=== PATIENT | male | born 1945 | race Caucasian/White ===

== ENCOUNTER → 2017-05-10 | Outpatient (CLI) | payer MEDICARE ==
[2017-05-10 11:04] LABS: ISTAT CREATININE 1.2 mg/dL (0.7-1.3)
[2017-05-10] MEDS: GADOBUTROL 10 MMOL/10 ML VIAL IV (11:04)
== END | disposition home or self-care (01) ==
LOC: KCIC MRI 09:45
DX: G35 Multiple sclerosis (principal)
CPT/HCPCS: 70553; 82565; A9585

== ENCOUNTER 2017-10-27 15:38 | Inpatient (IN) | payer MEDICARE ==
[~2017-10-27] VITALS: Ht 175.3 cm; Wt 113.0 kg
[~2017-10-27 15:38] MED LIST: BENA20TA4 PO; BIMA2.5D OP; BUPR300T4 PO; CITA40TA12 PO; FENO134C PO; FLUT9.9S NS; FURO20TA3 PO; GABA600T2 PO; HYDR-963 PO; INSU100C SQ; INSU100I13 SQ; LORA0.5T PO; MELA3TAB2 PO; METO-239 PO; NYST15PO9 TP; TAMS0.4C2 PO; UBID1CAP PO
[2017-10-27] MEDS ORDERED: IV NORMAL SALINE 1000ML BAG 1,000 ML IV ONE (16:00)
[2017-10-27 16:25] LABS: BASO # 0.1 x10^3/uL (0.0-0.2); BASO % 1 % (0-3); EOS % 0 % (0-3); HEMATOCRIT 39.4 % (39.0-53.0); LYMPH # 1.2 x10^3/uL (1.0-4.8); LYMPH % 5 % (24-48); MEAN CORPUSCULAR HEMOGLOBIN 30 pg (25-35); MEAN CORPUSCULAR HGB CONC 33 g/dL (31-37); MEAN CORPUSCULAR VOLUME 90 fL (79-100); MONO # 1.5 x10^3/uL (0.0-1.1); MONO % 6 % (0-9); NEUT # 19.9 x10^3uL (1.8-7.7); NEUT % 88 % (31-73); PLATELET COUNT 282 x10^3/uL (140-400); RED BLOOD COUNT 4.38 x10^6/uL (4.30-5.70); RED CELL DISTRIBUTION WIDTH 12.6 % (11.5-14.5); WHITE BLOOD COUNT 22.7 x10^3/uL (4.0-11.0)
--- NOTE | 2017-10-27 16:25 | EKG ---
[facility] [address] [place] [address] Test Date: 2017-10-27 Test Time: 15:45:38 Pat Name: HERMINIA LOWE Department: Room: Gender: Anodic Treater: : 1945 Requested By: LALITHA COLLIER Order Number: [id number] Reading MD: Steffen Vincent Measurements Intervals [place] Rate: 85 P: -90 [place]: 180 QRS: 21 QRSD: 94 T: 66 QT: 402 QTc: 484 Interpretive Statements SINUS RHYTHM LEFT ATRIAL ABNORMALITY PROLONGED QT ABNORMAL ECG RI6.01 No previous ECG available for comparison Electronically Signed On 11-01-2017 10:25:20 CDT by Steffen Vincent
[2017-10-27 16:31] LABS: PROTHROMBIN TIME PATIENT 17.2 SEC (11.7-14.0)
--- NOTE | 2017-10-27 16:33 | RAD ---
Portable chest, 10/27/2017: HISTORY: Altered mental status There has been a previous median sternotomy. The heart size and pulmonary vascularity are normal. Vague densities at the cardiophrenic angle levels bilaterally are probably predominantly due to epicardial fat pads. A component of atelectasis may be present. The upper lung adair are clear. No definite pleural fluid is seen. IMPRESSION: Probable mild bibasilar atelectasis. Follow-up PA and lateral chest radiographs may be useful for further evaluation, if clinically indicated. Electronically signed by: Diomedes Hsieh MD (10/27/2017 4:30 PM) [facility]
[2017-10-27 16:45] LABS: CALCIUM 8.4 mg/dL (8.5-10.1); CREATININE 5.1 mg/dL (0.7-1.3); GFR 11.2; POTASSIUM 4.8 mmol/L (3.5-5.1)
--- NOTE | 2017-10-27 16:49 | PHYS DOC ---
Past Medical History Past Medical History: A-Fib, CVA, Dementia, Depression, Diabetes-Type II, Heart Disease, Other Additional Past Medical Histor: MS Past Surgical History: Coronary Bypass Surgery, Other Additional Past Surgical Histo: G-TUBE Alcohol Use: None Drug Use: None Adult General Chief Complaint Chief Complaint: ALTERED MENTAL STATUS HPI HPI Patient is a 71 year old male with hx of Afib, diabetes type 2, depression, CVA with a right sided weakness, who presents from the sn[facility]. Patient is nonverbal, was brought to the ED to be evaluated for altered mental status change .Per report from the snf this is his baseline Review of Systems Review of Systems Constitutional: NIHARIKA Eyes: NIHARIKA HENT: NIHARIKA Respiratory: NIHARIKA Cardiovascular: NIHARIKA GI: NIHARIKA : NIHARIKA Musculoskeletal: NIHARIKA Integument:NIHARIKA Neurologic: altered mental status change. All other systems were reviewed and found to be within normal limits, except as documented in this note. Current Medications Current Medications Current Medications Medications (Trade) Dose Ordered Sig/Alissa Start Time Stop Time Status Last Admin Dose Admin Sodium Chloride 1,000 ml @ 1,000 mls/hr 1X ONCE 10/27/17 16:00 10/27/17 16:59 DC 10/27/17 17:19 1,000 MLS/HR Allergies Allergies Allergies Coded Allergies Type Severity Reaction Last Updated Verified Byjzbpl-Kbh-Ndm Reductase Inhibitor Allergy Intermediate 05/10/17 Yes amoxicillin Allergy Intermediate 05/10/17 Yes zolpidem Allergy Intermediate 05/10/17 Yes Physical Exam Physical Exam Constitutional: Well developed, well nourished, no acute distress, non-toxic appearance. [] HENT: Normocephalic, atraumatic, bilateral external ears normal, oropharynx moist, no oral exudates, nose normal. [] Eyes: PERRLA, EOMI, conjunctiva normal, no discharge. [] Neck: no tenderness, supple, no stridor. [] Cardiovascular:Heart rate regular rhythm, no murmur [] Lungs & Thorax: diminished breath sounds Abdomen: Bowel sounds normal, soft, no tenderness, no masses, no pulsatile masses. Feeding tube to the abdomen :fajardo in place Skin: Warm, dry, no erythema, no rash. [] Back: No tenderness, no CVA tenderness. [] Extremities: right sided paralysis Neurologic: Lethargic response to pain stimulus Psychologic: flat Current Patient Data Vital Signs Vital Signs Date Time Temp Pulse Resp B/P (MAP) Pulse Ox O2 Delivery O2 Flow Rate FiO2 10/27/17 18:03 84 14 92 10/27/17 16:05 98.6 136/58 (84) Room Air 98.6 Lab Values Laboratory Tests Test 10/27/17 16:00 10/27/17 16:34 White Blood Count 22.7 x10^3/uL (4.0-11.0) H Red Blood Count 4.38 x10^6/uL (4.30-5.70) Hemoglobin 13.0 g/dL (13.0-17.5) Hematocrit 39.4 % (39.0-53.0) Mean Corpuscular Volume 90 fL (79-100) Mean Corpuscular Hemoglobin 30 pg (25-35) Mean Corpuscular Hemoglobin Concent 33 g/dL (31-37) Red Cell Distribution Width 12.6 % (11.5-14.5) Platelet Count 282 x10^3/uL (140-400) Neutrophils (%) (Auto) 88 % (31-73) H Lymphocytes (%) (Auto) 5 % (24-48) L Monocytes (%) (Auto) 6 % (0-9) Eosinophils (%) (Auto) 0 % (0-3) Basophils (%) (Auto) 1 % (0-3) Neutrophils # (Auto) 19.9 x10^3uL (1.8-7.7) H Lymphocytes # (Auto) 1.2 x10^3/uL (1.0-4.8) Monocytes # (Auto) 1.5 x10^3/uL (0.0-1.1) H Eosinophils # (Auto) 0.0 x10^3/uL (0.0-0.7) Basophils # (Auto) 0.1 x10^3/uL (0.0-0.2) Segmented Neutrophils % 87 % (35-66) H Band Neutrophils % 1 % (0-9) Lymphocytes % 6 % (24-48) L Monocytes % 6 % (0-10) Platelet Estimate Adequate (ADEQUATE) Large Platelets Present Prothrombin Time 17.2 SEC (11.7-14.0) H Prothrombin Time INR 1.5 (0.8-1.1) H Sodium Level 136 mmol/L (136-145) Potassium Level 4.8 mmol/L (3.5-5.1) Chloride Level 97 mmol/L (98-107) L Carbon Dioxide Level 28 mmol/L (21-32) Anion Gap 11 (6-14) Blood Urea Nitrogen 117 mg/dL (8-26) H Creatinine 5.1 mg/dL (0.7-1.3) H Estimated GFR (Cockcroft-Gault) 11.2 BUN/Creatinine Ratio 23 (6-20) H Glucose Level 273 mg/dL (70-99) H Lactic Acid Level 2.9 mmol/L (0.4-2.0) H Calcium Level 8.4 mg/dL (8.5-10.1) L Magnesium Level 2.9 mg/dL (1.8-2.4) H Total Bilirubin 0.8 mg/dL (0.2-1.0) Aspartate Amino Transferase (AST) 160 U/L (15-37) H Alanine Aminotransferase (ALT) 81 U/L (16-63) H Alkaline Phosphatase 130 U/L (46-116) H Ammonia 18 mcmol/L (11-34) Troponin I Quantitative < 0.017 ng/mL (0.000-0.055) WF-Olh-K-Type Natriuretic Peptide 116 pg/mL (0-124) Total Protein 6.7 g/dL (6.4-8.2) Albumin 2.8 g/dL (3.4-5.0) L Albumin/Globulin Ratio 0.7 (1.0-1.7) L Lipase 543 U/L (73-393) H Thyroid Stimulating Hormone (TSH) 5.139 uIU/mL (0.358-3.74) H Urine Collection Type Unknown Urine Color Brown Urine Clarity Turbid Urine pH 5.0 Urine Specific [place] 1.020 Urine Protein 100 mg/dL (NEG-TRACE) Urine Glucose (UA) Negative mg/dL (NEG) Urine Ketones (Stick) Trace mg/dL (NEG) Urine Blood Large (NEG) Urine Nitrite Positive (NEG) Urine Bilirubin Large (NEG) Urine Urobilinogen Dipstick 1.0 mg/dL (0.2 mg/dL) Urine Leukocyte Esterase Large (NEG) Urine RBC >40 /HPF (0-2) Urine WBC >40 /HPF (0-4) Urine Bacteria Many /HPF (0-FEW) Urine Opiates Screen Neg (NEG) Urine Methadone Screen Neg (NEG) Urine Barbiturates Neg (NEG) Urine Phencyclidine Screen Neg (NEG) Urine Amphetamine/Methamphetamine Neg (NEG) Urine Benzodiazepines Screen Neg (NEG) Urine Cocaine Screen Neg (NEG) Urine Cannabinoids Screen Neg (NEG) Urine Ethyl Alcohol Neg (NEG) Laboratory Tests 10/27/17 16:00 Laboratory Tests 10/27/17 16:00 EKG EKG 15:[address] Vasquez sinus rhythm heart rate 85 no STEMI Radiology/Procedures Radiology/Procedures []PROCEDURE: PORTABLE CHEST 1V Portable chest, 10/27/2017: HISTORY: Altered mental status There has been a previous median sternotomy. The heart size and pulmonary vascularity are normal. Vague densities at the cardiophrenic angle levels bilaterally are probably predominantly due to epicardial fat pads. A component of atelectasis may be present. The upper lung adair are clear. No definite pleural fluid is seen. IMPRESSION: Probable mild bibasilar atelectasis. Follow-up PA and lateral chest radiographs may be useful for further evaluation, if clinically indicated. Electronically signed by: Diomedes Hsieh MD (10/27/2017 4:30 PM) [facility] DICTATED and SIGNED BY: DIOMEDES HSIEH MD DATE: 10/27/17 162 PROCEDURE: CT HEAD WO CONTRAST CT of the head without contrast, 10/27/2017: HISTORY: Altered mental status There are moderate patchy deep white matter lucencies bilaterally compatible with chronic ischemic change. These were also evident on the MR study from 05/10/2017. There is moderate cerebral atrophy. The ventricles are within normal limits in size. There is no shift of the midline structures. There are now serpiginous, gyriform appearing foci of slightly increased density in the right parietal lobe. The appearance suggests cortical hemorrhage and/or subarachnoid hemorrhage within sulci. There is no other evidence of extra-axial hemorrhage. IMPRESSION: Probable cortical and/or adjacent subarachnoid hemorrhage in the right parietal region. A traumatic etiology (contusion) is suspected. Hemorrhage related to a venous cortical infarct is less likely. MR scanning may be useful for further evaluation, if clinically indicated. Electronically signed by: Diomedes Hsieh MD (10/27/2017 4:44 PM) [facility] DICTATED and SIGNED BY: DIOMEDES HSIEH MD DATE: 10/27/17 3663 Course & Med Decision Making Course & Med Decision Making Pertinent Labs and Imaging studies reviewed. (See chart for details) This is a 71-year-old male patient presenting to the ED today to be evaluated for altered mental status change. Patient resides at the local snf has hx of CVA, with a right-sided paralysis. Patient is currently lethargic and responding to pain stimulus only. Per report from the snf this is his baseline CBC with a WBC of 22.7 and a left shift, lactic 2.9, CMP with creatinine of 5.1 BUN 117. Urine analysis is noted for UTI. CT of the head was noted for subarachnoid hemorrhage of the right parietal region. A traumatic etiology/ contusion is suspected. Patient himself is nonverbal. Family came to the ED and they state this patient was at [facility] 3 weeks ago for a stroke. They do not know which type of stroke. They do not know if patient had renal failure on not. Requested records from [facility]. Patient was started on Zosyn and vancomycin. We were very conservative on the IV fluids because of creatinine of 15.1, with possibility of this being chronic renal failure. We gave him 1 L of IV fluids. Spoke with Dr. Son will follow-up with patient. Spoke with Dr. Willard who will also follow-up with patient Routine consult placed for nephrology, infectious disease. Family was present prior to admission. Patient appeared more awake and made sounds in response to conversation with family. Renal Doppler ordered. Dragon Disclaimer Dragon Disclaimer This electronic medical record was generated, in whole or in part, using a voice recognition dictation system. Departure Departure Impression: Primary Impression: Altered mental status Additional Impressions: Sepsis Subarachnoid hemorrhage Acute on chronic renal failure Disposition: ADMITTED INPATIENT Condition: STABLE Referrals: CORY BIRD MD (PCP) Problem Qualifiers Primary Impression: Altered mental status Altered mental status type: unspecified Qualified Codes: R41.82 - Altered mental status, unspecified Additional Impressions: Sepsis Sepsis type: sepsis due to unspecified organism Qualified Codes: A41.9 - Sepsis, unspecified organism Acute on chronic renal failure Acute renal failure type: unspecified Chronic kidney disease stage: unspecified stage Qualified Codes: N17.9 - Acute kidney failure, unspecified; N18.9 - Chronic kidney disease, unspecified LALITHA COLLIER APRN Oct 27, 2017 16:49
[2017-10-27 16:53] LABS: % BANDS 1 % (0-9); % LYMPHS 6 % (24-48); % MONOS 6 % (0-10); % SEGS 87 % (35-66); PLT ESTIMATE ADEQUATE (ADEQUATE)
[2017-10-27 16:58] LABS: ALBUMIN 2.8 g/dL (3.4-5.0); ALBUMIN/GLOBULIN RATIO 0.7 (1.0-1.7); MAGNESIUM 2.9 mg/dL (1.8-2.4); TOTAL BILIRUBIN 0.8 mg/dL (0.2-1.0); TOTAL PROTEIN 6.7 g/dL (6.4-8.2)
[2017-10-27 17:11] LABS: BILIRUBIN,URINE LARGE (NEG); CLARITY,URINE TURBID; NITRITE,URINE POSITIVE (NEG); PROTEIN,URINE 100 mg/dL (NEG-TRACE)
[2017-10-27 17:22] LABS: COLOR,URINE BROWN
[2017-10-27 17:23] LABS: BACTERIA,URINE MANY /HPF (0-FEW); RBC,URINE >40 /HPF (0-2); WBC,URINE >40 /HPF (0-4)
[2017-10-27 17:30] LABS: BARBITURATES NEG (NEG); BENZODIAZEPINES NEG (NEG); CANNABINOIDS NEG (NEG); COCAINE NEG (NEG); METHADONE NEG (NEG); OPIATES NEG (NEG); PHENCYCLIDINE NEG (NEG)
[2017-10-27 17:38] LABS: AMPHETAMINE/METHAMPHETAMINE NEG (NEG)
[2017-10-27] MEDS ORDERED: ONDANSETRON PF 4 MG/2 ML VIAL. IV PRN (18:00)
[2017-10-27] MEDS ORDERED: VANCOMYCIN IV ONE (18:15)
[2017-10-27] MEDS ORDERED: NORMAL SALINE IV ONE (18:15)
[2017-10-27] MEDS ORDERED: PIPERACILLIN/TAZOBACTAM 2.25 GM in IV NORMAL SALINE 50ML 50 ML IV ONE (18:30)
[2017-10-27] MEDS ORDERED: VANCOMYCIN 2 GM in IV NORMAL SALINE 500ML BAG 500 ML IV ONE (19:00)
--- NOTE | 2017-10-27 19:08 | RAD ---
Renal ultrasound 10/27/2017 CLINICAL HISTORY: Renal failure. TECHNIQUE: A real-time ultrasound examination of both kidneys and the urinary bladder was performed. Multiple images were obtained. FINDINGS: The study is limited to some degree due to the patient's large body habitus. Both kidneys are within normal limits in size. The right kidney measures 10.9 cm in length. The left kidney measures 11.8 cm in length. lobulation of the left kidney is seen. There is no evidence of hydronephrosis. The urinary bladder is decompressed by a Weeks catheter. IMPRESSION: There is no sonographic evidence of hydronephrosis. Electronically signed by: Fabio Kidd MD (10/27/2017 7:04 PM) [facility]
--- NOTE | 2017-10-27 19:33 | PDOC1 ---
History and Physical Date of Admission Date of Admission DATE: 10/27/17 TIME: 19:33 Identification/Chief Complaint Chief Complaint PresentED TO ER from the alf. Patient is nonverbal, was brought to the ED to be evaluated for altered mental status change report from the alf this is his baseline, HOWEVER CT SHOWS SAH Past Medical History Past Medical History Past Medical History Past Medical History: A-Fib, CVA, Dementia, Depression, Diabetes-Type II, Heart Disease, Other Additional Past Medical Histor: MS Past Surgical History: Coronary Bypass Surgery, Other Additional Past Surgical Histo: G-TUBE Alcohol Use: None Drug Use: None FAMILY HX OBESITY Cardiovascular: HTN Musculoskeletal: Osteoarthritis Dermatology: No pertinent hx Family History Family History: Hypertension Family History: Parent Social History Smoke: No ALCOHOL: none Drugs: None Current Problem List Problem List Problems Medical Problems: (1) Acute on chronic renal failure Status: Acute (2) Altered mental status Status: Acute (3) Sepsis Status: Acute Current Medications Current Medications Current Medications Sodium Chloride 1,000 ml @ 1,000 mls/hr 1X ONCE IV Last administered on at 17:19; Start 10/27/17 at 16:00; Stop 10/27/17 at 16:59; Status DC Ondansetron HCl (Zofran) 4 mg PRN Q8HRS PRN IV NAUSEA/VOMITING; Start 10/27/17 at 18:00; Stop 10/28/17 at 17:59 Piperacillin Sod/ Tazobactam Sod 4.5 gm/Sodium Chloride 100 ml @ 200 mls/hr DAILY IV ; Start 10/28/17 at 09:00; Status UNV Vancomycin HCl (Vanco Per Pharmacy) 1 each PRN DAILY PRN MC SEE COMMENTS; Start 10/27/17 at 18:00; Status UNV Vancomycin HCl 2 gm/Sodium Chloride 500 ml @ 250 mls/hr 1X ONCE IV ; Start at 19:00; Stop 10/27/17 at 20:59 Vancomycin HCl 0.5 gm/Sodium Chloride 250 ml @ 166.667 mls/hr 1X ONCE IV ; Start 10/27/17 at 18:15; Stop 10/27/17 at 19:44; Status UNV Levofloxacin/ Dextrose 100 ml @ 100 mls/hr 1X ONCE IV ; Start 10/27/17 at 18: 30; Stop 10/27/17 at 19:29; Status DC Piperacillin Sod/ Tazobactam Sod 2.25 gm/Sodium Chloride 50 ml @ 100 mls/hr 1X ONCE IV Last administered on 10/27/17at 19:00; Start 10/27/17 at 18:30; Stop 10/27/17 at 18:59; Status DC Piperacillin Sod/ Tazobactam Sod 2.25 gm/Sodium Chloride 50 ml @ 100 mls/hr Q6HRS IV ; Start 10/28/17 at 00:00 Active Scripts Active Reported Tamsulosin Hcl 0.4 Mg Cap.er.24h 0.4 Mg PO DAILY Nystatin 15 Gm Powder 15 Gm TP [place]unning 10-325 Tablet (Acetaminophen/Hydrocodone Bitart) 1 Each Tablet Unknown Dose PO PRN Q6HRS PRN Metoprolol Succinate ( Xl ) (Metoprolol Succinate) 25 Mg Tab.er.24h 25 Mg PO DAILY Melatonin 3 Mg Tablet 3 Mg PO Lumigan (Bimatoprost) 2.5 Ml Drops 2.5 Ml OP Lorazepam 0.5 Mg Tablet 0.5 Mg PO TID Lantus Solostar (Insulin Glargine,Hum.rec.anlog) 100 Unit/1 Ml Insuln.pen 1 Unit SQ Humalog (Insulin Lispro) 100 Unit/1 Ml Cartridge 100 Unit SQ Gabapentin 600 Mg Tablet Unknown Dose PO TID Furosemide 20 Mg Tablet 20 Mg PO DAILY Flonase Allergy Relief (Fluticasone Propionate) 9.9 Ml [place].susp Unknown Dose NS DAILY Fenofibrate (Fenofibrate,Micronized) 134 Mg Capsule 134 Mg PO DAILY Wyb65-Tfn E 200 mg-20 Unit Sfg (Ubidecarenone/Vitamin E Mixed) 1 Each Capsule Unknown Dose PO Celexa (Citalopram Hydrobromide) 40 Mg Tablet 40 Mg PO DAILY Bupropion Xl (Bupropion Hcl) 300 Mg Tab.er.24h 300 Mg PO Benazepril Hcl 20 Mg Tablet 20 Mg PO DAILY Allergies Allergies: Coded Allergies: Duvtrbt-Zls-Nev Reductase Inhibitor (Verified Allergy, Intermediate, ) amoxicillin (Verified Allergy, Intermediate, 05/10/17) zolpidem (Verified Allergy, Intermediate, 05/10/17) Physical Exam General: mild distress, Other (OBTUNDED) HEENT: PERRLA, EOMI Lungs: Clear to auscultation, Normal air movement Heart: RRR Breasts: Not examined Abdomen: Normal bowel sounds, Soft Rectal Exam: not examined Extremities: No clubbing, No cyanosis Skin: No breakdown Vitals Vitals Vital Signs Date Time Temp Pulse Resp B/P (MAP) Pulse Ox O2 Delivery O2 Flow Rate FiO2 10/27/17 19:01 82 20 93 10/27/17 16:05 98.6 136/58 (84) Room Air 98.6 Labs Labs Laboratory Tests Test 10/27/17 16:00 10/27/17 16:34 White Blood Count 22.7 x10^3/uL (4.0-11.0) Red Blood Count 4.38 x10^6/uL (4.30-5.70) Hemoglobin 13.0 g/dL (13.0-17.5) Hematocrit 39.4 % (39.0-53.0) Mean Corpuscular Volume 90 fL (79-100) Mean Corpuscular Hemoglobin 30 pg (25-35) Mean Corpuscular Hemoglobin Concent 33 g/dL (31-37) Red Cell Distribution Width 12.6 % (11.5-14.5) Platelet Count 282 x10^3/uL (140-400) Neutrophils (%) (Auto) 88 % (31-73) Lymphocytes (%) (Auto) 5 % (24-48) Monocytes (%) (Auto) 6 % (0-9) Eosinophils (%) (Auto) 0 % (0-3) Basophils (%) (Auto) 1 % (0-3) Neutrophils # (Auto) 19.9 x10^3uL (1.8-7.7) Lymphocytes # (Auto) 1.2 x10^3/uL (1.0-4.8) Monocytes # (Auto) 1.5 x10^3/uL (0.0-1.1) Eosinophils # (Auto) 0.0 x10^3/uL (0.0-0.7) Basophils # (Auto) 0.1 x10^3/uL (0.0-0.2) Segmented Neutrophils % 87 % (35-66) Band Neutrophils % 1 % (0-9) Lymphocytes % 6 % (24-48) Monocytes % 6 % (0-10) Platelet Estimate Adequate (ADEQUATE) Large Platelets Present Prothrombin Time 17.2 SEC (11.7-14.0) Prothromb Time International Ratio 1.5 (0.8-1.1) Sodium Level 136 mmol/L (136-145) Potassium Level 4.8 mmol/L (3.5-5.1) Chloride Level 97 mmol/L (98-107) Carbon Dioxide Level 28 mmol/L (21-32) Anion Gap 11 (6-14) Blood Urea Nitrogen 117 mg/dL (8-26) Creatinine 5.1 mg/dL (0.7-1.3) Estimated GFR (Cockcroft-Gault) 11.2 BUN/Creatinine Ratio 23 (6-20) Glucose Level 273 mg/dL (70-99) Lactic Acid Level 2.9 mmol/L (0.4-2.0) Calcium Level 8.4 mg/dL (8.5-10.1) Magnesium Level 2.9 mg/dL (1.8-2.4) Total Bilirubin 0.8 mg/dL (0.2-1.0) Aspartate Amino Transf (AST/SGOT) 160 U/L (15-37) Alanine Aminotransferase (ALT/SGPT) 81 U/L (16-63) Alkaline Phosphatase 130 U/L (46-116) Ammonia 18 mcmol/L (11-34) Troponin I Quantitative < 0.017 ng/mL (0.000-0.055) FJ-Cbs-J-Type Natriuretic Peptide 116 pg/mL (0-124) Total Protein 6.7 g/dL (6.4-8.2) Albumin 2.8 g/dL (3.4-5.0) Albumin/Globulin Ratio 0.7 (1.0-1.7) Lipase 543 U/L (73-393) Thyroid Stimulating Hormone (TSH) 5.139 uIU/mL (0.358-3.74) Urine Collection Type Unknown Urine Color Brown Urine Clarity Turbid Urine pH 5.0 Urine Specific [place] 1.020 Urine Protein 100 mg/dL (NEG-TRACE) Urine Glucose (UA) Negative mg/dL (NEG) Urine Ketones (Stick) Trace mg/dL (NEG) Urine Blood Large (NEG) Urine Nitrite Positive (NEG) Urine Bilirubin Large (NEG) Urine Urobilinogen Dipstick 1.0 mg/dL (0.2 mg/dL) Urine Leukocyte Esterase Large (NEG) Urine RBC >40 /HPF (0-2) Urine WBC >40 /HPF (0-4) Urine Bacteria Many /HPF (0-FEW) Urine Opiates Screen Neg (NEG) Urine Methadone Screen Neg (NEG) Urine Barbiturates Neg (NEG) Urine Phencyclidine Screen Neg (NEG) Urine Amphetamine/Methamphetamine Neg (NEG) Urine Benzodiazepines Screen Neg (NEG) Urine Cocaine Screen Neg (NEG) Urine Cannabinoids Screen Neg (NEG) Urine Ethyl Alcohol Neg (NEG) Laboratory Tests Test 10/27/17 16:00 10/27/17 16:34 White Blood Count 22.7 x10^3/uL (4.0-11.0) Red Blood Count 4.38 x10^6/uL (4.30-5.70) Hemoglobin 13.0 g/dL (13.0-17.5) Hematocrit 39.4 % (39.0-53.0) Mean Corpuscular Volume 90 fL (79-100) Mean Corpuscular Hemoglobin 30 pg (25-35) Mean Corpuscular Hemoglobin Concent 33 g/dL (31-37) Red Cell Distribution Width 12.6 % (11.5-14.5) Platelet Count 282 x10^3/uL (140-400) Neutrophils (%) (Auto) 88 % (31-73) Lymphocytes (%) (Auto) 5 % (24-48) Monocytes (%) (Auto) 6 % (0-9) Eosinophils (%) (Auto) 0 % (0-3) Basophils (%) (Auto) 1 % (0-3) Neutrophils # (Auto) 19.9 x10^3uL (1.8-7.7) Lymphocytes # (Auto) 1.2 x10^3/uL (1.0-4.8) Monocytes # (Auto) 1.5 x10^3/uL (0.0-1.1) Eosinophils # (Auto) 0.0 x10^3/uL (0.0-0.7) Basophils # (Auto) 0.1 x10^3/uL (0.0-0.2) Segmented Neutrophils % 87 % (35-66) Band Neutrophils % 1 % (0-9) Lymphocytes % 6 % (24-48) Monocytes % 6 % (0-10) Platelet Estimate Adequate (ADEQUATE) Large Platelets Present Prothrombin Time 17.2 SEC (11.7-14.0) Prothromb Time International Ratio 1.5 (0.8-1.1) Sodium Level 136 mmol/L (136-145) Potassium Level 4.8 mmol/L (3.5-5.1) Chloride Level 97 mmol/L (98-107) Carbon Dioxide Level 28 mmol/L (21-32) Anion Gap 11 (6-14) Blood Urea Nitrogen 117 mg/dL (8-26) Creatinine 5.1 mg/dL (0.7-1.3) Estimated GFR (Cockcroft-Gault) 11.2 BUN/Creatinine Ratio 23 (6-20) Glucose Level 273 mg/dL (70-99) Lactic Acid Level 2.9 mmol/L (0.4-2.0) Calcium Level 8.4 mg/dL (8.5-10.1) Magnesium Level 2.9 mg/dL (1.8-2.4) Total Bilirubin 0.8 mg/dL (0.2-1.0) Aspartate Amino Transf (AST/SGOT) 160 U/L (15-37) Alanine Aminotransferase (ALT/SGPT) 81 U/L (16-63) Alkaline Phosphatase 130 U/L (46-116) Ammonia 18 mcmol/L (11-34) Troponin I Quantitative < 0.017 ng/mL (0.000-0.055) GH-Qqb-Z-Type Natriuretic Peptide 116 pg/mL (0-124) Total Protein 6.7 g/dL (6.4-8.2) Albumin 2.8 g/dL (3.4-5.0) Albumin/Globulin Ratio 0.7 (1.0-1.7) Lipase 543 U/L (73-393) Thyroid Stimulating Hormone (TSH) 5.139 uIU/mL (0.358-3.74) Urine Collection Type Unknown Urine Color Brown Urine Clarity Turbid Urine pH 5.0 Urine Specific [place] 1.020 Urine Protein 100 mg/dL (NEG-TRACE) Urine Glucose (UA) Negative mg/dL (NEG) Urine Ketones (Stick) Trace mg/dL (NEG) Urine Blood Large (NEG) Urine Nitrite Positive (NEG) Urine Bilirubin Large (NEG) Urine Urobilinogen Dipstick 1.0 mg/dL (0.2 mg/dL) Urine Leukocyte Esterase Large (NEG) Urine RBC >40 /HPF (0-2) Urine WBC >40 /HPF (0-4) Urine Bacteria Many /HPF (0-FEW) Urine Opiates Screen Neg (NEG) Urine Methadone Screen Neg (NEG) Urine Barbiturates Neg (NEG) Urine Phencyclidine Screen Neg (NEG) Urine Amphetamine/Methamphetamine Neg (NEG) Urine Benzodiazepines Screen Neg (NEG) Urine Cocaine Screen Neg (NEG) Urine Cannabinoids Screen Neg (NEG) Urine Ethyl Alcohol Neg (NEG) Images Images REASON: AMS PROCEDURE: CT HEAD WO CONTRAST CT of the head without contrast, 10/27/2017: HISTORY: Altered mental status There are moderate patchy deep white matter lucencies bilaterally compatible with chronic ischemic change. These were also evident on the MR study from 05/10/2017. There is moderate cerebral atrophy. The ventricles are within normal limits in size. There is no shift of the midline structures. There are now serpiginous, gyriform appearing foci of slightly increased density in the right parietal lobe. The appearance suggests cortical hemorrhage and/or subarachnoid hemorrhage within sulci. There is no other evidence of extra-axial hemorrhage. IMPRESSION: Probable cortical and/or adjacent subarachnoid hemorrhage in the right parietal region. A traumatic etiology (contusion) is suspected. Hemorrhage related to a venous cortical infarct is less likely. MR scanning may be useful for further evaluation, if clinically indicated. Electronically signed by: Diomedes Hsieh MD (10/27/2017 4:44 PM) [facility] VTE Prophylaxis Ordered VTE Prophylaxis Devices: Yes VTE Pharmacological Prophylaxi: Contraindicated Assessment/Plan Assessment/Plan impression 1. by CT HEAD cortical and/or adjacent subarachnoid hemorrhage in the right parietal region. A traumatic etiology (contusion) is suspected. Hemorrhage related to a venous cortical infarct is less likely. 2, UTI 3. SEPSIS 4. RENAL FAILURE, Acute, according to family no hx CKD when at [facility] Recently 5. morbid obesity 6. possible closed head injury, unwitnessed 7. leukocytosis plan icu bed neurosurgery consult neurology consult ID CONSULT Nephrology consult iv fluid support npo 50 min cc time CHENCHO MARQUEZ MD Oct 27, 2017 19:33
[2017-10-27 20:05] VITALS: BP 114/58
[2017-10-27] MEDS: VANCOMYCIN PER PHARMACY MC PRN (20:10)
[2017-10-27 20:15] VITALS: BP 117/54
[2017-10-27 20:30] VITALS: BP 113/50
[2017-10-27] MEDS: ENALAPRILAT 1.25 MG/ML VIAL. IVP SCH ×2 (20:30→23:51)
[2017-10-27 21:00] VITALS: BP 112/52
[2017-10-27 22:00] VITALS: BP 114/55
[2017-10-27] MEDS: IV NORMAL SALINE 1000ML BAG 1,000 ML IV SCH (22:08)
[2017-10-27 23:00] VITALS: BP 114/55
[2017-10-27 23:21] LABS: FREE T4 1.2 ng/dL (0.76-1.46)
[2017-10-28] VITALS (24 sets, daily range): BP systolic 80–156; BP diastolic 10–80
[2017-10-28] MEDS: PIPERACILLIN/TAZOBACTAM 2.25 GM in IV NORMAL SALINE 50ML 50 ML IV SCH ×4 (00:13→17:30)
[2017-10-28] MEDS ORDERED: fentaNYL PF VIAL 100 MCG/2 ML VIAL IV ONE (00:45)
[2017-10-28 05:31] LABS: BASO % 0 % (0-3); EOS % 0 % (0-3); HEMATOCRIT 34.1 % (39.0-53.0); HEMOGLOBIN 11.5 g/dL (13.0-17.5); LYMPH # 1.2 x10^3/uL (1.0-4.8); LYMPH % 7 % (24-48); MEAN CORPUSCULAR HEMOGLOBIN 30 pg (25-35); MEAN CORPUSCULAR HGB CONC 34 g/dL (31-37); MEAN CORPUSCULAR VOLUME 90 fL (79-100); MONO # 1.5 x10^3/uL (0.0-1.1); MONO % 8 % (0-9); NEUT # 15.4 x10^3uL (1.8-7.7); NEUT % 84 % (31-73); PLATELET COUNT 209 x10^3/uL (140-400); RED BLOOD COUNT 3.79 x10^6/uL (4.30-5.70); RED CELL DISTRIBUTION WIDTH 12.5 % (11.5-14.5); WHITE BLOOD COUNT 18.3 x10^3/uL (4.0-11.0)
[2017-10-28] MEDS: ENALAPRILAT 1.25 MG/ML VIAL. IVP SCH (05:34)
[2017-10-28 05:56] LABS: ALBUMIN 2.4 g/dL (3.4-5.0); ALBUMIN/GLOBULIN RATIO 0.7 (1.0-1.7); CALCIUM 8.4 mg/dL (8.5-10.1); CREATININE 3.9 mg/dL (0.7-1.3); GFR 15.3; POTASSIUM 4.1 mmol/L (3.5-5.1)
[2017-10-28 06:02] LABS: CHOLESTEROL/HDL RATIO 2.4
[2017-10-28] MEDS ORDERED: PIPERACILLIN/TAZOBACTAM 4.5 GM in IV NORMAL SALINE 100ML 100 ML IV SCH (09:00)
--- NOTE | 2017-10-28 09:16 | PDOC ---
Provider Note Provider Note Pt seen ID consult [id number] ADRIANO VILLASENOR MD Oct 28, 2017 09:16
[2017-10-28] MEDS ORDERED: LABETALOL 20 MG/4 ML DISP.SYRIN. IVP PRN (09:30)
[2017-10-28] MEDS ORDERED: ONDANSETRON PF 4 MG/2 ML VIAL. IV PRN (09:30)
[2017-10-28] MEDS ORDERED: traMADol 50 MG TABLET PO PRN (09:30)
[2017-10-28] MEDS ORDERED: ACETAMINOPHEN 325 MG TABLET. PO PRN (09:30)
[2017-10-28] MEDS ORDERED: DEXTROSE 50% 25 GM / 50ML DISP.SYRIN. IV PRN (09:30)
[2017-10-28] MEDS ORDERED: ENALAPRILAT 1.25 MG/ML VIAL. IVP PRN (09:30)
[2017-10-28] MEDS ORDERED: DOCUSATE SODIUM 100 MG CAPSULE. PO PRN (09:30)
--- NOTE | 2017-10-28 10:40 | CONS ---
DATE OF CONSULTATION: 10/28/2017 REFERRING PHYSICIAN: Nato Alford M.D. REASON FOR CONSULTATION: UTI. HISTORY OF PRESENT ILLNESS: A 71-year-old male who was brought to the ER at [facility] after he was found to have altered mental status. The patient is unable to give history and history obtained from medical records and staff. CT of the head showed a subarachnoid hemorrhage. He was found to have RAFITA. Baseline renal function is not available, but BUN was elevated at 117 and creatinine was greater than 5. The patient was admitted to ICU. He was found to have pyuria with working diagnosis of UTI and was started on Zosyn and got a dose of IV vancomycin and Levaquin in ER. Today, the patient does not answer most of the questions, is moaning from pain especially over the right side and it appears that there was a history of fall prior to admission to [facility]. We do not have the details on the same. PAST MEDICAL HISTORY: AFib, CVA, dementia, depression, diabetes type 2, heart disease, MS, coronary artery bypass surgery, G-tube and chronic indwelling Weeks changed in ER. Allergies to statins, amoxicillin, though the patient tolerated Zosyn on 10/27/2017 and zolpidem. FAMILY HISTORY: As per HPI. SOCIAL HISTORY: No smoking, ETOH or illicit drug use. residential transfer. CURRENT MEDICATION: Zosyn. The patient got a dose of vancomycin and Levaquin. ALLERGIES: STATINS, AMOXICILLIN and ZOLPIDEM, though the patient is tolerating Zosyn well. PHYSICAL EXAMINATION: VITAL SIGNS: Temperature 98.6, T-max 99.9, pulse 87, respiratory rate 18, blood pressure 92/52 and oxygen saturation 97% on 2 liters. GENERAL: The patient is confused, answers few questions, able to tell his name and states that he is in pain with movement of right side of the body. HEENT: Anicteric. Normocephalic and atraumatic. No oral lesions. No thrush. Oral mucosa moist. LUNGS: Clear bilaterally. HEART: S1 and S2. ABDOMEN: Soft, nontender and nondistended. G-tube in place, appears okay. GENITOURINARY: Chronic indwelling Weeks in place, changed 10/27/2017 in ER. EXTREMITIES: No edema and no cyanosis. A few scattered dry skin lesions present. CENTRAL NERVOUS SYSTEM: Left-sided weakness. DERMATOLOGICAL: No generalized rash. MUSCULOSKELETAL: Not able to assess fully. The patient winces in pain with movement of right lower extremity. LABORATORY DATA: WBC 22.7 and today 18.3, hemoglobin 11.5 and was 13.0, platelets 209 and neutrophil 84%. Sodium 137, potassium 4.1, chloride 99, bicarbonate 27, BUN 119 and creatinine 3.9. BUN is down from 150 to 119 and creatinine is down from 5.1 to 3.9. Lactate at 2.9 and repeat lactate is 1.5. Calcium 8.4, total bilirubin 1.0, AST 195 and ALT 83. Pro-BNP 116. Troponin less than 0.1017. Lipase 543. UDS negative. UA shows large leukocyte esterase, wbc's greater than 40, positive nitrite and large blood. IMAGING DATA: Head CT shows probable cortical and adjacent subarachnoid hemorrhage in the right parietal area or traumatic etiology suspected hemorrhage related to venous cortical infarct is less likely. MR scanning may be useful. Chest x-ray shows probable mild bibasilar atelectasis. Ultrasound of the kidney shows no sonographic evidence of hydronephrosis. IMPRESSION: 1. Altered mental status. CT with SAH 2. Pyuria with leukocytosis. ON zosyn, dosed with IV vancomycin and Levaquin x 1 in ED. 3. Lactic acidosis with working diagnosis of urinary tract infection. 4. Acute kidney injury with ultrasound showing no hydronephrosis. 5. Diabetes mellitus. 6. High lipase. 7. Increased liver function tests. 8. History of questionable fall. 9. H/O CVA, Subarachnoid hemorrhage on CT head. 10. History of atrial fibrillation. 11. Diabetes mellitus 2. 12. Depression. 13. History of allergies to amoxicillin and the patient is tolerating Zosyn well until now. RECOMMENDATIONS: 1. Continue empiric Zosyn. 2. Discontinue vancomycin due to rafita. 3. Follow up blood culture and urine culture results. 4. Follow up labs in a.m. 5 Awaiting x-ray of the right hip per primary team. 6. Continue supportive care. Thank you, Dr. Alford for consulting Infectious Disease to participate in this patient's care. If you have any questions, do not hesitate to contact me. ADRIANO VILLASENOR MD DR: RICK/isaura JOB#: [id number] / [id number] DINORA
[2017-10-28] MEDS ORDERED: CRESTOR5 MG PO (10:52)
[2017-10-28] MEDS ORDERED: ONDA4TAB10 PO (10:52)
[2017-10-28] MEDS ORDERED: DONE10TA61 PO (10:52)
[2017-10-28] MEDS ORDERED: CYAN100072 PO (10:52)
[2017-10-28] MEDS ORDERED: BENA40TA3 PO (10:52)
[2017-10-28] MEDS ORDERED: INSU100C SQ (10:52)
[2017-10-28] MEDS ORDERED: AMIO200T4 PO (10:52)
[2017-10-28] MEDS ORDERED: APIX5TAB PO (10:52)
[2017-10-28] MEDS ORDERED: ACET325T9 PO (10:52)
[2017-10-28] MEDS ORDERED: CITA40TA12 PO (10:52)
[2017-10-28] MEDS ORDERED: CETI10TA16 PO (10:52)
[2017-10-28] MEDS ORDERED: INSU100I13 SQ ×2 (10:52)
[2017-10-28] MEDS ORDERED: MELA3TAB2 PO (10:52)
[2017-10-28] MEDS ORDERED: FURO80TA3 PO (10:52)
[2017-10-28] MEDS ORDERED: CHOL100013 PO (10:52)
[2017-10-28] MEDS ORDERED: GABA600T2 PO (10:52)
[2017-10-28] MEDS ORDERED: METO50TA29 PO (10:52)
[2017-10-28] MEDS ORDERED: MEMA10TA PO (10:52)
[2017-10-28] MEDS ORDERED: CLON0.1T PO (10:52)
[2017-10-28] MEDS ORDERED: POTA20TA82 PO (10:52)
[2017-10-28] MEDS ORDERED: ASPI-630 PO (10:52)
[2017-10-28] MEDS: IV NORMAL SALINE 1000ML BAG 1,000 ML IV SCH ×2 (11:23→22:40)
[2017-10-28] MEDS: VANCOMYCIN PER PHARMACY MC PRN ×2 (13:09→13:25)
--- NOTE | 2017-10-28 13:11 | PDOC ---
PROGRESS NOTES Chief Complaint Chief Complaint AMS, rt mild subrachnoid hemorrhage recent stroke with PEG, left side paralysis UTI, sepsi RAFITA, vasomotor morbid obesity PAFIB on eliquis possible closed head injury, unwitnessed leukocytosis dm2 from rehab dysphagia with PEG aphagia with stroke plan: fu with renal, neuro, neurosx , id cont PEG feeding MRI pending cont some home meds, hold asa, eliquis change lantus to 20u qhs, ssi for now on zosyn, vanco as per ID, fu bcx, ucx PTOT Renal US neg labs daily IVF ok transfer out of ICU History of Present Illness History of Present Illness ROS: no fever, chills, sob or chest pain pt is very drowsy, not answer any questions or follow comands appeared tender when palpate his abd and lift up his rt legs left side paralized ,has PEG as per nurse, pt can talk a little bit in rehab Vitals Vitals Vital Signs Date Time Temp Pulse Resp B/P (MAP) Pulse Ox O2 Delivery O2 Flow Rate FiO2 10/28/17 08:00 Nasal Cannula 2.0 10/28/17 06:04 87 18 92/52 (65) 97 10/28/17 04:00 98.6 98.6 Physical Exam Physical Exam pt is very drowsy, not answer any questions or follow comands appeared tender when palpate his abd and lift up his rt legs left side paralized ,has PEG General: mild distress, Other (OBTUNDED) Heart: Regular rate, Normal S1, Normal S2 Lungs: Clear Abdomen: Normal bowel sounds, Soft, Other (tender diffusely) Extremities: No clubbing, No cyanosis Skin: No breakdown Labs LABS Laboratory Tests Test 10/27/17 16:00 10/27/17 16:34 10/27/17 21:40 10/28/17 04:15 White Blood Count 22.7 x10^3/uL (4.0-11.0) 18.3 x10^3/uL (4.0-11.0) Red Blood Count 4.38 x10^6/uL (4.30-5.70) 3.79 x10^6/uL (4.30-5.70) Hemoglobin 13.0 g/dL (13.0-17.5) 11.5 g/dL (13.0-17.5) Hematocrit 39.4 % (39.0-53.0) 34.1 % (39.0-53.0) Mean Corpuscular Volume 90 fL (79-100) 90 fL (79-100) Mean Corpuscular Hemoglobin 30 pg (25-35) 30 pg (25-35) Mean Corpuscular Hemoglobin Concent 33 g/dL (31-37) 34 g/dL (31-37) Red Cell Distribution Width 12.6 % (11.5-14.5) 12.5 % (11.5-14.5) Platelet Count 282 x10^3/uL (140-400) 209 x10^3/uL (140-400) Neutrophils (%) (Auto) 88 % (31-73) 84 % (31-73) Lymphocytes (%) (Auto) 5 % (24-48) 7 % (24-48) Monocytes (%) (Auto) 6 % (0-9) 8 % (0-9) Eosinophils (%) (Auto) 0 % (0-3) 0 % (0-3) Basophils (%) (Auto) 1 % (0-3) 0 % (0-3) Neutrophils # (Auto) 19.9 x10^3uL (1.8-7.7) 15.4 x10^3uL (1.8-7.7) Lymphocytes # (Auto) 1.2 x10^3/uL (1.0-4.8) 1.2 x10^3/uL (1.0-4.8) Monocytes # (Auto) 1.5 x10^3/uL (0.0-1.1) 1.5 x10^3/uL (0.0-1.1) Eosinophils # (Auto) 0.0 x10^3/uL (0.0-0.7) 0.0 x10^3/uL (0.0-0.7) Basophils # (Auto) 0.1 x10^3/uL (0.0-0.2) 0.0 x10^3/uL (0.0-0.2) Segmented Neutrophils % 87 % (35-66) Band Neutrophils % 1 % (0-9) Lymphocytes % 6 % (24-48) Monocytes % 6 % (0-10) Platelet Estimate Adequate (ADEQUATE) Large Platelets Present Prothrombin Time 17.2 SEC (11.7-14.0) Prothromb Time International Ratio 1.5 (0.8-1.1) Sodium Level 136 mmol/L (136-145) 137 mmol/L (136-145) Potassium Level 4.8 mmol/L (3.5-5.1) 4.1 mmol/L (3.5-5.1) Chloride Level 97 mmol/L (98-107) 99 mmol/L (98-107) Carbon Dioxide Level 28 mmol/L (21-32) 27 mmol/L (21-32) Anion Gap 11 (6-14) 11 (6-14) Blood Urea Nitrogen 117 mg/dL (8-26) 119 mg/dL (8-26) Creatinine 5.1 mg/dL (0.7-1.3) 3.9 mg/dL (0.7-1.3) Estimated GFR (Cockcroft-Gault) 11.2 15.3 BUN/Creatinine Ratio 23 (6-20) 31 (6-20) Glucose Level 273 mg/dL (70-99) 233 mg/dL (70-99) Lactic Acid Level 2.9 mmol/L (0.4-2.0) 1.5 mmol/L (0.4-2.0) Calcium Level 8.4 mg/dL (8.5-10.1) 8.4 mg/dL (8.5-10.1) Magnesium Level 2.9 mg/dL (1.8-2.4) Total Bilirubin 0.8 mg/dL (0.2-1.0) 1.0 mg/dL (0.2-1.0) Aspartate Amino Transf (AST/SGOT) 160 U/L (15-37) 195 U/L (15-37) Alanine Aminotransferase (ALT/SGPT) 81 U/L (16-63) 83 U/L (16-63) Alkaline Phosphatase 130 U/L (46-116) 92 U/L (46-116) Ammonia 18 mcmol/L (11-34) Troponin I Quantitative < 0.017 ng/mL (0.000-0.055) SE-Ohb-Q-Type Natriuretic Peptide 116 pg/mL (0-124) Total Protein 6.7 g/dL (6.4-8.2) 6.0 g/dL (6.4-8.2) Albumin 2.8 g/dL (3.4-5.0) 2.4 g/dL (3.4-5.0) Albumin/Globulin Ratio 0.7 (1.0-1.7) 0.7 (1.0-1.7) Lipase 543 U/L (73-393) Thyroid Stimulating Hormone (TSH) 5.139 uIU/mL (0.358-3.74) Free Thyroxine 1.20 ng/dL (0.76-1.46) Free Triiodothyronine (T3) pg/mL 1.10 pg/mL (2.18-3.98) Urine Collection Type Unknown Urine Color Brown Urine Clarity Turbid Urine pH 5.0 Urine Specific [place] 1.020 Urine Protein 100 mg/dL (NEG-TRACE) Urine Glucose (UA) Negative mg/dL (NEG) Urine Ketones (Stick) Trace mg/dL (NEG) Urine Blood Large (NEG) Urine Nitrite Positive (NEG) Urine Bilirubin Large (NEG) Urine Urobilinogen Dipstick 1.0 mg/dL (0.2 mg/dL) Urine Leukocyte Esterase Large (NEG) Urine RBC >40 /HPF (0-2) Urine WBC >40 /HPF (0-4) Urine Bacteria Many /HPF (0-FEW) Urine Opiates Screen Neg (NEG) Urine Methadone Screen Neg (NEG) Urine Barbiturates Neg (NEG) Urine Phencyclidine Screen Neg (NEG) Urine Amphetamine/Methamphetamine Neg (NEG) Urine Benzodiazepines Screen Neg (NEG) Urine Cocaine Screen Neg (NEG) Urine Cannabinoids Screen Neg (NEG) Urine Ethyl Alcohol Neg (NEG) Triglycerides Level 97 mg/dL (0-150) Cholesterol Level 90 mg/dL (0-200) LDL Cholesterol, Calculated 34 mg/dL (0-100) VLDL Cholesterol, Calculated 19 mg/dL (0-40) Non-HDL Cholesterol Calculated 53 mg/dL (0-129) HDL Cholesterol 37 mg/dL (40-60) Cholesterol/HDL Ratio 2.4 Assessment and Plan Assessmemt and Plan Problems Medical Problems: (1) Acute on chronic renal failure Status: Acute (2) Altered mental status Status: Acute (3) Sepsis Status: Acute Comment Review of Relevant I have reviewed the following items turner (where applicable) has been applied. Labs Laboratory Tests Test 10/27/17 16:00 10/27/17 16:34 10/27/17 21:40 10/28/17 04:15 White Blood Count 22.7 x10^3/uL (4.0-11.0) 18.3 x10^3/uL (4.0-11.0) Red Blood Count 4.38 x10^6/uL (4.30-5.70) 3.79 x10^6/uL (4.30-5.70) Hemoglobin 13.0 g/dL (13.0-17.5) 11.5 g/dL (13.0-17.5) Hematocrit 39.4 % (39.0-53.0) 34.1 % (39.0-53.0) Mean Corpuscular Volume 90 fL (79-100) 90 fL (79-100) Mean Corpuscular Hemoglobin 30 pg (25-35) 30 pg (25-35) Mean Corpuscular Hemoglobin Concent 33 g/dL (31-37) 34 g/dL (31-37) Red Cell Distribution Width 12.6 % (11.5-14.5) 12.5 % (11.5-14.5) Platelet Count 282 x10^3/uL (140-400) 209 x10^3/uL (140-400) Neutrophils (%) (Auto) 88 % (31-73) 84 % (31-73) Lymphocytes (%) (Auto) 5 % (24-48) 7 % (24-48) Monocytes (%) (Auto) 6 % (0-9) 8 % (0-9) Eosinophils (%) (Auto) 0 % (0-3) 0 % (0-3) Basophils (%) (Auto) 1 % (0-3) 0 % (0-3) Neutrophils # (Auto) 19.9 x10^3uL (1.8-7.7) 15.4 x10^3uL (1.8-7.7) Lymphocytes # (Auto) 1.2 x10^3/uL (1.0-4.8) 1.2 x10^3/uL (1.0-4.8) Monocytes # (Auto) 1.5 x10^3/uL (0.0-1.1) 1.5 x10^3/uL (0.0-1.1) Eosinophils # (Auto) 0.0 x10^3/uL (0.0-0.7) 0.0 x10^3/uL (0.0-0.7) Basophils # (Auto) 0.1 x10^3/uL (0.0-0.2) 0.0 x10^3/uL (0.0-0.2) Segmented Neutrophils % 87 % (35-66) Band Neutrophils % 1 % (0-9) Lymphocytes % 6 % (24-48) Monocytes % 6 % (0-10) Platelet Estimate Adequate (ADEQUATE) Large Platelets Present Prothrombin Time 17.2 SEC (11.7-14.0) Prothromb Time International Ratio 1.5 (0.8-1.1) Sodium Level 136 mmol/L (136-145) 137 mmol/L (136-145) Potassium Level 4.8 mmol/L (3.5-5.1) 4.1 mmol/L (3.5-5.1) Chloride Level 97 mmol/L (98-107) 99 mmol/L (98-107) Carbon Dioxide Level 28 mmol/L (21-32) 27 mmol/L (21-32) Anion Gap 11 (6-14) 11 (6-14) Blood Urea Nitrogen 117 mg/dL (8-26) 119 mg/dL (8-26) Creatinine 5.1 mg/dL (0.7-1.3) 3.9 mg/dL (0.7-1.3) Estimated GFR (Cockcroft-Gault) 11.2 15.3 BUN/Creatinine Ratio 23 (6-20) 31 (6-20) Glucose Level 273 mg/dL (70-99) 233 mg/dL (70-99) Lactic Acid Level 2.9 mmol/L (0.4-2.0) 1.5 mmol/L (0.4-2.0) Calcium Level 8.4 mg/dL (8.5-10.1) 8.4 mg/dL (8.5-10.1) Magnesium Level 2.9 mg/dL (1.8-2.4) Total Bilirubin 0.8 mg/dL (0.2-1.0) 1.0 mg/dL (0.2-1.0) Aspartate Amino Transf (AST/SGOT) 160 U/L (15-37) 195 U/L (15-37) Alanine Aminotransferase (ALT/SGPT) 81 U/L (16-63) 83 U/L (16-63) Alkaline Phosphatase 130 U/L (46-116) 92 U/L (46-116) Ammonia 18 mcmol/L (11-34) Troponin I Quantitative < 0.017 ng/mL (0.000-0.055) OI-Sgu-Y-Type Natriuretic Peptide 116 pg/mL (0-124) Total Protein 6.7 g/dL (6.4-8.2) 6.0 g/dL (6.4-8.2) Albumin 2.8 g/dL (3.4-5.0) 2.4 g/dL (3.4-5.0) Albumin/Globulin Ratio 0.7 (1.0-1.7) 0.7 (1.0-1.7) Lipase 543 U/L (73-393) Thyroid Stimulating Hormone (TSH) 5.139 uIU/mL (0.358-3.74) Free Thyroxine 1.20 ng/dL (0.76-1.46) Free Triiodothyronine (T3) pg/mL 1.10 pg/mL (2.18-3.98) Urine Collection Type Unknown Urine Color Brown Urine Clarity Turbid Urine pH 5.0 Urine Specific [place] 1.020 Urine Protein 100 mg/dL (NEG-TRACE) Urine Glucose (UA) Negative mg/dL (NEG) Urine Ketones (Stick) Trace mg/dL (NEG) Urine Blood Large (NEG) Urine Nitrite Positive (NEG) Urine Bilirubin Large (NEG) Urine Urobilinogen Dipstick 1.0 mg/dL (0.2 mg/dL) Urine Leukocyte Esterase Large (NEG) Urine RBC >40 /HPF (0-2) Urine WBC >40 /HPF (0-4) Urine Bacteria Many /HPF (0-FEW) Urine Opiates Screen Neg (NEG) Urine Methadone Screen Neg (NEG) Urine Barbiturates Neg (NEG) Urine Phencyclidine Screen Neg (NEG) Urine Amphetamine/Methamphetamine Neg (NEG) Urine Benzodiazepines Screen Neg (NEG) Urine Cocaine Screen Neg (NEG) Urine Cannabinoids Screen Neg (NEG) Urine Ethyl Alcohol Neg (NEG) Triglycerides Level 97 mg/dL (0-150) Cholesterol Level 90 mg/dL (0-200) LDL Cholesterol, Calculated 34 mg/dL (0-100) VLDL Cholesterol, Calculated 19 mg/dL (0-40) Non-HDL Cholesterol Calculated 53 mg/dL (0-129) HDL Cholesterol 37 mg/dL (40-60) Cholesterol/HDL Ratio 2.4 Laboratory Tests Test 10/27/17 16:00 10/27/17 16:34 10/27/17 21:40 10/28/17 04:15 White Blood Count 22.7 x10^3/uL (4.0-11.0) 18.3 x10^3/uL (4.0-11.0) Red Blood Count 4.38 x10^6/uL (4.30-5.70) 3.79 x10^6/uL (4.30-5.70) Hemoglobin 13.0 g/dL (13.0-17.5) 11.5 g/dL (13.0-17.5) Hematocrit 39.4 % (39.0-53.0) 34.1 % (39.0-53.0) Mean Corpuscular Volume 90 fL (79-100) 90 fL (79-100) Mean Corpuscular Hemoglobin 30 pg (25-35) 30 pg (25-35) Mean Corpuscular Hemoglobin Concent 33 g/dL (31-37) 34 g/dL (31-37) Red Cell Distribution Width 12.6 % (11.5-14.5) 12.5 % (11.5-14.5) Platelet Count 282 x10^3/uL (140-400) 209 x10^3/uL (140-400) Neutrophils (%) (Auto) 88 % (31-73) 84 % (31-73) Lymphocytes (%) (Auto) 5 % (24-48) 7 % (24-48) Monocytes (%) (Auto) 6 % (0-9) 8 % (0-9) Eosinophils (%) (Auto) 0 % (0-3) 0 % (0-3) Basophils (%) (Auto) 1 % (0-3) 0 % (0-3) Neutrophils # (Auto) 19.9 x10^3uL (1.8-7.7) 15.4 x10^3uL (1.8-7.7) Lymphocytes # (Auto) 1.2 x10^3/uL (1.0-4.8) 1.2 x10^3/uL (1.0-4.8) Monocytes # (Auto) 1.5 x10^3/uL (0.0-1.1) 1.5 x10^3/uL (0.0-1.1) Eosinophils # (Auto) 0.0 x10^3/uL (0.0-0.7) 0.0 x10^3/uL (0.0-0.7) Basophils # (Auto) 0.1 x10^3/uL (0.0-0.2) 0.0 x10^3/uL (0.0-0.2) Segmented Neutrophils % 87 % (35-66) Band Neutrophils % 1 % (0-9) Lymphocytes % 6 % (24-48) Monocytes % 6 % (0-10) Platelet Estimate Adequate (ADEQUATE) Large Platelets Present Prothrombin Time 17.2 SEC (11.7-14.0) Prothromb Time International Ratio 1.5 (0.8-1.1) Sodium Level 136 mmol/L (136-145) 137 mmol/L (136-145) Potassium Level 4.8 mmol/L (3.5-5.1) 4.1 mmol/L (3.5-5.1) Chloride Level 97 mmol/L (98-107) 99 mmol/L (98-107) Carbon Dioxide Level 28 mmol/L (21-32) 27 mmol/L (21-32) Anion Gap 11 (6-14) 11 (6-14) Blood Urea Nitrogen 117 mg/dL (8-26) 119 mg/dL (8-26) Creatinine 5.1 mg/dL (0.7-1.3) 3.9 mg/dL (0.7-1.3) Estimated GFR (Cockcroft-Gault) 11.2 15.3 BUN/Creatinine Ratio 23 (6-20) 31 (6-20) Glucose Level 273 mg/dL (70-99) 233 mg/dL (70-99) Lactic Acid Level 2.9 mmol/L (0.4-2.0) 1.5 mmol/L (0.4-2.0) Calcium Level 8.4 mg/dL (8.5-10.1) 8.4 mg/dL (8.5-10.1) Magnesium Level 2.9 mg/dL (1.8-2.4) Total Bilirubin 0.8 mg/dL (0.2-1.0) 1.0 mg/dL (0.2-1.0) Aspartate Amino Transf (AST/SGOT) 160 U/L (15-37) 195 U/L (15-37) Alanine Aminotransferase (ALT/SGPT) 81 U/L (16-63) 83 U/L (16-63) Alkaline Phosphatase 130 U/L (46-116) 92 U/L (46-116) Ammonia 18 mcmol/L (11-34) Troponin I Quantitative < 0.017 ng/mL (0.000-0.055) RQ-Liy-X-Type Natriuretic Peptide 116 pg/mL (0-124) Total Protein 6.7 g/dL (6.4-8.2) 6.0 g/dL (6.4-8.2) Albumin 2.8 g/dL (3.4-5.0) 2.4 g/dL (3.4-5.0) Albumin/Globulin Ratio 0.7 (1.0-1.7) 0.7 (1.0-1.7) Lipase 543 U/L (73-393) Thyroid Stimulating Hormone (TSH) 5.139 uIU/mL (0.358-3.74) Free Thyroxine 1.20 ng/dL (0.76-1.46) Free Triiodothyronine (T3) pg/mL 1.10 pg/mL (2.18-3.98) Urine Collection Type Unknown Urine Color Brown Urine Clarity Turbid Urine pH 5.0 Urine Specific [place] 1.020 Urine Protein 100 mg/dL (NEG-TRACE) Urine Glucose (UA) Negative mg/dL (NEG) Urine Ketones (Stick) Trace mg/dL (NEG) Urine Blood Large (NEG) Urine Nitrite Positive (NEG) Urine Bilirubin Large (NEG) Urine Urobilinogen Dipstick 1.0 mg/dL (0.2 mg/dL) Urine Leukocyte Esterase Large (NEG) Urine RBC >40 /HPF (0-2) Urine WBC >40 /HPF (0-4) Urine Bacteria Many /HPF (0-FEW) Urine Opiates Screen Neg (NEG) Urine Methadone Screen Neg (NEG) Urine Barbiturates Neg (NEG) Urine Phencyclidine Screen Neg (NEG) Urine Amphetamine/Methamphetamine Neg (NEG) Urine Benzodiazepines Screen Neg (NEG) Urine Cocaine Screen Neg (NEG) Urine Cannabinoids Screen Neg (NEG) Urine Ethyl Alcohol Neg (NEG) Triglycerides Level 97 mg/dL (0-150) Cholesterol Level 90 mg/dL (0-200) LDL Cholesterol, Calculated 34 mg/dL (0-100) VLDL Cholesterol, Calculated 19 mg/dL (0-40) Non-HDL Cholesterol Calculated 53 mg/dL (0-129) HDL Cholesterol 37 mg/dL (40-60) Cholesterol/HDL Ratio 2.4 Medications Current Medications Sodium Chloride 1,000 ml @ 1,000 mls/hr 1X ONCE IV Last administered on at 17:19; Start 10/27/17 at 16:00; Stop 10/27/17 at 16:59; Status DC Ondansetron HCl (Zofran) 4 mg PRN Q8HRS PRN IV NAUSEA/VOMITING; Start 10/27/17 at 18:00; Stop 10/28/17 at 17:59 Piperacillin Sod/ Tazobactam Sod 4.5 gm/Sodium Chloride 100 ml @ 200 mls/hr DAILY IV ; Start 10/28/17 at 09:00; Status UNV Vancomycin HCl (Vanco Per Pharmacy) 1 each PRN DAILY PRN MC SEE COMMENTS Last administered on 10/27/17at 20:10; Start 10/27/17 at 18:00 Vancomycin HCl 2 gm/Sodium Chloride 500 ml @ 250 mls/hr 1X ONCE IV Last administered on 10/27/17at 19:00; Start 10/27/17 at 19:00; Stop 10/27/17 at 20:59 ; Status DC Vancomycin HCl 0.5 gm/Sodium Chloride 250 ml @ 166.667 mls/hr 1X ONCE IV ; Start 10/27/17 at 18:15; Stop 10/27/17 at 19:44; Status UNV Levofloxacin/ Dextrose 100 ml @ 100 mls/hr 1X ONCE IV Last administered on at 22:07; Start 10/27/17 at 18:30; Stop 10/27/17 at 19:29; Status DC Piperacillin Sod/ Tazobactam Sod 2.25 gm/Sodium Chloride 50 ml @ 100 mls/hr 1X ONCE IV Last administered on 10/27/17at 19:00; Start 10/27/17 at 18:30; Stop 10/27/17 at 18:59; Status DC Piperacillin Sod/ Tazobactam Sod 2.25 gm/Sodium Chloride 50 ml @ 100 mls/hr Q6HRS IV Last administered on 10/28/17at 11:24; Start 10/28/17 at 00:00 Sodium Chloride 1,000 ml @ 75 mls/hr [id number] IV Last administered on at 11:23; Start 10/27/17 at 20:00 Enalaprilat (Vasotec Inj) 1.25 mg Q6HRS IVP ; Start 10/27/17 at 20:30; Stop at 09:24; Status DC Vancomycin HCl (Vancomycin Random Level) 1 each 1X ONCE MC ; Start 10/29/17 at 05:00; Stop 10/29/17 at 05:01 Fentanyl Citrate (Fentanyl 2ml Vial) 25 mcg 1X ONCE IV Last administered on at 00:44; Start 10/28/17 at 00:45; Stop 10/28/17 at 00:46; Status DC Enalaprilat (Vasotec Inj) 1.25 mg PRN Q4HRS PRN IVP ELEVATED BP, SEE COMMENTS; Start 10/28/17 at 09:30 Acetaminophen (Tylenol) 650 mg PRN Q6HRS PRN PO FEVER; Start 10/28/17 at 09:30 Ondansetron HCl (Zofran) 4 mg PRN Q6HRS PRN IV NAUSEA/VOMITING; Start 10/28/17 at 09:30 Morphine Sulfate (Morphine Sulfate) 2 mg PRN Q2HR PRN IV MODERATE TO SEVERE PAIN; Start 10/28/17 at 09:30 Tramadol HCl (Ultram) 50 mg PRN Q6HRS PRN PO MILD TO MODERATE PAIN; Start 10/28 at 09:30 Docusate Sodium (Colace) 100 mg PRN DAILY PRN PO CONSTIPATION; Start 10/28/17 at 09:30 Labetalol HCl (Normodyne Iv Push) 10 mg PRN Q2HR PRN IVP HYPERTENSION, SEE COMMENTS; Start 10/28/17 at 09:30 Insulin Human Lispro (HumaLOG) 0-9 UNITS TIDWMEALS SQ ; Start 10/28/17 at 12:00 Dextrose (Dextrose 50%-Water Syringe) 12.5 gm PRN Q15MIN PRN IV SEE COMMENTS; Start 10/28/17 at 09:30 Lorazepam (Ativan) 0.5 mg 1X ONCE IV Last administered on 10/28/17at 11:51; Start 10/28/17 at 09:45; Stop 10/28/17 at 09:46; Status DC Lactobacillus Rhamnosus (Culturelle) 1 cap BID PO ; Start 10/28/17 at 21:00; Status Cancel Active Scripts Active Reported B-12 (Cyanocobalamin (Vitamin B-12)) 1,000 Mcg Tablet 1,000 Mcg PO DAILY Aspirin 81 Mg Tab.chew 1 Tab PO DAILY Aricept (Donepezil Hcl) 10 Mg Tablet 1 Tab PO DAILY Eliquis (Apixaban) 5 Mg Tablet 5 Mg PO BID Amiodarone Hcl 200 Mg Tablet 200 Mg PO BID Tylenol (Acetaminophen) 325 Mg Tablet 2 Tab PO PRN Q4HRS Benazepril Hcl 40 Mg Tablet 1 Tab PO DAILY Gabapentin 600 Mg Tablet 1,800 Mg PO QHS Furosemide 80 Mg Tablet 1 Tab PO DAILY Clonidine Hcl 0.1 Mg Tablet 0.1 Mg PO PRN Q8HRS Celexa (Citalopram Hydrobromide) 40 Mg Tablet 40 Mg PO DAILY Vitamin D (Cholecalciferol (Vitamin D3)) 1,000 Unit Capsule 1 Cap PO DAILY Cetirizine Hcl 10 Mg Tablet 1 Tab PO DAILY Crestor (Rosuvastatin Calcium) 5 Mg Tablet 5 Mg PO HS Potassium Chloride 20 Meq Tablet.er 20 Meq PO DAILY Zofran Odt (Ondansetron) 4 Mg Tab.rapdis 4 Mg PO BID PRN Metoprolol Succinate 50 Mg Tab.er.24h 100 Mg PO DAILY Namenda (Memantine Hcl) 10 Mg Tablet 10 Mg PO BID Melatonin 3 Mg Tablet 5 Mg PO QHS Humalog (Insulin Lispro) 100 Unit/1 Ml Cartridge 100 Unit SQ Lantus Solostar (Insulin Glargine,Hum.rec.anlog) 100 Unit/1 Ml Insuln.pen 25 Unit SQ QHS Lantus Solostar (Insulin Glargine,Hum.rec.anlog) 100 Unit/1 Ml Insuln.pen 50 Unit SQ DAILY08 Tamsulosin Hcl 0.4 Mg Cap.er.24h 0.4 Mg PO DAILY Nystatin 15 Gm Powder 15 Gm TP Lumigan (Bimatoprost) 2.5 Ml Drops 2.5 Ml OP Lorazepam 0.5 Mg Tablet 0.5 Mg PO TID Flonase Allergy Relief (Fluticasone Propionate) 9.9 Ml [place].susp Unknown Dose NS DAILY Fenofibrate (Fenofibrate,Micronized) 134 Mg Capsule 134 Mg PO DAILY Bupropion Xl (Bupropion Hcl) 300 Mg Tab.er.24h 300 Mg PO Vitals/I & O Vital Sign - Last 24 Hours 10/27/17 10/27/17 10/27/17 10/27/17 16:05 17:23 18:03 19:01 Temp 98.6 98.6 Pulse 56 88 84 82 Resp 16 20 14 20 B/P (MAP) 136/58 (84) Pulse Ox 94 95 92 93 O2 Delivery Room Air 10/27/17 10/27/17 10/27/17 10/27/17 19:30 20:05 20:05 20:15 Temp 98.5 98.5 Pulse 84 86 86 Resp 18 18 18 B/P (MAP) 114/58 (76) 117/54 (75) Pulse Ox 92 93 93 O2 Delivery Room Air Room Air Room Air 10/27/17 10/27/17 10/27/17 10/27/17 20:30 21:00 22:00 23:00 Pulse 88 88 90 90 Resp 18 18 18 18 B/P (MAP) 113/50 (71) 112/52 (72) 114/55 (74) 114/55 (74) Pulse Ox 92 92 92 92 O2 Delivery Room Air Room Air Room Air Room Air 10/28/17 10/28/17 10/28/17 10/28/17 00:00 00:00 01:00 02:00 Temp 99.9 99.9 Pulse 88 88 90 Resp 18 18 18 B/P (MAP) 135/69 (91) 119/58 (78) 102/80 (87) Pulse Ox 92 95 95 O2 Delivery Room Air Room Air Nasal Cannula Nasal Cannula O2 Flow Rate 2.0 2.0 10/28/17 10/28/17 10/28/17 10/28/17 03:03 04:00 04:00 05:00 Temp 98.6 98.6 Pulse 86 86 87 Resp 18 18 18 B/P (MAP) 140/43 (75) 150/58 (88) 156/73 (100) Pulse Ox 95 95 95 O2 Delivery Nasal Cannula Nasal Cannula Room Air Nasal Cannula O2 Flow Rate 2.0 2.0 2.0 10/28/17 10/28/17 06:04 08:00 Pulse 87 Resp 18 B/P (MAP) 92/52 (65) Pulse Ox 97 O2 Delivery Nasal Cannula Nasal Cannula O2 Flow Rate 2.0 2.0 Intake and Output 10/27/17 10/27/17 10/28/17 15:00 23:00 07:00 Intake Total 1650 ml 737 ml Output Total 300 ml 555 ml Balance 1350 ml 182 ml DARRELL MAY MD Oct 28, 2017 13:11
--- NOTE | 2017-10-28 13:17 | RAD ---
MRI Brain without contrast History: Altered mental status, left arm weakness, history of multiple sclerosis Technique: Multiplanar, multisequential noncontrast MR imaging was performed of the brain. Contrast: None Comparison: May 10, 2017 MRI brain exam and also October 27, [address] exam Findings: There is motion degradation variably for all image sequences. Corresponding with the CT findings, there is T1 shortening with associated decreased signal on gradient echo sequence along the right parietal cortical surface and subarachnoid space, area of T1 shortening about 3.5 cm transverse by 2.5 cm AP. This is associated with mild diffusion signal abnormality. There is also some new mild T1 shortening with associated decreased signal on the gradient echo sequence of the right frontal parietal lobes. There is a larger area of restricted diffusion extending more anteriorly of the right parietal lobe about 6 cm AP by 3.7 cm transverse, mild decreased signal on ADC map. There are also some more subtle foci of diffusion signal abnormality of the left centrum semiovale, more posterior focus more hypointense on the ADC map measured about 1.2 cm in size, more anterior focus iso to slightly hyperintense on the ADC map. There is a separate punctate focus of restricted diffusion of the left diaz radiata. There is also some subtle restricted diffusion extending to the right occipital lobe. As seen on previous MR brain exam, there is multifocal moderate to severe T2 and FLAIR hyperintense abnormality of the supratentorial white matter bilaterally although increased such as of the bilateral periatrial white matter and on the right corresponding with area of restricted diffusion. Septum pellucidum remains near the midline. There is slightly disconjugate gaze. There is stable mild third and lateral ventriculomegaly also mild generalized supratentorial involutional change. There is mild thickening of the mastoid air cells greater on the right. Paranasal sinuses are overall aerated. Impression: 1. Overall findings are compatible with large recent likely subacute infarct centered in the right parietal lobe although also involvement right frontal parietal lobes more anteriorly, associated hemorrhagic transformation along the cortical surfaces and subarachnoid space. There is also some extent of the recent infarct to the right occipital lobe, also some small foci of more recent likely subacute infarcts of the left diaz radiata and centrum semiovale bilaterally. 2. There is again other multifocal T2 and FLAIR hyperintense abnormality of the supratentorial parenchyma, component of which may be due to sequela of demyelination given history. Increased T2 and FLAIR signal associated with the area of recent infarct is probably due to component of edema. FOR INTERNAL CODING PURPOSES Critical result: Findings discussed with patient's nurse Fernando at 10/28/2017 1:14 PM. RESULT CODE: (C) Electronically signed by: Dennis Ruiz MD (10/28/2017 1:14 PM) [id number]
[2017-10-28] MEDS: INSULIN LISPRO 300 UNITS/3 ML INSULN.PEN. SQ SCH ×2 (13:49→17:35)
--- NOTE | 2017-10-28 13:54 | RAD ---
Single AP view of the pelvis and 2 views of both hips without comparison for bilateral hip pain, no history of injury. FINDINGS: There has been prior multilevel laminectomy with bilateral pedicle screw and bridgette fixation of the lower lumbar spine. There is no fracture, dislocation, or acute osseous abnormality identified. Moderate osteoarthritic changes are seen involving both hips. Atherosclerotic calcifications are present in the bilateral femoral arteries. IMPRESSION: 1. No fracture or acute osseous abnormalities of either hip. 2. Moderate osteoarthritis of both hips. 3. Atherosclerosis. Electronically signed by: Thomas Bergeron MD (10/28/2017 1:50 PM) [id number]
[2017-10-28] MEDS: LISINOPRIL 20 MG TABLET PO SCH (14:00)
--- NOTE | 2017-10-28 14:09 | RAD ---
CT of the abdomen and pelvis without contrast, 10/29/2015: HISTORY: Abdominal pain, recent stroke Noncontrast scans were obtained as requested. There has been a previous median sternotomy. Extensive coronary artery calcifications are present. The unopacified liver is unremarkable. The gallbladder is surgically absent. No pancreatic abnormality is seen. The spleen is of normal size. Calcifications in the hilar regions of both kidneys are probably vascular. The kidneys show no evidence of obstruction. Moderate aortoiliac calcific plaquing is present without evidence of aneurysm. No abdominal or pelvic adenopathy is seen. A Weeks catheter is present within the collapsed urinary bladder. The bowel loops are not dilated. A couple of small sigmoid diverticula are noted. No paracolonic inflammatory process is seen. The appendix is not visualized. A gastrostomy tube extends into the body of the stomach. No free air or free fluid is evident in the abdomen or pelvis. Fixation rods and screws are present in the lumbar spine from L2 through L5. There are moderate underlying degenerative changes. There has been a laminectomy through this region. IMPRESSION: 1. Chronic findings as described above. 2. No acute abdominal or pelvic abnormality is detected. PQRS Compliance Statement: One or more of the following individualized dose reduction techniques were utilized for this examination: 1. Automated exposure control 2. Adjustment of the mA and/or kV according to patient size 3. Use of iterative reconstruction technique Electronically signed by: Diomedes Hsieh MD (10/28/2017 2:06 PM) [facility]
[2017-10-28] MEDS: FENOFIBRATE,MICRONIZED 134 MG CAPSULE PO SCH (14:51)
[2017-10-28] MEDS: CHOLECALCIFEROL (VITAMIN D3) 1,000 UNIT TABLET PO SCH (14:51)
[2017-10-28] MEDS: MEMANTINE 10 MG TABLET. PO SCH ×2 (14:51→20:56)
[2017-10-28] MEDS: CYANOCOBALAMIN (VITAMIN B-12) 1,000 MCG TABLET. PO SCH (14:51)
[2017-10-28] MEDS: TAMSULOSIN 0.4 MG CAP.ER.24H. PO SCH (14:52)
[2017-10-28] MEDS: AMIODARONE HCL 200 MG TABLET. PO SCH ×2 (14:52→20:55)
[2017-10-28] MEDS: CITALOPRAM 20 MG TABLET. PO SCH (14:52)
[2017-10-28] MEDS: DONEPEZIL HCL 10 MG TABLET. PO SCH (14:53)
[2017-10-28] MEDS: METOPROLOL SUCC 24HR ER 50 MG TAB.ER.24H. PO SCH (14:53)
[2017-10-28] MEDS: CETIRIZINE HCL 10 MG TABLET. PO SCH (14:53)
--- NOTE | 2017-10-28 17:23 | PDOC2 ---
NEUROLOGY CONSULT Date of Admission Date of Admission DATE: 10/28/17 TIME: 17:02 Reason for Consult Reason for Consult: NEUROLOGY CONSULTATION 10-27-17 IMPRESSION: Subacute right parietal, posterior frontal and occipital infarct about 3 weeks ago with recent hemorrhagic transformation of IPH and SAH. Metabolic encephalopathy. Respiratory failure. Renal failure. UTI. Leukocytosis. CAD s/p CABG. AFib. DM. HTN. Ventriculomegaly. Obesity. RECOMMENDATIONS/PLAN: Life support in ICU. Hold antiplatelet agents at the present time. Brain MRI performed on 10/28/17. BP control. Treat medical and cardiac diseases. Discussed with his sisters and brought in all detail at bedside and also showed them MRI findings in ICU. HISTORY OF THE PRESENT ILLNESS: 71-y-old male patient with multiple medical and cardiac diseases had a stroke and was treated with Plavix and ASA in [facility]. He then was discharged to Rehab, but his brother and sisters stated that his condition became worse on the day of discharge. His condition has not improved, so he was brought to the ER of [facility]. His initially HCT showed ICH and SAH. Past Medical History A-Fib, CVA, HTN, Dementia, Depression, Diabetes-Type II, Heart Disease, MS ? PAST SURGERY HISTORY: Coronary Bypass Surgery, G-TUBE placement , OBESITY Family History Hypertension. ALLERGY: Review. MEDICATIONS: Refer to [facility] SOCIAL HISTORY: Denies current smoking, drinking, and illicit drug use. REVIEW OF SYSTEMS: Constitutional: Obesity. Head: No traumatic brain or head injury. Skin: No edema, or rash. Ear: No infection, tinnitus. Eyes: No vision loss or color blindness. Nose: No bleeding or purulent discharges. Hearing: Hearing decrease. Neck: No injury. Cardiac: CAD, s/p CABG, AFib, HTN, HLD. Pulmonary: No COPD. GI: No GI ulcer, GI bleeding. Urinary/genital: UTI. Endocrinologic: Diabetes Mellitus, obesity. Skeletomuscular: Left side weakness. Neurological: see HP. Psychiatric: Denies drug use/abuse. Otherwise, not [id number] review of systems. PHYSICAL EXAMINATION: General appearance is in subacute distress. HEENT: Normocephalic and nontraumatic. Eyes, nose, ears, and throat are unremarkable. Neck is supple. No lymphadenopathy. No bruits are heard over the carotid artery. No crepitus. Cardiovascular: S1, S2, seemed irregular rate and rhythm. Pulmonary: On vent. Abdomen: Bowel sounds are positive. Extremities: No rash, lesions, or edema. No restriction of range of motion NEUROLOGICAL EXAMINATION: Lethargic. Not oriented to time, place and person. PERRL. EOMI, slow. CN: no acute focal findings. Muscle tone: Decreased. Muscle strength: 3-4 DTR: 0-1 Plantar reflex: Neutral response bilaterally Gait: Unable to walk. Sensory exam: no acute abnormal findings. Not able to access cerebellar signs. F-T-N test not performed. Current Medications Current Medications Current Medications Sodium Chloride 1,000 ml @ 1,000 mls/hr 1X ONCE IV Last administered on at 17:19; Start 10/27/17 at 16:00; Stop 10/27/17 at 16:59; Status DC Ondansetron HCl (Zofran) 4 mg PRN Q8HRS PRN IV NAUSEA/VOMITING; Start 10/27/17 at 18:00; Stop 10/28/17 at 17:59 Piperacillin Sod/ Tazobactam Sod 4.5 gm/Sodium Chloride 100 ml @ 200 mls/hr DAILY IV ; Start 10/28/17 at 09:00; Status UNV Vancomycin HCl (Vanco Per Pharmacy) 1 each PRN DAILY PRN MC SEE COMMENTS Last administered on 10/28/17at 13:25; Start 10/27/17 at 18:00 Vancomycin HCl 2 gm/Sodium Chloride 500 ml @ 250 mls/hr 1X ONCE IV Last administered on 10/27/17at 19:00; Start 10/27/17 at 19:00; Stop 10/27/17 at 20:59 ; Status DC Vancomycin HCl 0.5 gm/Sodium Chloride 250 ml @ 166.667 mls/hr 1X ONCE IV ; Start 10/27/17 at 18:15; Stop 10/27/17 at 19:44; Status UNV Levofloxacin/ Dextrose 100 ml @ 100 mls/hr 1X ONCE IV Last administered on at 22:07; Start 10/27/17 at 18:30; Stop 10/27/17 at 19:29; Status DC Piperacillin Sod/ Tazobactam Sod 2.25 gm/Sodium Chloride 50 ml @ 100 mls/hr 1X ONCE IV Last administered on 10/27/17at 19:00; Start 10/27/17 at 18:30; Stop 10/27/17 at 18:59; Status DC Piperacillin Sod/ Tazobactam Sod 2.25 gm/Sodium Chloride 50 ml @ 100 mls/hr Q6HRS IV Last administered on 10/28/17at 11:24; Start 10/28/17 at 00:00 Sodium Chloride 1,000 ml @ 75 mls/hr [id number] IV Last administered on at 11:23; Start 10/27/17 at 20:00 Enalaprilat (Vasotec Inj) 1.25 mg Q6HRS IVP ; Start 10/27/17 at 20:30; Stop at 09:24; Status DC Vancomycin HCl (Vancomycin Random Level) 1 each 1X ONCE MC ; Start 10/29/17 at 05:00; Stop 10/29/17 at 05:01 Fentanyl Citrate (Fentanyl 2ml Vial) 25 mcg 1X ONCE IV Last administered on at 00:44; Start 10/28/17 at 00:45; Stop 10/28/17 at 00:46; Status DC Enalaprilat (Vasotec Inj) 1.25 mg PRN Q4HRS PRN IVP ELEVATED BP, SEE COMMENTS; Start 10/28/17 at 09:30 Acetaminophen (Tylenol) 650 mg PRN Q6HRS PRN PO FEVER; Start 10/28/17 at 09:30 Ondansetron HCl (Zofran) 4 mg PRN Q6HRS PRN IV NAUSEA/VOMITING; Start 10/28/17 at 09:30 Morphine Sulfate (Morphine Sulfate) 2 mg PRN Q2HR PRN IV MODERATE TO SEVERE PAIN; Start 10/28/17 at 09:30 Tramadol HCl (Ultram) 50 mg PRN Q6HRS PRN PO MILD TO MODERATE PAIN; Start 10/28 at 09:30 Docusate Sodium (Colace) 100 mg PRN DAILY PRN PO CONSTIPATION; Start 10/28/17 at 09:30 Labetalol HCl (Normodyne Iv Push) 10 mg PRN Q2HR PRN IVP HYPERTENSION, SEE COMMENTS; Start 10/28/17 at 09:30 Insulin Human Lispro (HumaLOG) 0-9 UNITS TIDWMEALS SQ Last administered on 10/28at 13:49; Start 10/28/17 at 12:00 Dextrose (Dextrose 50%-Water Syringe) 12.5 gm PRN Q15MIN PRN IV SEE COMMENTS; Start 10/28/17 at 09:30 Lorazepam (Ativan) 0.5 mg 1X ONCE IV Last administered on 10/28/17at 11:51; Start 10/28/17 at 09:45; Stop 10/28/17 at 09:46; Status DC Lactobacillus Rhamnosus (Culturelle) 1 cap BID PO ; Start 10/28/17 at 21:00; Status Cancel Amiodarone HCl (Cordarone) 200 mg BID PO Last administered on 10/28/17at 14:52; Start 10/28/17 at 14:00 Cetirizine HCl (ZyrTEC) 10 mg DAILY PO Last administered on 10/28/17at 14:53; Start 10/28/17 at 14:00 Cyanocobalamin (Vitamin B-12) 1,000 mcg DAILY PO Last administered on at 14:51; Start 10/28/17 at 14:00 Metoprolol Succinate (Toprol Xl) 100 mg DAILY PO Last administered on 14:53; Start 10/28/17 at 14:00 Tamsulosin HCl (Flomax) 0.4 mg DAILY PO Last administered on 10/28/17at 14:52; Start 10/28/17 at 14:00 Lisinopril (Prinivil) 40 mg DAILY PO ; Start 10/28/17 at 14:00 Vitamin D (Vitamin D3) 1,000 unit DAILY PO Last administered on 10/28/17at 14:51 ; Start 10/28/17 at 14:00 Citalopram Hydrobromide (CeleXA) 40 mg DAILY PO Last administered on 10/28/17 14:52; Start 10/28/17 at 14:00 Donepezil HCl (Aricept) 10 mg DAILY PO Last administered on 10/28/17at 14:53; Start 10/28/17 at 14:00 Fenofibrate (Lofibra) 134 mg DAILY PO Last administered on 10/28/17at 14:51; Start 10/28/17 at 14:00 Gabapentin (Neurontin) 1,800 mg QHS PO ; Start 10/28/17 at 21:00 Non-Formulary Medication (Melatonin ) 5 mg QHS PO ; Start 10/28/17 at 21:00; Status UNV Memantine (Namenda) 10 mg BID PO Last administered on 10/28/17at 14:51; Start at 14:00 Atorvastatin Calcium (Lipitor) 20 mg QHS PO ; Start 10/28/17 at 21:00 Insulin Glargine (Lantus) 20 units QHS SQ ; Start 10/28/17 at 21:00 Active Scripts Active Reported B-12 (Cyanocobalamin (Vitamin B-12)) 1,000 Mcg Tablet 1,000 Mcg PO DAILY Aspirin 81 Mg Tab.chew 1 Tab PO DAILY Aricept (Donepezil Hcl) 10 Mg Tablet 1 Tab PO DAILY Eliquis (Apixaban) 5 Mg Tablet 5 Mg PO BID Amiodarone Hcl 200 Mg Tablet 200 Mg PO BID Tylenol (Acetaminophen) 325 Mg Tablet 2 Tab PO PRN Q4HRS Benazepril Hcl 40 Mg Tablet 1 Tab PO DAILY Gabapentin 600 Mg Tablet 1,800 Mg PO QHS Furosemide 80 Mg Tablet 1 Tab PO DAILY Clonidine Hcl 0.1 Mg Tablet 0.1 Mg PO PRN Q8HRS Celexa (Citalopram Hydrobromide) 40 Mg Tablet 40 Mg PO DAILY Vitamin D (Cholecalciferol (Vitamin D3)) 1,000 Unit Capsule 1 Cap PO DAILY Cetirizine Hcl 10 Mg Tablet 1 Tab PO DAILY Crestor (Rosuvastatin Calcium) 5 Mg Tablet 5 Mg PO HS Potassium Chloride 20 Meq Tablet.er 20 Meq PO DAILY Zofran Odt (Ondansetron) 4 Mg Tab.rapdis 4 Mg PO BID PRN Metoprolol Succinate 50 Mg Tab.er.24h 100 Mg PO DAILY Namenda (Memantine Hcl) 10 Mg Tablet 10 Mg PO BID Melatonin 3 Mg Tablet 5 Mg PO QHS Humalog (Insulin Lispro) 100 Unit/1 Ml Cartridge 100 Unit SQ Lantus Solostar (Insulin Glargine,Hum.rec.anlog) 100 Unit/1 Ml Insuln.pen 25 Unit SQ QHS Lantus Solostar (Insulin Glargine,Hum.rec.anlog) 100 Unit/1 Ml Insuln.pen 50 Unit SQ DAILY08 Tamsulosin Hcl 0.4 Mg Cap.er.24h 0.4 Mg PO DAILY Nystatin 15 Gm Powder 15 Gm TP Lumigan (Bimatoprost) 2.5 Ml Drops 2.5 Ml OP Lorazepam 0.5 Mg Tablet 0.5 Mg PO TID Flonase Allergy Relief (Fluticasone Propionate) 9.9 Ml [place].susp Unknown Dose NS DAILY Fenofibrate (Fenofibrate,Micronized) 134 Mg Capsule 134 Mg PO DAILY Bupropion Xl (Bupropion Hcl) 300 Mg Tab.er.24h 300 Mg PO Allergies Allergies: Allergies Coded Allergies Type Severity Reaction Last Updated Verified [id number] Reductase Inhibitor Allergy Intermediate 05/10/17 Yes amoxicillin Allergy Intermediate 10/28/17 Yes zolpidem Allergy Intermediate 05/10/17 Yes ROS Review of System The patient denies any associated fevers, chills, headache, ear pain, rhinorrhea , sore throat, stiff neck, productive cough, chest pain, shortness of breath, back or flank pain, abdominal pain, nausea, vomiting, diarrhea, constipation, dysuria, rash, numbness, weakness, tingling, incontinence, difficulty ambulating, or diaphoresis. Physical Exam Physical Exam General: Well developed, well nourished, no acute distress, well appearing HEENT: Pupils equally round and reactive to light, EOMI, no discharge, normal conjunctiva Neck: Supple, no nuchal rigidity, no JVD, trachea midline, no tenderness Cardiac: RRR, no murmurs, no gallops, no rubs Chest/Lungs: CTAB, no wheeze, no rhonchi, no crackles Abdomen: soft, non-distended, no guarding, no peritoneal signs, non-tender Back: No tenderness Extremities: no edema, pulses intact, non-tender,capillary refill <3 sec bilateral upper and lower extremities, Neuro: Alert and oriented x 4, no focal deficits, normal speech Vitals Vitals: Vital Signs Date Time Temp Pulse Resp B/P (MAP) Pulse Ox O2 Delivery O2 Flow Rate FiO2 10/28/17 16:00 99.2 82 16 113/58 (76) 99 Nasal Cannula 2.0 99.2 Labs Labs Laboratory Tests Test 10/27/17 16:00 10/27/17 16:34 10/27/17 21:40 9/21/18 04:15 White Blood Count 22.7 x10^3/uL (4.0-11.0) 18.3 x10^3/uL (4.0-11.0) Red Blood Count 4.38 x10^6/uL (4.30-5.70) 3.79 x10^6/uL (4.30-5.70) Hemoglobin 13.0 g/dL (13.0-17.5) 11.5 g/dL (13.0-17.5) Hematocrit 39.4 % (39.0-53.0) 34.1 % (39.0-53.0) Mean Corpuscular Volume 90 fL (79-100) 90 fL (79-100) Mean Corpuscular Hemoglobin 30 pg (25-35) 30 pg (25-35) Mean Corpuscular Hemoglobin Concent 33 g/dL (31-37) 34 g/dL (31-37) Red Cell Distribution Width 12.6 % (11.5-14.5) 12.5 % (11.5-14.5) Platelet Count 282 x10^3/uL (140-400) 209 x10^3/uL (140-400) Neutrophils (%) (Auto) 88 % (31-73) 84 % (31-73) Lymphocytes (%) (Auto) 5 % (24-48) 7 % (24-48) Monocytes (%) (Auto) 6 % (0-9) 8 % (0-9) Eosinophils (%) (Auto) 0 % (0-3) 0 % (0-3) Basophils (%) (Auto) 1 % (0-3) 0 % (0-3) Neutrophils # (Auto) 19.9 x10^3uL (1.8-7.7) 15.4 x10^3uL (1.8-7.7) Lymphocytes # (Auto) 1.2 x10^3/uL (1.0-4.8) 1.2 x10^3/uL (1.0-4.8) Monocytes # (Auto) 1.5 x10^3/uL (0.0-1.1) 1.5 x10^3/uL (0.0-1.1) Eosinophils # (Auto) 0.0 x10^3/uL (0.0-0.7) 0.0 x10^3/uL (0.0-0.7) Basophils # (Auto) 0.1 x10^3/uL (0.0-0.2) 0.0 x10^3/uL (0.0-0.2) Segmented Neutrophils % 87 % (35-66) Band Neutrophils % 1 % (0-9) Lymphocytes % 6 % (24-48) Monocytes % 6 % (0-10) Platelet Estimate Adequate (ADEQUATE) Large Platelets Present Prothrombin Time 17.2 SEC (11.7-14.0) Prothromb Time International Ratio 1.5 (0.8-1.1) Sodium Level 136 mmol/L (136-145) 137 mmol/L (136-145) Potassium Level 4.8 mmol/L (3.5-5.1) 4.1 mmol/L (3.5-5.1) Chloride Level 97 mmol/L (98-107) 99 mmol/L (98-107) Carbon Dioxide Level 28 mmol/L (21-32) 27 mmol/L (21-32) Anion Gap 11 (6-14) 11 (6-14) Blood Urea Nitrogen 117 mg/dL (8-26) 119 mg/dL (8-26) Creatinine 5.1 mg/dL (0.7-1.3) 3.9 mg/dL (0.7-1.3) Estimated GFR (Cockcroft-Gault) 11.2 15.3 BUN/Creatinine Ratio 23 (6-20) 31 (6-20) Glucose Level 273 mg/dL (70-99) 233 mg/dL (70-99) Lactic Acid Level 2.9 mmol/L (0.4-2.0) 1.5 mmol/L (0.4-2.0) Calcium Level 8.4 mg/dL (8.5-10.1) 8.4 mg/dL (8.5-10.1) Magnesium Level 2.9 mg/dL (1.8-2.4) Total Bilirubin 0.8 mg/dL (0.2-1.0) 1.0 mg/dL (0.2-1.0) Aspartate Amino Transf (AST/SGOT) 160 U/L (15-37) 195 U/L (15-37) Alanine Aminotransferase (ALT/SGPT) 81 U/L (16-63) 83 U/L (16-63) Alkaline Phosphatase 130 U/L (46-116) 92 U/L (46-116) Ammonia 18 mcmol/L (11-34) Troponin I Quantitative < 0.017 ng/mL (0.000-0.055) XC-Qwa-H-Type Natriuretic Peptide 116 pg/mL (0-124) Total Protein 6.7 g/dL (6.4-8.2) 6.0 g/dL (6.4-8.2) Albumin 2.8 g/dL (3.4-5.0) 2.4 g/dL (3.4-5.0) Albumin/Globulin Ratio 0.7 (1.0-1.7) 0.7 (1.0-1.7) Lipase 543 U/L (73-393) Thyroid Stimulating Hormone (TSH) 5.139 uIU/mL (0.358-3.74) Free Thyroxine 1.20 ng/dL (0.76-1.46) Free Triiodothyronine (T3) pg/mL 1.10 pg/mL (2.18-3.98) Urine Collection Type Unknown Urine Color Brown Urine Clarity Turbid Urine pH 5.0 Urine Specific [place] 1.020 Urine Protein 100 mg/dL (NEG-TRACE) Urine Glucose (UA) Negative mg/dL (NEG) Urine Ketones (Stick) Trace mg/dL (NEG) Urine Blood Large (NEG) Urine Nitrite Positive (NEG) Urine Bilirubin Large (NEG) Urine Urobilinogen Dipstick 1.0 mg/dL (0.2 mg/dL) Urine Leukocyte Esterase Large (NEG) Urine RBC >40 /HPF (0-2) Urine WBC >40 /HPF (0-4) Urine Bacteria Many /HPF (0-FEW) Urine Opiates Screen Neg (NEG) Urine Methadone Screen Neg (NEG) Urine Barbiturates Neg (NEG) Urine Phencyclidine Screen Neg (NEG) Urine Amphetamine/Methamphetamine Neg (NEG) Urine Benzodiazepines Screen Neg (NEG) Urine Cocaine Screen Neg (NEG) Urine Cannabinoids Screen Neg (NEG) Urine Ethyl Alcohol Neg (NEG) Triglycerides Level 97 mg/dL (0-150) Cholesterol Level 90 mg/dL (0-200) LDL Cholesterol, Calculated 34 mg/dL (0-100) VLDL Cholesterol, Calculated 19 mg/dL (0-40) Non-HDL Cholesterol Calculated 53 mg/dL (0-129) HDL Cholesterol 37 mg/dL (40-60) Cholesterol/HDL Ratio 2.4 Test 10/28/17 13:35 Glucose (Fingerstick) 253 mg/dL (70-99) Laboratory Tests Test 10/27/17 21:40 10/28/17 04:15 10/28/17 13:35 Lactic Acid Level 1.5 mmol/L (0.4-2.0) White Blood Count 18.3 x10^3/uL (4.0-11.0) Red Blood Count 3.79 x10^6/uL (4.30-5.70) Hemoglobin 11.5 g/dL (13.0-17.5) Hematocrit 34.1 % (39.0-53.0) Mean Corpuscular Volume 90 fL (79-100) Mean Corpuscular Hemoglobin 30 pg (25-35) Mean Corpuscular Hemoglobin Concent 34 g/dL (31-37) Red Cell Distribution Width 12.5 % (11.5-14.5) Platelet Count 209 x10^3/uL (140-400) Neutrophils (%) (Auto) 84 % (31-73) Lymphocytes (%) (Auto) 7 % (24-48) Monocytes (%) (Auto) 8 % (0-9) Eosinophils (%) (Auto) 0 % (0-3) Basophils (%) (Auto) 0 % (0-3) Neutrophils # (Auto) 15.4 x10^3uL (1.8-7.7) Lymphocytes # (Auto) 1.2 x10^3/uL (1.0-4.8) Monocytes # (Auto) 1.5 x10^3/uL (0.0-1.1) Eosinophils # (Auto) 0.0 x10^3/uL (0.0-0.7) Basophils # (Auto) 0.0 x10^3/uL (0.0-0.2) Sodium Level 137 mmol/L (136-145) Potassium Level 4.1 mmol/L (3.5-5.1) Chloride Level 99 mmol/L (98-107) Carbon Dioxide Level 27 mmol/L (21-32) Anion Gap 11 (6-14) Blood Urea Nitrogen 119 mg/dL (8-26) Creatinine 3.9 mg/dL (0.7-1.3) Estimated GFR (Cockcroft-Gault) 15.3 BUN/Creatinine Ratio 31 (6-20) Glucose Level 233 mg/dL (70-99) Calcium Level 8.4 mg/dL (8.5-10.1) Total Bilirubin 1.0 mg/dL (0.2-1.0) Aspartate Amino Transf (AST/SGOT) 195 U/L (15-37) Alanine Aminotransferase (ALT/SGPT) 83 U/L (16-63) Alkaline Phosphatase 92 U/L (46-116) Total Protein 6.0 g/dL (6.4-8.2) Albumin 2.4 g/dL (3.4-5.0) Albumin/Globulin Ratio 0.7 (1.0-1.7) Triglycerides Level 97 mg/dL (0-150) Cholesterol Level 90 mg/dL (0-200) LDL Cholesterol, Calculated 34 mg/dL (0-100) VLDL Cholesterol, Calculated 19 mg/dL (0-40) Non-HDL Cholesterol Calculated 53 mg/dL (0-129) HDL Cholesterol 37 mg/dL (40-60) Cholesterol/HDL Ratio 2.4 Glucose (Fingerstick) 253 mg/dL (70-99) RODO SYKES MD Oct 28, 2017 17:23
--- NOTE | 2017-10-28 17:27 | PDOC ---
PROGRESS NOTES Assessment Assessment Subacute right parietal, posterior frontal and occipital infarct about 3 weeks ago with recent hemorrhagic transformation of IPH and SAH. Metabolic encephalopathy. Respiratory failure. Renal failure. UTI. Leukocytosis. CAD s/p CABG. AFib. DM. HTN. Ventriculomegaly. Obesity. RECOMMENDATIONS/PLAN: Life support in ICU. Hold antiplatelet agents at the present time. Brain MRI performed on 10/28/17. BP control. Treat medical and cardiac diseases. Discussed with his sisters and brought in all detail at bedside and also showed them MRI findings in ICU on 10/28/17. HISTORY OF THE PRESENT ILLNESS: 71-y-old male patient with multiple medical and cardiac diseases had a stroke and was treated with Plavix and ASA in [facility]. He then was discharged to Rehab, but his brother and sisters stated that his condition became worse on the day of discharge. His condition has not improved, so he was brought to the ER of [facility]. His initially HCT showed ICH and SAH, but MRI on 10/28 provided better explanation of hemorrhagic transformation from his recent ischemic infarct. Past Medical History A-Fib, CVA, HTN, Dementia, Depression, Diabetes-Type II, Heart Disease, MS ? PAST SURGERY HISTORY: Coronary Bypass Surgery, G-TUBE placement , OBESITY Family History Hypertension. ALLERGY: Review. MEDICATIONS: Refer to MAR SOCIAL HISTORY: Denies current smoking, drinking, and illicit drug use. REVIEW OF SYSTEMS: Constitutional: Obesity. Head: No traumatic brain or head injury. Skin: No edema, or rash. Ear: No infection, tinnitus. Eyes: No vision loss or color blindness. Nose: No bleeding or purulent discharges. Hearing: Hearing decrease. Neck: No injury. Cardiac: CAD, s/p CABG, AFib, HTN, HLD. Pulmonary: No COPD. GI: No GI ulcer, GI bleeding. Urinary/genital: UTI. Endocrinologic: Diabetes Mellitus, obesity. Skeletomuscular: Left side weakness. Neurological: see HP. Psychiatric: Denies drug use/abuse. Otherwise, not [id number] review of systems. PHYSICAL EXAMINATION: General appearance is in subacute distress. HEENT: Normocephalic and nontraumatic. Eyes, nose, ears, and throat are unremarkable. Neck is supple. No lymphadenopathy. No bruits are heard over the carotid artery. No crepitus. Cardiovascular: S1, S2, seemed irregular rate and rhythm. Pulmonary: On vent. Abdomen: Bowel sounds are positive. Extremities: No rash, lesions, or edema. No restriction of range of motion NEUROLOGICAL EXAMINATION: Lethargic. Not oriented to time, place and person. PERRL. EOMI, slow. CN: no acute focal findings. Muscle tone: Decreased. Muscle strength: 3-4 DTR: 0-1 Plantar reflex: Neutral response bilaterally Gait: Unable to walk. Sensory exam: no acute abnormal findings. Not able to access cerebellar signs. F-T-N test not performed. Objective Objective Vital Signs Date Time Temp Pulse Resp B/P (MAP) Pulse Ox O2 Delivery O2 Flow Rate FiO2 10/28/17 17:00 79 20 115/62 (79) 95 Room Air 10/28/17 16:00 99.2 2.0 99.2 Intake and Output 10/28/17 07:00 Intake Total 2387 ml Output Total 855 ml Balance 1532 ml Intake Oral 0 ml IV Total 2387 ml Output Urine Total 855 ml Vitals Signs Vitals VS - Last 72 Hours, by Label Date Time Temp Pulse Resp B/P (MAP) Pulse Ox O2 Delivery O2 Flow Rate FiO2 10/28/17 17:00 79 20 115/62 (79) 95 Room Air 10/28/17 16:00 99.2 82 16 113/58 (76) 99 Nasal Cannula 2.0 99.2 10/28/17 16:00 Nasal Cannula 2.0 10/28/17 15:00 90 16 147/57 (87) 98 Nasal Cannula 2.0 10/28/17 14:53 89 137/66 10/28/17 14:52 89 137/66 10/28/17 14:00 92 16 137/66 (89) 92 Nasal Cannula 2.0 10/28/17 13:00 92 19 124/60 (81) 95 Nasal Cannula 2.0 10/28/17 12:00 98.6 92 19 123/54 (77) 95 Nasal Cannula 2.0 98.6 10/28/17 12:00 Nasal Cannula 2.0 10/28/17 11:00 92 18 118/56 (76) 96 Nasal Cannula 2.0 10/28/17 10:00 86 18 80/46 (57) 96 Nasal Cannula 2.0 10/28/17 09:00 86 18 112/73 (86) 94 Nasal Cannula 2.0 10/28/17 08:00 Nasal Cannula 2.0 10/28/17 08:00 98.3 90 18 104/70 (81) 96 Nasal Cannula 2.0 98.3 10/28/17 07:00 86 18 116/54 (74) 96 Nasal Cannula 2.0 10/28/17 06:04 87 18 92/52 (65) 97 Nasal Cannula 2.0 10/28/17 05:00 87 18 156/73 (100) 95 Nasal Cannula 2.0 10/28/17 04:00 Room Air 10/28/17 04:00 98.6 86 18 150/58 (88) 95 Nasal Cannula 2.0 98.6 10/28/17 03:03 86 18 140/43 (75) 95 Nasal Cannula 2.0 10/28/17 02:00 90 18 102/80 (87) 95 Nasal Cannula 2.0 10/28/17 01:00 88 18 119/58 (78) 95 Nasal Cannula 2.0 10/28/17 00:00 99.9 88 18 135/69 (91) 92 Room Air 99.9 10/28/17 00:00 Room Air 10/27/17 23:00 90 18 114/55 (74) 92 Room Air 10/27/17 22:00 90 18 114/55 (74) 92 Room Air 10/27/17 21:00 88 18 112/52 (72) 92 Room Air 10/27/17 20:30 88 18 113/50 (71) 92 Room Air 10/27/17 20:15 86 18 117/54 (75) 93 Room Air 10/27/17 20:05 Room Air 10/27/17 20:05 98.5 86 18 114/58 (76) 93 Room Air 98.5 10/27/17 19:30 84 18 92 10/27/17 19:01 82 20 93 10/27/17 18:03 84 14 92 10/27/17 17:23 88 20 95 10/27/17 16:05 98.6 56 16 136/58 (84) 94 Room Air 98.6 Laboratory Laboratory Laboratory Tests Test 10/27/17 21:40 10/28/17 04:15 10/28/17 13:35 Lactic Acid Level 1.5 mmol/L (0.4-2.0) White Blood Count 18.3 x10^3/uL (4.0-11.0) Red Blood Count 3.79 x10^6/uL (4.30-5.70) Hemoglobin 11.5 g/dL (13.0-17.5) Hematocrit 34.1 % (39.0-53.0) Mean Corpuscular Volume 90 fL (79-100) Mean Corpuscular Hemoglobin 30 pg (25-35) Mean Corpuscular Hemoglobin Concent 34 g/dL (31-37) Red Cell Distribution Width 12.5 % (11.5-14.5) Platelet Count 209 x10^3/uL (140-400) Neutrophils (%) (Auto) 84 % (31-73) Lymphocytes (%) (Auto) 7 % (24-48) Monocytes (%) (Auto) 8 % (0-9) Eosinophils (%) (Auto) 0 % (0-3) Basophils (%) (Auto) 0 % (0-3) Neutrophils # (Auto) 15.4 x10^3uL (1.8-7.7) Lymphocytes # (Auto) 1.2 x10^3/uL (1.0-4.8) Monocytes # (Auto) 1.5 x10^3/uL (0.0-1.1) Eosinophils # (Auto) 0.0 x10^3/uL (0.0-0.7) Basophils # (Auto) 0.0 x10^3/uL (0.0-0.2) Sodium Level 137 mmol/L (136-145) Potassium Level 4.1 mmol/L (3.5-5.1) Chloride Level 99 mmol/L (98-107) Carbon Dioxide Level 27 mmol/L (21-32) Anion Gap 11 (6-14) Blood Urea Nitrogen 119 mg/dL (8-26) Creatinine 3.9 mg/dL (0.7-1.3) Estimated GFR (Cockcroft-Gault) 15.3 BUN/Creatinine Ratio 31 (6-20) Glucose Level 233 mg/dL (70-99) Calcium Level 8.4 mg/dL (8.5-10.1) Total Bilirubin 1.0 mg/dL (0.2-1.0) Aspartate Amino Transf (AST/SGOT) 195 U/L (15-37) Alanine Aminotransferase (ALT/SGPT) 83 U/L (16-63) Alkaline Phosphatase 92 U/L (46-116) Total Protein 6.0 g/dL (6.4-8.2) Albumin 2.4 g/dL (3.4-5.0) Albumin/Globulin Ratio 0.7 (1.0-1.7) Triglycerides Level 97 mg/dL (0-150) Cholesterol Level 90 mg/dL (0-200) LDL Cholesterol, Calculated 34 mg/dL (0-100) VLDL Cholesterol, Calculated 19 mg/dL (0-40) Non-HDL Cholesterol Calculated 53 mg/dL (0-129) HDL Cholesterol 37 mg/dL (40-60) Cholesterol/HDL Ratio 2.4 Glucose (Fingerstick) 253 mg/dL (70-99) Microbiology 10/27/17 Blood Culture - Final, Complete Medication Medications Current Medications Acetaminophen (Tylenol) 650 mg PRN Q6HRS PRN PO FEVER; Start 10/28/17 at 09:30 Amiodarone HCl (Cordarone) 200 mg BID PO Last administered on 10/28/17at 14:52; Start 10/28/17 at 14:00 Atorvastatin Calcium (Lipitor) 20 mg QHS PO ; Start 10/28/17 at 21:00 Cetirizine HCl (ZyrTEC) 10 mg DAILY PO Last administered on 10/28/17at 14:53; Start 10/28/17 at 14:00 Citalopram Hydrobromide (CeleXA) 40 mg DAILY PO Last administered on 10/28/17at 14:52; Start 10/28/17 at 14:00 Cyanocobalamin (Vitamin B-12) 1,000 mcg DAILY PO Last administered on at 14:51; Start 10/28/17 at 14:00 Dextrose (Dextrose 50%-Water Syringe) 12.5 gm PRN Q15MIN PRN IV SEE COMMENTS; Start 10/28/17 at 09:30 Docusate Sodium (Colace) 100 mg PRN DAILY PRN PO CONSTIPATION; Start 10/28/17 at 09:30 Donepezil HCl (Aricept) 10 mg DAILY PO Last administered on 10/28/17at 14:53; Start 10/28/17 at 14:00 Enalaprilat (Vasotec Inj) 1.25 mg PRN Q4HRS PRN IVP ELEVATED BP, SEE COMMENTS; Start 10/28/17 at 09:30 Enalaprilat (Vasotec Inj) 1.25 mg Q6HRS IVP ; Start 10/27/17 at 20:30; Stop at 09:24; Status DC Fenofibrate (Lofibra) 134 mg DAILY PO Last administered on 10/28/17at 14:51; Start 10/28/17 at 14:00 Fentanyl Citrate (Fentanyl 2ml Vial) 25 mcg 1X ONCE IV Last administered on at 00:44; Start 10/28/17 at 00:45; Stop 10/28/17 at 00:46; Status DC Gabapentin (Neurontin) 1,800 mg QHS PO ; Start 10/28/17 at 21:00 Insulin Glargine (Lantus) 20 units QHS SQ ; Start 10/28/17 at 21:00 Insulin Human Lispro (HumaLOG) 0-9 UNITS TIDWMEALS SQ Last administered on 10/28at 13:49; Start 10/28/17 at 12:00 Labetalol HCl (Normodyne Iv Push) 10 mg PRN Q2HR PRN IVP HYPERTENSION, SEE COMMENTS; Start 10/28/17 at 09:30 Lactobacillus Rhamnosus (Culturelle) 1 cap BID PO ; Start 10/28/17 at 21:00; Status Cancel Levofloxacin/ Dextrose 100 ml @ 100 mls/hr 1X ONCE IV Last administered on at 22:07; Start 10/27/17 at 18:30; Stop 10/27/17 at 19:29; Status DC Lisinopril (Prinivil) 40 mg DAILY PO ; Start 10/28/17 at 14:00 Lorazepam (Ativan) 0.5 mg 1X ONCE IV Last administered on 10/28/17at 11:51; Start 10/28/17 at 09:45; Stop 10/28/17 at 09:46; Status DC Memantine (Namenda) 10 mg BID PO Last administered on 10/28/17at 14:51; Start at 14:00 Metoprolol Succinate (Toprol Xl) 100 mg DAILY PO Last administered on at 14:53; Start 10/28/17 at 14:00 Morphine Sulfate (Morphine Sulfate) 2 mg PRN Q2HR PRN IV MODERATE TO SEVERE PAIN; Start 10/28/17 at 09:30 Non-Formulary Medication (Melatonin ) 5 mg QHS PO ; Start 10/28/17 at 21:00; Status UNV Ondansetron HCl (Zofran) 4 mg PRN Q6HRS PRN IV NAUSEA/VOMITING; Start 10/28/17 at 09:30 Ondansetron HCl (Zofran) 4 mg PRN Q8HRS PRN IV NAUSEA/VOMITING; Start 10/27/17 at 18:00; Stop 10/28/17 at 17:59 Piperacillin Sod/ Tazobactam Sod 2.25 gm/Sodium Chloride 50 ml @ 100 mls/hr 1X ONCE IV Last administered on 10/27/17at 19:00; Start 10/27/17 at 18:30; Stop 10/27/17 at 18:59; Status DC Piperacillin Sod/ Tazobactam Sod 2.25 gm/Sodium Chloride 50 ml @ 100 mls/hr Q6HRS IV Last administered on 10/28/17at 11:24; Start 10/28/17 at 00:00 Piperacillin Sod/ Tazobactam Sod 4.5 gm/Sodium Chloride 100 ml @ 200 mls/hr DAILY IV ; Start 10/28/17 at 09:00; Status UNV Sodium Chloride 1,000 ml @ 75 mls/hr [id number] IV Last administered on at 11:23; Start 10/27/17 at 20:00 Tamsulosin HCl (Flomax) 0.4 mg DAILY PO Last administered on 10/28/17at 14:52; Start 10/28/17 at 14:00 Tramadol HCl (Ultram) 50 mg PRN Q6HRS PRN PO MILD TO MODERATE PAIN; Start 10/28 at 09:30 Vancomycin HCl (Vanco Per Pharmacy) 1 each PRN DAILY PRN MC SEE COMMENTS Last administered on 10/28/17at 13:25; Start 10/27/17 at 18:00 Vancomycin HCl (Vancomycin Random Level) 1 each 1X ONCE MC ; Start 10/29/17 at 05:00; Stop 10/29/17 at 05:01 Vancomycin HCl 0.5 gm/Sodium Chloride 250 ml @ 166.667 mls/hr 1X ONCE IV ; Start 10/27/17 at 18:15; Stop 10/27/17 at 19:44; Status UNV Vancomycin HCl 2 gm/Sodium Chloride 500 ml @ 250 mls/hr 1X ONCE IV Last administered on 10/27/17at 19:00; Start 10/27/17 at 19:00; Stop 10/27/17 at 20:59 ; Status DC Vitamin D (Vitamin D3) 1,000 unit DAILY PO Last administered on 10/28/17at 14:51 ; Start 10/28/17 at 14:00 Comment Review of Relevant I have reviewed the following items turner (where applicable) has been applied. RODO SYKES MD Oct 28, 2017 17:27
--- NOTE | 2017-10-28 17:34 | PDOC ---
Provider Note Provider Note patient seen and examined at 0920 recently discharged from [facility] to resort following a stroke reportedly fell CT head with stroke with hemorrhagic evolution in right parietal region vs traumatic hemorrhage MRI brain pending neurology following d/w RN full consult to follow JANIE NEWMAN MD Oct 28, 2017 17:34
[2017-10-28] MEDS: GABAPENTIN 300 MG CAPSULE. PO SCH (20:55)
[2017-10-28] MEDS: ATORVASTATIN CALCIUM 20 MG TABLET PO SCH (20:55)
[2017-10-28] MEDS ORDERED: LACTOBACILLUS RHAMNOSUS GG 1 CAPSULE. PO SCH (21:00)
[2017-10-28] MEDS ORDERED: INSULIN GLARGINE 300 UNITS/3 ML INSULN.PEN. SQ SCH (21:00)
[2017-10-28] MEDS ORDERED: NON FORMULARY ITEM (Melatonin 5 MG) PO SCH (21:00)
[2017-10-29] VITALS (24 sets, daily range): BP systolic 81–148; BP diastolic 41–99
[2017-10-29] MEDS: PIPERACILLIN/TAZOBACTAM 2.25 GM in IV NORMAL SALINE 50ML 50 ML IV SCH ×4 (02:18→16:25)
[2017-10-29] MEDS: MORPHINE SULFATE 2 MG/ML VIAL. IV PRN ×2 (02:18→09:28)
[2017-10-29 04:58] LABS: BASO # 0.1 x10^3/uL (0.0-0.2); BASO % 1 % (0-3); EOS # 0.1 x10^3/uL (0.0-0.7); EOS % 1 % (0-3); HEMATOCRIT 31.9 % (39.0-53.0); HEMOGLOBIN 10.7 g/dL (13.0-17.5); LYMPH # 1.3 x10^3/uL (1.0-4.8); LYMPH % 10 % (24-48); MEAN CORPUSCULAR HEMOGLOBIN 30 pg (25-35); MEAN CORPUSCULAR HGB CONC 34 g/dL (31-37); MEAN CORPUSCULAR VOLUME 90 fL (79-100); MONO # 1.3 x10^3/uL (0.0-1.1); MONO % 10 % (0-9); NEUT # 10.7 x10^3uL (1.8-7.7); NEUT % 79 % (31-73); PLATELET COUNT 196 x10^3/uL (140-400); RED BLOOD COUNT 3.53 x10^6/uL (4.30-5.70); RED CELL DISTRIBUTION WIDTH 12.4 % (11.5-14.5); WHITE BLOOD COUNT 13.5 x10^3/uL (4.0-11.0)
[2017-10-29] MEDS ORDERED: VANCOMYCIN RANDOM LEVEL. MC ONE (05:00)
[2017-10-29 05:29] LABS: GFR 33.1; POTASSIUM 4.3 mmol/L (3.5-5.1)
--- NOTE | 2017-10-29 07:04 | PDOC ---
Infectious Disease Note Subjective: Subjective Pt alert awake does not answer all questions appears comfortable ROS: ROS Negative except for above. Vital Signs: Vital Signs Vital Signs Date Time Temp Pulse Resp B/P (MAP) Pulse Ox O2 Delivery O2 Flow Rate FiO2 10/29/17 06:00 71 12 115/49 (71) 96 Room Air 10/29/17 04:00 99.1 99.1 10/28/17 16:00 2.0 Physical Exam: PHYSICAL EXAM GENERAL: answers few questions, HEENT: Anicteric. Normocephalic and atraumatic. No oral lesions. No thrush. Oral mucosa moist. LUNGS: Clear bilaterally. HEART: S1 and S2. ABDOMEN: Soft, nontender and nondistended. G-tube in place, appears okay. GENITOURINARY: Chronic indwelling Weeks in place, changed 10/27/2017 in ER. EXTREMITIES: No edema and no cyanosis. A few scattered dry skin lesions present. CENTRAL NERVOUS SYSTEM: Left-sided weakness. DERMATOLOGICAL: No generalized rash. MUSCULOSKELETAL: Not able to assess fully. The patient winces in pain with movement of right lower extremity. Medications: Inpatient Meds: Current Medications Medications (Trade) Dose Ordered Sig/Alissa Start Time Stop Time Status Last Admin Dose Admin Acetaminophen (Tylenol) 650 mg PRN Q6HRS PRN 10/28/17 09:30 Amiodarone HCl (Cordarone) 200 mg BID 10/28/17 14:00 10/28/17 20:55 200 MG Atorvastatin Calcium (Lipitor) 20 mg QHS 10/28/17 21:00 10/28/17 20:55 20 MG Cetirizine HCl (ZyrTEC) 10 mg DAILY 10/28/17 14:00 10/28/17 14:53 10 MG Citalopram Hydrobromide (CeleXA) 40 mg DAILY 10/28/17 14:00 10/28/17 14:52 40 MG Cyanocobalamin (Vitamin B-12) 1,000 mcg DAILY 10/28/17 14:00 10/28/17 14:51 1,000 MCG Dextrose (Dextrose 50%-Water Syringe) 12.5 gm PRN Q15MIN PRN 10/28/17 09:30 Docusate Sodium (Colace) 100 mg PRN DAILY PRN 10/28/17 09:30 Donepezil HCl (Aricept) 10 mg DAILY 10/28/17 14:00 10/28/17 14:53 10 MG Enalaprilat (Vasotec Inj) 1.25 mg PRN Q4HRS PRN 10/28/17 09:30 10/28/17 18:32 DC Fenofibrate (Lofibra) 134 mg DAILY 10/28/17 14:00 10/28/17 14:51 134 MG Fentanyl Citrate (Fentanyl 2ml Vial) 25 mcg 1X ONCE 10/28/17 00:45 10/28/17 00:46 DC 10/28/17 00:44 25 MCG Gabapentin (Neurontin) 1,800 mg QHS 10/28/17 21:00 10/28/17 20:55 1,800 MG Insulin Glargine (Lantus) 20 units QHS 10/28/17 21:00 10/28/17 21:00 20 UNITS Insulin Human Lispro (HumaLOG) 0-9 UNITS TIDWMEALS 10/28/17 12:00 10/28/17 17:35 7 UNITS Labetalol HCl (Normodyne Iv Push) 10 mg PRN Q2HR PRN 10/28/17 09:30 Lactobacillus Rhamnosus (Culturelle) 1 cap BID 10/28/17 21:00 Cancel Levofloxacin/ Dextrose 100 ml @ 100 mls/hr 1X ONCE 10/27/17 18:30 10/27/17 19:29 DC 10/27/17 22:07 100 MLS/HR Lisinopril (Prinivil) 40 mg DAILY 10/28/17 14:00 Lorazepam (Ativan) 0.5 mg 1X ONCE 10/28/17 09:45 10/28/17 09:46 DC 10/28/17 11:51 0.5 MG Memantine (Namenda) 10 mg BID 10/28/17 14:00 10/28/17 20:56 10 MG Metoprolol Succinate (Toprol Xl) 100 mg DAILY 10/28/17 14:00 10/28/17 14:53 100 MG Morphine Sulfate (Morphine Sulfate) 2 mg PRN Q2HR PRN 10/28/17 09:30 10/29/17 02:18 2 MG Non-Formulary Medication (Melatonin ) 5 mg QHS 10/28/17 21:00 UNV Ondansetron HCl (Zofran) 4 mg PRN Q6HRS PRN 10/28/17 09:30 Piperacillin Sod/ Tazobactam Sod 2.25 gm/Sodium Chloride 50 ml @ 100 mls/hr Q6HRS 10/28/17 00:00 10/29/17 05:25 100 MLS/HR Piperacillin Sod/ Tazobactam Sod 4.5 gm/Sodium Chloride 100 ml @ 200 mls/hr DAILY 10/28/17 09:00 UNV Sodium Chloride 1,000 ml @ 75 mls/hr [id number] 10/27/17 20:00 10/28/17 11:23 75 MLS/HR Tamsulosin HCl (Flomax) 0.4 mg DAILY 10/28/17 14:00 10/28/17 14:52 0.4 MG Tramadol HCl (Ultram) 50 mg PRN Q6HRS PRN 10/28/17 09:30 Vancomycin HCl (Vanco Per Pharmacy) 1 each PRN DAILY PRN 10/27/17 18:00 10/28/17 13:25 1 EACH Vancomycin HCl (Vancomycin Random Level) 1 each 1X ONCE 10/29/17 05:00 10/29/17 05:01 DC Vancomycin HCl 0.5 gm/Sodium Chloride 250 ml @ 166.667 mls/hr 1X ONCE 10/27/17 18:15 10/27/17 19:44 UNV Vancomycin HCl 2 gm/Sodium Chloride 500 ml @ 250 mls/hr 1X ONCE 10/27/17 19:00 10/27/17 20:59 DC 10/27/17 19:00 250 MLS/HR Vitamin D (Vitamin D3) 1,000 unit DAILY 10/28/17 14:00 10/28/17 14:51 1,000 UNIT Labs: Lab Laboratory Tests Test 10/28/17 13:35 10/28/17 17:27 10/28/17 20:58 10/29/17 04:00 Glucose (Fingerstick) 253 mg/dL (70-99) 264 mg/dL (70-99) 212 mg/dL (70-99) White Blood Count 13.5 x10^3/uL (4.0-11.0) Red Blood Count 3.53 x10^6/uL (4.30-5.70) Hemoglobin 10.7 g/dL (13.0-17.5) Hematocrit 31.9 % (39.0-53.0) Mean Corpuscular Volume 90 fL (79-100) Mean Corpuscular Hemoglobin 30 pg (25-35) Mean Corpuscular Hemoglobin Concent 34 g/dL (31-37) Red Cell Distribution Width 12.4 % (11.5-14.5) Platelet Count 196 x10^3/uL (140-400) Neutrophils (%) (Auto) 79 % (31-73) Lymphocytes (%) (Auto) 10 % (24-48) Monocytes (%) (Auto) 10 % (0-9) Eosinophils (%) (Auto) 1 % (0-3) Basophils (%) (Auto) 1 % (0-3) Neutrophils # (Auto) 10.7 x10^3uL (1.8-7.7) Lymphocytes # (Auto) 1.3 x10^3/uL (1.0-4.8) Monocytes # (Auto) 1.3 x10^3/uL (0.0-1.1) Eosinophils # (Auto) 0.1 x10^3/uL (0.0-0.7) Basophils # (Auto) 0.1 x10^3/uL (0.0-0.2) Sodium Level 143 mmol/L (136-145) Potassium Level 4.3 mmol/L (3.5-5.1) Chloride Level 108 mmol/L (98-107) Carbon Dioxide Level 24 mmol/L (21-32) Anion Gap 11 (6-14) Blood Urea Nitrogen 93 mg/dL (8-26) Creatinine 2.0 mg/dL (0.7-1.3) Estimated GFR (Cockcroft-Gault) 33.1 Glucose Level 249 mg/dL (70-99) Calcium Level 8.0 mg/dL (8.5-10.1) Random Vancomycin Level 8.8 mcg/mL Micro RUN DATE: 10/28/17 PAGE 1 RUN TIME: 1631 [facility] [address] [place] [address] Chadwick Krishnan M.D., Canary Raiser PATIENT: HERMINIA LOWE ACCT: [id number] LOC: 1 [facility] U : [id number] AGE/SX: 71/M ROOM: 107 REG : 10/27/[address]: CHENCHO MARQUEZ MD : 1945 BED: 1 DIS : STATUS: ADM IN TLOC: SPEC #: [id number] QUINN: 10/27/17 STATUS: COMP REQ #: [id number] RECD: 10/27/17-[address]: LALITHA COLLIER APRN SOURCE: BLOOD ENTR: 10/27/17-[address]: CORY BIRD MD SPDESC: NON,STAFF ORDERED: BCULT Procedure Result BLOOD CULTURE Final GRAM POSITIVE COCCI IN CLUSTERS IN 1 OF 2 BOTTLES(AEROBIC);REPRESENTING 1 SET DRAWN. THE RESULT WAS CALLED TO MATTHIEU CHENG(ICU)ON 10/28/17 AT 1354 BY Abundio MATAMOROS. THE BLOOD CULTURE HAS BEEN SENT TO [facility] FOR FURTHER WORKUP. Objective: Assessment: 1. Altered mental status. CT and MRI brain SAH changes, neurosurgery and neurology following 2. GPC bacteremia ID pending, could be a contaminant Pyuria with leukocytosis. s/p Levaquin x 1 in ED. 3. Lactic acidosis 4. Acute kidney injury with ultrasound showing no hydronephrosis. 5. Diabetes mellitus. 6. High lipase. 7. Increased liver function tests. 8. History of questionable fall. 9. H/O CVA, Subarachnoid hemorrhage on CT and MRI brain 10. History of atrial fibrillation. 11. Diabetes mellitus 2. 12. Depression. 13. History of allergies to amoxicillin and the patient is tolerating Zosyn well until now. Plan: Plan of Care Continue empiric Zosyn and IV Vanc,renal dosing FU GPC on BC and UC Follow up labs in a.m and cults. Continue supportive care. ADRIANO VILLASENOR MD Oct 29, 2017 07:04
[2017-10-29] MEDS: VANCOMYCIN PER PHARMACY MC PRN (07:29)
[2017-10-29] MEDS: VANCOMYCIN 1.75 GM in IV NORMAL SALINE 500ML BAG 500 ML IV SCH (08:11)
[2017-10-29] MEDS: FENOFIBRATE,MICRONIZED 134 MG CAPSULE PO SCH (08:12)
[2017-10-29] MEDS: CYANOCOBALAMIN (VITAMIN B-12) 1,000 MCG TABLET. PO SCH (08:12)
[2017-10-29] MEDS: LISINOPRIL 20 MG TABLET PO SCH (08:12)
[2017-10-29] MEDS: CETIRIZINE HCL 10 MG TABLET. PO SCH (08:13)
[2017-10-29] MEDS: DONEPEZIL HCL 10 MG TABLET. PO SCH (08:13)
[2017-10-29] MEDS: CITALOPRAM 20 MG TABLET. PO SCH (08:13)
[2017-10-29] MEDS: CHOLECALCIFEROL (VITAMIN D3) 1,000 UNIT TABLET PO SCH (08:13)
[2017-10-29] MEDS: MEMANTINE 10 MG TABLET. PO SCH ×2 (08:13→21:31)
[2017-10-29] MEDS: TAMSULOSIN 0.4 MG CAP.ER.24H. PO SCH (08:14)
[2017-10-29] MEDS: METOPROLOL SUCC 24HR ER 50 MG TAB.ER.24H. PO SCH (08:14)
[2017-10-29] MEDS: AMIODARONE HCL 200 MG TABLET. PO SCH ×2 (08:16→21:32)
[2017-10-29] MEDS: INSULIN LISPRO 300 UNITS/3 ML INSULN.PEN. SQ SCH ×3 (09:29→16:23)
[2017-10-29] MEDS: IV NORMAL SALINE 1000ML BAG 1,000 ML IV SCH (11:33)
--- NOTE | 2017-10-29 11:55 | PDOC ---
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 dysphagia with PEG aphagia with stroke plan: fu with renal, neuro, neurosx , id cont PEG feeding MRI done cont some home meds, hold asa, eliquis increase lantus to 30u qhs, ssi for now on zosyn, vanco as per ID, fu bcx, ucx PTOT Renal US neg labs daily IVF ok transfer out of ICU History of Present Illness History of Present Illness ROS: no fever, chills, sob or chest pain pt is very drowsy, not answer any questions or follow comands appeared tender when palpate his abd and lift up his rt legs left side paralized ,has PEG as per nurse, pt can talk a little bit in rehab 10/29: nurse said pt was better yesterday pm, but today still not really answer my questions or follow commands. cr down to 2, wbc better, 1/2 + bcx indwelling fajardo Vitals Vitals Vital Signs Date Time Temp Pulse Resp B/P (MAP) Pulse Ox O2 Delivery O2 Flow Rate FiO2 10/29/17 11:00 67 13 81/56 (64) 98 Nasal Cannula 2.0 10/29/17 08:00 98.9 98.9 Physical Exam Physical Exam GENERAL: answers few questions, HEENT: Anicteric. Normocephalic and atraumatic. No oral lesions. No thrush. Oral mucosa moist. LUNGS: Clear bilaterally. HEART: S1 and S2. ABDOMEN: Soft, nontender and nondistended. G-tube in place, appears okay. GENITOURINARY: Chronic indwelling Fajardo in place, changed 10/27/2017 in ER. EXTREMITIES: No edema and no cyanosis. A few scattered dry skin lesions present. CENTRAL NERVOUS SYSTEM: Left-sided weakness. DERMATOLOGICAL: No generalized rash. MUSCULOSKELETAL: Not able to assess fully. The patient winces in pain with movement of right lower extremity. General: Alert, Cooperative Heart: Regular rate, Normal S1, Normal S2 Lungs: Clear Abdomen: Normal bowel sounds, Soft, Other (tender diffusely) Extremities: No cyanosis Skin: No breakdown Labs LABS Laboratory Tests Test 10/28/17 13:35 10/28/17 17:27 10/28/17 20:58 10/29/17 04:00 Glucose (Fingerstick) 253 mg/dL (70-99) 264 mg/dL (70-99) 212 mg/dL (70-99) White Blood Count 13.5 x10^3/uL (4.0-11.0) Red Blood Count 3.53 x10^6/uL (4.30-5.70) Hemoglobin 10.7 g/dL (13.0-17.5) Hematocrit 31.9 % (39.0-53.0) Mean Corpuscular Volume 90 fL (79-100) Mean Corpuscular Hemoglobin 30 pg (25-35) Mean Corpuscular Hemoglobin Concent 34 g/dL (31-37) Red Cell Distribution Width 12.4 % (11.5-14.5) Platelet Count 196 x10^3/uL (140-400) Neutrophils (%) (Auto) 79 % (31-73) Lymphocytes (%) (Auto) 10 % (24-48) Monocytes (%) (Auto) 10 % (0-9) Eosinophils (%) (Auto) 1 % (0-3) Basophils (%) (Auto) 1 % (0-3) Neutrophils # (Auto) 10.7 x10^3uL (1.8-7.7) Lymphocytes # (Auto) 1.3 x10^3/uL (1.0-4.8) Monocytes # (Auto) 1.3 x10^3/uL (0.0-1.1) Eosinophils # (Auto) 0.1 x10^3/uL (0.0-0.7) Basophils # (Auto) 0.1 x10^3/uL (0.0-0.2) Sodium Level 143 mmol/L (136-145) Potassium Level 4.3 mmol/L (3.5-5.1) Chloride Level 108 mmol/L (98-107) Carbon Dioxide Level 24 mmol/L (21-32) Anion Gap 11 (6-14) Blood Urea Nitrogen 93 mg/dL (8-26) Creatinine 2.0 mg/dL (0.7-1.3) Estimated GFR (Cockcroft-Gault) 33.1 Glucose Level 249 mg/dL (70-99) Calcium Level 8.0 mg/dL (8.5-10.1) Random Vancomycin Level 8.8 mcg/mL Test 10/29/17 11:29 Glucose (Fingerstick) 233 mg/dL (70-99) Assessment and Plan Assessmemt and Plan Problems Medical Problems: (1) Acute on chronic renal failure Status: Acute (2) Altered mental status Status: Acute (3) Sepsis Status: Acute Comment Review of Relevant I have reviewed the following items turner (where applicable) has been applied. Labs Laboratory Tests Test 10/27/17 16:00 10/27/17 16:34 10/27/17 21:40 10/28/17 04:15 White Blood Count 22.7 x10^3/uL (4.0-11.0) 18.3 x10^3/uL (4.0-11.0) Red Blood Count 4.38 x10^6/uL (4.30-5.70) 3.79 x10^6/uL (4.30-5.70) Hemoglobin 13.0 g/dL (13.0-17.5) 11.5 g/dL (13.0-17.5) Hematocrit 39.4 % (39.0-53.0) 34.1 % (39.0-53.0) Mean Corpuscular Volume 90 fL (79-100) 90 fL (79-100) Mean Corpuscular Hemoglobin 30 pg (25-35) 30 pg (25-35) Mean Corpuscular Hemoglobin Concent 33 g/dL (31-37) 34 g/dL (31-37) Red Cell Distribution Width 12.6 % (11.5-14.5) 12.5 % (11.5-14.5) Platelet Count 282 x10^3/uL (140-400) 209 x10^3/uL (140-400) Neutrophils (%) (Auto) 88 % (31-73) 84 % (31-73) Lymphocytes (%) (Auto) 5 % (24-48) 7 % (24-48) Monocytes (%) (Auto) 6 % (0-9) 8 % (0-9) Eosinophils (%) (Auto) 0 % (0-3) 0 % (0-3) Basophils (%) (Auto) 1 % (0-3) 0 % (0-3) Neutrophils # (Auto) 19.9 x10^3uL (1.8-7.7) 15.4 x10^3uL (1.8-7.7) Lymphocytes # (Auto) 1.2 x10^3/uL (1.0-4.8) 1.2 x10^3/uL (1.0-4.8) Monocytes # (Auto) 1.5 x10^3/uL (0.0-1.1) 1.5 x10^3/uL (0.0-1.1) Eosinophils # (Auto) 0.0 x10^3/uL (0.0-0.7) 0.0 x10^3/uL (0.0-0.7) Basophils # (Auto) 0.1 x10^3/uL (0.0-0.2) 0.0 x10^3/uL (0.0-0.2) Segmented Neutrophils % 87 % (35-66) Band Neutrophils % 1 % (0-9) Lymphocytes % 6 % (24-48) Monocytes % 6 % (0-10) Platelet Estimate Adequate (ADEQUATE) Large Platelets Present Prothrombin Time 17.2 SEC (11.7-14.0) Prothromb Time International Ratio 1.5 (0.8-1.1) Sodium Level 136 mmol/L (136-145) 137 mmol/L (136-145) Potassium Level 4.8 mmol/L (3.5-5.1) 4.1 mmol/L (3.5-5.1) Chloride Level 97 mmol/L (98-107) 99 mmol/L (98-107) Carbon Dioxide Level 28 mmol/L (21-32) 27 mmol/L (21-32) Anion Gap 11 (6-14) 11 (6-14) Blood Urea Nitrogen 117 mg/dL (8-26) 119 mg/dL (8-26) Creatinine 5.1 mg/dL (0.7-1.3) 3.9 mg/dL (0.7-1.3) Estimated GFR (Cockcroft-Gault) 11.2 15.3 BUN/Creatinine Ratio 23 (6-20) 31 (6-20) Glucose Level 273 mg/dL (70-99) 233 mg/dL (70-99) Lactic Acid Level 2.9 mmol/L (0.4-2.0) 1.5 mmol/L (0.4-2.0) Calcium Level 8.4 mg/dL (8.5-10.1) 8.4 mg/dL (8.5-10.1) Magnesium Level 2.9 mg/dL (1.8-2.4) Total Bilirubin 0.8 mg/dL (0.2-1.0) 1.0 mg/dL (0.2-1.0) Aspartate Amino Transf (AST/SGOT) 160 U/L (15-37) 195 U/L (15-37) Alanine Aminotransferase (ALT/SGPT) 81 U/L (16-63) 83 U/L (16-63) Alkaline Phosphatase 130 U/L (46-116) 92 U/L (46-116) Ammonia 18 mcmol/L (11-34) Troponin I Quantitative < 0.017 ng/mL (0.000-0.055) US-Dck-G-Type Natriuretic Peptide 116 pg/mL (0-124) Total Protein 6.7 g/dL (6.4-8.2) 6.0 g/dL (6.4-8.2) Albumin 2.8 g/dL (3.4-5.0) 2.4 g/dL (3.4-5.0) Albumin/Globulin Ratio 0.7 (1.0-1.7) 0.7 (1.0-1.7) Lipase 543 U/L (73-393) Thyroid Stimulating Hormone (TSH) 5.139 uIU/mL (0.358-3.74) Free Thyroxine 1.20 ng/dL (0.76-1.46) Free Triiodothyronine (T3) pg/mL 1.10 pg/mL (2.18-3.98) Urine Collection Type Unknown Urine Color Brown Urine Clarity Turbid Urine pH 5.0 Urine Specific [place] 1.020 Urine Protein 100 mg/dL (NEG-TRACE) Urine Glucose (UA) Negative mg/dL (NEG) Urine Ketones (Stick) Trace mg/dL (NEG) Urine Blood Large (NEG) Urine Nitrite Positive (NEG) Urine Bilirubin Large (NEG) Urine Urobilinogen Dipstick 1.0 mg/dL (0.2 mg/dL) Urine Leukocyte Esterase Large (NEG) Urine RBC >40 /HPF (0-2) Urine WBC >40 /HPF (0-4) Urine Bacteria Many /HPF (0-FEW) Urine Opiates Screen Neg (NEG) Urine Methadone Screen Neg (NEG) Urine Barbiturates Neg (NEG) Urine Phencyclidine Screen Neg (NEG) Urine Amphetamine/Methamphetamine Neg (NEG) Urine Benzodiazepines Screen Neg (NEG) Urine Cocaine Screen Neg (NEG) Urine Cannabinoids Screen Neg (NEG) Urine Ethyl Alcohol Neg (NEG) Triglycerides Level 97 mg/dL (0-150) Cholesterol Level 90 mg/dL (0-200) LDL Cholesterol, Calculated 34 mg/dL (0-100) VLDL Cholesterol, Calculated 19 mg/dL (0-40) Non-HDL Cholesterol Calculated 53 mg/dL (0-129) HDL Cholesterol 37 mg/dL (40-60) Cholesterol/HDL Ratio 2.4 Test 10/28/17 13:35 10/28/17 17:27 10/28/17 20:58 10/29/17 04:00 Glucose (Fingerstick) 253 mg/dL (70-99) 264 mg/dL (70-99) 212 mg/dL (70-99) White Blood Count 13.5 x10^3/uL (4.0-11.0) Red Blood Count 3.53 x10^6/uL (4.30-5.70) Hemoglobin 10.7 g/dL (13.0-17.5) Hematocrit 31.9 % (39.0-53.0) Mean Corpuscular Volume 90 fL (79-100) Mean Corpuscular Hemoglobin 30 pg (25-35) Mean Corpuscular Hemoglobin Concent 34 g/dL (31-37) Red Cell Distribution Width 12.4 % (11.5-14.5) Platelet Count 196 x10^3/uL (140-400) Neutrophils (%) (Auto) 79 % (31-73) Lymphocytes (%) (Auto) 10 % (24-48) Monocytes (%) (Auto) 10 % (0-9) Eosinophils (%) (Auto) 1 % (0-3) Basophils (%) (Auto) 1 % (0-3) Neutrophils # (Auto) 10.7 x10^3uL (1.8-7.7) Lymphocytes # (Auto) 1.3 x10^3/uL (1.0-4.8) Monocytes # (Auto) 1.3 x10^3/uL (0.0-1.1) Eosinophils # (Auto) 0.1 x10^3/uL (0.0-0.7) Basophils # (Auto) 0.1 x10^3/uL (0.0-0.2) Sodium Level 143 mmol/L (136-145) Potassium Level 4.3 mmol/L (3.5-5.1) Chloride Level 108 mmol/L (98-107) Carbon Dioxide Level 24 mmol/L (21-32) Anion Gap 11 (6-14) Blood Urea Nitrogen 93 mg/dL (8-26) Creatinine 2.0 mg/dL (0.7-1.3) Estimated GFR (Cockcroft-Gault) 33.1 Glucose Level 249 mg/dL (70-99) Calcium Level 8.0 mg/dL (8.5-10.1) Random Vancomycin Level 8.8 mcg/mL Test 10/29/17 11:29 Glucose (Fingerstick) 233 mg/dL (70-99) Laboratory Tests Test 10/28/17 13:35 10/28/17 17:27 10/28/17 20:58 10/29/17 04:00 Glucose (Fingerstick) 253 mg/dL (70-99) 264 mg/dL (70-99) 212 mg/dL (70-99) White Blood Count 13.5 x10^3/uL (4.0-11.0) Red Blood Count 3.53 x10^6/uL (4.30-5.70) Hemoglobin 10.7 g/dL (13.0-17.5) Hematocrit 31.9 % (39.0-53.0) Mean Corpuscular Volume 90 fL (79-100) Mean Corpuscular Hemoglobin 30 pg (25-35) Mean Corpuscular Hemoglobin Concent 34 g/dL (31-37) Red Cell Distribution Width 12.4 % (11.5-14.5) Platelet Count 196 x10^3/uL (140-400) Neutrophils (%) (Auto) 79 % (31-73) Lymphocytes (%) (Auto) 10 % (24-48) Monocytes (%) (Auto) 10 % (0-9) Eosinophils (%) (Auto) 1 % (0-3) Basophils (%) (Auto) 1 % (0-3) Neutrophils # (Auto) 10.7 x10^3uL (1.8-7.7) Lymphocytes # (Auto) 1.3 x10^3/uL (1.0-4.8) Monocytes # (Auto) 1.3 x10^3/uL (0.0-1.1) Eosinophils # (Auto) 0.1 x10^3/uL (0.0-0.7) Basophils # (Auto) 0.1 x10^3/uL (0.0-0.2) Sodium Level 143 mmol/L (136-145) Potassium Level 4.3 mmol/L (3.5-5.1) Chloride Level 108 mmol/L (98-107) Carbon Dioxide Level 24 mmol/L (21-32) Anion Gap 11 (6-14) Blood Urea Nitrogen 93 mg/dL (8-26) Creatinine 2.0 mg/dL (0.7-1.3) Estimated GFR (Cockcroft-Gault) 33.1 Glucose Level 249 mg/dL (70-99) Calcium Level 8.0 mg/dL (8.5-10.1) Random Vancomycin Level 8.8 mcg/mL Test 10/29/17 11:29 Glucose (Fingerstick) 233 mg/dL (70-99) Microbiology 10/27/17 Blood Culture - Final, Complete Medications Current Medications Sodium Chloride 1,000 ml @ 1,000 mls/hr 1X ONCE IV Last administered on at 17:19; Start 10/27/17 at 16:00; Stop 10/27/17 at 16:59; Status DC Ondansetron HCl (Zofran) 4 mg PRN Q8HRS PRN IV NAUSEA/VOMITING; Start 10/27/17 at 18:00; Stop 10/28/17 at 17:59; Status DC Piperacillin Sod/ Tazobactam Sod 4.5 gm/Sodium Chloride 100 ml @ 200 mls/hr DAILY IV ; Start 10/28/17 at 09:00; Status UNV Vancomycin HCl (Vanco Per Pharmacy) 1 each PRN DAILY PRN MC SEE COMMENTS Last administered on 10/29/17at 07:29; Start 10/27/17 at 18:00 Vancomycin HCl 2 gm/Sodium Chloride 500 ml @ 250 mls/hr 1X ONCE IV Last administered on 10/27/17at 19:00; Start 10/27/17 at 19:00; Stop 10/27/17 at 20:59 ; Status DC Vancomycin HCl 0.5 gm/Sodium Chloride 250 ml @ 166.667 mls/hr 1X ONCE IV ; Start 10/27/17 at 18:15; Stop 10/27/17 at 19:44; Status UNV Levofloxacin/ Dextrose 100 ml @ 100 mls/hr 1X ONCE IV Last administered on at 22:07; Start 10/27/17 at 18:30; Stop 10/27/17 at 19:29; Status DC Piperacillin Sod/ Tazobactam Sod 2.25 gm/Sodium Chloride 50 ml @ 100 mls/hr 1X ONCE IV Last administered on 10/27/17at 19:00; Start 10/27/17 at 18:30; Stop 10/27/17 at 18:59; Status DC Piperacillin Sod/ Tazobactam Sod 2.25 gm/Sodium Chloride 50 ml @ 100 mls/hr Q6HRS IV Last administered on 10/29/17at 11:33; Start 10/28/17 at 00:00 Sodium Chloride 1,000 ml @ 75 mls/hr [id number] IV Last administered on at 11:33; Start 10/27/17 at 20:00 Enalaprilat (Vasotec Inj) 1.25 mg Q6HRS IVP ; Start 10/27/17 at 20:30; Stop at 09:24; Status DC Vancomycin HCl (Vancomycin Random Level) 1 each 1X ONCE MC Last administered on 10/29/17at 05:00; Start 10/29/17 at 05:00; Stop 10/29/17 at 05:01; Status DC Fentanyl Citrate (Fentanyl 2ml Vial) 25 mcg 1X ONCE IV Last administered on at 00:44; Start 10/28/17 at 00:45; Stop 10/28/17 at 00:46; Status DC Enalaprilat (Vasotec Inj) 1.25 mg PRN Q4HRS PRN IVP ELEVATED BP, SEE COMMENTS; Start 10/28/17 at 09:30; Stop 10/28/17 at 18:32; Status DC Acetaminophen (Tylenol) 650 mg PRN Q6HRS PRN PO FEVER; Start 10/28/17 at 09:30 Ondansetron HCl (Zofran) 4 mg PRN Q6HRS PRN IV NAUSEA/VOMITING; Start 10/28/17 at 09:30 Morphine Sulfate (Morphine Sulfate) 2 mg PRN Q2HR PRN IV MODERATE TO SEVERE PAIN Last administered on 10/29/17at 09:28; Start 10/28/17 at 09:30 Tramadol HCl (Ultram) 50 mg PRN Q6HRS PRN PO MILD TO MODERATE PAIN; Start 10/28 at 09:30 Docusate Sodium (Colace) 100 mg PRN DAILY PRN PO CONSTIPATION; Start 10/28/17 at 09:30 Labetalol HCl (Normodyne Iv Push) 10 mg PRN Q2HR PRN IVP HYPERTENSION, SEE COMMENTS; Start 10/28/17 at 09:30 Insulin Human Lispro (HumaLOG) 0-9 UNITS TIDWMEALS SQ Last administered on 10/29at 11:32; Start 10/28/17 at 12:00 Dextrose (Dextrose 50%-Water Syringe) 12.5 gm PRN Q15MIN PRN IV SEE COMMENTS; Start 10/28/17 at 09:30 Lorazepam (Ativan) 0.5 mg 1X ONCE IV Last administered on 10/28/17at 11:51; Start 10/28/17 at 09:45; Stop 10/28/17 at 09:46; Status DC Lactobacillus Rhamnosus (Culturelle) 1 cap BID PO ; Start 10/28/17 at 21:00; Status Cancel Amiodarone HCl (Cordarone) 200 mg BID PO Last administered on 10/29/17at 08:16; Start 10/28/17 at 14:00 Cetirizine HCl (ZyrTEC) 10 mg DAILY PO Last administered on 10/29/17at 08:13; Start 10/28/17 at 14:00 Cyanocobalamin (Vitamin B-12) 1,000 mcg DAILY PO Last administered on at 08:12; Start 10/28/17 at 14:00 Metoprolol Succinate (Toprol Xl) 100 mg DAILY PO Last administered on at 14:53; Start 10/28/17 at 14:00 Tamsulosin HCl (Flomax) 0.4 mg DAILY PO Last administered on 10/28/17at 14:52; Start 10/28/17 at 14:00 Lisinopril (Prinivil) 40 mg DAILY PO Last administered on 10/29/17at 08:12; Start 10/28/17 at 14:00 Vitamin D (Vitamin D3) 1,000 unit DAILY PO Last administered on 10/29/17at 08:13 ; Start 10/28/17 at 14:00 Citalopram Hydrobromide (CeleXA) 40 mg DAILY PO Last administered on 10/29/17at 08:13; Start 10/28/17 at 14:00 Donepezil HCl (Aricept) 10 mg DAILY PO Last administered on 10/29/17at 08:13; Start 10/28/17 at 14:00 Fenofibrate (Lofibra) 134 mg DAILY PO Last administered on 10/29/17at 08:12; Start 10/28/17 at 14:00 Gabapentin (Neurontin) 1,800 mg QHS PO Last administered on 10/28/17at 20:55; Start 10/28/17 at 21:00 Non-Formulary Medication (Melatonin ) 5 mg QHS PO ; Start 10/28/17 at 21:00; Status UNV Memantine (Namenda) 10 mg BID PO Last administered on 10/29/17at 08:13; Start at 14:00 Atorvastatin Calcium (Lipitor) 20 mg QHS PO Last administered on 10/28/17at 20: 55; Start 10/28/17 at 21:00 Insulin Glargine (Lantus) 20 units QHS SQ Last administered on 10/28/17at 21:00 ; Start 10/28/17 at 21:00 Vancomycin HCl 1.75 gm/Sodium Chloride 500 ml @ 250 mls/hr Q24H IV Last administered on 10/29/17at 08:11; Start 10/29/17 at 08:00 Vancomycin HCl (Vancomycin Trough Level) 1 each 1X ONCE MC ; Start 10/31/17 at 07:30; Stop 10/31/17 at 07:31 Info (Do NOT chart on this placeholder) 1 each 1X ONCE MC ; Start 10/29/17 at 12:00; Stop 10/29/17 at 12:01; Status UNV Active Scripts Active Reported B-12 (Cyanocobalamin (Vitamin B-12)) 1,000 Mcg Tablet 1,000 Mcg PO DAILY Aspirin 81 Mg Tab.chew 1 Tab PO DAILY Aricept (Donepezil Hcl) 10 Mg Tablet 1 Tab PO DAILY Eliquis (Apixaban) 5 Mg Tablet 5 Mg PO BID Amiodarone Hcl 200 Mg Tablet 200 Mg PO BID Tylenol (Acetaminophen) 325 Mg Tablet 2 Tab PO PRN Q4HRS Benazepril Hcl 40 Mg Tablet 1 Tab PO DAILY Gabapentin 600 Mg Tablet 1,800 Mg PO QHS Furosemide 80 Mg Tablet 1 Tab PO DAILY Clonidine Hcl 0.1 Mg Tablet 0.1 Mg PO PRN Q8HRS Celexa (Citalopram Hydrobromide) 40 Mg Tablet 40 Mg PO DAILY Vitamin D (Cholecalciferol (Vitamin D3)) 1,000 Unit Capsule 1 Cap PO DAILY Cetirizine Hcl 10 Mg Tablet 1 Tab PO DAILY Crestor (Rosuvastatin Calcium) 5 Mg Tablet 5 Mg PO HS Potassium Chloride 20 Meq Tablet.er 20 Meq PO DAILY Zofran Odt (Ondansetron) 4 Mg Tab.rapdis 4 Mg PO BID PRN Metoprolol Succinate 50 Mg Tab.er.24h 100 Mg PO DAILY Namenda (Memantine Hcl) 10 Mg Tablet 10 Mg PO BID Melatonin 3 Mg Tablet 5 Mg PO QHS Humalog (Insulin Lispro) 100 Unit/1 Ml Cartridge 100 Unit SQ Lantus Solostar (Insulin Glargine,Hum.rec.anlog) 100 Unit/1 Ml Insuln.pen 25 Unit SQ QHS Lantus Solostar (Insulin Glargine,Hum.rec.anlog) 100 Unit/1 Ml Insuln.pen 50 Unit SQ DAILY08 Tamsulosin Hcl 0.4 Mg Cap.er.24h 0.4 Mg PO DAILY Nystatin 15 Gm Powder 15 Gm TP Lum[place] (Bimatoprost) 2.5 Ml Drops 2.5 Ml OP Lorazepam 0.5 Mg Tablet 0.5 Mg PO TID Flonase Allergy Relief (Fluticasone Propionate) 9.9 Ml [place].susp Unknown Dose NS DAILY Fenofibrate (Fenofibrate,Micronized) 134 Mg Capsule 134 Mg PO DAILY Bupropion Xl (Bupropion Hcl) 300 Mg Tab.er.24h 300 Mg PO Vitals/I & O Vital Sign - Last 24 Hours 10/28/17 10/28/17 10/28/17 10/28/17 12:00 12:00 13:00 14:00 Temp 98.6 98.6 Pulse 92 92 92 Resp 19 19 16 B/P (MAP) 123/54 (77) 124/60 (81) 137/66 (89) Pulse Ox 95 95 92 O2 Delivery Nasal Cannula Nasal Cannula Nasal Cannula Nasal Cannula O2 Flow Rate 2.0 2.0 2.0 2.0 10/28/17 10/28/17 10/28/17 10/28/17 14:52 14:53 15:00 16:00 Pulse 89 89 90 Resp 16 B/P (MAP) 137/66 137/66 147/57 (87) Pulse Ox 98 O2 Delivery Nasal Cannula Nasal Cannula O2 Flow Rate 2.0 2.0 10/28/17 10/28/17 10/28/17 10/28/17 16:00 17:00 18:00 19:00 Temp 99.2 99.2 Pulse 82 79 83 80 Resp 16 20 18 18 B/P (MAP) 113/58 (76) 115/62 (79) 124/10 (48) 107/54 (71) Pulse Ox 99 95 96 96 O2 Delivery Nasal Cannula Room Air Room Air Room Air O2 Flow Rate 2.0 10/28/17 10/28/17 10/28/17 10/28/17 20:00 20:00 20:55 21:00 Temp 99.3 99.3 Pulse 76 83 80 Resp 20 14 B/P (MAP) 114/58 (76) 114/58 140/55 (83) Pulse Ox 99 96 O2 Delivery Room Air Room Air Room Air 10/28/17 10/28/17 10/29/17 10/29/17 22:00 23:00 00:00 00:00 Temp 99.0 99.0 Pulse 74 74 76 Resp 14 14 21 B/P (MAP) 118/51 (73) 120/52 (74) 118/51 (73) Pulse Ox 96 96 95 O2 Delivery Room Air Room Air Room Air Room Air 10/29/17 10/29/17 10/29/17 10/29/17 01:00 02:00 02:18 03:00 Pulse 74 77 73 Resp 15 22 14 B/P (MAP) 123/60 (81) 129/99 (109) 91/50 (64) Pulse Ox 96 94 94 93 O2 Delivery Room Air Room Air Room Air Room Air 10/29/17 10/29/17 10/29/17 10/29/17 04:00 04:00 05:00 06:00 Temp 99.1 99.1 Pulse 77 70 71 Resp 20 13 12 B/P (MAP) 129/57 (81) 114/50 (71) 115/49 (71) Pulse Ox 95 93 96 O2 Delivery Room Air Room Air Room Air Room Air 10/29/17 10/29/17 10/29/17 10/29/17 07:00 08:00 08:00 08:12 Temp 98.9 98.9 Pulse 71 73 72 Resp 14 17 B/P (MAP) 122/49 (73) 126/47 (73) 114/57 Pulse Ox 92 93 O2 Delivery Room Air Room Air Room Air 10/29/17 10/29/17 10/29/17 10/29/17 08:16 09:00 09:28 09:55 Pulse 71 71 Resp 22 21 B/P (MAP) 114/57 110/47 (68) Pulse Ox 96 92 98 O2 Delivery Room Air Room Air Nasal Cannula O2 Flow Rate 2.0 10/29/17 10/29/17 10:00 11:00 Pulse 78 67 Resp 18 13 B/P (MAP) 100/60 (73) 81/56 (64) Pulse Ox 98 98 O2 Delivery Nasal Cannula Nasal Cannula O2 Flow Rate 2.0 2.0 Intake and Output 10/28/17 10/28/17 10/29/17 15:00 23:00 07:00 Intake Total 50 ml 597 ml 1544 ml Output Total 670 ml 775 ml 850 ml Balance -620 ml -178 ml 694 ml DARRELL MAY MD Oct 29, 2017 11:54
[2017-10-29] MEDS ORDERED: INFLUENZA VAX SCREEN BY RX. MC ONE (12:00)
--- NOTE | 2017-10-29 13:32 | PDOC ---
SUBJECTIVE ROS We were asked to see this gentleman for acute renal failure. He appears to be doing a little better overall. He has responded to IV fluids. He remains unresponsive and unable to provide review of systems. OBJECTIVE Vital Signs Vital Signs Date Time Temp Pulse Resp B/P (MAP) Pulse Ox O2 Delivery O2 Flow Rate FiO2 10/29/17 13:00 64 12 100/41 (60) 96 Nasal Cannula 2.0 10/29/17 12:00 99.1 99.1 I & 0 Intake and Output 10/29/17 07:00 Intake Total 2191 ml Output Total 2295 ml Balance -104 ml IV Total 1460 ml Tube Feeding 281 ml Other 450 ml Output Urine Total 2295 ml PHYSICAL EXAM Physical Exam GEN: obtunded Oriented x 0, In no distress EYES: Vision Unchanged, Conjunctiva Normal EN: No EN Drainage, Mucous Membranes dry NECK: no JVD, no JVP, Supple, no Thyromegaly CVS: S1S2, ? soft Murmur, No Gallop, No Rub,no Edema RESP: no Rales, no Rhonchi,no Acc. Muscle Use GI: BS + ve, NO Bruit, Non Tender, Non Distended : no CVA tenderness, no Suprapubic Tenderness DIAGNOSIS/ASSESSMENT Assessment & Plan Acute renal failure: Vasomotor nephropathy. This appears to be improving with IV fluids Current fluid and E-lyte status does not necessitate emergent need for dialysis. Will re-evaluate for dialysis in the am. Continue IV fluids as ordered. Interstitial nephritis due to UTI/pyelonephritis cannot be ruled out Intravascular volume depletion appears to be improving currently with fluids as ordered Subarachnoid hemorrhage/right parietal infarct. I suspect this is more likely to be contributing to his altered mental status. Possible UTI: Positive for cultures with gram-positive cocci: Unclear to me if this is related. This may be contributing to some amount of sepsis Encephalopathy: Due to the above-mentioned reasons. COMMENT/RELEVANT DATA Meds Current Medications Medications (Trade) Dose Ordered Sig/Alissa Start Time Stop Time Status Last Admin Dose Admin Acetaminophen (Tylenol) 650 mg PRN Q6HRS PRN 10/28/17 09:30 Amiodarone HCl (Cordarone) 200 mg BID 10/28/17 14:00 10/29/17 08:16 200 MG Atorvastatin Calcium (Lipitor) 20 mg QHS 10/28/17 21:00 10/28/17 20:55 20 MG Cetirizine HCl (ZyrTEC) 10 mg DAILY 10/28/17 14:00 10/29/17 08:13 10 MG Citalopram Hydrobromide (CeleXA) 40 mg DAILY 10/28/17 14:00 10/29/17 08:13 40 MG Cyanocobalamin (Vitamin B-12) 1,000 mcg DAILY 10/28/17 14:00 10/29/17 08:12 1,000 MCG Dextrose (Dextrose 50%-Water Syringe) 12.5 gm PRN Q15MIN PRN 10/28/17 09:30 Docusate Sodium (Colace) 100 mg PRN DAILY PRN 10/28/17 09:30 Donepezil HCl (Aricept) 10 mg DAILY 10/28/17 14:00 10/29/17 08:13 10 MG Enalaprilat (Vasotec Inj) 1.25 mg PRN Q4HRS PRN 10/28/17 09:30 10/28/17 18:32 DC Fenofibrate (Lofibra) 134 mg DAILY 10/28/17 14:00 10/29/17 08:12 134 MG Fentanyl Citrate (Fentanyl 2ml Vial) 25 mcg 1X ONCE 10/28/17 00:45 10/28/17 00:46 DC 10/28/17 00:44 25 MCG Gabapentin (Neurontin) 1,800 mg QHS 10/28/17 21:00 10/28/17 20:55 1,800 MG Influenza Virus Vaccine (Afluria Trivalent [id number] Syringe) 0.5 ml ONCE ONCE 10/29/17 13:00 10/29/17 13:01 DC Info (Do NOT chart on this placeholder) 1 each 1X ONCE 10/29/17 12:00 10/29/17 12:01 UNV Insulin Glargine (Lantus) 30 units QHS 10/29/17 21:00 Insulin Human Lispro (HumaLOG) 0-9 UNITS TIDWMEALS 10/28/17 12:00 10/29/17 11:32 5 UNITS Labetalol HCl (Normodyne Iv Push) 10 mg PRN Q2HR PRN 10/28/17 09:30 Lactobacillus Rhamnosus (Culturelle) 1 cap BID 10/28/17 21:00 Cancel Levofloxacin/ Dextrose 100 ml @ 100 mls/hr 1X ONCE 10/27/17 18:30 10/27/17 19:29 DC 10/27/17 22:07 100 MLS/HR Lisinopril (Prinivil) 40 mg DAILY 10/28/17 14:00 10/29/17 08:12 40 MG Lorazepam (Ativan) 0.5 mg 1X ONCE 10/28/17 09:45 10/28/17 09:46 DC 10/28/17 11:51 0.5 MG Memantine (Namenda) 10 mg BID 10/28/17 14:00 10/29/17 08:13 10 MG Metoprolol Succinate (Toprol Xl) 100 mg DAILY 10/28/17 14:00 10/28/17 14:53 100 MG Morphine Sulfate (Morphine Sulfate) 2 mg PRN Q2HR PRN 10/28/17 09:30 10/29/17 09:28 2 MG Non-Formulary Medication (Melatonin ) 5 mg QHS 10/28/17 21:00 UNV Ondansetron HCl (Zofran) 4 mg PRN Q6HRS PRN 10/28/17 09:30 Piperacillin Sod/ Tazobactam Sod 2.25 gm/Sodium Chloride 50 ml @ 100 mls/hr Q6HRS 10/28/17 00:00 10/29/17 11:33 100 MLS/HR Piperacillin Sod/ Tazobactam Sod 4.5 gm/Sodium Chloride 100 ml @ 200 mls/hr DAILY 10/28/17 09:00 UNV Sodium Chloride 1,000 ml @ 75 mls/hr [id number] 10/27/17 20:00 10/29/17 11:33 75 MLS/HR Tamsulosin HCl (Flomax) 0.4 mg DAILY 10/28/17 14:00 10/28/17 14:52 0.4 MG Tramadol HCl (Ultram) 50 mg PRN Q6HRS PRN 10/28/17 09:30 Vancomycin HCl (Vanco Per Pharmacy) 1 each PRN DAILY PRN 10/27/17 18:00 10/29/17 07:29 1 EACH Vancomycin HCl (Vancomycin Random Level) 1 each 1X ONCE 10/29/17 05:00 10/29/17 05:01 DC 10/29/17 05:00 1 EACH Vancomycin HCl (Vancomycin Trough Level) 1 each 1X ONCE 10/31/17 07:30 10/31/17 07:31 Vancomycin HCl 0.5 gm/Sodium Chloride 250 ml @ 166.667 mls/hr 1X ONCE 10/27/17 18:15 10/27/17 19:44 UNV Vancomycin HCl 1.75 gm/Sodium Chloride 500 ml @ 250 mls/hr Q24H 10/29/17 08:00 10/29/17 08:11 250 MLS/HR Vancomycin HCl 2 gm/Sodium Chloride 500 ml @ 250 mls/hr 1X ONCE 10/27/17 19:00 10/27/17 20:59 DC 10/27/17 19:00 250 MLS/HR Vitamin D (Vitamin D3) 1,000 unit DAILY 10/28/17 14:00 10/29/17 08:13 1,000 UNIT Lab Laboratory Tests Test 10/28/17 13:35 10/28/17 17:27 10/28/17 20:58 10/29/17 04:00 Glucose (Fingerstick) 253 mg/dL (70-99) 264 mg/dL (70-99) 212 mg/dL (70-99) White Blood Count 13.5 x10^3/uL (4.0-11.0) Red Blood Count 3.53 x10^6/uL (4.30-5.70) Hemoglobin 10.7 g/dL (13.0-17.5) Hematocrit 31.9 % (39.0-53.0) Mean Corpuscular Volume 90 fL (79-100) Mean Corpuscular Hemoglobin 30 pg (25-35) Mean Corpuscular Hemoglobin Concent 34 g/dL (31-37) Red Cell Distribution Width 12.4 % (11.5-14.5) Platelet Count 196 x10^3/uL (140-400) Neutrophils (%) (Auto) 79 % (31-73) Lymphocytes (%) (Auto) 10 % (24-48) Monocytes (%) (Auto) 10 % (0-9) Eosinophils (%) (Auto) 1 % (0-3) Basophils (%) (Auto) 1 % (0-3) Neutrophils # (Auto) 10.7 x10^3uL (1.8-7.7) Lymphocytes # (Auto) 1.3 x10^3/uL (1.0-4.8) Monocytes # (Auto) 1.3 x10^3/uL (0.0-1.1) Eosinophils # (Auto) 0.1 x10^3/uL (0.0-0.7) Basophils # (Auto) 0.1 x10^3/uL (0.0-0.2) Sodium Level 143 mmol/L (136-145) Potassium Level 4.3 mmol/L (3.5-5.1) Chloride Level 108 mmol/L (98-107) Carbon Dioxide Level 24 mmol/L (21-32) Anion Gap 11 (6-14) Blood Urea Nitrogen 93 mg/dL (8-26) Creatinine 2.0 mg/dL (0.7-1.3) Estimated GFR (Cockcroft-Gault) 33.1 Glucose Level 249 mg/dL (70-99) Calcium Level 8.0 mg/dL (8.5-10.1) Random Vancomycin Level 8.8 mcg/mL Test 10/29/17 11:29 Glucose (Fingerstick) 233 mg/dL (70-99) Results All relevant outside records, renal labs, imaging studies, telemetry/EKG's were reviewed. Other CT scan of the abdomen and pelvis as reviewed for renal findings as below Calcifications in the hilar regions of both kidneys are probably vascular. The kidneys show no evidence of obstruction. Moderate aortoiliac calcific plaquing is present without evidence of aneurysm. No abdominal or pelvic adenopathy is seen. A Weeks catheter is present within the collapsed urinary bladder. LESLY VILLASENOR MD Oct 29, 2017 13:32
--- NOTE | 2017-10-29 13:47 | PDOC ---
PROGRESS NOTES Assessment Assessment Subacute right parietal, posterior frontal and occipital infarct about 3 weeks ago with recent hemorrhagic transformation of IPH and SAH. Metabolic encephalopathy. Respiratory failure. Renal failure. UTI. Leukocytosis. CAD s/p CABG. AFib. DM. HTN. Ventriculomegaly. Obesity. RECOMMENDATIONS/PLAN: Life support in ICU. Hold antiplatelet agents at the present time. Brain MRI performed on 10/28/17. HCT w/o contrast if condition worse. BP control. Treat medical and cardiac diseases. Discussed with his sister and brought in detail again at bedside on 10/29/17. HISTORY OF THE PRESENT ILLNESS: 71-y-old male patient with multiple medical and cardiac diseases had a stroke and was treated with Plavix and ASA in [facility]. He then was discharged to Rehab, but his brother and sisters stated that his condition became worse on the day of discharge. His condition has not improved, so he was brought to the ER of [facility]. His initially HCT showed ICH and SAH, but MRI on 10/28 provided better explanation of hemorrhagic transformation from his recent ischemic infarct. Past Medical History A-Fib, CVA, HTN, Dementia, Depression, Diabetes-Type II, Heart Disease, MS ? PAST SURGERY HISTORY: Coronary Bypass Surgery, G-TUBE placement , OBESITY Family History Hypertension. ALLERGY: Review. MEDICATIONS: Refer to MAR SOCIAL HISTORY: Denies current smoking, drinking, and illicit drug use. REVIEW OF SYSTEMS: Constitutional: Obesity. Head: No traumatic brain or head injury. Skin: No edema, or rash. Ear: No infection, tinnitus. Eyes: No vision loss or color blindness. Nose: No bleeding or purulent discharges. Hearing: Hearing decrease. Neck: No injury. Cardiac: CAD, s/p CABG, AFib, HTN, HLD. Pulmonary: No COPD. GI: No GI ulcer, GI bleeding. Urinary/genital: UTI. Endocrinologic: Diabetes Mellitus, obesity. Skeletomuscular: Left side weakness. Neurological: see HP. Psychiatric: Denies drug use/abuse. Otherwise, not [id number] review of systems. PHYSICAL EXAMINATION: General appearance is in subacute distress. HEENT: Normocephalic and nontraumatic. Eyes, nose, ears, and throat are unremarkable. Neck is supple. No lymphadenopathy. No bruits are heard over the carotid artery. No crepitus. Cardiovascular: S1, S2, seemed irregular rate and rhythm. Pulmonary: On vent. Abdomen: Bowel sounds are positive. Extremities: No rash, lesions, or edema. No restriction of range of motion NEUROLOGICAL EXAMINATION: Lethargic. Not oriented to time, place but knew his brother and sisters. PERRL. EOMI, slow. CN: no acute focal findings. Muscle tone: Decreased. Muscle strength: 3-4 DTR: 0-1 Plantar reflex: Neutral response bilaterally Gait: Unable to walk. Sensory exam: no acute abnormal findings. Not able to access cerebellar signs. F-T-N test not performed. Objective Objective Vital Signs Date Time Temp Pulse Resp B/P (MAP) Pulse Ox O2 Delivery O2 Flow Rate FiO2 10/29/17 13:00 64 12 100/41 (60) 96 Nasal Cannula 2.0 10/29/17 12:00 99.1 99.1 Intake and Output 10/29/17 07:00 Intake Total 2191 ml Output Total 2295 ml Balance -104 ml IV Total 1460 ml Tube Feeding 281 ml Other 450 ml Output Urine Total 2295 ml Vitals Signs Vitals VS - Last 72 Hours, by Label Date Time Temp Pulse Resp B/P (MAP) Pulse Ox O2 Delivery O2 Flow Rate FiO2 10/29/17 13:00 64 12 100/41 (60) 96 Nasal Cannula 2.0 10/29/17 12:00 Nasal Cannula 2.0 10/29/17 12:00 99.1 62 15 114/53 (73) 96 Nasal Cannula 2.0 99.1 10/29/17 11:00 67 13 81/56 (64) 98 Nasal Cannula 2.0 10/29/17 10:00 78 18 100/60 (73) 98 Nasal Cannula 2.0 10/29/17 09:55 21 98 Nasal Cannula 2.0 10/29/17 09:28 22 92 Room Air 10/29/17 09:00 71 22 110/47 (68) 96 Room Air 10/29/17 08:16 71 114/57 10/29/17 08:12 72 114/57 10/29/17 08:00 98.9 73 17 126/47 (73) 93 Room Air 98.9 10/29/17 08:00 Room Air 10/29/17 07:00 71 14 122/49 (73) 92 Room Air 10/29/17 06:00 71 12 115/49 (71) 96 Room Air 10/29/17 05:00 70 13 114/50 (71) 93 Room Air 10/29/17 04:00 99.1 77 20 129/57 (81) 95 Room Air 99.1 10/29/17 04:00 Room Air 10/29/17 03:00 73 14 91/50 (64) 93 Room Air 10/29/17 02:18 94 Room Air 10/29/17 02:00 77 22 129/99 (109) 94 Room Air 10/29/17 01:00 74 15 123/60 (81) 96 Room Air 10/29/17 00:00 Room Air 10/29/17 00:00 99.0 76 21 118/51 (73) 95 Room Air 99.0 10/28/17 23:00 74 14 120/52 (74) 96 Room Air 10/28/17 22:00 74 14 118/51 (73) 96 Room Air 10/28/17 21:00 80 14 140/55 (83) 96 Room Air 10/28/17 20:55 83 114/58 10/28/17 20:00 99.3 76 20 114/58 (76) 99 Room Air 99.3 10/28/17 20:00 Room Air 10/28/17 19:00 80 18 107/54 (71) 96 Room Air 10/28/17 18:00 83 18 124/10 (48) 96 Room Air 10/28/17 17:00 79 20 115/62 (79) 95 Room Air 10/28/17 16:00 99.2 82 16 113/58 (76) 99 Nasal Cannula 2.0 99.2 10/28/17 16:00 Nasal Cannula 2.0 10/28/17 15:00 90 16 147/57 (87) 98 Nasal Cannula 2.0 10/28/17 14:53 89 137/66 10/28/17 14:52 89 137/66 10/28/17 14:00 92 16 137/66 (89) 92 Nasal Cannula 2.0 10/28/17 13:00 92 19 124/60 (81) 95 Nasal Cannula 2.0 10/28/17 12:00 98.6 92 19 123/54 (77) 95 Nasal Cannula 2.0 98.6 10/28/17 12:00 Nasal Cannula 2.0 10/28/17 11:00 92 18 118/56 (76) 96 Nasal Cannula 2.0 10/28/17 10:00 86 18 80/46 (57) 96 Nasal Cannula 2.0 10/28/17 09:00 86 18 112/73 (86) 94 Nasal Cannula 2.0 10/28/17 08:00 Nasal Cannula 2.0 10/28/17 08:00 98.3 90 18 104/70 (81) 96 Nasal Cannula 2.0 98.3 10/28/17 07:00 86 18 116/54 (74) 96 Nasal Cannula 2.0 Laboratory Laboratory Laboratory Tests Test 10/28/17 17:27 10/28/17 20:58 10/29/17 04:00 10/29/17 11:29 Glucose (Fingerstick) 264 mg/dL (70-99) 212 mg/dL (70-99) 233 mg/dL (70-99) White Blood Count 13.5 x10^3/uL (4.0-11.0) Red Blood Count 3.53 x10^6/uL (4.30-5.70) Hemoglobin 10.7 g/dL (13.0-17.5) Hematocrit 31.9 % (39.0-53.0) Mean Corpuscular Volume 90 fL (79-100) Mean Corpuscular Hemoglobin 30 pg (25-35) Mean Corpuscular Hemoglobin Concent 34 g/dL (31-37) Red Cell Distribution Width 12.4 % (11.5-14.5) Platelet Count 196 x10^3/uL (140-400) Neutrophils (%) (Auto) 79 % (31-73) Lymphocytes (%) (Auto) 10 % (24-48) Monocytes (%) (Auto) 10 % (0-9) Eosinophils (%) (Auto) 1 % (0-3) Basophils (%) (Auto) 1 % (0-3) Neutrophils # (Auto) 10.7 x10^3uL (1.8-7.7) Lymphocytes # (Auto) 1.3 x10^3/uL (1.0-4.8) Monocytes # (Auto) 1.3 x10^3/uL (0.0-1.1) Eosinophils # (Auto) 0.1 x10^3/uL (0.0-0.7) Basophils # (Auto) 0.1 x10^3/uL (0.0-0.2) Sodium Level 143 mmol/L (136-145) Potassium Level 4.3 mmol/L (3.5-5.1) Chloride Level 108 mmol/L (98-107) Carbon Dioxide Level 24 mmol/L (21-32) Anion Gap 11 (6-14) Blood Urea Nitrogen 93 mg/dL (8-26) Creatinine 2.0 mg/dL (0.7-1.3) Estimated GFR (Cockcroft-Gault) 33.1 Glucose Level 249 mg/dL (70-99) Calcium Level 8.0 mg/dL (8.5-10.1) Random Vancomycin Level 8.8 mcg/mL Microbiology 10/27/17 Blood Culture - Final, Complete Medication Medications Current Medications Amiodarone HCl (Cordarone) 200 mg BID PO Last administered on 10/29/17at 08:16; Start 10/28/17 at 14:00 Atorvastatin Calcium (Lipitor) 20 mg QHS PO Last administered on 10/28/17at 20: 55; Start 10/28/17 at 21:00 Cetirizine HCl (ZyrTEC) 10 mg DAILY PO Last administered on 10/29/17at 08:13; Start 10/28/17 at 14:00 Citalopram Hydrobromide (CeleXA) 40 mg DAILY PO Last administered on 10/29/17at 08:13; Start 10/28/17 at 14:00 Cyanocobalamin (Vitamin B-12) 1,000 mcg DAILY PO Last administered on at 08:12; Start 10/28/17 at 14:00 Donepezil HCl (Aricept) 10 mg DAILY PO Last administered on 10/29/17at 08:13; Start 10/28/17 at 14:00 Fenofibrate (Lofibra) 134 mg DAILY PO Last administered on 10/29/17at 08:12; Start 10/28/17 at 14:00 Gabapentin (Neurontin) 1,800 mg QHS PO Last administered on 10/28/17at 20:55; Start 10/28/17 at 21:00 Influenza Virus Vaccine (Afluria Trivalent [id number] Syringe) 0.5 ml ONCE ONCE VAX IM ; Start 10/29/17 at 13:00; Stop 10/29/17 at 13:01; Status DC Info (Do NOT chart on this placeholder) 1 each 1X ONCE MC ; Start 10/29/17 at 12:00; Stop 10/29/17 at 12:01; Status UNV Insulin Glargine (Lantus) 20 units QHS SQ Last administered on 10/28/17at 21:00 ; Start 10/28/17 at 21:00; Stop 10/29/17 at 11:54; Status DC Insulin Glargine (Lantus) 30 units QHS SQ ; Start 10/29/17 at 21:00 Lactobacillus Rhamnosus (Culturelle) 1 cap BID PO ; Start 10/28/17 at 21:00; Status Cancel Lisinopril (Prinivil) 40 mg DAILY PO Last administered on 10/29/17at 08:12; Start 10/28/17 at 14:00 Memantine (Namenda) 10 mg BID PO Last administered on 10/29/17at 08:13; Start at 14:00 Metoprolol Succinate (Toprol Xl) 100 mg DAILY PO Last administered on at 14:53; Start 10/28/17 at 14:00 Non-Formulary Medication (Melatonin ) 5 mg QHS PO ; Start 10/28/17 at 21:00; Status UNV Tamsulosin HCl (Flomax) 0.4 mg DAILY PO Last administered on 10/28/17at 14:52; Start 10/28/17 at 14:00 Vancomycin HCl (Vancomycin Random Level) 1 each 1X ONCE MC Last administered on 10/29/17at 05:00; Start 10/29/17 at 05:00; Stop 10/29/17 at 05:01; Status DC Vancomycin HCl (Vancomycin Trough Level) 1 each 1X ONCE MC ; Start 10/31/17 at 07:30; Stop 10/31/17 at 07:31 Vancomycin HCl 1.75 gm/Sodium Chloride 500 ml @ 250 mls/hr Q24H IV Last administered on 10/29/17at 08:11; Start 10/29/17 at 08:00 Vitamin D (Vitamin D3) 1,000 unit DAILY PO Last administered on 10/29/17at 08:13 ; Start 10/28/17 at 14:00 Comment Review of Relevant I have reviewed the following items turner (where applicable) has been applied. RODO SYKES MD Oct 29, 2017 13:47
[2017-10-29] MEDS ORDERED: INSULIN GLARGINE 300 UNITS/3 ML INSULN.PEN. SQ SCH (21:00)
[2017-10-29] MEDS: GABAPENTIN 300 MG CAPSULE. PO SCH (21:31)
[2017-10-29] MEDS: ATORVASTATIN CALCIUM 20 MG TABLET PO SCH (21:31)
[2017-10-30] VITALS (18 sets, daily range): BP systolic 101–174; BP diastolic 44–79
[2017-10-30] MEDS: PIPERACILLIN/TAZOBACTAM 2.25 GM in IV NORMAL SALINE 50ML 50 ML IV SCH ×2 (00:56→06:07)
[2017-10-30] MEDS: IV NORMAL SALINE 1000ML BAG 1,000 ML IV SCH (02:47)
[2017-10-30 03:41] LABS: BASO # 0.1 x10^3/uL (0.0-0.2); BASO % 1 % (0-3); EOS # 0.3 x10^3/uL (0.0-0.7); EOS % 3 % (0-3); HEMATOCRIT 33.6 % (39.0-53.0); HEMOGLOBIN 11.4 g/dL (13.0-17.5); LYMPH # 1.3 x10^3/uL (1.0-4.8); LYMPH % 13 % (24-48); MEAN CORPUSCULAR HEMOGLOBIN 31 pg (25-35); MEAN CORPUSCULAR HGB CONC 34 g/dL (31-37); MEAN CORPUSCULAR VOLUME 92 fL (79-100); MONO % 10 % (0-9); NEUT # 7.5 x10^3uL (1.8-7.7); NEUT % 73 % (31-73); PLATELET COUNT 189 x10^3/uL (140-400); RED BLOOD COUNT 3.67 x10^6/uL (4.30-5.70); RED CELL DISTRIBUTION WIDTH 12.9 % (11.5-14.5); WHITE BLOOD COUNT 10.2 x10^3/uL (4.0-11.0)
[2017-10-30 03:51] LABS: CALCIUM 8.6 mg/dL (8.5-10.1); CREATININE 1.5 mg/dL (0.7-1.3); GFR 46.1; POTASSIUM 4.4 mmol/L (3.5-5.1)
--- NOTE | 2017-10-30 06:03 | PDOC ---
SUBJECTIVE ROS asked to see for RAFITA Pt remains encephalopathic and unable to be awakened OBJECTIVE Vital Signs Vital Signs Date Time Temp Pulse Resp B/P (MAP) Pulse Ox O2 Delivery O2 Flow Rate FiO2 10/30/17 01:00 66 10 152/62 (92) Nasal Cannula 3.0 10/30/17 00:00 99.1 99.1 10/29/17 18:00 99 I & 0 Intake and Output 10/30/17 07:00 Intake Total 2329 ml Output Total 1800 ml Balance 529 ml IV Total 1275 ml Tube Feeding 754 ml Other 300 ml Output Urine Total 1800 ml PHYSICAL EXAM Physical Exam GEN: more alert today, Oriented x 0, In no distress EYES: Vision Unchanged, Conjunctiva Normal EN: No EN Drainage, Mucous Membranes dry NECK: no JVD, no JVP, Supple, no Thyromegaly CVS: S1S2, ? soft Murmur, No Gallop, No Rub,no Edema RESP: no Rales, no Rhonchi,no Acc. Muscle Use GI: BS + ve, NO Bruit, Non Tender, Non Distended; PEG in place : no CVA tenderness, no Suprapubic Tenderness DIAGNOSIS/ASSESSMENT Assessment & Plan Acute renal failure: Vasomotor nephropathy. This appears to be improving with IV fluids. Interstitial nephritis due to UTI/pyelonephritis cannot be ruled out ^Na - ^ Free water with TF Subarachnoid hemorrhage/right parietal infarct. I suspect this is more likely to be the cause of his current altered mental status. Possible UTI: Positive Urine cultures with gram-positive cocci noted: Unclear to me if this is related. Encephalopathy: Due to the above-mentioned reasons. COMMENT/RELEVANT DATA Meds Current Medications Medications (Trade) Dose Ordered Sig/Alissa Start Time Stop Time Status Last Admin Dose Admin Acetaminophen (Tylenol) 650 mg PRN Q6HRS PRN 10/28/17 09:30 Amiodarone HCl (Cordarone) 200 mg BID 10/28/17 14:00 10/29/17 21:32 200 MG Atorvastatin Calcium (Lipitor) 20 mg QHS 10/28/17 21:00 10/29/17 21:31 20 MG Cetirizine HCl (ZyrTEC) 10 mg DAILY 10/28/17 14:00 10/29/17 08:13 10 MG Citalopram Hydrobromide (CeleXA) 40 mg DAILY 10/28/17 14:00 10/29/17 08:13 40 MG Cyanocobalamin (Vitamin B-12) 1,000 mcg DAILY 10/28/17 14:00 10/29/17 08:12 1,000 MCG Dextrose (Dextrose 50%-Water Syringe) 12.5 gm PRN Q15MIN PRN 10/28/17 09:30 Docusate Sodium (Colace) 100 mg PRN DAILY PRN 10/28/17 09:30 Donepezil HCl (Aricept) 10 mg DAILY 10/28/17 14:00 10/29/17 08:13 10 MG Enalaprilat (Vasotec Inj) 1.25 mg PRN Q4HRS PRN 10/28/17 09:30 10/28/17 18:32 DC Fenofibrate (Lofibra) 134 mg DAILY 10/28/17 14:00 10/29/17 08:12 134 MG Fentanyl Citrate (Fentanyl 2ml Vial) 25 mcg 1X ONCE 10/28/17 00:45 10/28/17 00:46 DC 10/28/17 00:44 25 MCG Gabapentin (Neurontin) 1,800 mg QHS 10/28/17 21:00 10/29/17 21:31 1,800 MG Influenza Virus Vaccine (Afluria Trivalent [id number] Syringe) 0.5 ml ONCE ONCE 10/29/17 13:00 10/29/17 13:01 DC 10/29/17 14:17 0.5 ML Info (Do NOT chart on this placeholder) 1 each 1X ONCE 10/29/17 12:00 10/29/17 12:01 UNV Insulin Glargine (Lantus) 30 units QHS 10/29/17 21:00 10/29/17 21:35 30 UNITS Insulin Human Lispro (HumaLOG) 0-9 UNITS TIDWMEALS 10/28/17 12:00 10/29/17 16:23 5 UNITS Labetalol HCl (Normodyne Iv Push) 10 mg PRN Q2HR PRN 10/28/17 09:30 Lactobacillus Rhamnosus (Culturelle) 1 cap BID 10/28/17 21:00 Cancel Levofloxacin/ Dextrose 100 ml @ 100 mls/hr 1X ONCE 10/27/17 18:30 10/27/17 19:29 DC 10/27/17 22:07 100 MLS/HR Lisinopril (Prinivil) 40 mg DAILY 10/28/17 14:00 10/29/17 08:12 40 MG Lorazepam (Ativan) 0.5 mg 1X ONCE 10/28/17 09:45 10/28/17 09:46 DC 10/28/17 11:51 0.5 MG Memantine (Namenda) 10 mg BID 10/28/17 14:00 10/29/17 21:31 10 MG Metoprolol Succinate (Toprol Xl) 100 mg DAILY 10/28/17 14:00 10/28/17 14:53 100 MG Morphine Sulfate (Morphine Sulfate) 2 mg PRN Q2HR PRN 10/28/17 09:30 10/29/17 09:28 2 MG Non-Formulary Medication (Melatonin ) 5 mg QHS 10/28/17 21:00 UNV Ondansetron HCl (Zofran) 4 mg PRN Q6HRS PRN 10/28/17 09:30 Piperacillin Sod/ Tazobactam Sod 2.25 gm/Sodium Chloride 50 ml @ 100 mls/hr Q6HRS 10/28/17 00:00 10/30/17 00:56 100 MLS/HR Piperacillin Sod/ Tazobactam Sod 4.5 gm/Sodium Chloride 100 ml @ 200 mls/hr DAILY 10/28/17 09:00 UNV Sodium Chloride 1,000 ml @ 75 mls/hr [id number] 10/27/17 20:00 10/30/17 02:47 75 MLS/HR Tamsulosin HCl (Flomax) 0.4 mg DAILY 10/28/17 14:00 10/28/17 14:52 0.4 MG Tramadol HCl (Ultram) 50 mg PRN Q6HRS PRN 10/28/17 09:30 Vancomycin HCl (Vanco Per Pharmacy) 1 each PRN DAILY PRN 10/27/17 18:00 10/29/17 07:29 1 EACH Vancomycin HCl (Vancomycin Random Level) 1 each 1X ONCE 10/29/17 05:00 10/29/17 05:01 DC 10/29/17 05:00 1 EACH Vancomycin HCl (Vancomycin Trough Level) 1 each 1X ONCE 10/31/17 07:30 10/31/17 07:31 Vancomycin HCl 0.5 gm/Sodium Chloride 250 ml @ 166.667 mls/hr 1X ONCE 10/27/17 18:15 10/27/17 19:44 UNV Vancomycin HCl 1.75 gm/Sodium Chloride 500 ml @ 250 mls/hr Q24H 10/29/17 08:00 10/29/17 08:11 250 MLS/HR Vancomycin HCl 2 gm/Sodium Chloride 500 ml @ 250 mls/hr 1X ONCE 10/27/17 19:00 10/27/17 20:59 DC 10/27/17 19:00 250 MLS/HR Vitamin D (Vitamin D3) 1,000 unit DAILY 10/28/17 14:00 10/29/17 08:13 1,000 UNIT Lab Laboratory Tests Test 10/29/17 11:29 10/29/17 16:20 10/29/17 21:33 10/30/17 03:00 Glucose (Fingerstick) 233 mg/dL (70-99) 200 mg/dL (70-99) 181 mg/dL (70-99) White Blood Count 10.2 x10^3/uL (4.0-11.0) Red Blood Count 3.67 x10^6/uL (4.30-5.70) Hemoglobin 11.4 g/dL (13.0-17.5) Hematocrit 33.6 % (39.0-53.0) Mean Corpuscular Volume 92 fL (79-100) Mean Corpuscular Hemoglobin 31 pg (25-35) Mean Corpuscular Hemoglobin Concent 34 g/dL (31-37) Red Cell Distribution Width 12.9 % (11.5-14.5) Platelet Count 189 x10^3/uL (140-400) Neutrophils (%) (Auto) 73 % (31-73) Lymphocytes (%) (Auto) 13 % (24-48) Monocytes (%) (Auto) 10 % (0-9) Eosinophils (%) (Auto) 3 % (0-3) Basophils (%) (Auto) 1 % (0-3) Neutrophils # (Auto) 7.5 x10^3uL (1.8-7.7) Lymphocytes # (Auto) 1.3 x10^3/uL (1.0-4.8) Monocytes # (Auto) 1.0 x10^3/uL (0.0-1.1) Eosinophils # (Auto) 0.3 x10^3/uL (0.0-0.7) Basophils # (Auto) 0.1 x10^3/uL (0.0-0.2) Sodium Level 149 mmol/L (136-145) Potassium Level 4.4 mmol/L (3.5-5.1) Chloride Level 112 mmol/L (98-107) Carbon Dioxide Level 35 mmol/L (21-32) Anion Gap 2 (6-14) Blood Urea Nitrogen 74 mg/dL (8-26) Creatinine 1.5 mg/dL (0.7-1.3) Estimated GFR (Cockcroft-Gault) 46.1 Glucose Level 252 mg/dL (70-99) Calcium Level 8.6 mg/dL (8.5-10.1) Results All relevant outside records, renal labs, imaging studies, telemetry/EKG's were reviewed. LESLY VILLASENOR MD Oct 30, 2017 06:03
[2017-10-30] MEDS ORDERED: AMINO AC 3%/ELECTROLYTE/GLYCER 1,000 ML IV SCH (06:15)
--- NOTE | 2017-10-30 07:17 | PDOC ---
Infectious Disease Note Subjective: Subjective Pt is sleepy arousable does not answer any questions appears comfortable ROS: ROS Negative except for above. Vital Signs: Vital Signs Vital Signs Date Time Temp Pulse Resp B/P (MAP) Pulse Ox O2 Delivery O2 Flow Rate FiO2 10/30/17 06:00 65 13 132/52 (78) Nasal Cannula 3.0 10/30/17 04:00 99.1 99.1 10/29/17 18:00 99 Physical Exam: PHYSICAL EXAM GENERAL: answers few questions, HEENT: Anicteric. Normocephalic and atraumatic. No oral lesions. No thrush. Oral mucosa moist. LUNGS: Clear bilaterally. HEART: S1 and S2. ABDOMEN: Soft, nontender and nondistended. G-tube in place, appears okay. GENITOURINARY: Chronic indwelling Weeks in place, changed 10/27/2017 in ER. EXTREMITIES: No edema and no cyanosis. A few scattered dry skin lesions present. CENTRAL NERVOUS SYSTEM: Left-sided weakness. DERMATOLOGICAL: No generalized rash. MUSCULOSKELETAL: Not able to assess fully. The patient winces in pain with movement of right lower extremity. Medications: Inpatient Meds: Current Medications Medications (Trade) Dose Ordered Sig/Alissa Start Time Stop Time Status Last Admin Dose Admin Acetaminophen (Tylenol) 650 mg PRN Q6HRS PRN 10/28/17 09:30 Amino Acids/ Glycerin/ Electrolytes 1,000 ml @ 80 mls/hr [id number] 10/30/17 06:15 10/30/17 06:15 DC Amiodarone HCl (Cordarone) 200 mg BID 10/28/17 14:00 10/29/17 21:32 200 MG Atorvastatin Calcium (Lipitor) 20 mg QHS 10/28/17 21:00 10/29/17 21:31 20 MG Cetirizine HCl (ZyrTEC) 10 mg DAILY 10/28/17 14:00 10/29/17 08:13 10 MG Citalopram Hydrobromide (CeleXA) 40 mg DAILY 10/28/17 14:00 10/29/17 08:13 40 MG Cyanocobalamin (Vitamin B-12) 1,000 mcg DAILY 10/28/17 14:00 10/29/17 08:12 1,000 MCG Dextrose (Dextrose 50%-Water Syringe) 12.5 gm PRN Q15MIN PRN 10/28/17 09:30 Docusate Sodium (Colace) 100 mg PRN DAILY PRN 10/28/17 09:30 Donepezil HCl (Aricept) 10 mg DAILY 10/28/17 14:00 10/29/17 08:13 10 MG Enalaprilat (Vasotec Inj) 1.25 mg PRN Q4HRS PRN 10/28/17 09:30 10/28/17 18:32 DC Fenofibrate (Lofibra) 134 mg DAILY 10/28/17 14:00 10/29/17 08:12 134 MG Fentanyl Citrate (Fentanyl 2ml Vial) 25 mcg 1X ONCE 10/28/17 00:45 10/28/17 00:46 DC 10/28/17 00:44 25 MCG Gabapentin (Neurontin) 1,800 mg QHS 10/28/17 21:00 10/29/17 21:31 1,800 MG Influenza Virus Vaccine (Afluria Trivalent 9700-8935 Syringe) 0.5 ml ONCE ONCE 10/29/17 13:00 10/29/17 13:01 DC 10/29/17 14:17 0.5 ML Info (Do NOT chart on this placeholder) 1 each 1X ONCE 10/29/17 12:00 10/29/17 12:01 UNV Insulin Glargine (Lantus) 30 units QHS 10/29/17 21:00 10/29/17 21:35 30 UNITS Insulin Human Lispro (HumaLOG) 0-9 UNITS TIDWMEALS 10/28/17 12:00 10/29/17 16:23 5 UNITS Labetalol HCl (Normodyne Iv Push) 10 mg PRN Q2HR PRN 10/28/17 09:30 Lactobacillus Rhamnosus (Culturelle) 1 cap BID 10/28/17 21:00 Cancel Levofloxacin/ Dextrose 100 ml @ 100 mls/hr 1X ONCE 10/27/17 18:30 10/27/17 19:29 DC 10/27/17 22:07 100 MLS/HR Lisinopril (Prinivil) 40 mg DAILY 10/28/17 14:00 10/29/17 08:12 40 MG Lorazepam (Ativan) 0.5 mg 1X ONCE 9/21/18 09:45 10/28/17 09:46 DC 10/28/17 11:51 0.5 MG Memantine (Namenda) 10 mg BID 10/28/17 14:00 10/29/17 21:31 10 MG Metoprolol Succinate (Toprol Xl) 100 mg DAILY 10/28/17 14:00 10/28/17 14:53 100 MG Morphine Sulfate (Morphine Sulfate) 2 mg PRN Q2HR PRN 10/28/17 09:30 10/29/17 09:28 2 MG Non-Formulary Medication (Melatonin ) 5 mg QHS 10/28/17 21:00 UNV Ondansetron HCl (Zofran) 4 mg PRN Q6HRS PRN 10/28/17 09:30 Piperacillin Sod/ Tazobactam Sod 2.25 gm/Sodium Chloride 50 ml @ 100 mls/hr Q6HRS 10/28/17 00:00 10/30/17 06:07 100 MLS/HR Piperacillin Sod/ Tazobactam Sod 4.5 gm/Sodium Chloride 100 ml @ 200 mls/hr DAILY 10/28/17 09:00 UNV Sodium Chloride 1,000 ml @ 75 mls/hr [id number] 10/27/17 20:00 10/30/17 06:04 DC 10/30/17 02:47 75 MLS/HR Tamsulosin HCl (Flomax) 0.4 mg DAILY 10/28/17 14:00 10/28/17 14:52 0.4 MG Tramadol HCl (Ultram) 50 mg PRN Q6HRS PRN 10/28/17 09:30 Vancomycin HCl (Vanco Per Pharmacy) 1 each PRN DAILY PRN 10/27/17 18:00 10/29/17 07:29 1 EACH Vancomycin HCl (Vancomycin Random Level) 1 each 1X ONCE 10/29/17 05:00 10/29/17 05:01 DC 10/29/17 05:00 1 EACH Vancomycin HCl (Vancomycin Trough Level) 1 each 1X ONCE 10/31/17 07:30 10/31/17 07:31 Vancomycin HCl 0.5 gm/Sodium Chloride 250 ml @ 166.667 mls/hr 1X ONCE 10/27/17 18:15 10/27/17 19:44 UNV Vancomycin HCl 1.75 gm/Sodium Chloride 500 ml @ 250 mls/hr Q24H 10/29/17 08:00 10/29/17 08:11 250 MLS/HR Vancomycin HCl 2 gm/Sodium Chloride 500 ml @ 250 mls/hr 1X ONCE 10/27/17 19:00 10/27/17 20:59 DC 10/27/17 19:00 250 MLS/HR Vitamin D (Vitamin D3) 1,000 unit DAILY 10/28/17 14:00 10/29/17 08:13 1,000 UNIT Labs: Lab Laboratory Tests Test 10/29/17 11:29 10/29/17 16:20 10/29/17 21:33 10/30/17 03:00 Glucose (Fingerstick) 233 mg/dL (70-99) 200 mg/dL (70-99) 181 mg/dL (70-99) White Blood Count 10.2 x10^3/uL (4.0-11.0) Red Blood Count 3.67 x10^6/uL (4.30-5.70) Hemoglobin 11.4 g/dL (13.0-17.5) Hematocrit 33.6 % (39.0-53.0) Mean Corpuscular Volume 92 fL (79-100) Mean Corpuscular Hemoglobin 31 pg (25-35) Mean Corpuscular Hemoglobin Concent 34 g/dL (31-37) Red Cell Distribution Width 12.9 % (11.5-14.5) Platelet Count 189 x10^3/uL (140-400) Neutrophils (%) (Auto) 73 % (31-73) Lymphocytes (%) (Auto) 13 % (24-48) Monocytes (%) (Auto) 10 % (0-9) Eosinophils (%) (Auto) 3 % (0-3) Basophils (%) (Auto) 1 % (0-3) Neutrophils # (Auto) 7.5 x10^3uL (1.8-7.7) Lymphocytes # (Auto) 1.3 x10^3/uL (1.0-4.8) Monocytes # (Auto) 1.0 x10^3/uL (0.0-1.1) Eosinophils # (Auto) 0.3 x10^3/uL (0.0-0.7) Basophils # (Auto) 0.1 x10^3/uL (0.0-0.2) Sodium Level 149 mmol/L (136-145) Potassium Level 4.4 mmol/L (3.5-5.1) Chloride Level 112 mmol/L (98-107) Carbon Dioxide Level 35 mmol/L (21-32) Anion Gap 2 (6-14) Blood Urea Nitrogen 74 mg/dL (8-26) Creatinine 1.5 mg/dL (0.7-1.3) Estimated GFR (Cockcroft-Gault) 46.1 Glucose Level 252 mg/dL (70-99) Calcium Level 8.6 mg/dL (8.5-10.1) Micro RUN DATE: 10/30/17 PAGE 1 RUN TIME: 311 [facility] [address] [place] [address] Chadwick Krishnan M.D., Manufacturing Technologist PATIENT: HERMINIA LOWE ACCT: [id number] LOC: [address] [place] [address] U : [id number] AGE/SX: 71/M ROOM: 107 REG : 10/27/[address]: CHENCHO MARQUEZ MD : 1945 BED: 1 DIS : STATUS: ADM IN TLOC: SPEC #: [id number] QUINN: 10/27/17 STATUS: RES REQ #: [id number] RECD: 10/27/[address]: LALITHA COLLIER APRN SOURCE: VOID ENTR: 10/27/17-[address]: CORY BIRD MD [facility]: NON,STAFF ORDERED: URINE CULTURE Procedure Result URINE CULTURE Preliminary Preliminary report URINE CULTURE RES 1 Preliminary Streptococcus species Greater than 100,000 colony forming units per mL Performed at: DA - [facility] [address] [place] [address] [address], [place], [place] [id number] Brim Greaser Operator: FRANKIE Arevalo MD, Phone: [phone] RUN DATE: 10/29/17 PAGE 1 RUN TIME: 9320 [facility] [address] [place] [address] Chadwick Krishnan M.D., Manufacturing Technologist PATIENT: HERMINIA LOWE ACCT: [id number] LOC: 1 [facility] ICU U : [id number] AGE/SX: 71/M ROOM: 107 REG : 10/27/[address]: CHENCHO MARQUEZ MD : 1945 BED: 1 DIS : STATUS: ADM IN TLOC: SPEC #: [id number] QUINN: 10/27/17 STATUS: COMP REQ #: [id number] RECD: 10/27/[address] [facility] [address]: LALITHA COLLIER APRN SOURCE: BLOOD ENTR: 10/27/[address] [facility] [address]: CORY BIRD MD [facility]: NON,STAFF ORDERED: BCULT Procedure Result BLOOD CULTURE Final GRAM POSITIVE COCCI IN CLUSTERS IN 1 OF 2 BOTTLES(AEROBIC);REPRESENTING 1 SET DRAWN. THE RESULT WAS CALLED TO MATTHIEU CHENG(ICU)ON 10/28/17 AT 1354 BY P MATAMOROS. THE BLOOD CULTURE HAS BEEN SENT TO [facility] FOR FURTHER WORKUP. AMMENDED REPORT: THE SECOND BOTTLE(ANAEROBIC) OF THIS SET IS NOW POSITIVE ALSO GRAM POSITIVE COCCI IN CLUSTERS. CALLED TO BRAXTON FONSECA RN IN ICU AT 7:50 ON 10/29/17 DW MT SENT TO [facility] FOR FURTHER WORKUP. * This is a corrected result. * A prior result that was reported as final has been changed. Objective: Assessment: 1. Altered mental status. CT and MRI brain SAH changes, neurosurgery and neurology following 2. GPC 2/2 bacteremia ID pending, source could be 3. UTI c/s + streptococcus 4. Lactic acidosis 4. Acute kidney injury with ultrasound showing no hydronephrosis. 5. Diabetes mellitus. 6. High lipase. 7. Increased liver function tests. 8. History of fall. 9. H/O CVA 10. History of atrial fibrillation. 11. Diabetes mellitus 2. 12. Depression. 13. History of allergies to amoxicillin and the patient is tolerating Zosyn well until now. Plan: Plan of Care Continue empiric Zosyn and IV Vanc,renal dosing f/u ID on BC repeat bc 10/30 f/u strep in urine c/s ,could be enterococcus FU GPC on BC and UC Follow up labs in a.m and cults. Continue supportive care. ADRIANO VILLASENOR MD Oct 30, 2017 07:17
[2017-10-30] MEDS: FENOFIBRATE,MICRONIZED 134 MG CAPSULE PO SCH (08:06)
[2017-10-30] MEDS: MEMANTINE 10 MG TABLET. PO SCH ×2 (08:07→22:45)
[2017-10-30] MEDS: CITALOPRAM 20 MG TABLET. PO SCH (08:07)
[2017-10-30] MEDS: CETIRIZINE HCL 10 MG TABLET. PO SCH (08:07)
[2017-10-30] MEDS: CYANOCOBALAMIN (VITAMIN B-12) 1,000 MCG TABLET. PO SCH (08:07)
[2017-10-30] MEDS: TAMSULOSIN 0.4 MG CAP.ER.24H. PO SCH (08:07)
[2017-10-30] MEDS: DONEPEZIL HCL 10 MG TABLET. PO SCH (08:07)
[2017-10-30] MEDS: CHOLECALCIFEROL (VITAMIN D3) 1,000 UNIT TABLET PO SCH (08:07)
[2017-10-30] MEDS: VANCOMYCIN 1.75 GM in IV NORMAL SALINE 500ML BAG 500 ML IV SCH (08:08)
[2017-10-30] MEDS: LISINOPRIL 20 MG TABLET PO SCH (08:09)
[2017-10-30] MEDS: AMIODARONE HCL 200 MG TABLET. PO SCH ×2 (08:09→22:45)
[2017-10-30] MEDS: METOPROLOL SUCC 24HR ER 50 MG TAB.ER.24H. PO SCH (08:09)
[2017-10-30] MEDS: INSULIN LISPRO 300 UNITS/3 ML INSULN.PEN. SQ SCH ×3 (08:13→17:32)
[2017-10-30] MEDS: VANCOMYCIN PER PHARMACY MC PRN (09:06)
[2017-10-30] MEDS: PIPERACILLIN/TAZOBACTAM 3.375 GM in IV NORMAL SALINE 50ML 50 ML IV SCH ×2 (12:13→17:30)
--- NOTE | 2017-10-30 12:56 | PDOC ---
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 dysphagia with PEG DNR aphagia with stroke plan: fu with renal, neuro, neurosx , id cont PEG feeding MRI done cont some home meds, hold asa, eliquis increase lantus to 40u qhs, add lantus 20u daily, ssi for now on zosyn, vanco as per ID, fu bcx, ucx PTOT Renal US neg labs daily IVF ok transfer out of ICU PAT consult if need hospice if not improving History of Present Illness History of Present Illness ROS: no fever, chills, sob or chest pain pt is very drowsy, not answer any questions or follow comands appeared tender when palpate his abd and lift up his rt legs left side paralized ,has PEG as per nurse, pt can talk a little bit in rehab 10/29: nurse said pt was better yesterday pm, but today still not really answer my questions or follow commands. cr down to 2, wbc better, 1/2 + bcx indwelling fajardo 10/30: Cr down to 1.5, mental worse, not arousable this am, hyperglycemia Vitals Vitals Vital Signs Date Time Temp Pulse Resp B/P (MAP) Pulse Ox O2 Delivery O2 Flow Rate FiO2 10/30/17 12:00 97.5 68 14 118/58 (78) Nasal Cannula 3.0 97.5 10/29/17 18:00 99 Physical Exam Physical Exam GENERAL: not arousable HEENT: Anicteric. Normocephalic and atraumatic. No oral lesions. No thrush. Oral mucosa moist. LUNGS: Clear bilaterally. HEART: S1 and S2. ABDOMEN: Soft, nontender and nondistended. G-tube in place, appears okay. GENITOURINARY: Chronic indwelling Fajardo in place, changed 10/27/2017 in ER. EXTREMITIES: No edema and no cyanosis. A few scattered dry skin lesions present. CENTRAL NERVOUS SYSTEM: Left-sided weakness. DERMATOLOGICAL: No generalized rash. MUSCULOSKELETAL: Not able to assess fully. The patient winces in pain with movement of right lower extremity. General: Alert, Cooperative Heart: Regular rate, Normal S1, Normal S2 Lungs: Clear Abdomen: Normal bowel sounds, Soft, Other (tender diffusely) Extremities: No cyanosis Skin: No breakdown Labs LABS Laboratory Tests Test 10/29/17 16:20 10/29/17 21:33 10/30/17 03:00 10/30/17 08:11 Glucose (Fingerstick) 200 mg/dL (70-99) 181 mg/dL (70-99) 237 mg/dL (70-99) White Blood Count 10.2 x10^3/uL (4.0-11.0) Red Blood Count 3.67 x10^6/uL (4.30-5.70) Hemoglobin 11.4 g/dL (13.0-17.5) Hematocrit 33.6 % (39.0-53.0) Mean Corpuscular Volume 92 fL (79-100) Mean Corpuscular Hemoglobin 31 pg (25-35) Mean Corpuscular Hemoglobin Concent 34 g/dL (31-37) Red Cell Distribution Width 12.9 % (11.5-14.5) Platelet Count 189 x10^3/uL (140-400) Neutrophils (%) (Auto) 73 % (31-73) Lymphocytes (%) (Auto) 13 % (24-48) Monocytes (%) (Auto) 10 % (0-9) Eosinophils (%) (Auto) 3 % (0-3) Basophils (%) (Auto) 1 % (0-3) Neutrophils # (Auto) 7.5 x10^3uL (1.8-7.7) Lymphocytes # (Auto) 1.3 x10^3/uL (1.0-4.8) Monocytes # (Auto) 1.0 x10^3/uL (0.0-1.1) Eosinophils # (Auto) 0.3 x10^3/uL (0.0-0.7) Basophils # (Auto) 0.1 x10^3/uL (0.0-0.2) Sodium Level 149 mmol/L (136-145) Potassium Level 4.4 mmol/L (3.5-5.1) Chloride Level 112 mmol/L (98-107) Carbon Dioxide Level 35 mmol/L (21-32) Anion Gap 2 (6-14) Blood Urea Nitrogen 74 mg/dL (8-26) Creatinine 1.5 mg/dL (0.7-1.3) Estimated GFR (Cockcroft-Gault) 46.1 Glucose Level 252 mg/dL (70-99) Calcium Level 8.6 mg/dL (8.5-10.1) Assessment and Plan Assessmemt and Plan Problems Medical Problems: (1) Acute on chronic renal failure Status: Acute (2) Altered mental status Status: Acute (3) Sepsis Status: Acute Comment Review of Relevant I have reviewed the following items turner (where applicable) has been applied. Labs Laboratory Tests Test 10/28/17 13:35 10/28/17 17:27 10/28/17 20:58 10/29/17 04:00 Glucose (Fingerstick) 253 mg/dL (70-99) 264 mg/dL (70-99) 212 mg/dL (70-99) White Blood Count 13.5 x10^3/uL (4.0-11.0) Red Blood Count 3.53 x10^6/uL (4.30-5.70) Hemoglobin 10.7 g/dL (13.0-17.5) Hematocrit 31.9 % (39.0-53.0) Mean Corpuscular Volume 90 fL (79-100) Mean Corpuscular Hemoglobin 30 pg (25-35) Mean Corpuscular Hemoglobin Concent 34 g/dL (31-37) Red Cell Distribution Width 12.4 % (11.5-14.5) Platelet Count 196 x10^3/uL (140-400) Neutrophils (%) (Auto) 79 % (31-73) Lymphocytes (%) (Auto) 10 % (24-48) Monocytes (%) (Auto) 10 % (0-9) Eosinophils (%) (Auto) 1 % (0-3) Basophils (%) (Auto) 1 % (0-3) Neutrophils # (Auto) 10.7 x10^3uL (1.8-7.7) Lymphocytes # (Auto) 1.3 x10^3/uL (1.0-4.8) Monocytes # (Auto) 1.3 x10^3/uL (0.0-1.1) Eosinophils # (Auto) 0.1 x10^3/uL (0.0-0.7) Basophils # (Auto) 0.1 x10^3/uL (0.0-0.2) Sodium Level 143 mmol/L (136-145) Potassium Level 4.3 mmol/L (3.5-5.1) Chloride Level 108 mmol/L (98-107) Carbon Dioxide Level 24 mmol/L (21-32) Anion Gap 11 (6-14) Blood Urea Nitrogen 93 mg/dL (8-26) Creatinine 2.0 mg/dL (0.7-1.3) Estimated GFR (Cockcroft-Gault) 33.1 Glucose Level 249 mg/dL (70-99) Calcium Level 8.0 mg/dL (8.5-10.1) Random Vancomycin Level 8.8 mcg/mL Test 10/29/17 11:29 10/29/17 16:20 10/29/17 21:33 10/30/17 03:00 Glucose (Fingerstick) 233 mg/dL (70-99) 200 mg/dL (70-99) 181 mg/dL (70-99) White Blood Count 10.2 x10^3/uL (4.0-11.0) Red Blood Count 3.67 x10^6/uL (4.30-5.70) Hemoglobin 11.4 g/dL (13.0-17.5) Hematocrit 33.6 % (39.0-53.0) Mean Corpuscular Volume 92 fL (79-100) Mean Corpuscular Hemoglobin 31 pg (25-35) Mean Corpuscular Hemoglobin Concent 34 g/dL (31-37) Red Cell Distribution Width 12.9 % (11.5-14.5) Platelet Count 189 x10^3/uL (140-400) Neutrophils (%) (Auto) 73 % (31-73) Lymphocytes (%) (Auto) 13 % (24-48) Monocytes (%) (Auto) 10 % (0-9) Eosinophils (%) (Auto) 3 % (0-3) Basophils (%) (Auto) 1 % (0-3) Neutrophils # (Auto) 7.5 x10^3uL (1.8-7.7) Lymphocytes # (Auto) 1.3 x10^3/uL (1.0-4.8) Monocytes # (Auto) 1.0 x10^3/uL (0.0-1.1) Eosinophils # (Auto) 0.3 x10^3/uL (0.0-0.7) Basophils # (Auto) 0.1 x10^3/uL (0.0-0.2) Sodium Level 149 mmol/L (136-145) Potassium Level 4.4 mmol/L (3.5-5.1) Chloride Level 112 mmol/L (98-107) Carbon Dioxide Level 35 mmol/L (21-32) Anion Gap 2 (6-14) Blood Urea Nitrogen 74 mg/dL (8-26) Creatinine 1.5 mg/dL (0.7-1.3) Estimated GFR (Cockcroft-Gault) 46.1 Glucose Level 252 mg/dL (70-99) Calcium Level 8.6 mg/dL (8.5-10.1) Test 10/30/17 08:11 Glucose (Fingerstick) 237 mg/dL (70-99) Laboratory Tests Test 10/29/17 16:20 10/29/17 21:33 10/30/17 03:00 10/30/17 08:11 Glucose (Fingerstick) 200 mg/dL (70-99) 181 mg/dL (70-99) 237 mg/dL (70-99) White Blood Count 10.2 x10^3/uL (4.0-11.0) Red Blood Count 3.67 x10^6/uL (4.30-5.70) Hemoglobin 11.4 g/dL (13.0-17.5) Hematocrit 33.6 % (39.0-53.0) Mean Corpuscular Volume 92 fL (79-100) Mean Corpuscular Hemoglobin 31 pg (25-35) Mean Corpuscular Hemoglobin Concent 34 g/dL (31-37) Red Cell Distribution Width 12.9 % (11.5-14.5) Platelet Count 189 x10^3/uL (140-400) Neutrophils (%) (Auto) 73 % (31-73) Lymphocytes (%) (Auto) 13 % (24-48) Monocytes (%) (Auto) 10 % (0-9) Eosinophils (%) (Auto) 3 % (0-3) Basophils (%) (Auto) 1 % (0-3) Neutrophils # (Auto) 7.5 x10^3uL (1.8-7.7) Lymphocytes # (Auto) 1.3 x10^3/uL (1.0-4.8) Monocytes # (Auto) 1.0 x10^3/uL (0.0-1.1) Eosinophils # (Auto) 0.3 x10^3/uL (0.0-0.7) Basophils # (Auto) 0.1 x10^3/uL (0.0-0.2) Sodium Level 149 mmol/L (136-145) Potassium Level 4.4 mmol/L (3.5-5.1) Chloride Level 112 mmol/L (98-107) Carbon Dioxide Level 35 mmol/L (21-32) Anion Gap 2 (6-14) Blood Urea Nitrogen 74 mg/dL (8-26) Creatinine 1.5 mg/dL (0.7-1.3) Estimated GFR (Cockcroft-Gault) 46.1 Glucose Level 252 mg/dL (70-99) Calcium Level 8.6 mg/dL (8.5-10.1) Microbiology 10/27/17 Blood Culture - Final, Complete 10/27/17 Urine Culture - Preliminary, Resulted 10/27/17 Urine Culture Result 1 (YOEL) - Preliminary, Resulted Medications Current Medications Sodium Chloride 1,000 ml @ 1,000 mls/hr 1X ONCE IV Last administered on at 17:19; Start 10/27/17 at 16:00; Stop 10/27/17 at 16:59; Status DC Ondansetron HCl (Zofran) 4 mg PRN Q8HRS PRN IV NAUSEA/VOMITING; Start 10/27/17 at 18:00; Stop 10/28/17 at 17:59; Status DC Piperacillin Sod/ Tazobactam Sod 4.5 gm/Sodium Chloride 100 ml @ 200 mls/hr DAILY IV ; Start 10/28/17 at 09:00; Status UNV Vancomycin HCl (Vanco Per Pharmacy) 1 each PRN DAILY PRN MC SEE COMMENTS Last administered on 10/30/17at 09:06; Start 10/27/17 at 18:00 Vancomycin HCl 2 gm/Sodium Chloride 500 ml @ 250 mls/hr 1X ONCE IV Last administered on 10/27/17at 19:00; Start 10/27/17 at 19:00; Stop 10/27/17 at 20:59 ; Status DC Vancomycin HCl 0.5 gm/Sodium Chloride 250 ml @ 166.667 mls/hr 1X ONCE IV ; Start 10/27/17 at 18:15; Stop 10/27/17 at 19:44; Status UNV Levofloxacin/ Dextrose 100 ml @ 100 mls/hr 1X ONCE IV Last administered on at 22:07; Start 10/27/17 at 18:30; Stop 10/27/17 at 19:29; Status DC Piperacillin Sod/ Tazobactam Sod 2.25 gm/Sodium Chloride 50 ml @ 100 mls/hr 1X ONCE IV Last administered on 10/27/17at 19:00; Start 10/27/17 at 18:30; Stop 10/27/17 at 18:59; Status DC Piperacillin Sod/ Tazobactam Sod 2.25 gm/Sodium Chloride 50 ml @ 100 mls/hr Q6HRS IV Last administered on 10/30/17at 06:07; Start 10/28/17 at 00:00; Stop at 09:10; Status DC Sodium Chloride 1,000 ml @ 75 mls/hr [id number] IV Last administered on at 02:47; Start 10/27/17 at 20:00; Stop 10/30/17 at 06:04; Status DC Enalaprilat (Vasotec Inj) 1.25 mg Q6HRS IVP ; Start 10/27/17 at 20:30; Stop at 09:24; Status DC Vancomycin HCl (Vancomycin Random Level) 1 each 1X ONCE MC Last administered on 10/29/17at 05:00; Start 10/29/17 at 05:00; Stop 10/29/17 at 05:01; Status DC Fentanyl Citrate (Fentanyl 2ml Vial) 25 mcg 1X ONCE IV Last administered on at 00:44; Start 10/28/17 at 00:45; Stop 10/28/17 at 00:46; Status DC Enalaprilat (Vasotec Inj) 1.25 mg PRN Q4HRS PRN IVP ELEVATED BP, SEE COMMENTS; Start 10/28/17 at 09:30; Stop 10/28/17 at 18:32; Status DC Acetaminophen (Tylenol) 650 mg PRN Q6HRS PRN PO FEVER; Start 10/28/17 at 09:30 Ondansetron HCl (Zofran) 4 mg PRN Q6HRS PRN IV NAUSEA/VOMITING; Start 10/28/17 at 09:30 Morphine Sulfate (Morphine Sulfate) 2 mg PRN Q2HR PRN IV MODERATE TO SEVERE PAIN Last administered on 10/29/17at 09:28; Start 10/28/17 at 09:30 Tramadol HCl (Ultram) 50 mg PRN Q6HRS PRN PO MILD TO MODERATE PAIN; Start 10/28 at 09:30 Docusate Sodium (Colace) 100 mg PRN DAILY PRN PO CONSTIPATION; Start 10/28/17 at 09:30 Labetalol HCl (Normodyne Iv Push) 10 mg PRN Q2HR PRN IVP HYPERTENSION, SEE COMMENTS; Start 10/28/17 at 09:30 Insulin Human Lispro (HumaLOG) 0-9 UNITS TIDWMEALS SQ Last administered on 10/30at 12:13; Start 10/28/17 at 12:00 Dextrose (Dextrose 50%-Water Syringe) 12.5 gm PRN Q15MIN PRN IV SEE COMMENTS; Start 10/28/17 at 09:30 Lorazepam (Ativan) 0.5 mg 1X ONCE IV Last administered on 10/28/17at 11:51; Start 10/28/17 at 09:45; Stop 10/28/17 at 09:46; Status DC Lactobacillus Rhamnosus (Culturelle) 1 cap BID PO ; Start 10/28/17 at 21:00; Status Cancel Amiodarone HCl (Cordarone) 200 mg BID PO Last administered on 10/30/17at 08:09; Start 10/28/17 at 14:00 Cetirizine HCl (ZyrTEC) 10 mg DAILY PO Last administered on 10/30/17at 08:07; Start 10/28/17 at 14:00 Cyanocobalamin (Vitamin B-12) 1,000 mcg DAILY PO Last administered on at 08:07; Start 10/28/17 at 14:00 Metoprolol Succinate (Toprol Xl) 100 mg DAILY PO Last administered on at 14:53; Start 10/28/17 at 14:00 Tamsulosin HCl (Flomax) 0.4 mg DAILY PO Last administered on 10/30/17at 08:07; Start 10/28/17 at 14:00 Lisinopril (Prinivil) 40 mg DAILY PO Last administered on 10/29/17at 08:12; Start 10/28/17 at 14:00 Vitamin D (Vitamin D3) 1,000 unit DAILY PO Last administered on 10/30/17at 08:07 ; Start 10/28/17 at 14:00 Citalopram Hydrobromide (CeleXA) 40 mg DAILY PO Last administered on 10/30/17 08:07; Start 10/28/17 at 14:00 Donepezil HCl (Aricept) 10 mg DAILY PO Last administered on 10/30/17 08:07; Start 10/28/17 at 14:00 Fenofibrate (Lofibra) 134 mg DAILY PO Last administered on 10/30/17at 08:06; Start 10/28/17 at 14:00 Gabapentin (Neurontin) 1,800 mg QHS PO Last administered on 10/29/17at 21:31; Start 10/28/17 at 21:00 Non-Formulary Medication (Melatonin ) 5 mg QHS PO ; Start 10/28/17 at 21:00; Status UNV Memantine (Namenda) 10 mg BID PO Last administered on 10/30/17at 08:07; Start at 14:00 Atorvastatin Calcium (Lipitor) 20 mg QHS PO Last administered on 10/29/17at 21: 31; Start 10/28/17 at 21:00 Insulin Glargine (Lantus) 20 units QHS SQ Last administered on 10/28/17at 21:00 ; Start 10/28/17 at 21:00; Stop 10/29/17 at 11:54; Status DC Vancomycin HCl 1.75 gm/Sodium Chloride 500 ml @ 250 mls/hr Q24H IV Last administered on 10/30/17at 08:08; Start 10/29/17 at 08:00 Vancomycin HCl (Vancomycin Trough Level) 1 each 1X ONCE MC ; Start 10/31/17 at 07:30; Stop 10/31/17 at 07:31 Info (Do NOT chart on this placeholder) 1 each 1X ONCE MC ; Start 10/29/17 at 12:00; Stop 10/29/17 at 12:01; Status UNV Insulin Glargine (Lantus) 30 units QHS SQ Last administered on 10/29/17at 21:35 ; Start 10/29/17 at 21:00 Influenza Virus Vaccine (Afluria Trivalent 1205-9016 Syringe) 0.5 ml ONCE ONCE VAX IM Last administered on 10/29/17at 14:17; Start 10/29/17 at 13:00; Stop at 13:01; Status DC Amino Acids/ Glycerin/ Electrolytes 1,000 ml @ 80 mls/hr [id number] IV ; Start at 06:15; Stop 10/30/17 at 06:15; Status DC Piperacillin Sod/ Tazobactam Sod 3.375 gm/Sodium Chloride 50 ml @ 100 mls/hr Q6HRS IV Last administered on 10/30/17at 12:13; Start 10/30/17 at 12:00 Active Scripts Active Reported B-12 (Cyanocobalamin (Vitamin B-12)) 1,000 Mcg Tablet 1,000 Mcg PO DAILY Aspirin 81 Mg Tab.chew 1 Tab PO DAILY Aricept (Donepezil Hcl) 10 Mg Tablet 1 Tab PO DAILY Eliquis (Apixaban) 5 Mg Tablet 5 Mg PO BID Amiodarone Hcl 200 Mg Tablet 200 Mg PO BID Tylenol (Acetaminophen) 325 Mg Tablet 2 Tab PO PRN Q4HRS Benazepril Hcl 40 Mg Tablet 1 Tab PO DAILY Gabapentin 600 Mg Tablet 1,800 Mg PO QHS Furosemide 80 Mg Tablet 1 Tab PO DAILY Clonidine Hcl 0.1 Mg Tablet 0.1 Mg PO PRN Q8HRS Celexa (Citalopram Hydrobromide) 40 Mg Tablet 40 Mg PO DAILY Vitamin D (Cholecalciferol (Vitamin D3)) 1,000 Unit Capsule 1 Cap PO DAILY Cetirizine Hcl 10 Mg Tablet 1 Tab PO DAILY Crestor (Rosuvastatin Calcium) 5 Mg Tablet 5 Mg PO HS Potassium Chloride 20 Meq Tablet.er 20 Meq PO DAILY Zofran Odt (Ondansetron) 4 Mg Tab.rapdis 4 Mg PO BID PRN Metoprolol Succinate 50 Mg Tab.er.24h 100 Mg PO DAILY Namenda (Memantine Hcl) 10 Mg Tablet 10 Mg PO BID Melatonin 3 Mg Tablet 5 Mg PO QHS Humalog (Insulin Lispro) 100 Unit/1 Ml Cartridge 100 Unit SQ Lantus Solostar (Insulin Glargine,Hum.rec.anlog) 100 Unit/1 Ml Insuln.pen 25 Unit SQ QHS Lantus Solostar (Insulin Glargine,Hum.rec.anlog) 100 Unit/1 Ml Insuln.pen 50 Unit SQ DAILY08 Tamsulosin Hcl 0.4 Mg Cap.er.24h 0.4 Mg PO DAILY Nystatin 15 Gm Powder 15 Gm TP Lumigan (Bimatoprost) 2.5 Ml Drops 2.5 Ml OP Lorazepam 0.5 Mg Tablet 0.5 Mg PO TID Flonase Allergy Relief (Fluticasone Propionate) 9.9 Ml [place].susp Unknown Dose NS DAILY Fenofibrate (Fenofibrate,Micronized) 134 Mg Capsule 134 Mg PO DAILY Bupropion Xl (Bupropion Hcl) 300 Mg Tab.er.24h 300 Mg PO Vitals/I & O Vital Sign - Last 24 Hours 10/29/17 10/29/17 10/29/17 10/29/17 13:00 14:00 15:00 16:00 Temp 98.8 98.8 Pulse 64 59 63 72 Resp 12 15 11 13 B/P (MAP) 100/41 (60) 85/58 (67) 114/53 (73) 130/52 (78) Pulse Ox 96 96 98 97 O2 Delivery Nasal Cannula Nasal Cannula Nasal Cannula Nasal Cannula O2 Flow Rate 2.0 2.0 2.0 2.0 10/29/17 10/29/17 10/29/17 10/29/17 16:00 17:00 18:00 19:00 Temp 97.9 97.9 Pulse 75 72 66 Resp 11 11 10 B/P (MAP) 93/50 (64) 97/52 (67) 114/60 (78) Pulse Ox 95 99 O2 Delivery Nasal Cannula Nasal Cannula Nasal Cannula Nasal Cannula O2 Flow Rate 2.0 2.0 2.0 2.0 10/29/17 10/29/17 10/29/17 10/29/17 20:00 21:00 21:32 22:00 Pulse 68 66 66 68 Resp 9 9 10 B/P (MAP) 106/44 (64) 115/48 (70) 114/60 124/50 (74) O2 Delivery Nasal Cannula Nasal Cannula Nasal Cannula O2 Flow Rate 2.0 2.0 2.0 10/29/17 10/30/17 10/30/17 10/30/17 23:05 00:00 01:00 02:00 Temp 99.1 99.1 Pulse 62 75 66 63 Resp 9 34 10 9 B/P (MAP) 148/58 (88) 146/69 (94) 152/62 (92) 102/52 (69) O2 Delivery Nasal Cannula Nasal Cannula Nasal Cannula Nasal Cannula O2 Flow Rate 2.0 3.0 3.0 3.0 10/30/17 10/30/17 10/30/17 10/30/17 03:00 04:00 05:00 06:00 Temp 99.1 99.1 Pulse 75 62 62 65 Resp 13 13 13 13 B/P (MAP) 140/60 (86) 111/44 (66) 139/49 (79) 132/52 (78) O2 Delivery Nasal Cannula Nasal Cannula Nasal Cannula Nasal Cannula O2 Flow Rate 3.0 3.0 3.0 3.0 10/30/17 10/30/17 10/30/17 10/30/17 07:00 08:00 08:00 08:09 Temp 99.3 99.3 Pulse 63 58 63 Resp 15 16 B/P (MAP) 115/50 (71) 101/52 (68) 101/53 O2 Delivery Nasal Cannula Nasal Cannula Nasal Cannula O2 Flow Rate 3.0 3.0 3.0 10/30/17 10/30/17 10/30/17 10/30/17 09:00 10:00 11:00 12:00 Pulse 69 69 62 Resp 16 16 12 B/P (MAP) 108/53 (71) 143/68 (93) 125/62 (83) O2 Delivery Nasal Cannula Nasal Cannula Nasal Cannula Nasal Cannula O2 Flow Rate 3.0 3.0 3.0 3.0 10/30/17 12:00 Temp 97.5 97.5 Pulse 68 Resp 14 B/P (MAP) 118/58 (78) O2 Delivery Nasal Cannula O2 Flow Rate 3.0 Intake and Output 10/29/17 10/29/17 10/30/17 15:00 23:00 07:00 Intake Total 550 ml 1629 ml 1746 ml Output Total 815 ml 505 ml 1095 ml Balance -265 ml 1124 ml 651 ml DARRELL MAY MD Oct 30, 2017 12:56
[2017-10-30] MEDS: INSULIN GLARGINE 300 UNITS/3 ML INSULN.PEN. SQ SCH (13:08)
--- NOTE | 2017-10-30 14:17 | PDOC ---
PROGRESS NOTES Assessment Assessment Subacute right parietal, posterior frontal and occipital infarct about 3 weeks ago with recent hemorrhagic transformation of IPH and SAH. Metabolic encephalopathy. Respiratory failure. Renal failure. UTI. Leukocytosis. CAD s/p CABG. AFib. DM. HTN. Ventriculomegaly. Obesity. RECOMMENDATIONS/PLAN: Life support in ICU. Hold antiplatelet agents at the present time. HCT w/o contrast if condition worse. BP control. Treat medical and cardiac diseases. Discussed with his sister and brought in detail at bedside on 10/29/17. Brain MRI performed on 10/28/17: results as above. HISTORY OF THE PRESENT ILLNESS: 71-y-old male patient with multiple medical and cardiac diseases had a stroke and was treated with Plavix and ASA in [facility]. He then was discharged to Rehab, but his brother and sisters stated that his condition became worse on the day of discharge. His condition has not improved, so he was brought to the ER of [facility]. His initially HCT showed ICH and SAH, but MRI on 10/28 provided better explanation of hemorrhagic transformation from his recent ischemic infarct. Past Medical History A-Fib, CVA, HTN, Dementia, Depression, Diabetes-Type II, Heart Disease, MS ? PAST SURGERY HISTORY: Coronary Bypass Surgery, G-TUBE placement , OBESITY Family History Hypertension. ALLERGY: Review. MEDICATIONS: Refer to MAR SOCIAL HISTORY: Denies current smoking, drinking, and illicit drug use. REVIEW OF SYSTEMS: Constitutional: Obesity. Head: No traumatic brain or head injury. Skin: No edema, or rash. Ear: No infection, tinnitus. Eyes: No vision loss or color blindness. Nose: No bleeding or purulent discharges. Hearing: Hearing decrease. Neck: No injury. Cardiac: CAD, s/p CABG, AFib, HTN, HLD. Pulmonary: No COPD. GI: No GI ulcer, GI bleeding. Urinary/genital: UTI. Endocrinologic: Diabetes Mellitus, obesity. Skeletomuscular: Left side weakness. Neurological: see HP. Psychiatric: Denies drug use/abuse. Otherwise, not [id number] review of systems. PHYSICAL EXAMINATION: General appearance is in subacute distress. HEENT: Normocephalic and nontraumatic. Eyes, nose, ears, and throat are unremarkable. Neck is supple. No lymphadenopathy. No bruits are heard over the carotid artery. No crepitus. Cardiovascular: S1, S2, seemed irregular rate and rhythm. Pulmonary: On vent. Abdomen: Bowel sounds are positive. Extremities: No rash, lesions, or edema. No restriction of range of motion NEUROLOGICAL EXAMINATION: Awake from time to time. Not oriented to time, place but knew his family members. PERRL. EOMI, slow. CN: no acute focal findings. Muscle tone: Decreased. Muscle strength: Left side hemiplegia. DTR: 0-1 Plantar reflex: Neutral response bilaterally Gait: Unable to walk. Sensory exam: no acute abnormal findings. Not able to access cerebellar signs. F-T-N test not performed. Objective Objective Vital Signs Date Time Temp Pulse Resp B/P (MAP) Pulse Ox O2 Delivery O2 Flow Rate FiO2 10/30/17 14:00 61 15 159/63 (95) Nasal Cannula 3.0 10/30/17 12:00 97.5 97.5 10/29/17 18:00 99 Intake and Output 10/30/17 07:00 Intake Total 3925 ml Output Total 2415 ml Balance 1510 ml IV Total 2246 ml Tube Feeding 1054 ml Other 625 ml Output Urine Total 2415 ml Vitals Signs Vitals VS - Last 72 Hours, by Label Date Time Temp Pulse Resp B/P (MAP) Pulse Ox O2 Delivery O2 Flow Rate FiO2 10/30/17 14:00 61 15 159/63 (95) Nasal Cannula 3.0 10/30/17 13:00 62 13 156/61 (92) Nasal Cannula 3.0 10/30/17 12:00 97.5 68 14 118/58 (78) Nasal Cannula 3.0 97.5 10/30/17 12:00 Nasal Cannula 3.0 10/30/17 11:00 62 12 125/62 (83) Nasal Cannula 3.0 10/30/17 10:00 69 16 143/68 (93) Nasal Cannula 3.0 10/30/17 09:00 69 16 108/53 (71) Nasal Cannula 3.0 10/30/17 08:09 63 101/53 10/30/17 08:00 Nasal Cannula 3.0 10/30/17 08:00 99.3 58 16 101/52 (68) Nasal Cannula 3.0 99.3 10/30/17 07:00 63 15 115/50 (71) Nasal Cannula 3.0 10/30/17 06:00 65 13 132/52 (78) Nasal Cannula 3.0 10/30/17 05:00 62 13 139/49 (79) Nasal Cannula 3.0 10/30/17 04:00 99.1 62 13 111/44 (66) Nasal Cannula 3.0 99.1 10/30/17 03:00 75 13 140/60 (86) Nasal Cannula 3.0 10/30/17 02:00 63 9 102/52 (69) Nasal Cannula 3.0 10/30/17 01:00 66 10 152/62 (92) Nasal Cannula 3.0 10/30/17 00:00 99.1 75 34 146/69 (94) Nasal Cannula 3.0 99.1 10/29/17 23:05 62 9 148/58 (88) Nasal Cannula 2.0 10/29/17 22:00 68 10 124/50 (74) Nasal Cannula 2.0 10/29/17 21:32 66 114/60 10/29/17 21:00 66 9 115/48 (70) Nasal Cannula 2.0 10/29/17 20:00 68 9 106/44 (64) Nasal Cannula 2.0 10/29/17 19:00 97.9 66 10 114/60 (78) Nasal Cannula 2.0 97.9 10/29/17 18:00 72 11 97/52 (67) 99 Nasal Cannula 2.0 10/29/17 17:00 75 11 93/50 (64) 95 Nasal Cannula 2.0 10/29/17 16:00 Nasal Cannula 2.0 10/29/17 16:00 98.8 72 13 130/52 (78) 97 Nasal Cannula 2.0 98.8 10/29/17 15:00 63 11 114/53 (73) 98 Nasal Cannula 2.0 10/29/17 14:00 59 15 85/58 (67) 96 Nasal Cannula 2.0 10/29/17 13:00 64 12 100/41 (60) 96 Nasal Cannula 2.0 10/29/17 12:00 Nasal Cannula 2.0 10/29/17 12:00 99.1 62 15 114/53 (73) 96 Nasal Cannula 2.0 99.1 10/29/17 11:00 67 13 81/56 (64) 98 Nasal Cannula 2.0 10/29/17 10:00 78 18 100/60 (73) 98 Nasal Cannula 2.0 10/29/17 09:55 21 98 Nasal Cannula 2.0 10/29/17 09:28 22 92 Room Air 10/29/17 09:00 71 22 110/47 (68) 96 Room Air 10/29/17 08:16 71 114/57 10/29/17 08:12 72 114/57 10/29/17 08:00 98.9 73 17 126/47 (73) 93 Room Air 98.9 10/29/17 08:00 Room Air 10/29/17 07:00 71 14 122/49 (73) 92 Room Air Laboratory Laboratory Laboratory Tests Test 10/29/17 16:20 10/29/17 21:33 10/30/17 03:00 10/30/17 08:11 Glucose (Fingerstick) 200 mg/dL (70-99) 181 mg/dL (70-99) 237 mg/dL (70-99) White Blood Count 10.2 x10^3/uL (4.0-11.0) Red Blood Count 3.67 x10^6/uL (4.30-5.70) Hemoglobin 11.4 g/dL (13.0-17.5) Hematocrit 33.6 % (39.0-53.0) Mean Corpuscular Volume 92 fL (79-100) Mean Corpuscular Hemoglobin 31 pg (25-35) Mean Corpuscular Hemoglobin Concent 34 g/dL (31-37) Red Cell Distribution Width 12.9 % (11.5-14.5) Platelet Count 189 x10^3/uL (140-400) Neutrophils (%) (Auto) 73 % (31-73) Lymphocytes (%) (Auto) 13 % (24-48) Monocytes (%) (Auto) 10 % (0-9) Eosinophils (%) (Auto) 3 % (0-3) Basophils (%) (Auto) 1 % (0-3) Neutrophils # (Auto) 7.5 x10^3uL (1.8-7.7) Lymphocytes # (Auto) 1.3 x10^3/uL (1.0-4.8) Monocytes # (Auto) 1.0 x10^3/uL (0.0-1.1) Eosinophils # (Auto) 0.3 x10^3/uL (0.0-0.7) Basophils # (Auto) 0.1 x10^3/uL (0.0-0.2) Sodium Level 149 mmol/L (136-145) Potassium Level 4.4 mmol/L (3.5-5.1) Chloride Level 112 mmol/L (98-107) Carbon Dioxide Level 35 mmol/L (21-32) Anion Gap 2 (6-14) Blood Urea Nitrogen 74 mg/dL (8-26) Creatinine 1.5 mg/dL (0.7-1.3) Estimated GFR (Cockcroft-Gault) 46.1 Glucose Level 252 mg/dL (70-99) Calcium Level 8.6 mg/dL (8.5-10.1) Microbiology 10/27/17 Blood Culture - Final, Complete 10/27/17 Urine Culture - Preliminary, Resulted 10/27/17 Urine Culture Result 1 (YOEL) - Preliminary, Resulted Medication Medications Current Medications Amino Acids/ Glycerin/ Electrolytes 1,000 ml @ 80 mls/hr [id number] IV ; Start at 06:15; Stop 10/30/17 at 06:15; Status DC Insulin Glargine (Lantus) 20 units DAILY SQ Last administered on 10/30/17at 13: 08; Start 10/30/17 at 13:00 Insulin Glargine (Lantus) 30 units QHS SQ Last administered on 10/29/17at 21:35 ; Start 10/29/17 at 21:00; Stop 10/30/17 at 12:54; Status DC Insulin Glargine (Lantus) 40 units QHS SQ ; Start 10/30/17 at 21:00 Piperacillin Sod/ Tazobactam Sod 3.375 gm/Sodium Chloride 50 ml @ 100 mls/hr Q6HRS IV Last administered on 10/30/17at 12:13; Start 10/30/17 at 12:00 Vancomycin HCl (Vancomycin Trough Level) 1 each 1X ONCE MC ; Start 10/31/17 at 07:30; Stop 10/31/17 at 07:31 Comment Review of Relevant I have reviewed the following items turner (where applicable) has been applied. RODO SYKES MD Oct 30, 2017 14:17
[2017-10-30] MEDS: ATORVASTATIN CALCIUM 20 MG TABLET PO SCH (22:44)
[2017-10-30] MEDS: GABAPENTIN 300 MG CAPSULE. PO SCH (22:46)
[2017-10-30] MEDS: MORPHINE SULFATE 2 MG/ML VIAL. IV PRN (23:44)
[2017-10-31] MEDS: PIPERACILLIN/TAZOBACTAM 3.375 GM in IV NORMAL SALINE 50ML 50 ML IV SCH ×5 (00:36→23:49)
[2017-10-31] MEDS: INSULIN GLARGINE 300 UNITS/3 ML INSULN.PEN. SQ SCH ×3 (00:55→21:02)
[2017-10-31 03:40] VITALS: BP 139/67
[2017-10-31 07:15] VITALS: BP 135/60
[2017-10-31 07:49] LABS: BASO # 0.1 x10^3/uL (0.0-0.2); BASO % 1 % (0-3); EOS # 0.4 x10^3/uL (0.0-0.7); EOS % 3 % (0-3); HEMATOCRIT 34.3 % (39.0-53.0); HEMOGLOBIN 11.4 g/dL (13.0-17.5); LYMPH # 1.3 x10^3/uL (1.0-4.8); LYMPH % 12 % (24-48); MEAN CORPUSCULAR HEMOGLOBIN 30 pg (25-35); MEAN CORPUSCULAR HGB CONC 33 g/dL (31-37); MEAN CORPUSCULAR VOLUME 91 fL (79-100); MONO # 0.8 x10^3/uL (0.0-1.1); MONO % 8 % (0-9); NEUT % 76 % (31-73); PLATELET COUNT 231 x10^3/uL (140-400); RED BLOOD COUNT 3.76 x10^6/uL (4.30-5.70); RED CELL DISTRIBUTION WIDTH 12.7 % (11.5-14.5); WHITE BLOOD COUNT 10.5 x10^3/uL (4.0-11.0)
[2017-10-31] MEDS: INSULIN LISPRO 300 UNITS/3 ML INSULN.PEN. SQ SCH ×3 (08:00→17:00)
[2017-10-31 08:02] LABS: CALCIUM 9.1 mg/dL (8.5-10.1); CREATININE 1.1 mg/dL (0.7-1.3); POTASSIUM 4.6 mmol/L (3.5-5.1)
[2017-10-31 08:09] LABS: VANC TR 15.8 mcg/mL (10.0-20.0)
[2017-10-31] MEDS: CETIRIZINE HCL 10 MG TABLET. PO SCH (09:14)
[2017-10-31] MEDS: CHOLECALCIFEROL (VITAMIN D3) 1,000 UNIT TABLET PO SCH (09:15)
[2017-10-31] MEDS: TAMSULOSIN 0.4 MG CAP.ER.24H. PO SCH (09:15)
[2017-10-31] MEDS: CYANOCOBALAMIN (VITAMIN B-12) 1,000 MCG TABLET. PO SCH (09:15)
[2017-10-31] MEDS: AMIODARONE HCL 200 MG TABLET. PO SCH ×2 (09:16→20:56)
[2017-10-31] MEDS: FENOFIBRATE,MICRONIZED 134 MG CAPSULE PO SCH (09:16)
--- NOTE | 2017-10-31 09:16 | PDOC ---
Infectious Disease Note Subjective Subjective Alert and states ok to all questions appears comfortable ROS ROS unreliable Vital Sign Vital Signs Vital Signs Date Time Temp Pulse Resp B/P (MAP) Pulse Ox O2 Delivery O2 Flow Rate FiO2 10/31/17 07:15 98.6 68 20 135/60 (85) 99 Nasal Cannula 3.0 98.6 Physical Exam PHYSICAL EXAM GENERAL: Alert and NAD. Answers questions HEENT: Anicteric. Normocephalic and atraumatic. No oral lesions. No thrush. Oral mucosa moist. LUNGS: Clear bilaterally. HEART: S1 and S2. ABDOMEN: Soft, nontender and nondistended. G-tube in place, appears okay. Rectal tube GENITOURINARY: Chronic indwelling Weeks in place, changed 10/27/2017 in ER. EXTREMITIES: No edema and no cyanosis. A few scattered dry skin lesions present. CENTRAL NERVOUS SYSTEM: Left-sided weakness. - very alert DERMATOLOGICAL: No generalized rash. Labs Lab Laboratory Tests Test 10/30/17 12:07 10/30/17 17:31 10/31/17 00:49 10/31/17 07:30 Glucose (Fingerstick) 210 mg/dL (70-99) 194 mg/dL (70-99) 118 mg/dL (70-99) White Blood Count 10.5 x10^3/uL (4.0-11.0) Red Blood Count 3.76 x10^6/uL (4.30-5.70) Hemoglobin 11.4 g/dL (13.0-17.5) Hematocrit 34.3 % (39.0-53.0) Mean Corpuscular Volume 91 fL (79-100) Mean Corpuscular Hemoglobin 30 pg (25-35) Mean Corpuscular Hemoglobin Concent 33 g/dL (31-37) Red Cell Distribution Width 12.7 % (11.5-14.5) Platelet Count 231 x10^3/uL (140-400) Neutrophils (%) (Auto) 76 % (31-73) Lymphocytes (%) (Auto) 12 % (24-48) Monocytes (%) (Auto) 8 % (0-9) Eosinophils (%) (Auto) 3 % (0-3) Basophils (%) (Auto) 1 % (0-3) Neutrophils # (Auto) 8.0 x10^3uL (1.8-7.7) Lymphocytes # (Auto) 1.3 x10^3/uL (1.0-4.8) Monocytes # (Auto) 0.8 x10^3/uL (0.0-1.1) Eosinophils # (Auto) 0.4 x10^3/uL (0.0-0.7) Basophils # (Auto) 0.1 x10^3/uL (0.0-0.2) Sodium Level 154 mmol/L (136-145) Potassium Level 4.6 mmol/L (3.5-5.1) Chloride Level 115 mmol/L (98-107) Carbon Dioxide Level 35 mmol/L (21-32) Anion Gap 4 (6-14) Blood Urea Nitrogen 50 mg/dL (8-26) Creatinine 1.1 mg/dL (0.7-1.3) Estimated GFR (Cockcroft-Gault) 66.0 Glucose Level 166 mg/dL (70-99) Calcium Level 9.1 mg/dL (8.5-10.1) Vancomycin Level Trough 15.8 mcg/mL (10.0-20.0) Vancomycin Last Dose Date 10/30/17 Vancomycin Last Dose Time 0730 Micro Microbiology 10/30/17 Blood Culture - Preliminary, Resulted NO GROWTH AFTER 1 DAY 10/27/17 Urine Culture - Final, Complete 10/27/17 Urine Culture Result 1 (YOEL) - Final, Complete 10/27/17 Antimicrobic Susceptibility - Final, Complete Enterococcus faecalis Greater than 100,000 colony forming units per mL ANTIMICROBIAL SUSCEPTIBILITY Final Comment S = Susceptible; I = Intermediate; R = Resistant P = Positive; N = Negative MICS are expressed in micrograms per mL Antibiotic RSLT#1 RSLT#2 RSLT#3 RSLT#4 Ciprofloxacin S<=0.5 Levofloxacin S =1 Nitrofurantoin S<=16 Penicillin S =4 Tetracycline R>=16 Vancomycin S =1 Objective Assessment 1. Altered mental status. CT and MRI brain SAH changes, neurosurgery and neurology following - improved 2. STCN 2/2 bacteremia 10/27 ? contamination 3. UTI c/s + Enterococcus 10/27 4. Lactic acidosis 4. Acute kidney injury with ultrasound showing no hydronephrosis. 5. Diabetes mellitus. 6. High lipase. 7. Increased liver function tests. 8. History of fall. 9. H/O CVA 10. History of atrial fibrillation. 11. Diabetes mellitus 2. 12. Depression. 13. History of allergies to amoxicillin and the patient is tolerating Zosyn well. Plan Plan of Care Continue empiric for now Zosyn and IV Vanc - hope to change to po 11/01 F/u repeat bc 10/30 Follow up labs in a.m and cults. Continue supportive care. RAFAEL MCNULTY MD Oct 31, 2017 09:16
[2017-10-31] MEDS: LISINOPRIL 20 MG TABLET PO SCH (09:17)
[2017-10-31] MEDS: MEMANTINE 10 MG TABLET. PO SCH ×2 (09:17→20:53)
[2017-10-31] MEDS: CITALOPRAM 20 MG TABLET. PO SCH (09:19)
[2017-10-31] MEDS: METOPROLOL SUCC 24HR ER 50 MG TAB.ER.24H. PO SCH (09:20)
[2017-10-31] MEDS: DONEPEZIL HCL 10 MG TABLET. PO SCH (09:22)
--- NOTE | 2017-10-31 10:13 | PDOC ---
SUBJECTIVE ROS No new concerns as per RN OBJECTIVE Vital Signs Vital Signs Date Time Temp Pulse Resp B/P (MAP) Pulse Ox O2 Delivery O2 Flow Rate FiO2 10/31/17 09:20 68 135/60 10/31/17 07:15 98.6 20 99 Nasal Cannula 3.0 98.6 I & 0 Intake and Output 10/31/17 07:00 Intake Total 450 ml Output Total 2500 ml Balance -2050 ml Intake Oral 0 ml Tube Feeding 450 ml Output Urine Total 2500 ml # Bowel Movements 5 PHYSICAL EXAM Physical Exam GENERAL: Alert and NAD. HEENT: Unremarkable LUNGS: Clear bilaterally. HEART: S1 and S2. ABDOMEN: Soft, nontender and nondistended. G-tube in place, Gu Chronic indwelling Weeks in place, changed 10/27/2017 in ER. EXTREMITIES: No edema and no cyanosis. CENTRAL NERVOUS SYSTEM: Left-sided weakness. DERM No generalized rash Neuro- as per Neuro note DIAGNOSIS/ASSESSMENT Assessment & Plan Acute renal failure: Vasomotor nephropathy. Resolved , back to baseline E-lytes stable Hypernatremia - On TF with Free water flushes Start IV D5W , monitor for Resp status Subarachnoid hemorrhage/right parietal infarct. Neurosurgery and neurology following - improved UTI c/s + Enterococcus 10/27 ID following Encephalopathy: Due to the above-mentioned reasons. FELICIANO RN at bedside COMMENT/RELEVANT DATA Meds Current Medications Medications (Trade) Dose Ordered Sig/Alissa Start Time Stop Time Status Last Admin Dose Admin Acetaminophen (Tylenol) 650 mg PRN Q6HRS PRN 10/28/17 09:30 Amino Acids/ Glycerin/ Electrolytes 1,000 ml @ 80 mls/hr [id number] 10/30/17 06:15 10/30/17 06:15 DC Amiodarone HCl (Cordarone) 200 mg BID 10/28/17 14:00 10/31/17 09:16 200 MG Atorvastatin Calcium (Lipitor) 20 mg QHS 10/28/17 21:00 10/30/17 22:44 20 MG Cetirizine HCl (ZyrTEC) 10 mg DAILY 10/28/17 14:00 10/31/17 09:14 10 MG Citalopram Hydrobromide (CeleXA) 40 mg DAILY 10/28/17 14:00 10/31/17 09:19 40 MG Cyanocobalamin (Vitamin B-12) 1,000 mcg DAILY 10/28/17 14:00 10/31/17 09:15 1,000 MCG Dextrose (Dextrose 50%-Water Syringe) 12.5 gm PRN Q15MIN PRN 10/28/17 09:30 Dextrose/Sodium Chloride 1,000 ml @ 100 mls/hr Q10H 10/31/17 10:00 Docusate Sodium (Colace) 100 mg PRN DAILY PRN 10/28/17 09:30 Donepezil HCl (Aricept) 10 mg DAILY 10/28/17 14:00 10/31/17 09:22 10 MG Enalaprilat (Vasotec Inj) 1.25 mg PRN Q4HRS PRN 10/28/17 09:30 10/28/17 18:32 DC Fenofibrate (Lofibra) 134 mg DAILY 10/28/17 14:00 10/31/17 09:16 134 MG Fentanyl Citrate (Fentanyl 2ml Vial) 25 mcg 1X ONCE 10/28/17 00:45 10/28/17 00:46 DC 10/28/17 00:44 25 MCG Gabapentin (Neurontin) 1,800 mg QHS 10/28/17 21:00 10/30/17 22:46 1,800 MG Influenza Virus Vaccine (Afluria Trivalent [id number] Syringe) 0.5 ml ONCE ONCE 10/29/17 13:00 10/29/17 13:01 DC 10/29/17 14:17 0.5 ML Info (Do NOT chart on this placeholder) 1 each 1X ONCE 10/29/17 12:00 10/29/17 12:01 UNV Insulin Glargine (Lantus) 20 units DAILY 10/30/17 13:00 10/30/17 13:08 20 UNITS Insulin Human Lispro (HumaLOG) 0-9 UNITS TIDWMEALS 10/28/17 12:00 10/30/17 17:32 4 UNITS Labetalol HCl (Normodyne Iv Push) 10 mg PRN Q2HR PRN 10/28/17 09:30 Lactobacillus Rhamnosus (Culturelle) 1 cap BID 10/28/17 21:00 Cancel Levofloxacin/ Dextrose 100 ml @ 100 mls/hr 1X ONCE 10/27/17 18:30 10/27/17 19:29 DC 10/27/17 22:07 100 MLS/HR Lisinopril (Prinivil) 40 mg DAILY 10/28/17 14:00 10/31/17 09:17 40 MG Lorazepam (Ativan) 0.5 mg 1X ONCE 10/28/17 09:45 10/28/17 09:46 DC 10/28/17 11:51 0.5 MG Memantine (Namenda) 10 mg BID 10/28/17 14:00 10/31/17 09:17 10 MG Metoprolol Succinate (Toprol Xl) 100 mg DAILY 10/28/17 14:00 10/31/17 09:20 100 MG Morphine Sulfate (Morphine Sulfate) 2 mg PRN Q2HR PRN 10/28/17 09:30 10/30/17 23:44 2 MG Non-Formulary Medication (Melatonin ) 5 mg QHS 10/28/17 21:00 UNV Ondansetron HCl (Zofran) 4 mg PRN Q6HRS PRN 10/28/17 09:30 Piperacillin Sod/ Tazobactam Sod 2.25 gm/Sodium Chloride 50 ml @ 100 mls/hr Q6HRS 10/28/17 00:00 10/30/17 09:10 DC 10/30/17 06:07 100 MLS/HR Piperacillin Sod/ Tazobactam Sod 3.375 gm/Sodium Chloride 50 ml @ 100 mls/hr Q6HRS 10/30/17 12:00 10/31/17 05:59 100 MLS/HR Piperacillin Sod/ Tazobactam Sod 4.5 gm/Sodium Chloride 100 ml @ 200 mls/hr DAILY 10/28/17 09:00 UNV Sodium Chloride 1,000 ml @ 75 mls/hr [id number] 10/27/17 20:00 10/30/17 06:04 DC 10/30/17 02:47 75 MLS/HR Tamsulosin HCl (Flomax) 0.4 mg DAILY 10/28/17 14:00 10/31/17 09:15 0.4 MG Tramadol HCl (Ultram) 50 mg PRN Q6HRS PRN 10/28/17 09:30 Vancomycin HCl (Vanco Per Pharmacy) 1 each PRN DAILY PRN 10/27/17 18:00 10/30/17 09:06 1 EACH Vancomycin HCl (Vancomycin Random Level) 1 each 1X ONCE 10/29/17 05:00 10/29/17 05:01 DC 10/29/17 05:00 1 EACH Vancomycin HCl (Vancomycin Trough Level) 1 each 1X ONCE 10/31/17 07:30 10/31/17 07:31 DC Vancomycin HCl 0.5 gm/Sodium Chloride 250 ml @ 166.667 mls/hr 1X ONCE 10/27/17 18:15 10/27/17 19:44 UNV Vancomycin HCl 1.75 gm/Sodium Chloride 500 ml @ 250 mls/hr Q24H 10/29/17 08:00 10/30/17 08:08 250 MLS/HR Vancomycin HCl 2 gm/Sodium Chloride 500 ml @ 250 mls/hr 1X ONCE 10/27/17 19:00 10/27/17 20:59 DC 10/27/17 19:00 250 MLS/HR Vitamin D (Vitamin D3) 1,000 unit DAILY 10/28/17 14:00 10/31/17 09:15 1,000 UNIT Lab Laboratory Tests Test 10/30/17 12:07 10/30/17 17:31 10/31/17 00:49 10/31/17 07:30 Glucose (Fingerstick) 210 mg/dL (70-99) 194 mg/dL (70-99) 118 mg/dL (70-99) White Blood Count 10.5 x10^3/uL (4.0-11.0) Red Blood Count 3.76 x10^6/uL (4.30-5.70) Hemoglobin 11.4 g/dL (13.0-17.5) Hematocrit 34.3 % (39.0-53.0) Mean Corpuscular Volume 91 fL (79-100) Mean Corpuscular Hemoglobin 30 pg (25-35) Mean Corpuscular Hemoglobin Concent 33 g/dL (31-37) Red Cell Distribution Width 12.7 % (11.5-14.5) Platelet Count 231 x10^3/uL (140-400) Neutrophils (%) (Auto) 76 % (31-73) Lymphocytes (%) (Auto) 12 % (24-48) Monocytes (%) (Auto) 8 % (0-9) Eosinophils (%) (Auto) 3 % (0-3) Basophils (%) (Auto) 1 % (0-3) Neutrophils # (Auto) 8.0 x10^3uL (1.8-7.7) Lymphocytes # (Auto) 1.3 x10^3/uL (1.0-4.8) Monocytes # (Auto) 0.8 x10^3/uL (0.0-1.1) Eosinophils # (Auto) 0.4 x10^3/uL (0.0-0.7) Basophils # (Auto) 0.1 x10^3/uL (0.0-0.2) Sodium Level 154 mmol/L (136-145) Potassium Level 4.6 mmol/L (3.5-5.1) Chloride Level 115 mmol/L (98-107) Carbon Dioxide Level 35 mmol/L (21-32) Anion Gap 4 (6-14) Blood Urea Nitrogen 50 mg/dL (8-26) Creatinine 1.1 mg/dL (0.7-1.3) Estimated GFR (Cockcroft-Gault) 66.0 Glucose Level 166 mg/dL (70-99) Calcium Level 9.1 mg/dL (8.5-10.1) Vancomycin Level Trough 15.8 mcg/mL (10.0-20.0) Vancomycin Last Dose Date 10/30/17 Vancomycin Last Dose Time 0730 Results All relevant outside records, renal labs, imaging studies, telemetry/EKG's were reviewed. GILBERT SCHILLING MD Oct 31, 2017 10:13
[2017-10-31] MEDS: VANCOMYCIN PER PHARMACY MC PRN (10:23)
[2017-10-31] MEDS: IV DEXTROSE 5 %-0.45 % NACL 1,000 ML IV SCH ×2 (10:56→23:48)
[2017-10-31] MEDS: VANCOMYCIN 1.75 GM in IV NORMAL SALINE 500ML BAG 500 ML IV SCH (10:56)
[2017-10-31] MEDS: MORPHINE SULFATE 2 MG/ML VIAL. IV PRN (10:57)
--- NOTE | 2017-10-31 11:13 | PDOC ---
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 dysphagia with PEG DNR aphagia with stroke plan: fu with renal, neuro, neurosx , id cont PEG feeding MRI done cont some home meds, hold asa, eliquis increase lantus to 40u qhs, add lantus 20u daily, ssi for now on zosyn, vanco as per ID, fu bcx, ucx PTOT Renal US neg labs daily IVF ok transfer out of ICU PAT consult if need hospice if not improving History of Present Illness History of Present Illness ROS: no fever, chills, sob or chest pain pt is very drowsy, not answer any questions or follow comands appeared tender when palpate his abd and lift up his rt legs left side paralized ,has PEG as per nurse, pt can talk a little bit in rehab 10/29: nurse said pt was better yesterday pm, but today still not really answer my questions or follow commands. cr down to 2, wbc better, 1/2 + bcx indwelling fajardo 10/30: Cr down to 1.5, mental worse, not arousable this am, hyperglycemia 10/31: moving but not verbally responsive pt seen and examined family at bedside DW RN Vitals Vitals Vital Signs Date Time Temp Pulse Resp B/P (MAP) Pulse Ox O2 Delivery O2 Flow Rate FiO2 10/31/17 10:57 99 Nasal Cannula 3.0 10/31/17 09:20 68 135/60 10/31/17 07:15 98.6 20 98.6 Physical Exam Physical Exam GENERAL: Alert and NAD. Answers questions HEENT: Anicteric. Normocephalic and atraumatic. No oral lesions. No thrush. Oral mucosa moist. LUNGS: Clear bilaterally. HEART: S1 and S2. ABDOMEN: Soft, nontender and nondistended. G-tube in place, appears okay. Rectal tube GENITOURINARY: Chronic indwelling Fajardo in place, changed 10/27/2017 in ER. EXTREMITIES: No edema and no cyanosis. A few scattered dry skin lesions present. CENTRAL NERVOUS SYSTEM: Left-sided weakness. - very alert DERMATOLOGICAL: No generalized rash. General: Alert, Cooperative Heart: Regular rate, Normal S1, Normal S2 Lungs: Clear Abdomen: Normal bowel sounds, Soft, Other (tender diffusely) Extremities: No clubbing, No cyanosis Skin: No rashes, No breakdown Labs LABS Laboratory Tests Test 10/30/17 12:07 10/30/17 17:31 10/31/17 00:49 10/31/17 07:30 Glucose (Fingerstick) 210 mg/dL (70-99) 194 mg/dL (70-99) 118 mg/dL (70-99) White Blood Count 10.5 x10^3/uL (4.0-11.0) Red Blood Count 3.76 x10^6/uL (4.30-5.70) Hemoglobin 11.4 g/dL (13.0-17.5) Hematocrit 34.3 % (39.0-53.0) Mean Corpuscular Volume 91 fL (79-100) Mean Corpuscular Hemoglobin 30 pg (25-35) Mean Corpuscular Hemoglobin Concent 33 g/dL (31-37) Red Cell Distribution Width 12.7 % (11.5-14.5) Platelet Count 231 x10^3/uL (140-400) Neutrophils (%) (Auto) 76 % (31-73) Lymphocytes (%) (Auto) 12 % (24-48) Monocytes (%) (Auto) 8 % (0-9) Eosinophils (%) (Auto) 3 % (0-3) Basophils (%) (Auto) 1 % (0-3) Neutrophils # (Auto) 8.0 x10^3uL (1.8-7.7) Lymphocytes # (Auto) 1.3 x10^3/uL (1.0-4.8) Monocytes # (Auto) 0.8 x10^3/uL (0.0-1.1) Eosinophils # (Auto) 0.4 x10^3/uL (0.0-0.7) Basophils # (Auto) 0.1 x10^3/uL (0.0-0.2) Sodium Level 154 mmol/L (136-145) Potassium Level 4.6 mmol/L (3.5-5.1) Chloride Level 115 mmol/L (98-107) Carbon Dioxide Level 35 mmol/L (21-32) Anion Gap 4 (6-14) Blood Urea Nitrogen 50 mg/dL (8-26) Creatinine 1.1 mg/dL (0.7-1.3) Estimated GFR (Cockcroft-Gault) 66.0 Glucose Level 166 mg/dL (70-99) Calcium Level 9.1 mg/dL (8.5-10.1) Vancomycin Level Trough 15.8 mcg/mL (10.0-20.0) Vancomycin Last Dose Date 10/30/17 Vancomycin Last Dose Time 07 Review of Systems Review of Systems depressed flat affect denies fever Assessment and Plan Assessmemt and Plan Problems Medical Problems: (1) Acute on chronic renal failure Status: Acute (2) Altered mental status Status: Acute (3) Sepsis Status: Acute AMS, 2/2 rt mild subrachnoid hemorrhage, converted from recent infarct recent stroke with PEG, left side paralysis UTI, sepsis 1/2 + bcx gram + cocci clusters RAFITA, vasomotor morbid obesity PAFIB on eliquis possible closed head injury, unwitnessed leukocytosis 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 Labs Laboratory Tests Test 10/29/17 11:29 10/29/17 16:20 10/29/17 21:33 10/30/17 03:00 Glucose (Fingerstick) 233 mg/dL (70-99) 200 mg/dL (70-99) 181 mg/dL (70-99) White Blood Count 10.2 x10^3/uL (4.0-11.0) Red Blood Count 3.67 x10^6/uL (4.30-5.70) Hemoglobin 11.4 g/dL (13.0-17.5) Hematocrit 33.6 % (39.0-53.0) Mean Corpuscular Volume 92 fL (79-100) Mean Corpuscular Hemoglobin 31 pg (25-35) Mean Corpuscular Hemoglobin Concent 34 g/dL (31-37) Red Cell Distribution Width 12.9 % (11.5-14.5) Platelet Count 189 x10^3/uL (140-400) Neutrophils (%) (Auto) 73 % (31-73) Lymphocytes (%) (Auto) 13 % (24-48) Monocytes (%) (Auto) 10 % (0-9) Eosinophils (%) (Auto) 3 % (0-3) Basophils (%) (Auto) 1 % (0-3) Neutrophils # (Auto) 7.5 x10^3uL (1.8-7.7) Lymphocytes # (Auto) 1.3 x10^3/uL (1.0-4.8) Monocytes # (Auto) 1.0 x10^3/uL (0.0-1.1) Eosinophils # (Auto) 0.3 x10^3/uL (0.0-0.7) Basophils # (Auto) 0.1 x10^3/uL (0.0-0.2) Sodium Level 149 mmol/L (136-145) Potassium Level 4.4 mmol/L (3.5-5.1) Chloride Level 112 mmol/L (98-107) Carbon Dioxide Level 35 mmol/L (21-32) Anion Gap 2 (6-14) Blood Urea Nitrogen 74 mg/dL (8-26) Creatinine 1.5 mg/dL (0.7-1.3) Estimated GFR (Cockcroft-Gault) 46.1 Glucose Level 252 mg/dL (70-99) Calcium Level 8.6 mg/dL (8.5-10.1) Test 10/30/17 08:11 10/30/17 12:07 10/30/17 17:31 10/31/17 00:49 Glucose (Fingerstick) 237 mg/dL (70-99) 210 mg/dL (70-99) 194 mg/dL (70-99) 118 mg/dL (70-99) Test 10/31/17 07:30 White Blood Count 10.5 x10^3/uL (4.0-11.0) Red Blood Count 3.76 x10^6/uL (4.30-5.70) Hemoglobin 11.4 g/dL (13.0-17.5) Hematocrit 34.3 % (39.0-53.0) Mean Corpuscular Volume 91 fL (79-100) Mean Corpuscular Hemoglobin 30 pg (25-35) Mean Corpuscular Hemoglobin Concent 33 g/dL (31-37) Red Cell Distribution Width 12.7 % (11.5-14.5) Platelet Count 231 x10^3/uL (140-400) Neutrophils (%) (Auto) 76 % (31-73) Lymphocytes (%) (Auto) 12 % (24-48) Monocytes (%) (Auto) 8 % (0-9) Eosinophils (%) (Auto) 3 % (0-3) Basophils (%) (Auto) 1 % (0-3) Neutrophils # (Auto) 8.0 x10^3uL (1.8-7.7) Lymphocytes # (Auto) 1.3 x10^3/uL (1.0-4.8) Monocytes # (Auto) 0.8 x10^3/uL (0.0-1.1) Eosinophils # (Auto) 0.4 x10^3/uL (0.0-0.7) Basophils # (Auto) 0.1 x10^3/uL (0.0-0.2) Sodium Level 154 mmol/L (136-145) Potassium Level 4.6 mmol/L (3.5-5.1) Chloride Level 115 mmol/L (98-107) Carbon Dioxide Level 35 mmol/L (21-32) Anion Gap 4 (6-14) Blood Urea Nitrogen 50 mg/dL (8-26) Creatinine 1.1 mg/dL (0.7-1.3) Estimated GFR (Cockcroft-Gault) 66.0 Glucose Level 166 mg/dL (70-99) Calcium Level 9.1 mg/dL (8.5-10.1) Vancomycin Level Trough 15.8 mcg/mL (10.0-20.0) Vancomycin Last Dose Date 10/30/17 Vancomycin Last Dose Time 0730 Laboratory Tests Test 10/30/17 12:07 10/30/17 17:31 10/31/17 00:49 10/31/17 07:30 Glucose (Fingerstick) 210 mg/dL (70-99) 194 mg/dL (70-99) 118 mg/dL (70-99) White Blood Count 10.5 x10^3/uL (4.0-11.0) Red Blood Count 3.76 x10^6/uL (4.30-5.70) Hemoglobin 11.4 g/dL (13.0-17.5) Hematocrit 34.3 % (39.0-53.0) Mean Corpuscular Volume 91 fL (79-100) Mean Corpuscular Hemoglobin 30 pg (25-35) Mean Corpuscular Hemoglobin Concent 33 g/dL (31-37) Red Cell Distribution Width 12.7 % (11.5-14.5) Platelet Count 231 x10^3/uL (140-400) Neutrophils (%) (Auto) 76 % (31-73) Lymphocytes (%) (Auto) 12 % (24-48) Monocytes (%) (Auto) 8 % (0-9) Eosinophils (%) (Auto) 3 % (0-3) Basophils (%) (Auto) 1 % (0-3) Neutrophils # (Auto) 8.0 x10^3uL (1.8-7.7) Lymphocytes # (Auto) 1.3 x10^3/uL (1.0-4.8) Monocytes # (Auto) 0.8 x10^3/uL (0.0-1.1) Eosinophils # (Auto) 0.4 x10^3/uL (0.0-0.7) Basophils # (Auto) 0.1 x10^3/uL (0.0-0.2) Sodium Level 154 mmol/L (136-145) Potassium Level 4.6 mmol/L (3.5-5.1) Chloride Level 115 mmol/L (98-107) Carbon Dioxide Level 35 mmol/L (21-32) Anion Gap 4 (6-14) Blood Urea Nitrogen 50 mg/dL (8-26) Creatinine 1.1 mg/dL (0.7-1.3) Estimated GFR (Cockcroft-Gault) 66.0 Glucose Level 166 mg/dL (70-99) Calcium Level 9.1 mg/dL (8.5-10.1) Vancomycin Level Trough 15.8 mcg/mL (10.0-20.0) Vancomycin Last Dose Date 10/30/17 Vancomycin Last Dose Time 0730 Microbiology 10/30/17 Blood Culture - Preliminary, Resulted NO GROWTH AFTER 1 DAY 10/27/17 Urine Culture - Final, Complete 10/27/17 Urine Culture Result 1 (YOEL) - Final, Complete 10/27/17 Antimicrobic Susceptibility - Final, Complete Medications Current Medications Sodium Chloride 1,000 ml @ 1,000 mls/hr 1X ONCE IV Last administered on at 17:19; Start 10/27/17 at 16:00; Stop 10/27/17 at 16:59; Status DC Ondansetron HCl (Zofran) 4 mg PRN Q8HRS PRN IV NAUSEA/VOMITING; Start 10/27/17 at 18:00; Stop 10/28/17 at 17:59; Status DC Piperacillin Sod/ Tazobactam Sod 4.5 gm/Sodium Chloride 100 ml @ 200 mls/hr DAILY IV ; Start 10/28/17 at 09:00; Status UNV Vancomycin HCl (Vanco Per Pharmacy) 1 each PRN DAILY PRN MC SEE COMMENTS Last administered on 10/31/17at 10:23; Start 10/27/17 at 18:00 Vancomycin HCl 2 gm/Sodium Chloride 500 ml @ 250 mls/hr 1X ONCE IV Last administered on 10/27/17at 19:00; Start 10/27/17 at 19:00; Stop 10/27/17 at 20:59 ; Status DC Vancomycin HCl 0.5 gm/Sodium Chloride 250 ml @ 166.667 mls/hr 1X ONCE IV ; Start 10/27/17 at 18:15; Stop 10/27/17 at 19:44; Status UNV Levofloxacin/ Dextrose 100 ml @ 100 mls/hr 1X ONCE IV Last administered on at 22:07; Start 10/27/17 at 18:30; Stop 10/27/17 at 19:29; Status DC Piperacillin Sod/ Tazobactam Sod 2.25 gm/Sodium Chloride 50 ml @ 100 mls/hr 1X ONCE IV Last administered on 10/27/17at 19:00; Start 10/27/17 at 18:30; Stop 10/27/17 at 18:59; Status DC Piperacillin Sod/ Tazobactam Sod 2.25 gm/Sodium Chloride 50 ml @ 100 mls/hr Q6HRS IV Last administered on 10/30/17at 06:07; Start 10/28/17 at 00:00; Stop at 09:10; Status DC Sodium Chloride 1,000 ml @ 75 mls/hr [id number] IV Last administered on at 02:47; Start 10/27/17 at 20:00; Stop 10/30/17 at 06:04; Status DC Enalaprilat (Vasotec Inj) 1.25 mg Q6HRS IVP ; Start 10/27/17 at 20:30; Stop at 09:24; Status DC Vancomycin HCl (Vancomycin Random Level) 1 each 1X ONCE MC Last administered on 10/29/17at 05:00; Start 10/29/17 at 05:00; Stop 10/29/17 at 05:01; Status DC Fentanyl Citrate (Fentanyl 2ml Vial) 25 mcg 1X ONCE IV Last administered on at 00:44; Start 10/28/17 at 00:45; Stop 10/28/17 at 00:46; Status DC Enalaprilat (Vasotec Inj) 1.25 mg PRN Q4HRS PRN IVP ELEVATED BP, SEE COMMENTS; Start 10/28/17 at 09:30; Stop 10/28/17 at 18:32; Status DC Acetaminophen (Tylenol) 650 mg PRN Q6HRS PRN PO FEVER; Start 10/28/17 at 09:30 Ondansetron HCl (Zofran) 4 mg PRN Q6HRS PRN IV NAUSEA/VOMITING; Start 10/28/17 at 09:30 Morphine Sulfate (Morphine Sulfate) 2 mg PRN Q2HR PRN IV MODERATE TO SEVERE PAIN Last administered on 10/31/17at 10:57; Start 10/28/17 at 09:30 Tramadol HCl (Ultram) 50 mg PRN Q6HRS PRN PO MILD TO MODERATE PAIN; Start 10/28 at 09:30 Docusate Sodium (Colace) 100 mg PRN DAILY PRN PO CONSTIPATION; Start 10/28/17 at 09:30 Labetalol HCl (Normodyne Iv Push) 10 mg PRN Q2HR PRN IVP HYPERTENSION, SEE COMMENTS; Start 10/28/17 at 09:30 Insulin Human Lispro (HumaLOG) 0-9 UNITS TIDWMEALS SQ Last administered on 10/30at 17:32; Start 10/28/17 at 12:00 Dextrose (Dextrose 50%-Water Syringe) 12.5 gm PRN Q15MIN PRN IV SEE COMMENTS; Start 10/28/17 at 09:30 Lorazepam (Ativan) 0.5 mg 1X ONCE IV Last administered on 10/28/17at 11:51; Start 10/28/17 at 09:45; Stop 10/28/17 at 09:46; Status DC Lactobacillus Rhamnosus (Culturelle) 1 cap BID PO ; Start 10/28/17 at 21:00; Status Cancel Amiodarone HCl (Cordarone) 200 mg BID PO Last administered on 10/31/17 09:16; Start 10/28/17 at 14:00 Cetirizine HCl (ZyrTEC) 10 mg DAILY PO Last administered on 10/31/17 09:14; Start 10/28/17 at 14:00 Cyanocobalamin (Vitamin B-12) 1,000 mcg DAILY PO Last administered on 09:15; Start 10/28/17 at 14:00 Metoprolol Succinate (Toprol Xl) 100 mg DAILY PO Last administered on 09:20; Start 10/28/17 at 14:00 Tamsulosin HCl (Flomax) 0.4 mg DAILY PO Last administered on 10/31/17 09:15; Start 10/28/17 at 14:00 Lisinopril (Prinivil) 40 mg DAILY PO Last administered on 10/31/17 09:17; Start 10/28/17 at 14:00 Vitamin D (Vitamin D3) 1,000 unit DAILY PO Last administered on 10/31/17 09:15 ; Start 10/28/17 at 14:00 Citalopram Hydrobromide (CeleXA) 40 mg DAILY PO Last administered on 10/31/17 09:19; Start 10/28/17 at 14:00 Donepezil HCl (Aricept) 10 mg DAILY PO Last administered on 10/31/17 09:22; Start 10/28/17 at 14:00 Fenofibrate (Lofibra) 134 mg DAILY PO Last administered on 10/31/17 09:16; Start 10/28/17 at 14:00 Gabapentin (Neurontin) 1,800 mg QHS PO Last administered on 9/23/18at 22:46; Start 10/28/17 at 21:00 Non-Formulary Medication (Melatonin ) 5 mg QHS PO ; Start 10/28/17 at 21:00; Status UNV Memantine (Namenda) 10 mg BID PO Last administered on 10/31/17at 09:17; Start at 14:00 Atorvastatin Calcium (Lipitor) 20 mg QHS PO Last administered on 10/30/17at 22: 44; Start 10/28/17 at 21:00 Insulin Glargine (Lantus) 20 units QHS SQ Last administered on 10/28/17at 21:00 ; Start 10/28/17 at 21:00; Stop 10/29/17 at 11:54; Status DC Vancomycin HCl 1.75 gm/Sodium Chloride 500 ml @ 250 mls/hr Q24H IV Last administered on 10/31/17at 10:56; Start 10/29/17 at 08:00 Vancomycin HCl (Vancomycin Trough Level) 1 each 1X ONCE MC ; Start 10/31/17 at 07:30; Stop 10/31/17 at 07:31; Status DC Info (Do NOT chart on this placeholder) 1 each 1X ONCE MC ; Start 10/29/17 at 12:00; Stop 10/29/17 at 12:01; Status UNV Insulin Glargine (Lantus) 30 units QHS SQ Last administered on 10/29/17at 21:35 ; Start 10/29/17 at 21:00; Stop 10/30/17 at 12:54; Status DC Influenza Virus Vaccine (Afluria Trivalent [id number] Syringe) 0.5 ml ONCE ONCE VAX IM Last administered on 10/29/17at 14:17; Start 10/29/17 at 13:00; Stop at 13:01; Status DC Amino Acids/ Glycerin/ Electrolytes 1,000 ml @ 80 mls/hr [id number] IV ; Start at 06:15; Stop 10/30/17 at 06:15; Status DC Piperacillin Sod/ Tazobactam Sod 3.375 gm/Sodium Chloride 50 ml @ 100 mls/hr Q6HRS IV Last administered on 10/31/17at 05:59; Start 10/30/17 at 12:00 Insulin Glargine (Lantus) 40 units QHS SQ Last administered on 10/31/17at 00:55 ; Start 10/30/17 at 21:00 Insulin Glargine (Lantus) 20 units DAILY SQ Last administered on 10/30/17at 13: 08; Start 10/30/17 at 13:00 Dextrose/Sodium Chloride 1,000 ml @ 100 mls/hr Q10H IV Last administered on at 10:56; Start 10/31/17 at 10:00 Active Scripts Active Reported B-12 (Cyanocobalamin (Vitamin B-12)) 1,000 Mcg Tablet 1,000 Mcg PO DAILY Aspirin 81 Mg Tab.chew 1 Tab PO DAILY Aricept (Donepezil Hcl) 10 Mg Tablet 1 Tab PO DAILY Eliquis (Apixaban) 5 Mg Tablet 5 Mg PO BID Amiodarone Hcl 200 Mg Tablet 200 Mg PO BID Tylenol (Acetaminophen) 325 Mg Tablet 2 Tab PO PRN Q4HRS Benazepril Hcl 40 Mg Tablet 1 Tab PO DAILY Gabapentin 600 Mg Tablet 1,800 Mg PO QHS Furosemide 80 Mg Tablet 1 Tab PO DAILY Clonidine Hcl 0.1 Mg Tablet 0.1 Mg PO PRN Q8HRS Celexa (Citalopram Hydrobromide) 40 Mg Tablet 40 Mg PO DAILY Vitamin D (Cholecalciferol (Vitamin D3)) 1,000 Unit Capsule 1 Cap PO DAILY Cetirizine Hcl 10 Mg Tablet 1 Tab PO DAILY Crestor (Rosuvastatin Calcium) 5 Mg Tablet 5 Mg PO HS Potassium Chloride 20 Meq Tablet.er 20 Meq PO DAILY Zofran Odt (Ondansetron) 4 Mg Tab.rapdis 4 Mg PO BID PRN Metoprolol Succinate 50 Mg Tab.er.24h 100 Mg PO DAILY Namenda (Memantine Hcl) 10 Mg Tablet 10 Mg PO BID Melatonin 3 Mg Tablet 5 Mg PO QHS Humalog (Insulin Lispro) 100 Unit/1 Ml Cartridge 100 Unit SQ Lantus Solostar (Insulin Glargine,Hum.rec.anlog) 100 Unit/1 Ml Insuln.pen 25 Unit SQ QHS Lantus Solostar (Insulin Glargine,Hum.rec.anlog) 100 Unit/1 Ml Insuln.pen 50 Unit SQ DAILY08 Tamsulosin Hcl 0.4 Mg Cap.er.24h 0.4 Mg PO DAILY Nystatin 15 Gm Powder 15 Gm TP Lumigan (Bimatoprost) 2.5 Ml Drops 2.5 Ml OP Lorazepam 0.5 Mg Tablet 0.5 Mg PO TID Flonase Allergy Relief (Fluticasone Propionate) 9.9 Ml [place].susp Unknown Dose NS DAILY Fenofibrate (Fenofibrate,Micronized) 134 Mg Capsule 134 Mg PO DAILY Bupropion Xl (Bupropion Hcl) 300 Mg Tab.er.24h 300 Mg PO Vitals/I & O Vital Sign - Last 24 Hours 10/30/17 10/30/17 10/30/17 10/30/17 12:00 12:00 13:00 14:00 Temp 97.5 97.5 Pulse 68 62 61 Resp 14 13 15 B/P (MAP) 118/58 (78) 156/61 (92) 159/63 (95) O2 Delivery Nasal Cannula Nasal Cannula Nasal Cannula Nasal Cannula O2 Flow Rate 3.0 3.0 3.0 3.0 10/30/17 10/30/17 10/30/17 10/30/17 15:00 20:10 20:15 22:45 Temp 97.4 97.4 Pulse 62 67 67 Resp 10 20 B/P (MAP) 152/62 (92) 166/75 (105) 166/75 Pulse Ox 100 O2 Delivery Nasal Cannula Nasal Cannula Nasal Cannula O2 Flow Rate 3.0 3.0 3.0 10/30/17 10/30/17 10/31/17 10/31/17 23:44 23:50 03:40 07:15 Temp 97.2 98.0 98.6 97.2 98.0 98.6 Pulse 65 71 68 Resp 22 20 20 20 B/P (MAP) 174/79 (110) 139/67 (91) 135/60 (85) Pulse Ox 97 96 99 O2 Delivery Nasal Cannula Nasal Cannula Nasal Cannula Nasal Cannula O2 Flow Rate 3.0 3.0 3.0 3.0 10/31/17 10/31/17 10/31/17 10/31/17 09:16 09:17 09:20 10:57 Pulse 68 68 68 B/P (MAP) 135/60 135/60 135/60 Pulse Ox 99 O2 Delivery Nasal Cannula O2 Flow Rate 3.0 Intake and Output 10/30/17 10/30/17 10/31/17 15:00 23:00 07:00 Intake Total 400 ml 50 ml 0 ml Output Total 970 ml 280 ml 1250 ml Balance -570 ml -230 ml -1250 ml TOREY CHRIS III DO Oct 31, 2017 11:13
--- NOTE | 2017-10-31 11:43 | PDOC ---
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 Metabolic encephalopathy. Respiratory failure. Renal failure. UTI. Leukocytosis. CAD s/p CABG. AFib. DM. HTN. Ventriculomegaly. Obesity. Plan Continue supportive care Hold antiplatelet agents and anticoagulants SCD's Transfer to rehab any time. He can follow up my office as previously scheduled, 12/16/17 Objective Vital Signs Date Time Temp Pulse Resp B/P (MAP) Pulse Ox O2 Delivery O2 Flow Rate FiO2 10/31/17 10:57 99 Nasal Cannula 3.0 10/31/17 09:20 68 135/60 10/31/17 07:15 98.6 20 98.6 Intake and Output 10/31/17 07:00 Intake Total 450 ml Output Total 2500 ml Balance -2050 ml Intake Oral 0 ml Tube Feeding 450 ml Output Urine Total 2500 ml # Bowel Movements 5 PHYSICAL EXAM Alert. Oriented to place and person, not date. PERRL. EOMI. CN: no focal findings. Muscle tone: increased on left Muscle strength: 2/ 5 left hemiparesis DTR: 1+ Plantar reflex: silent bilaterally Gait: not examined in bed. Sensory exam: no abnormal findings. No cerebellar signs elicited out of proportion to weakness. Review of Relevant I have reviewed the following items turner (where applicable) has been applied. Labs Laboratory Tests Test 10/29/17 16:20 10/29/17 21:33 10/30/17 03:00 10/30/17 08:11 Glucose (Fingerstick) 200 mg/dL (70-99) 181 mg/dL (70-99) 237 mg/dL (70-99) White Blood Count 10.2 x10^3/uL (4.0-11.0) Red Blood Count 3.67 x10^6/uL (4.30-5.70) Hemoglobin 11.4 g/dL (13.0-17.5) Hematocrit 33.6 % (39.0-53.0) Mean Corpuscular Volume 92 fL (79-100) Mean Corpuscular Hemoglobin 31 pg (25-35) Mean Corpuscular Hemoglobin Concent 34 g/dL (31-37) Red Cell Distribution Width 12.9 % (11.5-14.5) Platelet Count 189 x10^3/uL (140-400) Neutrophils (%) (Auto) 73 % (31-73) Lymphocytes (%) (Auto) 13 % (24-48) Monocytes (%) (Auto) 10 % (0-9) Eosinophils (%) (Auto) 3 % (0-3) Basophils (%) (Auto) 1 % (0-3) Neutrophils # (Auto) 7.5 x10^3uL (1.8-7.7) Lymphocytes # (Auto) 1.3 x10^3/uL (1.0-4.8) Monocytes # (Auto) 1.0 x10^3/uL (0.0-1.1) Eosinophils # (Auto) 0.3 x10^3/uL (0.0-0.7) Basophils # (Auto) 0.1 x10^3/uL (0.0-0.2) Sodium Level 149 mmol/L (136-145) Potassium Level 4.4 mmol/L (3.5-5.1) Chloride Level 112 mmol/L (98-107) Carbon Dioxide Level 35 mmol/L (21-32) Anion Gap 2 (6-14) Blood Urea Nitrogen 74 mg/dL (8-26) Creatinine 1.5 mg/dL (0.7-1.3) Estimated GFR (Cockcroft-Gault) 46.1 Glucose Level 252 mg/dL (70-99) Calcium Level 8.6 mg/dL (8.5-10.1) Test 10/30/17 12:07 10/30/17 17:31 10/31/17 00:49 10/31/17 07:30 Glucose (Fingerstick) 210 mg/dL (70-99) 194 mg/dL (70-99) 118 mg/dL (70-99) White Blood Count 10.5 x10^3/uL (4.0-11.0) Red Blood Count 3.76 x10^6/uL (4.30-5.70) Hemoglobin 11.4 g/dL (13.0-17.5) Hematocrit 34.3 % (39.0-53.0) Mean Corpuscular Volume 91 fL (79-100) Mean Corpuscular Hemoglobin 30 pg (25-35) Mean Corpuscular Hemoglobin Concent 33 g/dL (31-37) Red Cell Distribution Width 12.7 % (11.5-14.5) Platelet Count 231 x10^3/uL (140-400) Neutrophils (%) (Auto) 76 % (31-73) Lymphocytes (%) (Auto) 12 % (24-48) Monocytes (%) (Auto) 8 % (0-9) Eosinophils (%) (Auto) 3 % (0-3) Basophils (%) (Auto) 1 % (0-3) Neutrophils # (Auto) 8.0 x10^3uL (1.8-7.7) Lymphocytes # (Auto) 1.3 x10^3/uL (1.0-4.8) Monocytes # (Auto) 0.8 x10^3/uL (0.0-1.1) Eosinophils # (Auto) 0.4 x10^3/uL (0.0-0.7) Basophils # (Auto) 0.1 x10^3/uL (0.0-0.2) Sodium Level 154 mmol/L (136-145) Potassium Level 4.6 mmol/L (3.5-5.1) Chloride Level 115 mmol/L (98-107) Carbon Dioxide Level 35 mmol/L (21-32) Anion Gap 4 (6-14) Blood Urea Nitrogen 50 mg/dL (8-26) Creatinine 1.1 mg/dL (0.7-1.3) Estimated GFR (Cockcroft-Gault) 66.0 Glucose Level 166 mg/dL (70-99) Calcium Level 9.1 mg/dL (8.5-10.1) Vancomycin Level Trough 15.8 mcg/mL (10.0-20.0) Vancomycin Last Dose Date 10/30/17 Vancomycin Last Dose Time 0730 Laboratory Tests Test 10/30/17 12:07 10/30/17 17:31 10/31/17 00:49 10/31/17 07:30 Glucose (Fingerstick) 210 mg/dL (70-99) 194 mg/dL (70-99) 118 mg/dL (70-99) White Blood Count 10.5 x10^3/uL (4.0-11.0) Red Blood Count 3.76 x10^6/uL (4.30-5.70) Hemoglobin 11.4 g/dL (13.0-17.5) Hematocrit 34.3 % (39.0-53.0) Mean Corpuscular Volume 91 fL (79-100) Mean Corpuscular Hemoglobin 30 pg (25-35) Mean Corpuscular Hemoglobin Concent 33 g/dL (31-37) Red Cell Distribution Width 12.7 % (11.5-14.5) Platelet Count 231 x10^3/uL (140-400) Neutrophils (%) (Auto) 76 % (31-73) Lymphocytes (%) (Auto) 12 % (24-48) Monocytes (%) (Auto) 8 % (0-9) Eosinophils (%) (Auto) 3 % (0-3) Basophils (%) (Auto) 1 % (0-3) Neutrophils # (Auto) 8.0 x10^3uL (1.8-7.7) Lymphocytes # (Auto) 1.3 x10^3/uL (1.0-4.8) Monocytes # (Auto) 0.8 x10^3/uL (0.0-1.1) Eosinophils # (Auto) 0.4 x10^3/uL (0.0-0.7) Basophils # (Auto) 0.1 x10^3/uL (0.0-0.2) Sodium Level 154 mmol/L (136-145) Potassium Level 4.6 mmol/L (3.5-5.1) Chloride Level 115 mmol/L (98-107) Carbon Dioxide Level 35 mmol/L (21-32) Anion Gap 4 (6-14) Blood Urea Nitrogen 50 mg/dL (8-26) Creatinine 1.1 mg/dL (0.7-1.3) Estimated GFR (Cockcroft-Gault) 66.0 Glucose Level 166 mg/dL (70-99) Calcium Level 9.1 mg/dL (8.5-10.1) Vancomycin Level Trough 15.8 mcg/mL (10.0-20.0) Vancomycin Last Dose Date 10/30/17 Vancomycin Last Dose Time 07 Microbiology 10/30/17 Blood Culture - Preliminary, Resulted NO GROWTH AFTER 1 DAY 10/27/17 Urine Culture - Final, Complete 10/27/17 Urine Culture Result 1 (YOEL) - Final, Complete 10/27/17 Antimicrobic Susceptibility - Final, Complete Medications Current Medications Sodium Chloride 1,000 ml @ 1,000 mls/hr 1X ONCE IV Last administered on at 17:19; Start 10/27/17 at 16:00; Stop 10/27/17 at 16:59; Status DC Ondansetron HCl (Zofran) 4 mg PRN Q8HRS PRN IV NAUSEA/VOMITING; Start 10/27/17 at 18:00; Stop 10/28/17 at 17:59; Status DC Piperacillin Sod/ Tazobactam Sod 4.5 gm/Sodium Chloride 100 ml @ 200 mls/hr DAILY IV ; Start 10/28/17 at 09:00; Status UNV Vancomycin HCl (Vanco Per Pharmacy) 1 each PRN DAILY PRN MC SEE COMMENTS Last administered on 10/31/17at 10:23; Start 10/27/17 at 18:00 Vancomycin HCl 2 gm/Sodium Chloride 500 ml @ 250 mls/hr 1X ONCE IV Last administered on 10/27/17at 19:00; Start 10/27/17 at 19:00; Stop 10/27/17 at 20:59 ; Status DC Vancomycin HCl 0.5 gm/Sodium Chloride 250 ml @ 166.667 mls/hr 1X ONCE IV ; Start 10/27/17 at 18:15; Stop 10/27/17 at 19:44; Status UNV Levofloxacin/ Dextrose 100 ml @ 100 mls/hr 1X ONCE IV Last administered on at 22:07; Start 10/27/17 at 18:30; Stop 10/27/17 at 19:29; Status DC Piperacillin Sod/ Tazobactam Sod 2.25 gm/Sodium Chloride 50 ml @ 100 mls/hr 1X ONCE IV Last administered on 10/27/17at 19:00; Start 10/27/17 at 18:30; Stop 10/27/17 at 18:59; Status DC Piperacillin Sod/ Tazobactam Sod 2.25 gm/Sodium Chloride 50 ml @ 100 mls/hr Q6HRS IV Last administered on 10/30/17at 06:07; Start 10/28/17 at 00:00; Stop at 09:10; Status DC Sodium Chloride 1,000 ml @ 75 mls/hr [id number] IV Last administered on at 02:47; Start 10/27/17 at 20:00; Stop 10/30/17 at 06:04; Status DC Enalaprilat (Vasotec Inj) 1.25 mg Q6HRS IVP ; Start 10/27/17 at 20:30; Stop at 09:24; Status DC Vancomycin HCl (Vancomycin Random Level) 1 each 1X ONCE MC Last administered on 10/29/17at 05:00; Start 10/29/17 at 05:00; Stop 10/29/17 at 05:01; Status DC Fentanyl Citrate (Fentanyl 2ml Vial) 25 mcg 1X ONCE IV Last administered on at 00:44; Start 10/28/17 at 00:45; Stop 10/28/17 at 00:46; Status DC Enalaprilat (Vasotec Inj) 1.25 mg PRN Q4HRS PRN IVP ELEVATED BP, SEE COMMENTS; Start 10/28/17 at 09:30; Stop 10/28/17 at 18:32; Status DC Acetaminophen (Tylenol) 650 mg PRN Q6HRS PRN PO FEVER; Start 10/28/17 at 09:30 Ondansetron HCl (Zofran) 4 mg PRN Q6HRS PRN IV NAUSEA/VOMITING; Start 10/28/17 at 09:30 Morphine Sulfate (Morphine Sulfate) 2 mg PRN Q2HR PRN IV MODERATE TO SEVERE PAIN Last administered on 10/31/17at 10:57; Start 10/28/17 at 09:30 Tramadol HCl (Ultram) 50 mg PRN Q6HRS PRN PO MILD TO MODERATE PAIN; Start 10/28 at 09:30 Docusate Sodium (Colace) 100 mg PRN DAILY PRN PO CONSTIPATION; Start 10/28/17 at 09:30 Labetalol HCl (Normodyne Iv Push) 10 mg PRN Q2HR PRN IVP HYPERTENSION, SEE COMMENTS; Start 10/28/17 at 09:30 Insulin Human Lispro (HumaLOG) 0-9 UNITS TIDWMEALS SQ Last administered on 10/30at 17:32; Start 10/28/17 at 12:00 Dextrose (Dextrose 50%-Water Syringe) 12.5 gm PRN Q15MIN PRN IV SEE COMMENTS; Start 10/28/17 at 09:30 Lorazepam (Ativan) 0.5 mg 1X ONCE IV Last administered on 10/28/17at 11:51; Start 10/28/17 at 09:45; Stop 10/28/17 at 09:46; Status DC Lactobacillus Rhamnosus (Culturelle) 1 cap BID PO ; Start 10/28/17 at 21:00; Status Cancel Amiodarone HCl (Cordarone) 200 mg BID PO Last administered on 10/31/17 09:16; Start 10/28/17 at 14:00 Cetirizine HCl (ZyrTEC) 10 mg DAILY PO Last administered on 10/31/17 09:14; Start 10/28/17 at 14:00 Cyanocobalamin (Vitamin B-12) 1,000 mcg DAILY PO Last administered on 09:15; Start 10/28/17 at 14:00 Metoprolol Succinate (Toprol Xl) 100 mg DAILY PO Last administered on 09:20; Start 10/28/17 at 14:00 Tamsulosin HCl (Flomax) 0.4 mg DAILY PO Last administered on 10/31/17 09:15; Start 10/28/17 at 14:00 Lisinopril (Prinivil) 40 mg DAILY PO Last administered on 10/31/17 09:17; Start 10/28/17 at 14:00 Vitamin D (Vitamin D3) 1,000 unit DAILY PO Last administered on 10/31/17 09:15 ; Start 10/28/17 at 14:00 Citalopram Hydrobromide (CeleXA) 40 mg DAILY PO Last administered on 10/31/17 09:19; Start 10/28/17 at 14:00 Donepezil HCl (Aricept) 10 mg DAILY PO Last administered on 10/31/17 09:22; Start 10/28/17 at 14:00 Fenofibrate (Lofibra) 134 mg DAILY PO Last administered on 10/31/17 09:16; Start 10/28/17 at 14:00 Gabapentin (Neurontin) 1,800 mg QHS PO Last administered on 10/30/17at 22:46; Start 10/28/17 at 21:00 Non-Formulary Medication (Melatonin ) 5 mg QHS PO ; Start 10/28/17 at 21:00; Status UNV Memantine (Namenda) 10 mg BID PO Last administered on 10/31/17at 09:17; Start at 14:00 Atorvastatin Calcium (Lipitor) 20 mg QHS PO Last administered on 10/30/17at 22: 44; Start 10/28/17 at 21:00 Insulin Glargine (Lantus) 20 units QHS SQ Last administered on 10/28/17at 21:00 ; Start 10/28/17 at 21:00; Stop 10/29/17 at 11:54; Status DC Vancomycin HCl 1.75 gm/Sodium Chloride 500 ml @ 250 mls/hr Q24H IV Last administered on 10/31/17at 10:56; Start 10/29/17 at 08:00 Vancomycin HCl (Vancomycin Trough Level) 1 each 1X ONCE MC ; Start 10/31/17 at 07:30; Stop 10/31/17 at 07:31; Status DC Info (Do NOT chart on this placeholder) 1 each 1X ONCE MC ; Start 10/29/17 at 12:00; Stop 10/29/17 at 12:01; Status UNV Insulin Glargine (Lantus) 30 units QHS SQ Last administered on 10/29/17at 21:35 ; Start 10/29/17 at 21:00; Stop 10/30/17 at 12:54; Status DC Influenza Virus Vaccine (Afluria Trivalent 1799-2225 Syringe) 0.5 ml ONCE ONCE VAX IM Last administered on 10/29/17at 14:17; Start 10/29/17 at 13:00; Stop at 13:01; Status DC Amino Acids/ Glycerin/ Electrolytes 1,000 ml @ 80 mls/hr [id number] IV ; Start at 06:15; Stop 10/30/17 at 06:15; Status DC Piperacillin Sod/ Tazobactam Sod 3.375 gm/Sodium Chloride 50 ml @ 100 mls/hr Q6HRS IV Last administered on 10/31/17at 05:59; Start 10/30/17 at 12:00 Insulin Glargine (Lantus) 40 units QHS SQ Last administered on 10/31/17at 00:55 ; Start 10/30/17 at 21:00 Insulin Glargine (Lantus) 20 units DAILY SQ Last administered on 10/30/17at 13: 08; Start 10/30/17 at 13:00 Dextrose/Sodium Chloride 1,000 ml @ 100 mls/hr Q10H IV Last administered on at 10:56; Start 10/31/17 at 10:00 Active Scripts Active Reported B-12 (Cyanocobalamin (Vitamin B-12)) 1,000 Mcg Tablet 1,000 Mcg PO DAILY Aspirin 81 Mg Tab.chew 1 Tab PO DAILY Aricept (Donepezil Hcl) 10 Mg Tablet 1 Tab PO DAILY Eliquis (Apixaban) 5 Mg Tablet 5 Mg PO BID Amiodarone Hcl 200 Mg Tablet 200 Mg PO BID Tylenol (Acetaminophen) 325 Mg Tablet 2 Tab PO PRN Q4HRS Benazepril Hcl 40 Mg Tablet 1 Tab PO DAILY Gabapentin 600 Mg Tablet 1,800 Mg PO QHS Furosemide 80 Mg Tablet 1 Tab PO DAILY Clonidine Hcl 0.1 Mg Tablet 0.1 Mg PO PRN Q8HRS Celexa (Citalopram Hydrobromide) 40 Mg Tablet 40 Mg PO DAILY Vitamin D (Cholecalciferol (Vitamin D3)) 1,000 Unit Capsule 1 Cap PO DAILY Cetirizine Hcl 10 Mg Tablet 1 Tab PO DAILY Crestor (Rosuvastatin Calcium) 5 Mg Tablet 5 Mg PO HS Potassium Chloride 20 Meq Tablet.er 20 Meq PO DAILY Zofran Odt (Ondansetron) 4 Mg Tab.rapdis 4 Mg PO BID PRN Metoprolol Succinate 50 Mg Tab.er.24h 100 Mg PO DAILY Namenda (Memantine Hcl) 10 Mg Tablet 10 Mg PO BID Melatonin 3 Mg Tablet 5 Mg PO QHS Humalog (Insulin Lispro) 100 Unit/1 Ml Cartridge 100 Unit SQ Lantus Solostar (Insulin Glargine,Hum.rec.anlog) 100 Unit/1 Ml Insuln.pen 25 Unit SQ QHS Lantus Solostar (Insulin Glargine,Hum.rec.anlog) 100 Unit/1 Ml Insuln.pen 50 Unit SQ DAILY08 Tamsulosin Hcl 0.4 Mg Cap.er.24h 0.4 Mg PO DAILY Nystatin 15 Gm Powder 15 Gm TP Lum[place] (Bimatoprost) 2.5 Ml Drops 2.5 Ml OP Lorazepam 0.5 Mg Tablet 0.5 Mg PO TID Flonase Allergy Relief (Fluticasone Propionate) 9.9 Ml [place].susp Unknown Dose NS DAILY Fenofibrate (Fenofibrate,Micronized) 134 Mg Capsule 134 Mg PO DAILY Bupropion Xl (Bupropion Hcl) 300 Mg Tab.er.24h 300 Mg PO Vitals/I & O Vital Sign - Last 24 Hours 10/30/17 10/30/17 10/30/17 10/30/17 12:00 12:00 13:00 14:00 Temp 97.5 97.5 Pulse 68 62 61 Resp 14 13 15 B/P (MAP) 118/58 (78) 156/61 (92) 159/63 (95) O2 Delivery Nasal Cannula Nasal Cannula Nasal Cannula Nasal Cannula O2 Flow Rate 3.0 3.0 3.0 3.0 10/30/17 10/30/17 10/30/17 10/30/17 15:00 20:10 20:15 22:45 Temp 97.4 97.4 Pulse 62 67 67 Resp 10 20 B/P (MAP) 152/62 (92) 166/75 (105) 166/75 Pulse Ox 100 O2 Delivery Nasal Cannula Nasal Cannula Nasal Cannula O2 Flow Rate 3.0 3.0 3.0 10/30/17 10/30/17 10/31/17 10/31/17 23:44 23:50 03:40 07:15 Temp 97.2 98.0 98.6 97.2 98.0 98.6 Pulse 65 71 68 Resp 22 20 20 20 B/P (MAP) 174/79 (110) 139/67 (91) 135/60 (85) Pulse Ox 97 96 99 O2 Delivery Nasal Cannula Nasal Cannula Nasal Cannula Nasal Cannula O2 Flow Rate 3.0 3.0 3.0 3.0 10/31/17 10/31/17 10/31/17 10/31/17 08:00 09:16 09:17 09:20 Pulse 68 68 68 B/P (MAP) 135/60 135/60 135/60 O2 Delivery Nasal Cannula O2 Flow Rate 3.0 10/31/17 10:57 Pulse Ox 99 O2 Delivery Nasal Cannula O2 Flow Rate 3.0 Intake and Output 10/30/17 10/30/17 10/31/17 15:00 23:00 07:00 Intake Total 400 ml 50 ml 0 ml Output Total 970 ml 280 ml 1250 ml Balance -570 ml -230 ml -1250 ml EVIN MARSH MD Oct 31, 2017 11:43
[2017-10-31 11:44] VITALS: BP 161/74
--- NOTE | 2017-10-31 12:53 | PDOC2 ---
PALLIATIVE CARE Palliative Care Note Palliative Care Consult requested by Dr. Cardenas for possible need for hospice. Medical Assessment per record; Subacute right parietal, posterior frontal and occipital infarct about 3 weeks ago with recent hemorrhagic transformation of IPH and SAH. Metabolic encephalopathy. Respiratory failure. Renal failure. UTI. Leukocytosis. CAD s/p CABG. AFib. DM. HTN. Ventriculomegaly. Obesity. Patient alert. Attempted to reach Luz Elena. DPOA. Message to return call. Per notes plan to transfer to [facility] for [facility]. Outside the Hospital DNR/DNI form for family and physician to sign on chart. Will await call from family. CHUCK FELIPE Oct 31, 2017 12:53
[2017-10-31 14:53] VITALS: BP 114/50
[2017-10-31 19:20] VITALS: BP 168/71
[2017-10-31] MEDS: ATORVASTATIN CALCIUM 20 MG TABLET PO SCH (20:53)
[2017-10-31] MEDS: GABAPENTIN 300 MG CAPSULE. PO SCH (20:53)
[2017-10-31 22:45] VITALS: BP 135/66
[2017-11-01] MEDS: MORPHINE SULFATE 2 MG/ML VIAL. IV PRN (02:51)
[2017-11-01 03:45] VITALS: BP 126/61
[2017-11-01] MEDS: IV DEXTROSE 5 %-0.45 % NACL 1,000 ML IV SCH (06:00)
[2017-11-01] MEDS: PIPERACILLIN/TAZOBACTAM 3.375 GM in IV NORMAL SALINE 50ML 50 ML IV SCH (06:32)
[2017-11-01 07:00] VITALS: BP 123/58
[2017-11-01] MEDS: VANCOMYCIN 1.75 GM in IV NORMAL SALINE 500ML BAG 500 ML IV SCH (09:21)
[2017-11-01] MEDS: TAMSULOSIN 0.4 MG CAP.ER.24H. PO SCH (09:22)
[2017-11-01] MEDS: CETIRIZINE HCL 10 MG TABLET. PO SCH (09:22)
[2017-11-01] MEDS: CHOLECALCIFEROL (VITAMIN D3) 1,000 UNIT TABLET PO SCH (09:23)
[2017-11-01] MEDS: FENOFIBRATE,MICRONIZED 134 MG CAPSULE PO SCH (09:23)
[2017-11-01] MEDS: CYANOCOBALAMIN (VITAMIN B-12) 1,000 MCG TABLET. PO SCH (09:23)
[2017-11-01] MEDS: DONEPEZIL HCL 10 MG TABLET. PO SCH (09:23)
[2017-11-01] MEDS: CITALOPRAM 20 MG TABLET. PO SCH (09:23)
[2017-11-01] MEDS: MEMANTINE 10 MG TABLET. PO SCH (09:24)
[2017-11-01] MEDS: LISINOPRIL 20 MG TABLET PO SCH (09:24)
[2017-11-01] MEDS: METOPROLOL SUCC 24HR ER 50 MG TAB.ER.24H. PO SCH (09:25)
[2017-11-01] MEDS: AMIODARONE HCL 200 MG TABLET. PO SCH (09:26)
[2017-11-01] MEDS: INSULIN GLARGINE 300 UNITS/3 ML INSULN.PEN. SQ SCH (09:30)
[2017-11-01] MEDS: INSULIN LISPRO 300 UNITS/3 ML INSULN.PEN. SQ SCH ×2 (09:32→12:00)
--- NOTE | 2017-11-01 09:43 | PDOC ---
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 Metabolic encephalopathy. Plan Continue supportive care Note palliative care efforts, possible transfer to hospice Hold antiplatelet agents and anticoagulants SCD's He can follow up my office as previously scheduled, 12/16/17 Subjective He denies pain Objective Vital Signs Date Time Temp Pulse Resp B/P (MAP) Pulse Ox O2 Delivery O2 Flow Rate FiO2 11/01/17 09:26 61 123/58 11/01/17 07:00 97.6 18 100 Nasal Cannula 3.0 97.6 Intake and Output 11/01/17 07:00 Intake Total 2097 ml Output Total 1850 ml Balance 247 ml Intake Oral 0 ml IV Total 1150 ml Tube Feeding 947 ml Output Urine Total 1850 ml # Voids 1 # Bowel Movements 1 PHYSICAL EXAM Alert. Oriented to place and person, not date. PERRL. EOMI. CN: no focal findings. Muscle tone: increased on left Muscle strength: 2/ 5 left hemiparesis DTR: 1+ Plantar reflex: silent bilaterally Gait: not examined in bed. Sensory exam: no abnormal findings. No cerebellar signs elicited out of proportion to weakness. Review of Relevant I have reviewed the following items turner (where applicable) has been applied. Labs Laboratory Tests Test 10/30/17 12:07 10/30/17 17:31 10/31/17 00:49 10/31/17 07:30 Glucose (Fingerstick) 210 mg/dL (70-99) 194 mg/dL (70-99) 118 mg/dL (70-99) White Blood Count 10.5 x10^3/uL (4.0-11.0) Red Blood Count 3.76 x10^6/uL (4.30-5.70) Hemoglobin 11.4 g/dL (13.0-17.5) Hematocrit 34.3 % (39.0-53.0) Mean Corpuscular Volume 91 fL (79-100) Mean Corpuscular Hemoglobin 30 pg (25-35) Mean Corpuscular Hemoglobin Concent 33 g/dL (31-37) Red Cell Distribution Width 12.7 % (11.5-14.5) Platelet Count 231 x10^3/uL (140-400) Neutrophils (%) (Auto) 76 % (31-73) Lymphocytes (%) (Auto) 12 % (24-48) Monocytes (%) (Auto) 8 % (0-9) Eosinophils (%) (Auto) 3 % (0-3) Basophils (%) (Auto) 1 % (0-3) Neutrophils # (Auto) 8.0 x10^3uL (1.8-7.7) Lymphocytes # (Auto) 1.3 x10^3/uL (1.0-4.8) Monocytes # (Auto) 0.8 x10^3/uL (0.0-1.1) Eosinophils # (Auto) 0.4 x10^3/uL (0.0-0.7) Basophils # (Auto) 0.1 x10^3/uL (0.0-0.2) Sodium Level 154 mmol/L (136-145) Potassium Level 4.6 mmol/L (3.5-5.1) Chloride Level 115 mmol/L (98-107) Carbon Dioxide Level 35 mmol/L (21-32) Anion Gap 4 (6-14) Blood Urea Nitrogen 50 mg/dL (8-26) Creatinine 1.1 mg/dL (0.7-1.3) Estimated GFR (Cockcroft-Gault) 66.0 Glucose Level 166 mg/dL (70-99) Calcium Level 9.1 mg/dL (8.5-10.1) Vancomycin Level Trough 15.8 mcg/mL (10.0-20.0) Vancomycin Last Dose Date 10/30/17 Vancomycin Last Dose Time 729 Test 10/31/17 12:02 10/31/17 21:00 11/01/17 06:25 Glucose (Fingerstick) 209 mg/dL (70-99) 272 mg/dL (70-99) 246 mg/dL (70-99) Laboratory Tests Test 10/31/17 12:02 10/31/17 21:00 11/01/17 06:25 Glucose (Fingerstick) 209 mg/dL (70-99) 272 mg/dL (70-99) 246 mg/dL (70-99) Microbiology 10/30/17 Blood Culture - Preliminary, Resulted NO GROWTH AFTER 2 DAYS 10/27/17 Urine Culture - Final, Complete 10/27/17 Urine Culture Result 1 (YOEL) - Final, Complete 10/27/17 Antimicrobic Susceptibility - Final, Complete Medications Current Medications Sodium Chloride 1,000 ml @ 1,000 mls/hr 1X ONCE IV Last administered on at 17:19; Start 10/27/17 at 16:00; Stop 10/27/17 at 16:59; Status DC Ondansetron HCl (Zofran) 4 mg PRN Q8HRS PRN IV NAUSEA/VOMITING; Start 10/27/17 at 18:00; Stop 10/28/17 at 17:59; Status DC Piperacillin Sod/ Tazobactam Sod 4.5 gm/Sodium Chloride 100 ml @ 200 mls/hr DAILY IV ; Start 10/28/17 at 09:00; Status UNV Vancomycin HCl (Vanco Per Pharmacy) 1 each PRN DAILY PRN MC SEE COMMENTS Last administered on 10/31/17at 10:23; Start 10/27/17 at 18:00 Vancomycin HCl 2 gm/Sodium Chloride 500 ml @ 250 mls/hr 1X ONCE IV Last administered on 10/27/17at 19:00; Start 10/27/17 at 19:00; Stop 10/27/17 at 20:59 ; Status DC Vancomycin HCl 0.5 gm/Sodium Chloride 250 ml @ 166.667 mls/hr 1X ONCE IV ; Start 10/27/17 at 18:15; Stop 10/27/17 at 19:44; Status UNV Levofloxacin/ Dextrose 100 ml @ 100 mls/hr 1X ONCE IV Last administered on at 22:07; Start 10/27/17 at 18:30; Stop 10/27/17 at 19:29; Status DC Piperacillin Sod/ Tazobactam Sod 2.25 gm/Sodium Chloride 50 ml @ 100 mls/hr 1X ONCE IV Last administered on 10/27/17at 19:00; Start 10/27/17 at 18:30; Stop 10/27/17 at 18:59; Status DC Piperacillin Sod/ Tazobactam Sod 2.25 gm/Sodium Chloride 50 ml @ 100 mls/hr Q6HRS IV Last administered on 10/30/17at 06:07; Start 10/28/17 at 00:00; Stop at 09:10; Status DC Sodium Chloride 1,000 ml @ 75 mls/hr [id number] IV Last administered on at 02:47; Start 10/27/17 at 20:00; Stop 10/30/17 at 06:04; Status DC Enalaprilat (Vasotec Inj) 1.25 mg Q6HRS IVP ; Start 10/27/17 at 20:30; Stop at 09:24; Status DC Vancomycin HCl (Vancomycin Random Level) 1 each 1X ONCE MC Last administered on 10/29/17at 05:00; Start 10/29/17 at 05:00; Stop 10/29/17 at 05:01; Status DC Fentanyl Citrate (Fentanyl 2ml Vial) 25 mcg 1X ONCE IV Last administered on at 00:44; Start 10/28/17 at 00:45; Stop 10/28/17 at 00:46; Status DC Enalaprilat (Vasotec Inj) 1.25 mg PRN Q4HRS PRN IVP ELEVATED BP, SEE COMMENTS; Start 10/28/17 at 09:30; Stop 10/28/17 at 18:32; Status DC Acetaminophen (Tylenol) 650 mg PRN Q6HRS PRN PO FEVER; Start 10/28/17 at 09:30 Ondansetron HCl (Zofran) 4 mg PRN Q6HRS PRN IV NAUSEA/VOMITING; Start 10/28/17 at 09:30 Morphine Sulfate (Morphine Sulfate) 2 mg PRN Q2HR PRN IV MODERATE TO SEVERE PAIN Last administered on 11/01/17at 02:51; Start 10/28/17 at 09:30 Tramadol HCl (Ultram) 50 mg PRN Q6HRS PRN PO MILD TO MODERATE PAIN; Start 10/28 at 09:30 Docusate Sodium (Colace) 100 mg PRN DAILY PRN PO CONSTIPATION; Start 10/28/17 at 09:30 Labetalol HCl (Normodyne Iv Push) 10 mg PRN Q2HR PRN IVP HYPERTENSION, SEE COMMENTS Last administered on 10/31/17at 21:28; Start 10/28/17 at 09:30 Insulin Human Lispro (HumaLOG) 0-9 UNITS TIDWMEALS SQ Last administered on 11/01 09:32; Start 10/28/17 at 12:00 Dextrose (Dextrose 50%-Water Syringe) 12.5 gm PRN Q15MIN PRN IV SEE COMMENTS; Start 10/28/17 at 09:30 Lorazepam (Ativan) 0.5 mg 1X ONCE IV Last administered on 10/28/17at 11:51; Start 10/28/17 at 09:45; Stop 10/28/17 at 09:46; Status DC Lactobacillus Rhamnosus (Culturelle) 1 cap BID PO ; Start 10/28/17 at 21:00; Status Cancel Amiodarone HCl (Cordarone) 200 mg BID PO Last administered on 11/01/17 09:26; Start 10/28/17 at 14:00 Cetirizine HCl (ZyrTEC) 10 mg DAILY PO Last administered on 11/01/17 09:22; Start 10/28/17 at 14:00 Cyanocobalamin (Vitamin B-12) 1,000 mcg DAILY PO Last administered on 09:23; Start 10/28/17 at 14:00 Metoprolol Succinate (Toprol Xl) 100 mg DAILY PO Last administered on 09:25; Start 10/28/17 at 14:00 Tamsulosin HCl (Flomax) 0.4 mg DAILY PO Last administered on 11/01/17 09:22; Start 10/28/17 at 14:00 Lisinopril (Prinivil) 40 mg DAILY PO Last administered on 11/01/17 09:24; Start 10/28/17 at 14:00 Vitamin D (Vitamin D3) 1,000 unit DAILY PO Last administered on 11/01/17 09:23 ; Start 10/28/17 at 14:00 Citalopram Hydrobromide (CeleXA) 40 mg DAILY PO Last administered on 11/01/17 09:23; Start 10/28/17 at 14:00 Donepezil HCl (Aricept) 10 mg DAILY PO Last administered on 11/01/17 09:23; Start 10/28/17 at 14:00 Fenofibrate (Lofibra) 134 mg DAILY PO Last administered on 11/01/17 09:23; Start 10/28/17 at 14:00 Gabapentin (Neurontin) 1,800 mg QHS PO Last administered on 10/31/17at 20:53; Start 10/28/17 at 21:00 Non-Formulary Medication (Melatonin ) 5 mg QHS PO ; Start 10/28/17 at 21:00; Status UNV Memantine (Namenda) 10 mg BID PO Last administered on 11/01/17 09:24; Start at 14:00 Atorvastatin Calcium (Lipitor) 20 mg QHS PO Last administered on 10/31/17at 20: 53; Start 10/28/17 at 21:00 Insulin Glargine (Lantus) 20 units QHS SQ Last administered on 10/28/17at 21:00 ; Start 10/28/17 at 21:00; Stop 10/29/17 at 11:54; Status DC Vancomycin HCl 1.75 gm/Sodium Chloride 500 ml @ 250 mls/hr Q24H IV Last administered on 11/01/17at 09:21; Start 10/29/17 at 08:00 Vancomycin HCl (Vancomycin Trough Level) 1 each 1X ONCE MC ; Start 10/31/17 at 07:30; Stop 10/31/17 at 07:31; Status DC Info (Do NOT chart on this placeholder) 1 each 1X ONCE MC ; Start 10/29/17 at 12:00; Stop 10/29/17 at 12:01; Status UNV Insulin Glargine (Lantus) 30 units QHS SQ Last administered on 10/29/17at 21:35 ; Start 10/29/17 at 21:00; Stop 10/30/17 at 12:54; Status DC Influenza Virus Vaccine (Afluria Trivalent [id number] Syringe) 0.5 ml ONCE ONCE VAX IM Last administered on 10/29/17at 14:17; Start 10/29/17 at 13:00; Stop at 13:01; Status DC Amino Acids/ Glycerin/ Electrolytes 1,000 ml @ 80 mls/hr [id number] IV ; Start at 06:15; Stop 10/30/17 at 06:15; Status DC Piperacillin Sod/ Tazobactam Sod 3.375 gm/Sodium Chloride 50 ml @ 100 mls/hr Q6HRS IV Last administered on 11/01/17at 06:32; Start 10/30/17 at 12:00 Insulin Glargine (Lantus) 40 units QHS SQ Last administered on 10/31/17at 21:02 ; Start 10/30/17 at 21:00 Insulin Glargine (Lantus) 20 units DAILY SQ Last administered on 11/01/17at 09: 30; Start 10/30/17 at 13:00 Dextrose/Sodium Chloride 1,000 ml @ 100 mls/hr Q10H IV Last administered on at 23:48; Start 10/31/17 at 10:00 Active Scripts Active Reported B-12 (Cyanocobalamin (Vitamin B-12)) 1,000 Mcg Tablet 1,000 Mcg PO DAILY Aspirin 81 Mg Tab.chew 1 Tab PO DAILY Aricept (Donepezil Hcl) 10 Mg Tablet 1 Tab PO DAILY Eliquis (Apixaban) 5 Mg Tablet 5 Mg PO BID Amiodarone Hcl 200 Mg Tablet 200 Mg PO BID Tylenol (Acetaminophen) 325 Mg Tablet 2 Tab PO PRN Q4HRS Benazepril Hcl 40 Mg Tablet 1 Tab PO DAILY Gabapentin 600 Mg Tablet 1,800 Mg PO QHS Furosemide 80 Mg Tablet 1 Tab PO DAILY Clonidine Hcl 0.1 Mg Tablet 0.1 Mg PO PRN Q8HRS Celexa (Citalopram Hydrobromide) 40 Mg Tablet 40 Mg PO DAILY Vitamin D (Cholecalciferol (Vitamin D3)) 1,000 Unit Capsule 1 Cap PO DAILY Cetirizine Hcl 10 Mg Tablet 1 Tab PO DAILY Crestor (Rosuvastatin Calcium) 5 Mg Tablet 5 Mg PO HS Potassium Chloride 20 Meq Tablet.er 20 Meq PO DAILY Zofran Odt (Ondansetron) 4 Mg Tab.rapdis 4 Mg PO BID PRN Metoprolol Succinate 50 Mg Tab.er.24h 100 Mg PO DAILY Namenda (Memantine Hcl) 10 Mg Tablet 10 Mg PO BID Melatonin 3 Mg Tablet 5 Mg PO QHS Humalog (Insulin Lispro) 100 Unit/1 Ml Cartridge 100 Unit SQ Lantus Solostar (Insulin Glargine,Hum.rec.anlog) 100 Unit/1 Ml Insuln.pen 25 Unit SQ QHS Lantus Solostar (Insulin Glargine,Hum.rec.anlog) 100 Unit/1 Ml Insuln.pen 50 Unit SQ DAILY08 Tamsulosin Hcl 0.4 Mg Cap.er.24h 0.4 Mg PO DAILY Nystatin 15 Gm Powder 15 Gm TP Lumigan (Bimatoprost) 2.5 Ml Drops 2.5 Ml OP Lorazepam 0.5 Mg Tablet 0.5 Mg PO TID Flonase Allergy Relief (Fluticasone Propionate) 9.9 Ml [place].susp Unknown Dose NS DAILY Fenofibrate (Fenofibrate,Micronized) 134 Mg Capsule 134 Mg PO DAILY Bupropion Xl (Bupropion Hcl) 300 Mg Tab.er.24h 300 Mg PO Vitals/I & O Vital Sign - Last 24 Hours 10/31/17 10/31/17 10/31/17 10/31/17 10:57 11:44 12:07 12:31 Temp 98.8 98.8 Pulse 66 Resp 20 B/P (MAP) 161/74 (103) Pulse Ox 99 98 98 O2 Delivery Nasal Cannula Nasal Cannula Nasal Cannula Nasal Cannula O2 Flow Rate 3.0 3.0 3.0 2.0 10/31/17 10/31/17 10/31/17 10/31/17 14:53 19:20 20:00 20:56 Temp 99.0 98.0 99.0 98.0 Pulse 64 63 63 Resp 20 20 B/P (MAP) 114/50 (71) 168/71 (103) 176/73 Pulse Ox 99 97 O2 Delivery Nasal Cannula Nasal Cannula Nasal Cannula O2 Flow Rate 3.0 3.0 3.0 10/31/17 10/31/17 11/01/17 11/01/17 21:28 22:45 02:51 03:21 Temp 98.5 98.5 Pulse 63 67 Resp 20 22 20 B/P (MAP) 176/73 135/66 (89) Pulse Ox 100 O2 Delivery Nasal Cannula O2 Flow Rate 3.0 11/01/17 11/01/17 11/01/17 11/01/17 03:45 07:00 09:24 09:25 Temp 97.3 97.6 97.3 97.6 Pulse 64 61 61 61 Resp 20 18 B/P (MAP) 126/61 (82) 123/58 (79) 123/58 123/58 Pulse Ox 98 100 O2 Delivery Nasal Cannula Nasal Cannula O2 Flow Rate 3.0 3.0 11/01/17 09:26 Pulse 61 B/P (MAP) 123/58 Intake and Output 10/31/17 10/31/17 11/01/17 15:00 23:00 07:00 Intake Total 0 ml 2097 ml Output Total 150 ml 600 ml 1100 ml Balance -150 ml -600 ml 997 ml EVIN MARSH MD Nov 01, 2017 09:43
[2017-11-01 10:42] VITALS: BP 124/58
[2017-11-01] MEDS: VANCOMYCIN PER PHARMACY MC PRN (10:46)
--- NOTE | 2017-11-01 12:02 | PDOC ---
Infectious Disease Note Subjective Subjective Resting and appears comfortable ROS ROS Difficult to obtain Vital Sign Vital Signs Vital Signs Date Time Temp Pulse Resp B/P (MAP) Pulse Ox O2 Delivery O2 Flow Rate FiO2 11/01/17 10:42 97.8 58 20 124/58 (80) 99 Nasal Cannula 3.0 97.8 Physical Exam PHYSICAL EXAM GENERAL: NAD. [place] HEENT: Anicteric. Normocephalic and atraumatic. No oral lesions. No thrush. Oral mucosa moist. LUNGS: Clear bilaterally. HEART: S1 and S2. ABDOMEN: Soft, nontender and nondistended. G-tube in place, appears okay. Rectal tube GENITOURINARY: Chronic indwelling Weeks in place, changed 10/27/2017 in ER. EXTREMITIES: No edema and no cyanosis. A few scattered dry skin lesions present. CENTRAL NERVOUS SYSTEM: Left-sided weakness. - very alert DERMATOLOGICAL: No generalized rash. Labs Lab Laboratory Tests Test 10/31/17 12:02 10/31/17 21:00 11/01/17 06:25 Glucose (Fingerstick) 209 mg/dL (70-99) 272 mg/dL (70-99) 246 mg/dL (70-99) Micro Microbiology 10/30/17 Blood Culture - Preliminary, Resulted NO GROWTH AFTER 1 DAY 10/27/17 Urine Culture - Final, Complete 10/27/17 Urine Culture Result 1 (YOEL) - Final, Complete 10/27/17 Antimicrobic Susceptibility - Final, Complete Enterococcus faecalis Greater than 100,000 colony forming units per mL ANTIMICROBIAL SUSCEPTIBILITY Final Comment S = Susceptible; I = Intermediate; R = Resistant P = Positive; N = Negative MICS are expressed in micrograms per mL Antibiotic RSLT#1 RSLT#2 RSLT#3 RSLT#4 Ciprofloxacin S<=0.5 Levofloxacin S =1 Nitrofurantoin S<=16 Penicillin S =4 Tetracycline R>=16 Vancomycin S =1 Objective Assessment 1. Altered mental status. CT and MRI brain SAH changes, neurosurgery and neurology following - improved 2. STCN 2/2 bacteremia 10/27 ? contamination 3. UTI c/s + Enterococcus 10/27 sensitive 4. Lactic acidosis 4. Acute kidney injury with ultrasound showing no hydronephrosis. 5. Diabetes mellitus. 6. High lipase. 7. Increased liver function tests. 8. History of fall. 9. H/O CVA 10. History of atrial fibrillation. 11. Diabetes mellitus 2. 12. Depression. 13. History of allergies to amoxicillin and the patient is tolerating Zosyn well. Plan Plan of Care Discontinue empiric Zosyn and IV Vanc - change to Amoxicillin as he is tolerating Zosyn - may have been allergy to clavulanic acid component of Augmentin causing rash. Treat for 5 days Continue supportive care D/w Daniel - nursing RAFAEL MCNULTY MD Nov 01, 2017 12:02
[2017-11-01] MEDS ORDERED: AMOX250S4 PEG (13:11)
--- NOTE | 2017-11-01 13:12 | PDOC3 ---
Discharge Summary [facility] Date of Admission: Oct 25, 2017 Discharge Date: Nov 01, 2017 Admitting Diagnosis brain hemorrhage Final Diagnosis Problems Medical Problems: (1) Acute on chronic renal failure Status: Acute (2) Altered mental status Status: Acute (3) Sepsis Status: Acute Brief Hospital Course Mr. Franklin is a 71 old M who had a masive stroke on his parietal region and presented to us with AMS and showed hemorrhagic transformation. the patient now apparently has right sided neglect and the patient has poor movement in the left side. the patient will be discharged after given antibiotics and the patient will be sent to rehab consult. the patient is stable otherwise on his diabetes medication, will stop his aspirin and anticoagulation to be revaluated at further date due to hemorrhagic bleed. right sided neglect neck w/o nodes s1 s2 rrr lyn decreased in bases soft nttp +bs no c/c/e CONDITION AT DISCHARGE: Stable Scheduled Acetaminophen (Tylenol), 2 TAB PO PRN Q4HRS, (Reported) Amiodarone Hcl (Amiodarone Hcl), 200 MG PO BID, (Reported) Amoxicillin (Amoxicillin), 500 MG PEG Q8HRS Apixaban (Eliquis), 5 MG PO BID, (Reported) Aspirin (Aspirin), 1 TAB PO DAILY, (Reported) Benazepril Hcl (Benazepril Hcl), 1 TAB PO DAILY, (Reported) Cetirizine Hcl (Cetirizine Hcl), 1 TAB PO DAILY, (Reported) Cholecalciferol (Vitamin D3) (Vitamin D), 1 CAP PO DAILY, (Reported) Citalopram Hydrobromide (Celexa), 40 MG PO DAILY, (Reported) Clonidine Hcl (Clonidine Hcl), 0.1 MG PO PRN Q8HRS, (Reported) Cyanocobalamin (Vitamin B-12) (B-12), 1,000 MCG PO DAILY, (Reported) Donepezil Hcl (Aricept), 1 TAB PO DAILY, (Reported) Fenofibrate,Micronized (Fenofibrate), 134 MG PO DAILY, (Reported) Fluticasone Propionate (Flonase Allergy Relief), Unknown Dose NS DAILY, ( Reported) Furosemide (Furosemide), 1 TAB PO DAILY, (Reported) Gabapentin (Gabapentin), 1,800 MG PO QHS, (Reported) Insulin Glargine,Hum.rec.anlog (Lantus Solostar), 50 UNIT SQ DAILY08, (Reported) Insulin Glargine,Hum.rec.anlog (Lantus Solostar), 25 UNIT SQ QHS, (Reported) Lorazepam (Lorazepam), 0.5 MG PO TID, (Reported) Melatonin (Melatonin), 5 MG PO QHS, (Reported) Memantine Hcl (Namenda), 10 MG PO BID, (Reported) Metoprolol Succinate (Metoprolol Succinate), 100 MG PO DAILY, (Reported) Potassium Chloride (Potassium Chloride), 20 MEQ PO DAILY, (Reported) Rosuvastatin Calcium (Crestor), 5 MG PO HS, (Reported) Tamsulosin Hcl (Tamsulosin Hcl), 0.4 MG PO DAILY, (Reported) Scheduled PRN Ondansetron (Zofran Odt), 4 MG PO BID PRN for NAUSEA/VOMITING, (Reported) Miscellaneous Medications Bimatoprost (Lumigan), 2.5 ML OP, (Reported) Bupropion Hcl (Bupropion Xl), 300 MG PO, (Reported) Insulin Lispro (Humalog), 100 UNIT SQ, (Reported) Nystatin (Nystatin), 15 GM TP, (Reported) Discontinued Medications Insulin Glargine,Hum.rec.anlog (Lantus Solostar), 1 UNIT SQ, (Reported) Metoprolol Succinate (Metoprolol Succinate ( Xl )), 25 MG PO DAILY, (Reported) MARGARETH REYNA MD Nov 01, 2017 13:12
[2017-11-01] MEDS ORDERED: AMOXICILLIN 250 MG CAPSULE. PEG SCH (14:00)
[2017-11-01] MEDS ORDERED: AMOXICILLIN 250 MG/5 ML ORAL.SUSP. PEG SCH (14:00)
--- NOTE | 2017-11-01 14:43 | PDOC ---
SUBJECTIVE ROS No new concerns as per RN , Likely dc to LTC OBJECTIVE Vital Signs Vital Signs Date Time Temp Pulse Resp B/P (MAP) Pulse Ox O2 Delivery O2 Flow Rate FiO2 11/01/17 10:42 97.8 58 20 124/58 (80) 99 Nasal Cannula 3.0 97.8 I & 0 Intake and Output 11/01/17 07:00 Intake Total 2097 ml Output Total 1850 ml Balance 247 ml Intake Oral 0 ml IV Total 1150 ml Tube Feeding 947 ml Output Urine Total 1850 ml # Voids 1 # Bowel Movements 1 PHYSICAL EXAM Physical Exam GENERAL: NAD HEENT: Unremarkable LUNGS: Clear bilaterally. HEART: S1 and S2. ABDOMEN: Soft, nontender and nondistended. G-tube in place, Gu Chronic indwelling Weeks in place, changed 10/27/2017 in ER. EXTREMITIES: No edema CENTRAL NERVOUS SYSTEM: Left-sided weakness. DERM No generalized rash Neuro- as per Neuro note DIAGNOSIS/ASSESSMENT Assessment & Plan Acute renal failure: Vasomotor nephropathy. Resolved , back to baseline, No labs today Hypernatremia - On TF with Free water flushes No labs today Subarachnoid hemorrhage/right parietal infarct. Neurosurgery and neurology following - improved UTI c/s + Enterococcus 10/27 ID following Encephalopathy: Due to the above-mentioned reasons. FELICIANO RN at bedside, Likely dc to LTC today COMMENT/RELEVANT DATA Meds Current Medications Medications (Trade) Dose Ordered Sig/Alissa Start Time Stop Time Status Last Admin Dose Admin Acetaminophen (Tylenol) 650 mg PRN Q6HRS PRN 10/28/17 09:30 Amino Acids/ Glycerin/ Electrolytes 1,000 ml @ 80 mls/hr [id number] 10/30/17 06:15 10/30/17 06:15 DC Amiodarone HCl (Cordarone) 200 mg BID 10/28/17 14:00 11/01/17 09:26 200 MG Amoxicillin (Amoxicillin Oral Susp) 500 mg Q8HRS 11/01/17 14:00 Amoxicillin (Amoxil) 500 mg [id number] 11/01/17 14:00 UNV Atorvastatin Calcium (Lipitor) 20 mg QHS 10/28/17 21:00 10/31/17 20:53 20 MG Cetirizine HCl (ZyrTEC) 10 mg DAILY 10/28/17 14:00 9/25/18 09:22 10 MG Citalopram Hydrobromide (CeleXA) 40 mg DAILY 10/28/17 14:00 11/01/17 09:23 40 MG Cyanocobalamin (Vitamin B-12) 1,000 mcg DAILY 10/28/17 14:00 11/01/17 09:23 1,000 MCG Dextrose (Dextrose 50%-Water Syringe) 12.5 gm PRN Q15MIN PRN 10/28/17 09:30 Dextrose/Sodium Chloride 1,000 ml @ 100 mls/hr Q10H 10/31/17 10:00 10/31/17 23:48 100 MLS/HR Docusate Sodium (Colace) 100 mg PRN DAILY PRN 10/28/17 09:30 Donepezil HCl (Aricept) 10 mg DAILY 10/28/17 14:00 11/01/17 09:23 10 MG Enalaprilat (Vasotec Inj) 1.25 mg PRN Q4HRS PRN 10/28/17 09:30 10/28/17 18:32 DC Fenofibrate (Lofibra) 134 mg DAILY 10/28/17 14:00 11/01/17 09:23 134 MG Fentanyl Citrate (Fentanyl 2ml Vial) 25 mcg 1X ONCE 10/28/17 00:45 10/28/17 00:46 DC 10/28/17 00:44 25 MCG Gabapentin (Neurontin) 1,800 mg QHS 10/28/17 21:00 10/31/17 20:53 1,800 MG Influenza Virus Vaccine (Afluria Trivalent [id number] Syringe) 0.5 ml ONCE ONCE 10/29/17 13:00 10/29/17 13:01 DC 10/29/17 14:17 0.5 ML Info (Do NOT chart on this placeholder) 1 each 1X ONCE 10/29/17 12:00 10/29/17 12:01 UNV Insulin Glargine (Lantus) 20 units DAILY 10/30/17 13:00 11/01/17 09:30 20 UNITS Insulin Human Lispro (HumaLOG) 0-9 UNITS TIDWMEALS 10/28/17 12:00 11/01/17 09:32 5 UNITS Labetalol HCl (Normodyne Iv Push) 10 mg PRN Q2HR PRN 10/28/17 09:30 10/31/17 21:28 10 MG Lactobacillus Rhamnosus (Culturelle) 1 cap BID 10/28/17 21:00 Cancel Levofloxacin/ Dextrose 100 ml @ 100 mls/hr 1X ONCE 10/27/17 18:30 10/27/17 19:29 DC 10/27/17 22:07 100 MLS/HR Lisinopril (Prinivil) 40 mg DAILY 10/28/17 14:00 11/01/17 09:24 40 MG Lorazepam (Ativan) 0.5 mg 1X ONCE 10/28/17 09:45 10/28/17 09:46 DC 10/28/17 11:51 0.5 MG Memantine (Namenda) 10 mg BID 10/28/17 14:00 11/01/17 09:24 10 MG Metoprolol Succinate (Toprol Xl) 100 mg DAILY 10/28/17 14:00 11/01/17 09:25 100 MG Morphine Sulfate (Morphine Sulfate) 2 mg PRN Q2HR PRN 10/28/17 09:30 11/01/17 02:51 2 MG Non-Formulary Medication (Melatonin ) 5 mg QHS 10/28/17 21:00 UNV Ondansetron HCl (Zofran) 4 mg PRN Q6HRS PRN 10/28/17 09:30 Piperacillin Sod/ Tazobactam Sod 2.25 gm/Sodium Chloride 50 ml @ 100 mls/hr Q6HRS 10/28/17 00:00 10/30/17 09:10 DC 10/30/17 06:07 100 MLS/HR Piperacillin Sod/ Tazobactam Sod 3.375 gm/Sodium Chloride 50 ml @ 100 mls/hr Q6HRS 10/30/17 12:00 11/01/17 12:46 DC 11/01/17 06:32 100 MLS/HR Piperacillin Sod/ Tazobactam Sod 4.5 gm/Sodium Chloride 100 ml @ 200 mls/hr DAILY 10/28/17 09:00 UNV Sodium Chloride 1,000 ml @ 75 mls/hr [id number] 10/27/17 20:00 10/30/17 06:04 DC 10/30/17 02:47 75 MLS/HR Tamsulosin HCl (Flomax) 0.4 mg DAILY 10/28/17 14:00 11/01/17 09:22 0.4 MG Tramadol HCl (Ultram) 50 mg PRN Q6HRS PRN 10/28/17 09:30 Vancomycin HCl (Vanco Per Pharmacy) 1 each PRN DAILY PRN 10/27/17 18:00 11/01/17 12:46 DC 11/01/17 10:46 1 EACH Vancomycin HCl (Vancomycin Random Level) 1 each 1X ONCE 10/29/17 05:00 10/29/17 05:01 DC 10/29/17 05:00 1 EACH Vancomycin HCl (Vancomycin Trough Level) 1 each 1X ONCE 10/31/17 07:30 10/31/17 07:31 DC Vancomycin HCl 0.5 gm/Sodium Chloride 250 ml @ 166.667 mls/hr 1X ONCE 10/27/17 18:15 10/27/17 19:44 UNV Vancomycin HCl 1.75 gm/Sodium Chloride 500 ml @ 250 mls/hr Q24H 10/29/17 08:00 11/01/17 12:46 DC 11/01/17 09:21 250 MLS/HR Vancomycin HCl 2 gm/Sodium Chloride 500 ml @ 250 mls/hr 1X ONCE 10/27/17 19:00 10/27/17 20:59 DC 10/27/17 19:00 250 MLS/HR Vitamin D (Vitamin D3) 1,000 unit DAILY 10/28/17 14:00 11/01/17 09:23 1,000 UNIT Lab Laboratory Tests Test 10/31/17 21:00 11/01/17 06:25 11/01/17 12:59 Glucose (Fingerstick) 272 mg/dL (70-99) 246 mg/dL (70-99) 217 mg/dL (70-99) Results All relevant outside records, renal labs, imaging studies, telemetry/EKG's were reviewed. GILBERT SCHILLING MD Nov 01, 2017 14:43
[2017-11-01 15:24] VITALS: BP 161/76
== END 2017-11-01 15:55 | DRG 871 ==
LOC: ER 15:38 → 1 WEST ICU 17:08 → 2 NORTH 10-30 20:00
PROVIDERS: ADMIT Family Medicine; ATTEND Family Medicine
DX: A41.9 Sepsis, unspecified organism (principal); G93.41 Metabolic encephalopathy; J96.90 Respiratory failure, unspecified, unspecified whether with hypoxia or hypercapnia; I60.9 Nontraumatic subarachnoid hemorrhage, unspecified; N17.0 Acute kidney failure with tubular necrosis; I69.354 Hemiplegia and hemiparesis following cerebral infarction affecting left non-dominant side; J98.11 Atelectasis; N39.0 Urinary tract infection, site not specified; R41.4 Neurologic neglect syndrome; E87.0 Hyperosmolality and hypernatremia; E11.22 Type 2 diabetes mellitus with diabetic chronic kidney disease; E66.01 Morbid (severe) obesity due to excess calories; E86.0 Dehydration; F03.90 Unspecified dementia, unspecified severity, without behavioral disturbance, psychotic disturbance, mood disturbance, and anxiety; F32.9 Major depressive disorder, single episode, unspecified; G35 Multiple sclerosis; G93.89 Other specified disorders of brain; I12.9 Hypertensive chronic kidney disease with stage 1 through stage 4 chronic kidney disease, or unspecified chronic kidney disease; I25.10 Atherosclerotic heart disease of native coronary artery without angina pectoris; N18.9 Chronic kidney disease, unspecified; M19.90 Unspecified osteoarthritis, unspecified site; Z51.5 Encounter for palliative care; Y93.89 Activity, other specified; I48.0 Paroxysmal atrial fibrillation; R13.0 Aphagia; N40.0 Benign prostatic hyperplasia without lower urinary tract symptoms; R13.10 Dysphagia, unspecified; Z66 Do not resuscitate; Z79.4 Long term (current) use of insulin; Z79.82 Long term (current) use of aspirin; Z68.36 Body mass index [BMI] 36.0-36.9, adult; Z82.49 Family history of ischemic heart disease and other diseases of the circulatory system; Z95.1 Presence of aortocoronary bypass graft; Z88.0 Allergy status to penicillin; Z93.1 Gastrostomy status; Z88.8 Allergy status to other drugs, medicaments and biological substances; Z88.1 Allergy status to other antibiotic agents; Z91.81 History of falling; I69.398 Other sequelae of cerebral infarction; W18.39XA Other fall on same level, initial encounter; Y92.89 Other specified places as the place of occurrence of the external cause; Y99.8 Other external cause status
CPT/HCPCS: 36415; 70450; 70551; 71045; 73521; 74176; 76770; 80048; 80053; 80061; 80202; 80307; 81001; 82140; 82962; 83605; 83690; 83735; 83880; 84439; 84443; 84481; 84484; 85007; 85025; 85610; 87040; 87086; 87186; 87205; 87641; 90471; 90756; 93005; 96361; 96365; 96366; 96368; J1815; J1956; J2060; J2270; J2543; J3010; J3370; J3490; J7030; J7040; 97110; 97530; 99285-25; G0479; Q2035

== ENCOUNTER 2017-11-04 21:47 | Emergency (ER) | payer MEDICARE ==
[~2017-11-04] VITALS: Ht 177.8 cm; Wt 112.9 kg
[~2017-11-04 21:47] MED LIST changes: +ACET325T9 PO; +AMIO200T4 PO; +AMOX250S4 PEG; +APIX5TAB PO; +ASPI-630 PO; +BENA40TA3 PO; +CETI10TA16 PO; +CHOL100013 PO; +CLON0.1T PO; +CRESTOR5 MG PO; +CYAN100072 PO; +DONE10TA61 PO; +FURO80TA3 PO; +MEMA10TA PO; +METO50TA29 PO; +ONDA4TAB10 PO; +POTA20TA82 PO
[2017-11-04 21:58] VITALS: BP 174/81
--- NOTE | 2017-11-04 22:24 | PHYS DOC ---
Past Medical History Past Medical History: A-Fib, CVA, Dementia, Depression, Diabetes-Type II, Heart Disease, Other Additional Past Medical Histor: MS Past Surgical History: Coronary Bypass Surgery, Other Additional Past Surgical Histo: G-TUBE Alcohol Use: None Drug Use: None Adult General Chief Complaint Chief Complaint: MECHANICAL FALL HPI HPI Patient is a 71 year old male who presents after a fall. The [facility] According to nursing staff, the patient rolled out of bed. The bed was at a standard height off the floor. Patient has baseline dementia and is unable to verbalize any complaints. Nursing staff referred the patient for CT scan because he does take anticoagulation type medications. On arrival to the ER, the patient is in no acute distress. He is unable to give any valid history or review of systems. Review of Systems Review of Systems No ROS available from this patient as he has baseline dementia According to [place] staff, the patient has been at baseline health All other systems were reviewed and found to be within normal limits, except as documented in this note. Allergies Allergies Allergies Coded Allergies Type Severity Reaction Last Updated Verified Jqwgrzx-Ykn-Ici Reductase Inhibitor Allergy Intermediate 05/10/17 Yes amoxicillin Allergy Intermediate 10/28/17 Yes zolpidem Allergy Intermediate 05/10/17 Yes Physical Exam Physical Exam Constitutional: Well developed, well nourished, no acute distress, non-toxic appearance HENT: Normocephalic, atraumatic, bilateral external ears normal, oropharynx moist, no oral exudates, nose normal. Eyes: PERRLA, EOMI, conjunctiva normal Neck: Normal range of motion, no tenderness, supple Cardiovascular: no murmur Lungs & Thorax: Bilateral breath sounds clear to auscultation Abdomen: Bowel sounds normal, soft, no tenderness Skin: Warm, dry, no erythema Back: No midline step-off's Extremities: No tenderness, no edema Neurologic: confused, does not answer questions, speaking spontaneously, protecting airway, no facial asymmetry, moves all extremities, eyes open spontaneously Current Patient Data Vital Signs Vital Signs Date Time Temp Pulse Resp B/P (MAP) Pulse Ox O2 Delivery O2 Flow Rate FiO2 11/04/17 21:58 98.6 73 18 174/81 (112) 99 Room Air 98.6 EKG EKG [] Radiology/Procedures Radiology/Procedures Head CT Comparison: October 27, 2017 Findings: There is residual although decreased mild hemorrhage in the right parietal region near the cortical surface and subarachnoid space, adjacent large area of lower density of fairly similar. There is other multifocal low-density of the supratentorial parenchyma as seen previously. Ventricular size is stable, mild ventriculomegaly although there is supratentorial atrophy present. No acute intracranial hemorrhage is identified. There is atherosclerotic calcification of the bilateral carotid siphons and intradural vertebral arteries. There is mild right maxillary sinus mucosal thickening. Mastoid air cells are aerated. No acute calvarial abnormality is identified. Impression: 1. There is residual although decreased hemorrhage along the right parietal cortical surface and subarachnoid space, no evidence of new acute intracranial hemorrhage. There is again multifocal low-density of the supratentorial parenchyma bilaterally not convincingly changed. There is again large area of low density of the right parietal region unchanged at site of previously demonstrated infarct. Cervical spine CT Comparison: None Findings: There has been anterior cervical fusion C5, C6, C7, incorporated interbody grafts and interbody fusion at these levels. Cervical vertebral body stature is overall preserved. There is minimal grade 1 anterior spondylolisthesis at C7-T1. There is multilevel cervical facet degenerative change. There is adequate alignment of lateral masses C1 relative to C2. Occipital condylar-C1 articulation is preserved. Atlantoaxial distance is within normal limits. No acute cervical spine fracture is identified. There is severe narrowing of the bilateral C4-5 neural foramina due to facet and uncovertebral degenerative change. There is also fairly severe narrowing bilaterally at C5-6 C5-6, on the right at C6-7, bilaterally at C7-T1. There is probable mild spinal stenosis by posterior osteophytes such as at C5-C7. Impression: 1. No acute cervical spine fracture is identified. 2. There has been anterior cervical fusion C5-C7, interbody fusion at these levels. 3. There is multilevel cervical neural foramina compromise. MPRESSION: 1. There is intact posterolateral fusion hardware L2 L5, some lucency about the right L2 pedicle screw which may be due to mild loosening. 2. There is suspected moderate to severe spinal stenosis L1-L2. There is multilevel significant lumbar neural foramina compromise. IMPRESSION: 1. No acute thoracic spine fracture is identified. There is at least moderate spinal stenosis T10-11. There is multilevel thoracic neural foramina compromise due to facet degenerative change greatest T10-11 and T11-12. Course & Med Decision Making Course & Med Decision Making Pertinent Labs and Imaging studies reviewed. (See chart for details) Patient is pleasantly confused. He has no complaints but he does answer yes to all questions. Physical exam is atraumatic. Given that the patient is on anticoagulation medications, CT scans are ordered. 23:20: All imaging results are reviewed. There are some positive findings but no new or acute findings this evening. [facility]. Dragon Disclaimer Dragon Disclaimer This electronic medical record was generated, in whole or in part, using a voice recognition dictation system. Departure Departure Referrals: CORY BIRD MD (PCP) LUIZA SCHMIDT DO Nov 04, 2017 22:24
--- NOTE | 2017-11-04 23:08 | RAD ---
CT head and cervical spine without contrast History: Confusion, fall Technique: Noncontrast CT imaging was performed of the head and cervical spine. Multiplanar reconstruction images are submitted. Exposure: One or more of the following individualized dose reduction techniques were utilized for this examination: 1. Automated exposure control 2. Adjustment of the mA and/or kV according to patient size 3. Use of iterative reconstruction technique. Head CT Comparison: October 27, 2017 Findings: There is residual although decreased mild hemorrhage in the right parietal region near the cortical surface and subarachnoid space, adjacent large area of lower density of fairly similar. There is other multifocal low-density of the supratentorial parenchyma as seen previously. Ventricular size is stable, mild ventriculomegaly although there is supratentorial atrophy present. No acute intracranial hemorrhage is identified. There is atherosclerotic calcification of the bilateral carotid siphons and intradural vertebral arteries. There is mild right maxillary sinus mucosal thickening. Mastoid air cells are aerated. No acute calvarial abnormality is identified. Impression: 1. There is residual although decreased hemorrhage along the right parietal cortical surface and subarachnoid space, no evidence of new acute intracranial hemorrhage. There is again multifocal low-density of the supratentorial parenchyma bilaterally not convincingly changed. There is again large area of low density of the right parietal region unchanged at site of previously demonstrated infarct. Cervical spine CT Comparison: None Findings: There has been anterior cervical fusion C5, C6, C7, incorporated interbody grafts and interbody fusion at these levels. Cervical vertebral body stature is overall preserved. There is minimal grade 1 anterior spondylolisthesis at C7-T1. There is multilevel cervical facet degenerative change. There is adequate alignment of lateral masses C1 relative to C2. Occipital condylar-C1 articulation is preserved. Atlantoaxial distance is within normal limits. No acute cervical spine fracture is identified. There is severe narrowing of the bilateral C4-5 neural foramina due to facet and uncovertebral degenerative change. There is also fairly severe narrowing bilaterally at C5-6 C5-6, on the right at C6-7, bilaterally at C7-T1. There is probable mild spinal stenosis by posterior osteophytes such as at C5-C7. Impression: 1. No acute cervical spine fracture is identified. 2. There has been anterior cervical fusion C5-C7, interbody fusion at these levels. 3. There is multilevel cervical neural foramina compromise. Electronically signed by: Dennis Ruiz MD (11/04/2017 11:04 PM) [facility]
--- NOTE | 2017-11-04 23:16 | RAD ---
CT THORACIC SPINE WO CONTRAST, CT LUMBAR SPINE WO CONTRAST Indication: Fall, pain Technique: Noncontrast CT imaging was performed of the thoracic and lumbar spine, multiplanar reconstruction images submitted. One or more of the following individualized dose reduction techniques were utilized for this examination: 1. Automated exposure control 2. Adjustment of the mA and/or kV according to patient size 3. Use of iterative reconstruction technique. Comparison: CT abdomen pelvis exam October 28, 2017, no previous exam for comparison of the thoracic spine. Thoracic spine: Findings: Thoracic vertebral body stature and AP alignment are maintained. No acute thoracic spine fracture is identified. There is multilevel neural foramina compromise greater inferiorly of the thoracic spine due to facet degenerative change, greatest T10-11 and T11-12. There is some variable lateral recess stenosis by disc osteophyte complexes. There is likely at least moderate spinal stenosis T10-11. IMPRESSION: 1. No acute thoracic spine fracture is identified. There is at least moderate spinal stenosis T10-11. There is multilevel thoracic neural foramina compromise due to facet degenerative change greatest T10-11 and T11-12. Lumbar spine: FINDINGS: There again has been posterolateral fusion L5, L4, L3, L2, bilateral pedicle screws attached to vertical rods. Hardware is intact. Lumbar vertebral body stature is preserved. There is reversal of the lordotic curvature as seen previously. There is vacuum disc disease L1-L2. There is multilevel lumbar facet degenerative change. There is mild lucency about the right L2 pedicle screw. No acute lumbar spine fracture is identified. There is lumbar dextroscoliosis. There is probable moderate to severe spinal stenosis at L1-L2, left greater than right lateral recess stenosis. There is multilevel lumbar neural foramina compromise, more significant narrowing bilaterally at L2-3, to lesser degree bilaterally at L1-L2. There is also severe narrowing on the right at L3-4 and L4-5 and to a somewhat lesser degree on the left at L4-5. There is also moderate narrowing on the left at L5-S1. There has been posterior decompression L2-L3 through L4-5. IMPRESSION: 1. There is intact posterolateral fusion hardware L2 L5, some lucency about the right L2 pedicle screw which may be due to mild loosening. 2. There is suspected moderate to severe spinal stenosis L1-L2. There is multilevel significant lumbar neural foramina compromise. Electronically signed by: Dennis Ruiz MD (11/04/2017 11:12 PM) [facility]
== END 2017-11-05 00:26 | disposition home or self-care (01) ==
LOC: ER 21:47
DX: R41.0 Disorientation, unspecified (principal); I48.91 Unspecified atrial fibrillation; E11.9 Type 2 diabetes mellitus without complications; F03.90 Unspecified dementia, unspecified severity, without behavioral disturbance, psychotic disturbance, mood disturbance, and anxiety; Z86.73 Personal history of transient ischemic attack (TIA), and cerebral infarction without residual deficits; Z95.5 Presence of coronary angioplasty implant and graft; F32.9 Major depressive disorder, single episode, unspecified; Z86.79 Personal history of other diseases of the circulatory system; Z88.8 Allergy status to other drugs, medicaments and biological substances; Z88.1 Allergy status to other antibiotic agents; Z91.041 Radiographic dye allergy status
CPT/HCPCS: 70450; 72125; 72128; 72131; 99284-25

== ENCOUNTER 2017-11-10 23:31 | Inpatient (IN) | payer MEDICARE ==
[~2017-11-10] VITALS: Ht 172.7 cm; Wt 115.7 kg
[2017-11-10 23:49] LABS: BILIRUBIN,URINE NEGATIVE (NEG); CLARITY,URINE CLEAR; COLOR,URINE YELLOW; NITRITE,URINE NEGATIVE (NEG); PROTEIN,URINE NEGATIVE (NEG-TRACE); UROBILINOGEN,URINE 0.2 mg/dL (0.2 mg/dL)
--- NOTE | 2017-11-10 23:50 | PHYS DOC ---
Past Medical History Past Medical History: A-Fib, CVA, Dementia, Depression, Diabetes-Type II, Heart Disease, Other Additional Past Medical Histor: MS, Subarachnoid hemorrhage, stroke with left sided defecit Past Surgical History: Coronary Bypass Surgery, Other Additional Past Surgical Histo: G-TUBE Alcohol Use: None Drug Use: None Adult General Chief Complaint Chief Complaint: NEURO SYMPTOMS/DEFICITS HPI HPI Patient is a 72-year-old male, with a past history of subarachnoid hemorrhage, and a stroke with left-sided deficit, and other medical problems, who presents to the emergency department for evaluation. According to report obtained from the patient's nursing facility, a nurse, who had the patient last night, thought that the patient had increasing left-sided facial droop today, and also thought that the patient just didn't feel well. The patient states he just didn' t feel well but did not have any localizing pain, nor does he express any current localizing pain. There was some concern of stroke, and the patient was thus transferred to the emergency department. Reportedly, the patient's nurse practitioner was contacted for transfer and felt that the patient's findings were at baseline, and that he should not be transferred, but the nurse was concerned, and thus the patient was transferred. The patient does take Eliquis, the last definite known time normal was yesterday. The patient has had a mild cough, but denies any current shortness of breath. He is a very limited historian. There are no alleviating or exacerbating factors to his symptoms. Contraindications to TPA, or the lack of definitive diagnosis of stroke, use of anticoagulants, and history of prior brain hemorrhage. Review of Systems Review of Systems Unable to obtain review of systems secondary to altered mental status. Allergies Allergies Allergies Coded Allergies Type Severity Reaction Last Updated Verified Doiffoo-Krr-Gst Reductase Inhibitor Allergy Intermediate 05/10/17 Yes amoxicillin Allergy Intermediate 10/28/17 Yes zolpidem Allergy Intermediate 05/10/17 Yes Physical Exam Physical Exam PHYSICAL EXAM: CONSTITUTIONAL: Well developed, well nourished HEAD: normocephalic, atraumatic EENT: PERRL, EOMI. Conjunctivae normal color, sclerae non-icteric; moist mucous membranes. NECK: Supple, non-tender; no meningismus. LUNGS: Lungs CTA, breathing even and unlabored. Normal air movement. HEART: Regular rate and rhythm, no murmur CHEST: No deformity; non-tender ABDOMEN: The abdomen is soft, and non-tender, no masses or bruits. EXTREM: Normal ROM; no deformity, no calf tenderness. Normal pulses palpable in all extremities. There is no pedal edema. SKIN: No rash; no diaphoresis NEURO: Alert; oriented to person, speech is clear, disoriented to place and time , there is normal range of motion of the right upper extremity. There is limited to no range of motion to the lower extremities bilaterally, there is no range of motion to the left arm. There is mild left-sided facial droop without complete paresis. BACK: No CVA TTP. Current Patient Data Vital Signs Vital Signs Date Time Temp Pulse Resp B/P (MAP) Pulse Ox O2 Delivery O2 Flow Rate FiO2 11/10/17 23:53 98.6 74 16 174/81 (112) 99 Room Air 98.6 Lab Values Laboratory Tests Test 11/10/17 23:42 White Blood Count 13.3 x10^3/uL (4.0-11.0) H Red Blood Count 3.81 x10^6/uL (4.30-5.70) L Hemoglobin 11.6 g/dL (13.0-17.5) L Hematocrit 34.2 % (39.0-53.0) L Mean Corpuscular Volume 90 fL (79-100) Mean Corpuscular Hemoglobin 30 pg (25-35) Mean Corpuscular Hemoglobin Concent 34 g/dL (31-37) Red Cell Distribution Width 13.7 % (11.5-14.5) Platelet Count 207 x10^3/uL (140-400) Neutrophils (%) (Auto) 76 % (31-73) H Lymphocytes (%) (Auto) 10 % (24-48) L Monocytes (%) (Auto) 11 % (0-9) H Eosinophils (%) (Auto) 3 % (0-3) Basophils (%) (Auto) 1 % (0-3) Neutrophils # (Auto) 10.0 x10^3uL (1.8-7.7) H Lymphocytes # (Auto) 1.3 x10^3/uL (1.0-4.8) Monocytes # (Auto) 1.4 x10^3/uL (0.0-1.1) H Eosinophils # (Auto) 0.4 x10^3/uL (0.0-0.7) Basophils # (Auto) 0.1 x10^3/uL (0.0-0.2) Prothrombin Time 13.2 SEC (11.7-14.0) Prothrombin Time INR 1.1 (0.8-1.1) PTT 24 SEC (24-38) Urine Collection Type Unknown Urine Color Yellow Urine Clarity Clear Urine pH 6.0 Urine Specific [place] 1.015 Urine Protein Negative mg/dL (NEG-TRACE) Urine Glucose (UA) Negative mg/dL (NEG) Urine Ketones (Stick) Negative mg/dL (NEG) Urine Blood Small (NEG) Urine Nitrite Negative (NEG) Urine Bilirubin Negative (NEG) Urine Urobilinogen Dipstick 0.2 mg/dL (0.2 mg/dL) Urine Leukocyte Esterase Large (NEG) Urine RBC 6-10 /HPF (0-2) Urine WBC >40 /HPF (0-4) Urine Bacteria Few /HPF (0-FEW) Urine Hyaline Casts Few /HPF Urine Mucus Mod /LPF Sodium Level 139 mmol/L (136-145) Potassium Level 4.7 mmol/L (3.5-5.1) Chloride Level 103 mmol/L (98-107) Carbon Dioxide Level 31 mmol/L (21-32) Anion Gap 5 (6-14) L Blood Urea Nitrogen 31 mg/dL (8-26) H Creatinine 1.3 mg/dL (0.7-1.3) Estimated GFR (Cockcroft-Gault) 54.3 BUN/Creatinine Ratio 24 (6-20) H Glucose Level 154 mg/dL (70-99) H Lactic Acid Level 0.9 mmol/L (0.4-2.0) Calcium Level 9.2 mg/dL (8.5-10.1) Magnesium Level 2.3 mg/dL (1.8-2.4) Total Bilirubin 0.4 mg/dL (0.2-1.0) Aspartate Amino Transferase (AST) 35 U/L (15-37) Alanine Aminotransferase (ALT) 36 U/L (16-63) Alkaline Phosphatase 123 U/L (46-116) H Creatine Kinase 405 U/L (39-308) H Creatine Kinase MB (Mass) 2.7 ng/mL (0.0-3.6) Creatine Kinase MB Relative Index 0.7 % (0-4) Troponin I Quantitative < 0.017 ng/mL (0.000-0.055) XA-Gsm-X-Type Natriuretic Peptide 394 pg/mL (0-124) H Total Protein 6.6 g/dL (6.4-8.2) Albumin 2.4 g/dL (3.4-5.0) L Albumin/Globulin Ratio 0.6 (1.0-1.7) L Lipase 309 U/L (73-393) Laboratory Tests 11/10/17 23:42 Laboratory Tests 11/10/17 23:42 EKG EKG [Normal sinus rhythm a rate of 68 beats for minute, normal axis, normal intervals, there are no acute ischemic ST/T changes.] Radiology/Procedures Radiology/Procedures [PROCEDURE: CT HEAD WO CONTRAST INDICATION: ams COMPARISON: November 04, 2017 TECHNIQUE: Axial CT images obtained through the head. One or more of the following individualized dose reduction techniques were utilized for this examination: 1. Automated exposure control; 2. Adjustment of the mA and/or kV according to patient size; 3. Use of iterative reconstruction technique. FINDINGS: Repeat demonstration of a large region of low density within the right cerebral hemisphere posteriorly which appears increased from prior. There is repeat demonstration of some linear foci of high attenuation within this region in addition. Moderate amount of low density seen elsewhere within the white matter as well. There is not a significant amount of midline shift at this time. Calcific atherosclerosis. IMPRESSION: 1. Repeat demonstration of a large region of low density within the right cerebral hemisphere which appears increased from prior exam. This could be secondary to the patient's known recent right-sided infarct in evolution. There is also linear regions of high density again seen within the region which can be seen with associated microhemorrhage along the gyri and subarachnoid hemorrhage. A portion could also be from cortical necrosis. 2. Large amount of low density seen throughout the white matter elsewhere within the brain which could be sequela of small vessel ischemic disease.] Course & Med Decision Making Course & Med Decision Making Pertinent Labs and Imaging studies reviewed. (See chart for details) [12:55 AM: The patient's condition remained stable. Review of the patient's recent records reveals that he was recently admitted to the hospital, after he underwent what appears to be hemorrhagic transformation of an ischemic stroke. It appears that he is not currently on Eliquis, although this is currently listed as medications of his nursing facility record is unclear if he has been getting this or not, as no MAR has been included with the patient's symptoms. The patient will be admitted to the hospitalist overnight for further evaluation and monitoring, and possibly repeat neurology consult.] Dragon Disclaimer Dragon Disclaimer This electronic medical record was generated, in whole or in part, using a voice recognition dictation system. Departure Departure Impression: Primary Impression: Altered mental status Additional Impression: UTI (urinary tract infection) Disposition: 09 ADMITTED INPATIENT Admitting Physician: Najma Milian Condition: STABLE Referrals: CORY BIRD MD (PCP) Problem Qualifiers YASMINE MILES MD Nov 10, 2017 23:50
[2017-11-10 23:56] LABS: BASO # 0.1 x10^3/uL (0.0-0.2); BASO % 1 % (0-3); EOS # 0.4 x10^3/uL (0.0-0.7); EOS % 3 % (0-3); HEMATOCRIT 34.2 % (39.0-53.0); HEMOGLOBIN 11.6 g/dL (13.0-17.5); LYMPH # 1.3 x10^3/uL (1.0-4.8); LYMPH % 10 % (24-48); MEAN CORPUSCULAR HEMOGLOBIN 30 pg (25-35); MEAN CORPUSCULAR HGB CONC 34 g/dL (31-37); MEAN CORPUSCULAR VOLUME 90 fL (79-100); MONO # 1.4 x10^3/uL (0.0-1.1); MONO % 11 % (0-9); NEUT % 76 % (31-73); PLATELET COUNT 207 x10^3/uL (140-400); RED BLOOD COUNT 3.81 x10^6/uL (4.30-5.70); RED CELL DISTRIBUTION WIDTH 13.7 % (11.5-14.5); WHITE BLOOD COUNT 13.3 x10^3/uL (4.0-11.0)
[2017-11-10 23:57] LABS: BACTERIA,URINE FEW /HPF (0-FEW); WBC,URINE >40 /HPF (0-4)
[2017-11-10 23:58] LABS: HYALINE CASTS, URINE FEW /HPF
[2017-11-11 00:12] LABS: CALCIUM 9.2 mg/dL (8.5-10.1); CREATININE 1.3 mg/dL (0.7-1.3); GFR 54.3; POTASSIUM 4.7 mmol/L (3.5-5.1)
[2017-11-11 00:14] LABS: PROTHROMBIN TIME PATIENT 13.2 SEC (11.7-14.0)
[2017-11-11 00:21] LABS: ALBUMIN 2.4 g/dL (3.4-5.0); ALBUMIN/GLOBULIN RATIO 0.6 (1.0-1.7); MAGNESIUM 2.3 mg/dL (1.8-2.4); TOTAL BILIRUBIN 0.4 mg/dL (0.2-1.0); TOTAL PROTEIN 6.6 g/dL (6.4-8.2)
--- NOTE | 2017-11-11 00:36 | RAD ---
INDICATION: ams COMPARISON: November 04, 2017 TECHNIQUE: Axial CT images obtained through the head. One or more of the following individualized dose reduction techniques were utilized for this examination: 1. Automated exposure control; 2. Adjustment of the mA and/or kV according to patient size; 3. Use of iterative reconstruction technique. FINDINGS: Repeat demonstration of a large region of low density within the right cerebral hemisphere posteriorly which appears increased from prior. There is repeat demonstration of some linear foci of high attenuation within this region in addition. Moderate amount of low density seen elsewhere within the white matter as well. There is not a significant amount of midline shift at this time. Calcific atherosclerosis. IMPRESSION: 1. Repeat demonstration of a large region of low density within the right cerebral hemisphere which appears increased from prior exam. This could be secondary to the patient's known recent right-sided infarct in evolution. There is also linear regions of high density again seen within the region which can be seen with associated microhemorrhage along the gyri and subarachnoid hemorrhage. A portion could also be from cortical necrosis. 2. Large amount of low density seen throughout the white matter elsewhere within the brain which could be sequela of small vessel ischemic disease. Electronically signed by: Jean Giang MD (11/11/2017 12:32 AM) [facility]
[2017-11-11 02:45] VITALS: BP 125/63
[2017-11-11] MEDS ORDERED: HYDR-2868 PO (06:35)
[2017-11-11] MEDS ORDERED: DONE5TAB14 PO (06:35)
[2017-11-11] MEDS ORDERED: MULT1TAB52 PO (06:35)
[2017-11-11] MEDS ORDERED: IV DEXTROSE 5 %-0.45 % NACL 1,000 ML IV ONE (07:00)
[2017-11-11 07:39] VITALS: BP 127/63
--- NOTE | 2017-11-11 07:44 | RAD ---
Portable chest, 11/11/2017: HISTORY: Shortness of breath Comparison is made to a study from 10/27/2017. The heart is within normal limits in size. There are prominent epicardial fat pads. There has been a previous median sternotomy. The pulmonary vascularity is normal. No pulmonary infiltrate is seen. There is no evidence of pleural fluid. A surgical plate and screws is evident in the lower cervical spine. IMPRESSION: No acute cardiopulmonary abnormality is detected. Electronically signed by: Diomedes Hsieh MD (11/11/2017 7:40 AM) [facility]
--- NOTE | 2017-11-11 08:22 | PDOC1 ---
History and Physical Date of Admission Date of Admission DATE: 11/11/17 TIME: 08:20 Identification/Chief Complaint Chief Complaint Left facial droop Fall History of Present Illness History of Present Illness Patient is a 72-year-old male, with a past history of subarachnoid hemorrhage, and a stroke with left-sided deficit, BPH s/p turp with post-op CVA in September. According to report obtained from the patient's nursing facility, a nurse, who had the patient last night, thought that the patient had increasing left-sided facial droop yesterday. The patient states he just didn't feel well but did not have any localizing pain, nor does he express any current localizing pain, but grimaces on touching of his left arm. The patient has had a mild cough, but denies any current shortness of breath. He is a very limited historian. Has his sister bedside. He has had a few falls in the past week. He had recently moved from [place] and had a prostate procedure in September, prior to which he was functional. After his surgery he suffered a large right sided CVA with left hemiparesis and some left visual field neglect, had PEG placed at that time and was recovering in SNF, starting to regain function of his left leg and was apparently laughing and joking with his family 1 week ago, but has been declining. CT Head in ED showed enlarged CVA possibly consistent with evolving infarct vs Past Medical History Cardiovascular: HTN Musculoskeletal: Osteoarthritis Infectious disease: No pertinent hx Renal/: Benign prostatic enlarg. Past Surgical History Past Surgical History: Cystoscopy Family History Family History: Hypertension Family History: Parent Social History Smoke: Quit ALCOHOL: none Drugs: None Current Problem List Problem List Problems Medical Problems: (1) Altered mental status Status: Acute (2) UTI (urinary tract infection) Status: Acute Current Medications Current Medications Current Medications Ceftriaxone Sodium 50 ml @ 100 mls/hr 1X ONCE IV Last administered on at 01:15; Start 11/11/17 at 01:15; Stop 11/11/17 at 01:44; Status DC Ceftriaxone Sodium 1 gm/ Dextrose 50 ml @ 100 mls/hr Q24H IV ; Start 11/11/17 at 21:00; Status UNV Dextrose/Sodium Chloride 1,000 ml @ 100 mls/hr 1X ONCE IV ; Start 11/11/17 at 07:00; Stop 11/11/17 at 16:59 Ceftriaxone Sodium (Rocephin) 1 gm Q24H IVP ; Start 11/11/17 at 21:00 Active Scripts Active Reported Multivitamins (Multivitamin) 1 Each Tablet 1 Tab PO DAILY Hydralazine Hcl 25 Mg Tablet 1 Tab PO BID Donepezil Hcl 5 Mg Tab.rapdis 5 Mg PO HS B-12 (Cyanocobalamin (Vitamin B-12)) 1,000 Mcg Tablet 1,000 Mcg PO DAILY Aspirin 81 Mg Tab.chew 1 Tab PO DAILY Eliquis (Apixaban) 5 Mg Tablet 5 Mg PO BID Amiodarone Hcl 200 Mg Tablet 200 Mg PO BID Tylenol (Acetaminophen) 325 Mg Tablet 2 Tab PO PRN Q4HRS Benazepril Hcl 40 Mg Tablet 1 Tab PO DAILY Gabapentin 600 Mg Tablet 1,800 Mg PO QHS Furosemide 80 Mg Tablet 1 Tab PO DAILY Celexa (Citalopram Hydrobromide) 40 Mg Tablet 40 Mg PO DAILY Vitamin D (Cholecalciferol (Vitamin D3)) 1,000 Unit Capsule 1 Cap PO DAILY Cetirizine Hcl 10 Mg Tablet 1 Tab PO HS Crestor (Rosuvastatin Calcium) 5 Mg Tablet 5 Mg PO HS Potassium Chloride 20 Meq Tablet.er 20 Meq PO DAILY Zofran Odt (Ondansetron) 4 Mg Tab.rapdis 4 Mg PO BID PRN Metoprolol Succinate 50 Mg Tab.er.24h 100 Mg PO BID Namenda (Memantine Hcl) 10 Mg Tablet 10 Mg PO BID Melatonin 3 Mg Tablet 5 Mg PO QHS Humalog (Insulin Lispro) 100 Unit/1 Ml Cartridge 100 Unit SQ sliding scale Lantus Solostar (Insulin Glargine,Hum.rec.anlog) 100 Unit/1 Ml Insuln.pen 25 Unit SQ QHS Lantus Solostar (Insulin Glargine,Hum.rec.anlog) 100 Unit/1 Ml Insuln.pen 50 Unit SQ DAILY08 Tamsulosin Hcl 0.4 Mg Cap.er.24h 0.4 Mg PO DAILY Nystatin 15 Gm Powder 15 Gm TP Lum[place] (Bimatoprost) 2.5 Ml Drops 2.5 Ml OP Lorazepam 0.5 Mg Tablet 0.5 Mg PO BID Flonase Allergy Relief (Fluticasone Propionate) 9.9 Ml [place].susp Unknown Dose NS DAILY Fenofibrate (Fenofibrate,Micronized) 134 Mg Capsule 134 Mg PO DAILY Bupropion Xl (Bupropion Hcl) 300 Mg Tab.er.24h 300 Mg PO Allergies Allergies: Coded Allergies: Ovucflj-Utb-Qvs Reductase Inhibitor (Verified Allergy, Intermediate, ) amoxicillin (Verified Allergy, Intermediate, 10/28/17) Tolerates zosyn 10/27/17 zolpidem (Verified Allergy, Intermediate, 05/10/17) ROS Review of System Difficult to complete due to patient mental status General: YES: Fatigue, Malaise PSYCHOLOGICAL ROS: YES: Disorientation Eyes: No Blurry vision, No Decreased vision, No Double vision, No Dry eyes, No Excessive tearing, No Eye Pain, No Itchy Eyes, No Loss of vision, No Photophobia , No Scotomata, No Uses contacts, No Uses glasses, No Other HEENT: No: Heacaches, Visual Changes, Hearing change, Nasal congestion, Nasal discharge, Oral lesions, Sinus pain, Sore Throat, Epistaxis, Sneezing, Snoring, Tinnitus, Vertigo, Vocal changes, Other ALLERGY AND IMMUNOLOGY: No: Hives, Insect Bite Sensitivity, Itchy/Watery Eyes, Nasal Congestion, Post Nasal Drip, Seasonal Allergies, Other Hematological and Lymphatic: No: Bleeding Problems, Blood Clots, Blood Transfusions, Brusing, Night Sweats, Pallor, Swollen Lymph Nodes, Other ENDOCRINE: No: Breast Changes, Galactorrhea, Hair Pattern Changes, Hot Flashes , Malaise/lethargy, Mood Swings, Palpitations, Polydipsia/polyuria, Skin Changes , Temperature Intolerance, Unexpected Weight Changes, Other Respiratory: YES: Cough Musculoskeletal: Yes Muscular Weakness Neurological: Yes Behavorial Changes, Yes Visual Changes Physical Exam General: Other (Drowsy, can confirm his name, can answer some yes/no questions) HEENT: PERRLA Lungs: Other (Poor inspiratory effort) Heart: S1S2, RRR Abdomen: Other (PEG site clean) Rectal Exam: not examined Extremities: Other (3+ edema) Skin: Other (Skin break down on gluteus, bilateral hips and bilateral heels.) Psych/Mental Status: Other (Mental status difficult to assess, unable to communicate in more than 1-2 word answers) Vitals Vitals Vital Signs Date Time Temp Pulse Resp B/P (MAP) Pulse Ox O2 Delivery O2 Flow Rate FiO2 11/11/17 07:39 99.6 72 20 127/63 (84) 94 Room Air 99.6 Labs Labs Laboratory Tests Test 11/10/17 23:42 11/11/17 07:20 White Blood Count 13.3 x10^3/uL (4.0-11.0) Red Blood Count 3.81 x10^6/uL (4.30-5.70) Hemoglobin 11.6 g/dL (13.0-17.5) Hematocrit 34.2 % (39.0-53.0) Mean Corpuscular Volume 90 fL (79-100) Mean Corpuscular Hemoglobin 30 pg (25-35) Mean Corpuscular Hemoglobin Concent 34 g/dL (31-37) Red Cell Distribution Width 13.7 % (11.5-14.5) Platelet Count 207 x10^3/uL (140-400) Neutrophils (%) (Auto) 76 % (31-73) Lymphocytes (%) (Auto) 10 % (24-48) Monocytes (%) (Auto) 11 % (0-9) Eosinophils (%) (Auto) 3 % (0-3) Basophils (%) (Auto) 1 % (0-3) Neutrophils # (Auto) 10.0 x10^3uL (1.8-7.7) Lymphocytes # (Auto) 1.3 x10^3/uL (1.0-4.8) Monocytes # (Auto) 1.4 x10^3/uL (0.0-1.1) Eosinophils # (Auto) 0.4 x10^3/uL (0.0-0.7) Basophils # (Auto) 0.1 x10^3/uL (0.0-0.2) Prothrombin Time 13.2 SEC (11.7-14.0) Prothromb Time International Ratio 1.1 (0.8-1.1) Activated Partial Thromboplast Time 24 SEC (24-38) Urine Collection Type Unknown Urine Color Yellow Urine Clarity Clear Urine pH 6.0 Urine Specific [place] 1.015 Urine Protein Negative mg/dL (NEG-TRACE) Urine Glucose (UA) Negative mg/dL (NEG) Urine Ketones (Stick) Negative mg/dL (NEG) Urine Blood Small (NEG) Urine Nitrite Negative (NEG) Urine Bilirubin Negative (NEG) Urine Urobilinogen Dipstick 0.2 mg/dL (0.2 mg/dL) Urine Leukocyte Esterase Large (NEG) Urine RBC 6-10 /HPF (0-2) Urine WBC >40 /HPF (0-4) Urine Bacteria Few /HPF (0-FEW) Urine Hyaline Casts Few /HPF Urine Mucus Mod /LPF Sodium Level 139 mmol/L (136-145) Potassium Level 4.7 mmol/L (3.5-5.1) Chloride Level 103 mmol/L (98-107) Carbon Dioxide Level 31 mmol/L (21-32) Anion Gap 5 (6-14) Blood Urea Nitrogen 31 mg/dL (8-26) Creatinine 1.3 mg/dL (0.7-1.3) Estimated GFR (Cockcroft-Gault) 54.3 BUN/Creatinine Ratio 24 (6-20) Glucose Level 154 mg/dL (70-99) Lactic Acid Level 0.9 mmol/L (0.4-2.0) Calcium Level 9.2 mg/dL (8.5-10.1) Magnesium Level 2.3 mg/dL (1.8-2.4) Total Bilirubin 0.4 mg/dL (0.2-1.0) Aspartate Amino Transf (AST/SGOT) 35 U/L (15-37) Alanine Aminotransferase (ALT/SGPT) 36 U/L (16-63) Alkaline Phosphatase 123 U/L (46-116) Creatine Kinase 405 U/L (39-308) Creatine Kinase MB (Mass) 2.7 ng/mL (0.0-3.6) Creatine Kinase MB Relative Index 0.7 % (0-4) Troponin I Quantitative < 0.017 ng/mL (0.000-0.055) NG-Dge-D-Type Natriuretic Peptide 394 pg/mL (0-124) Total Protein 6.6 g/dL (6.4-8.2) Albumin 2.4 g/dL (3.4-5.0) Albumin/Globulin Ratio 0.6 (1.0-1.7) Lipase 309 U/L (73-393) Glucose (Fingerstick) 143 mg/dL (70-99) Laboratory Tests Test 11/10/17 23:42 11/11/17 07:20 White Blood Count 13.3 x10^3/uL (4.0-11.0) Red Blood Count 3.81 x10^6/uL (4.30-5.70) Hemoglobin 11.6 g/dL (13.0-17.5) Hematocrit 34.2 % (39.0-53.0) Mean Corpuscular Volume 90 fL (79-100) Mean Corpuscular Hemoglobin 30 pg (25-35) Mean Corpuscular Hemoglobin Concent 34 g/dL (31-37) Red Cell Distribution Width 13.7 % (11.5-14.5) Platelet Count 207 x10^3/uL (140-400) Neutrophils (%) (Auto) 76 % (31-73) Lymphocytes (%) (Auto) 10 % (24-48) Monocytes (%) (Auto) 11 % (0-9) Eosinophils (%) (Auto) 3 % (0-3) Basophils (%) (Auto) 1 % (0-3) Neutrophils # (Auto) 10.0 x10^3uL (1.8-7.7) Lymphocytes # (Auto) 1.3 x10^3/uL (1.0-4.8) Monocytes # (Auto) 1.4 x10^3/uL (0.0-1.1) Eosinophils # (Auto) 0.4 x10^3/uL (0.0-0.7) Basophils # (Auto) 0.1 x10^3/uL (0.0-0.2) Prothrombin Time 13.2 SEC (11.7-14.0) Prothromb Time International Ratio 1.1 (0.8-1.1) Activated Partial Thromboplast Time 24 SEC (24-38) Urine Collection Type Unknown Urine Color Yellow Urine Clarity Clear Urine pH 6.0 Urine Specific [place] 1.015 Urine Protein Negative mg/dL (NEG-TRACE) Urine Glucose (UA) Negative mg/dL (NEG) Urine Ketones (Stick) Negative mg/dL (NEG) Urine Blood Small (NEG) Urine Nitrite Negative (NEG) Urine Bilirubin Negative (NEG) Urine Urobilinogen Dipstick 0.2 mg/dL (0.2 mg/dL) Urine Leukocyte Esterase Large (NEG) Urine RBC 6-10 /HPF (0-2) Urine WBC >40 /HPF (0-4) Urine Bacteria Few /HPF (0-FEW) Urine Hyaline Casts Few /HPF Urine Mucus Mod /LPF Sodium Level 139 mmol/L (136-145) Potassium Level 4.7 mmol/L (3.5-5.1) Chloride Level 103 mmol/L (98-107) Carbon Dioxide Level 31 mmol/L (21-32) Anion Gap 5 (6-14) Blood Urea Nitrogen 31 mg/dL (8-26) Creatinine 1.3 mg/dL (0.7-1.3) Estimated GFR (Cockcroft-Gault) 54.3 BUN/Creatinine Ratio 24 (6-20) Glucose Level 154 mg/dL (70-99) Lactic Acid Level 0.9 mmol/L (0.4-2.0) Calcium Level 9.2 mg/dL (8.5-10.1) Magnesium Level 2.3 mg/dL (1.8-2.4) Total Bilirubin 0.4 mg/dL (0.2-1.0) Aspartate Amino Transf (AST/SGOT) 35 U/L (15-37) Alanine Aminotransferase (ALT/SGPT) 36 U/L (16-63) Alkaline Phosphatase 123 U/L (46-116) Creatine Kinase 405 U/L (39-308) Creatine Kinase MB (Mass) 2.7 ng/mL (0.0-3.6) Creatine Kinase MB Relative Index 0.7 % (0-4) Troponin I Quantitative < 0.017 ng/mL (0.000-0.055) VY-Rso-A-Type Natriuretic Peptide 394 pg/mL (0-124) Total Protein 6.6 g/dL (6.4-8.2) Albumin 2.4 g/dL (3.4-5.0) Albumin/Globulin Ratio 0.6 (1.0-1.7) Lipase 309 U/L (73-393) Glucose (Fingerstick) 143 mg/dL (70-99) VTE Prophylaxis Ordered VTE Prophylaxis Devices: Contraindicated VTE Pharmacological Prophylaxi: Yes Assessment/Plan Assessment/Plan A/P: Acute encephalopathy - has had delerium per sister for a few weeks. CVA may be slightly evolved by CT, no hemorrhage, will cont eliquis. Likely multifactorial. Could be medication related, will hold his psych meds and lorazepam. Could also be infectious, likely source urine, does have some renal insufficiency as well, could be retaining UTI - with LE positive and recent prostate instrumentation will cont empiric rocephin and then follow culture Left arm pain - likely MSK injury from fall, will XR to r/o fracture Renal insufficiency - Cr 1.3 up from prior 0.8, will add free water bolus to TF CVA - exacerbation of prior infarct due to infectious encephalopathy vs evolving infarct, will cont ASA and eliquis. 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
--- NOTE | 2017-11-11 10:19 | EKG ---
[facility] [address] [place] [address] Test Date: 2017-11-11 Test Time: 00:25:05 Pat Name: HERMINIA LOWE Department: Room: 1 1 Gender: M Inspector Mechanical: : 1945 Requested By: YASMINE MILES Order Number: [id number] Reading MD: Blair Jimenez MD Measurements Intervals [place] Rate: 68 P: 158 GA: 186 QRS: 28 QRSD: 94 T: 47 QT: 408 QTc: 439 Interpretive Statements SINUS RHYTHM Electronically Signed On 11-14-2017 11:04:56 CDT by Blair Jimenez MD
[2017-11-11 11:03] VITALS: BP 150/48
--- NOTE | 2017-11-11 13:25 | RAD ---
EXAM: Left forearm, 2 views; left humerus, 2 views. HISTORY: Pain status post fall. COMPARISON: None. FINDINGS: Left forearm: Frontal and lateral views of the left forearm are obtained. There is no fracture, dislocation or subluxation. There is severe first carpometacarpal joint space narrowing with subchondral sclerosis. There are vascular calcifications. Left humerus: 2 views of the left humerus are obtained. There is no fracture, dislocation or subluxation. There is minimal osseous excrescence or cortical irregularity along the lateral epicondyles, likely degenerative in etiology. IMPRESSION: No acute osseous finding. Electronically signed by: Marium Krause MD (11/11/2017 1:22 PM) [facility]
--- NOTE | 2017-11-11 13:37 | PDOC2 ---
PALLIATIVE CARE Palliative Care Note Palliative Care Consult requested by Dr. Milian. Patient lethargic. Admitted from [facility] with UTI and change in mental status Patient know to [facility] from previous admission. Did not meet with family --- transferred to [facility] prior to family meeting Medical Assessment from previous admission; ( to 2017) Followed in neurology clinic for multiple sclerosis and dementia. Subacute right parietal, posterior frontal and occipital infarct about 3 weeks ago with recent hemorrhagic transformation of IPH and SAH. Metabolic encephalopathy. Respiratory failure. Renal failure. UTI. Leukocytosis. CAD s/p CABG. AFib. DM. HTN. Ventriculomegaly. Obesity. Code Status: DNR/DNI Luz Elenaana cristina Rubin MYRON. [phone]; [phone] per face sheet Spoke with Luz Elena per phone. States he sleeps most of the time at [facility]. Not progressing well. Confirmed Code Status: DNR/DNI Plan family meeting Tuesday at 10 am. (unable to meet prior to this) CHUCK FELIPE Nov 11, 2017 13:37
[2017-11-11 15:12] VITALS: BP 148/66
[2017-11-11] MEDS ORDERED: DEXTROSE 50% 25 GM / 50ML DISP.SYRIN. IV PRN (15:45)
[2017-11-11] MEDS ORDERED: METO100T7 PO (16:18)
[2017-11-11] MEDS: ASPIRIN CHEWABLE 81 MG TABLET. PO SCH (16:52)
[2017-11-11] MEDS: NYSTATIN TOPICAL POWDER 15GM BOTTLE. TP SCH (16:52)
[2017-11-11] MEDS: TAMSULOSIN 0.4 MG CAP.ER.24H. PO SCH (16:52)
[2017-11-11] MEDS: CITALOPRAM 20 MG TABLET. PO SCH (16:52)
[2017-11-11] MEDS: FUROSEMIDE 40 MG/4 ML VIAL. IVP SCH (16:53)
[2017-11-11] MEDS: INSULIN LISPRO 300 UNITS/3 ML INSULN.PEN. SQ SCH (18:12)
[2017-11-11 19:25] VITALS: BP 122/51
[2017-11-11] MEDS ORDERED: NON FORMULARY ITEM (Rosuvastatin Calcium (Crestor) 5 MG) PO SCH (21:00)
[2017-11-11] MEDS ORDERED: APIXABAN 5 MG TABLET. PO SCH (21:00)
[2017-11-11] MEDS: MEMANTINE 10 MG TABLET. PO SCH (21:01)
[2017-11-11] MEDS: APIXABAN 5 MG TABLET. PO SCH (21:01)
[2017-11-11] MEDS: hydrALAZINE 25 MG TABLET PO SCH (21:04)
[2017-11-11] MEDS: AMIODARONE HCL 200 MG TABLET. PO SCH (21:04)
[2017-11-11] MEDS: INSULIN GLARGINE 300 UNITS/3 ML INSULN.PEN. SQ SCH (21:05)
[2017-11-11] MEDS: METOPROLOL TART IMMED RELEASE 50 MG TABLET. PO SCH (21:05)
[2017-11-11] MEDS: cefTRIAXone IV Push 1 GM VIAL. IVP SCH (21:06)
[2017-11-11 23:25] VITALS: BP 93/55
[2017-11-12 03:25] VITALS: BP 112/52
--- NOTE | 2017-11-12 06:58 | PDOC ---
PROGRESS NOTES Chief Complaint Chief Complaint Altered mental status CVA Prostate surgery Left arm pain History of Present Illness History of Present Illness Patient is a 72-year-old male, with a past history of subarachnoid hemorrhage, and a stroke with left-sided deficit, BPH s/p turp with post-op CVA in September. According to report obtained from the patient's nursing facility, a nurse, who had the patient last night, thought that the patient had increasing left-sided facial droop yesterday. The patient states he just didn't feel well but did not have any localizing pain, nor does he express any current localizing pain, but grimaces on touching of his left arm. XR negative for fracture. CT Head in ED showed enlarged CVA possibly consistent with evolving infarct Today he is awake, visually interactive, only uses one word, delayed answers. Urine shows NGT. A/P: Acute encephalopathy - has had delerium per sister for a few weeks. CVA may be slightly evolved by CT, no hemorrhage, will cont eliquis. Likely multifactorial. Could be medication related, will hold his psych meds and lorazepam. Could also be infectious, likely source urine, does have some renal insufficiency as well, could be retaining Hypokalemia - replace today UTI - with LE positive and recent prostate instrumentation will cont empiric rocephin Left arm pain - likely MSK injury from fall, will XR to r/o fracture Renal insufficiency - Cr 1.3 up from prior 0.8, will add free water bolus to TF CVA - exacerbation of prior infarct due to infectious encephalopathy vs evolving infarct, will cont ASA and eliquis. [employer]/PT/OT Diabetes - cont lantus and add sliding scale q4 hours with TF Vitals Vitals Vital Signs Date Time Temp Pulse Resp B/P (MAP) Pulse Ox O2 Delivery O2 Flow Rate FiO2 11/12/17 03:25 98.0 66 20 112/52 (72) 96 Room Air 98.0 Physical Exam General: Other (Drowsy, can confirm his name, can answer some yes/no questions) Lungs: Clear Abdomen: Other (PEG site clean) Extremities: Other (3+ edema) Skin: Other (Skin break down on gluteus, bilateral hips and bilateral heels.) Labs LABS Laboratory Tests Test 11/11/17 07:20 11/11/17 11:49 10/5/18 16:59 11/11/17 20:40 Glucose (Fingerstick) 143 mg/dL (70-99) 186 mg/dL (70-99) 231 mg/dL (70-99) 202 mg/dL (70-99) Assessment and Plan Assessmemt and Plan Problems Medical Problems: (1) Altered mental status Status: Acute (2) UTI (urinary tract infection) Status: Acute Comment Review of Relevant I have reviewed the following items turner (where applicable) has been applied. Labs Laboratory Tests Test 11/10/17 23:42 11/11/17 07:20 11/11/17 11:49 11/11/17 16:59 White Blood Count 13.3 x10^3/uL (4.0-11.0) Red Blood Count 3.81 x10^6/uL (4.30-5.70) Hemoglobin 11.6 g/dL (13.0-17.5) Hematocrit 34.2 % (39.0-53.0) Mean Corpuscular Volume 90 fL (79-100) Mean Corpuscular Hemoglobin 30 pg (25-35) Mean Corpuscular Hemoglobin Concent 34 g/dL (31-37) Red Cell Distribution Width 13.7 % (11.5-14.5) Platelet Count 207 x10^3/uL (140-400) Neutrophils (%) (Auto) 76 % (31-73) Lymphocytes (%) (Auto) 10 % (24-48) Monocytes (%) (Auto) 11 % (0-9) Eosinophils (%) (Auto) 3 % (0-3) Basophils (%) (Auto) 1 % (0-3) Neutrophils # (Auto) 10.0 x10^3uL (1.8-7.7) Lymphocytes # (Auto) 1.3 x10^3/uL (1.0-4.8) Monocytes # (Auto) 1.4 x10^3/uL (0.0-1.1) Eosinophils # (Auto) 0.4 x10^3/uL (0.0-0.7) Basophils # (Auto) 0.1 x10^3/uL (0.0-0.2) Prothrombin Time 13.2 SEC (11.7-14.0) Prothromb Time International Ratio 1.1 (0.8-1.1) Activated Partial Thromboplast Time 24 SEC (24-38) Urine Collection Type Unknown Urine Color Yellow Urine Clarity Clear Urine pH 6.0 Urine Specific [place]ron 1.015 Urine Protein Negative mg/dL (NEG-TRACE) Urine Glucose (UA) Negative mg/dL (NEG) Urine Ketones (Stick) Negative mg/dL (NEG) Urine Blood Small (NEG) Urine Nitrite Negative (NEG) Urine Bilirubin Negative (NEG) Urine Urobilinogen Dipstick 0.2 mg/dL (0.2 mg/dL) Urine Leukocyte Esterase Large (NEG) Urine RBC 6-10 /HPF (0-2) Urine WBC >40 /HPF (0-4) Urine Bacteria Few /HPF (0-FEW) Urine Hyaline Casts Few /HPF Urine Mucus Mod /LPF Sodium Level 139 mmol/L (136-145) Potassium Level 4.7 mmol/L (3.5-5.1) Chloride Level 103 mmol/L (98-107) Carbon Dioxide Level 31 mmol/L (21-32) Anion Gap 5 (6-14) Blood Urea Nitrogen 31 mg/dL (8-26) Creatinine 1.3 mg/dL (0.7-1.3) Estimated GFR (Cockcroft-Gault) 54.3 BUN/Creatinine Ratio 24 (6-20) Glucose Level 154 mg/dL (70-99) Lactic Acid Level 0.9 mmol/L (0.4-2.0) Calcium Level 9.2 mg/dL (8.5-10.1) Magnesium Level 2.3 mg/dL (1.8-2.4) Total Bilirubin 0.4 mg/dL (0.2-1.0) Aspartate Amino Transf (AST/SGOT) 35 U/L (15-37) Alanine Aminotransferase (ALT/SGPT) 36 U/L (16-63) Alkaline Phosphatase 123 U/L (46-116) Creatine Kinase 405 U/L (39-308) Creatine Kinase MB (Mass) 2.7 ng/mL (0.0-3.6) Creatine Kinase MB Relative Index 0.7 % (0-4) Troponin I Quantitative < 0.017 ng/mL (0.000-0.055) UK-Xoh-A-Type Natriuretic Peptide 394 pg/mL (0-124) Total Protein 6.6 g/dL (6.4-8.2) Albumin 2.4 g/dL (3.4-5.0) Albumin/Globulin Ratio 0.6 (1.0-1.7) Lipase 309 U/L (73-393) Glucose (Fingerstick) 143 mg/dL (70-99) 186 mg/dL (70-99) 231 mg/dL (70-99) Test 11/11/17 20:40 Glucose (Fingerstick) 202 mg/dL (70-99) Laboratory Tests Test 11/11/17 07:20 11/11/17 11:49 11/11/17 16:59 11/11/17 20:40 Glucose (Fingerstick) 143 mg/dL (70-99) 186 mg/dL (70-99) 231 mg/dL (70-99) 202 mg/dL (70-99) Medications Current Medications Ceftriaxone Sodium 50 ml @ 100 mls/hr 1X ONCE IV Last administered on at 01:15; Start 11/11/17 at 01:15; Stop 11/11/17 at 01:44; Status DC Ceftriaxone Sodium 1 gm/ Dextrose 50 ml @ 100 mls/hr Q24H IV ; Start 11/11/17 at 21:00; Status UNV Dextrose/Sodium Chloride 1,000 ml @ 100 mls/hr 1X ONCE IV Last administered on 11/11/17at 08:37; Start 11/11/17 at 07:00; Stop 11/11/17 at 16:59; Status DC Ceftriaxone Sodium (Rocephin) 1 gm Q24H IVP Last administered on 11/11/17at 21: 06; Start 11/11/17 at 21:00 Ascorbic Acid (Vitamin C) 500 mg DAILY PO ; Start 11/12/17 at 09:00 Multivitamins (Thera-Plus Oral Liquid) 5 ml DAILY PEG ; Start 11/12/17 at 09:00 Amiodarone HCl (Cordarone) 200 mg BID PO Last administered on 11/11/17at 21:04; Start 11/11/17 at 21:00 Apixaban (Eliquis) 5 mg BID PO ; Start 11/11/17 at 21:00; Stop 11/11/17 at 21:00 ; Status DC Aspirin (Children'S Aspirin) 81 mg DAILY PO Last administered on 11/11/17at 16: 52; Start 11/11/17 at 16:00 Insulin Glargine (Lantus) 25 units QHS SQ Last administered on 11/11/17 21:05 ; Start 11/11/17 at 21:00 Metoprolol Tartrate (Lopressor) 100 mg BID PO Last administered on 11/11/17at 21 :05; Start 11/11/17 at 21:00 Nystatin (Nystop) 1 rosalina DAILY TP Last administered on 11/11/17 16:52; Start 11/11/17 at 16:00 Tamsulosin HCl (Flomax) 0.4 mg DAILY PO Last administered on 11/11/17 16:52; Start 11/11/17 at 16:00 Citalopram Hydrobromide (CeleXA) 40 mg DAILY PO Last administered on 11/11/17 16:52; Start 11/11/17 at 16:00 Hydralazine HCl (Apresoline) 25 mg BID PO Last administered on 11/11/17at 21:04 ; Start 11/11/17 at 21:00 Memantine (Namenda) 10 mg BID PO Last administered on 11/11/17at 21:01; Start 11/11/17 at 21:00 Non-Formulary Medication (Rosuvastatin Calcium (Crestor)) 5 mg HS PO ; Start at 21:00; Status UNV Furosemide (Lasix) 40 mg DAILY IVP ; Start 11/12/17 at 09:00; Stop 11/12/17 at 09:00; Status DC Apixaban (Eliquis) 5 mg BID PO Last administered on 11/11/17at 21:01; Start 11/11/17 at 21:00 Insulin Human Lispro (HumaLOG) 0-9 UNITS TIDWMEALS SQ Last administered on 11/11at 18:12; Start 11/11/17 at 17:00 Dextrose (Dextrose 50%-Water Syringe) 12.5 gm PRN Q15MIN PRN IV SEE COMMENTS; Start 11/11/17 at 15:45 Info (Anti-Coagulation Monitoring By Pharmacy) 1 each PRN DAILY PRN MC SEE COMMENTS; Start 11/11/17 at 16:30 Furosemide (Lasix) 40 mg DAILY IVP Last administered on 11/11/17at 16:53; Start 11/11/17 at 16:45 Active Scripts Active Reported Metoprolol Tartrate 100 Mg Tablet 100 Mg PO BID Multivitamins (Multivitamin) 1 Each Tablet 1 Tab PO DAILY Hydralazine Hcl 25 Mg Tablet 1 Tab PO BID Donepezil Hcl 5 Mg Tab.rapdis 5 Mg PO HS B-12 (Cyanocobalamin (Vitamin B-12)) 1,000 Mcg Tablet 1,000 Mcg PO DAILY Aspirin 81 Mg Tab.chew 1 Tab PO DAILY Eliquis (Apixaban) 5 Mg Tablet 5 Mg PO BID Amiodarone Hcl 200 Mg Tablet 200 Mg PO BID Tylenol (Acetaminophen) 325 Mg Tablet 2 Tab PO PRN Q4HRS Benazepril Hcl 40 Mg Tablet 1 Tab PO DAILY Gabapentin 600 Mg Tablet 1,800 Mg PO QHS Furosemide 80 Mg Tablet 1 Tab PO DAILY Celexa (Citalopram Hydrobromide) 40 Mg Tablet 40 Mg PO DAILY Vitamin D (Cholecalciferol (Vitamin D3)) 1,000 Unit Capsule 1 Cap PO DAILY Cetirizine Hcl 10 Mg Tablet 1 Tab PO HS Crestor (Rosuvastatin Calcium) 5 Mg Tablet 5 Mg PO HS Potassium Chloride 20 Meq Tablet.er 20 Meq PO DAILY Zofran Odt (Ondansetron) 4 Mg Tab.rapdis 4 Mg PO BID PRN Namenda (Memantine Hcl) 10 Mg Tablet 10 Mg PO BID Melatonin 3 Mg Tablet 5 Mg PO QHS Humalog (Insulin Lispro) 100 Unit/1 Ml Cartridge 100 Unit SQ sliding scale Lantus Solostar (Insulin Glargine,Hum.rec.anlog) 100 Unit/1 Ml Insuln.pen 25 Unit SQ QHS Lantus Solostar (Insulin Glargine,Hum.rec.anlog) 100 Unit/1 Ml Insuln.pen 50 Unit SQ DAILY08 Tamsulosin Hcl 0.4 Mg Cap.er.24h 0.4 Mg PO DAILY Nystatin 15 Gm Powder 15 Gm TP Lum[place] (Bimatoprost) 2.5 Ml Drops 2.5 Ml OP Lorazepam 0.5 Mg Tablet 0.5 Mg PO BID Flonase Allergy Relief (Fluticasone Propionate) 9.9 Ml [place].susp Unknown Dose NS DAILY Fenofibrate (Fenofibrate,Micronized) 134 Mg Capsule 134 Mg PO DAILY Bupropion Xl (Bupropion Hcl) 300 Mg Tab.er.24h 300 Mg PO Vitals/I & O Vital Sign - Last 24 Hours 11/11/17 11/11/17 11/11/17 11/11/17 07:39 08:00 11:03 15:12 Temp 99.6 99.8 98.8 99.6 99.8 98.8 Pulse 72 72 83 Resp 20 20 20 B/P (MAP) 127/63 (84) 150/48 (82) 148/66 (93) Pulse Ox 94 96 95 O2 Delivery Room Air Room Air Room Air Room Air 11/11/17 11/11/17 11/11/17 11/11/17 19:25 20:00 21:04 21:04 Temp 99.5 99.5 Pulse 85 Resp 22 B/P (MAP) 122/51 (74) 122/51 122/51 Pulse Ox 93 O2 Delivery Room Air Room Air 11/11/17 11/11/17 11/12/17 21:05 23:25 03:25 Temp 99.2 98.0 99.2 98.0 Pulse 70 66 Resp 20 20 B/P (MAP) 122/51 93/55 (68) 112/52 (72) Pulse Ox 94 96 O2 Delivery Room Air Room Air Intake and Output 11/11/17 11/11/17 11/12/17 15:00 23:00 07:00 Intake Total 150 ml 0 ml Output Total 825 ml Balance -675 ml 0 ml SCARLET HERNDON MD Nov 12, 2017 06:58
[2017-11-12 07:00] VITALS: BP 125/62
[2017-11-12] MEDS: INSULIN LISPRO 300 UNITS/3 ML INSULN.PEN. SQ SCH ×3 (07:59→16:11)
[2017-11-12] MEDS: ANTI-COAG MONITOR BY PHARMACY. MC PRN (08:35)
[2017-11-12] MEDS ORDERED: FUROSEMIDE 40 MG/4 ML VIAL. IVP SCH (09:00)
[2017-11-12] MEDS: CITALOPRAM 20 MG TABLET. PO SCH (09:33)
[2017-11-12] MEDS: MULTIVITAMINS,THERAPEUTIC 5 ML ORAL LIQUID. PEG SCH (09:33)
[2017-11-12] MEDS: TAMSULOSIN 0.4 MG CAP.ER.24H. PO SCH (09:33)
[2017-11-12] MEDS: hydrALAZINE 25 MG TABLET PO SCH ×2 (09:33→20:20)
[2017-11-12] MEDS: MEMANTINE 10 MG TABLET. PO SCH ×2 (09:33→20:20)
[2017-11-12] MEDS: ASCORBIC ACID 500 MG TABLET PO SCH (09:34)
[2017-11-12] MEDS: METOPROLOL TART IMMED RELEASE 50 MG TABLET. PO SCH ×2 (09:34→20:20)
[2017-11-12] MEDS: FUROSEMIDE 40 MG/4 ML VIAL. IVP SCH (09:35)
[2017-11-12] MEDS: AMIODARONE HCL 200 MG TABLET. PO SCH ×2 (09:35→20:21)
[2017-11-12] MEDS: APIXABAN 5 MG TABLET. PO SCH ×2 (09:35→20:23)
[2017-11-12] MEDS: ASPIRIN CHEWABLE 81 MG TABLET. PO SCH (09:35)
[2017-11-12] MEDS: NYSTATIN TOPICAL POWDER 15GM BOTTLE. TP SCH (09:36)
[2017-11-12 11:00] VITALS: BP 111/44
[2017-11-12 11:47] LABS: CALCIUM 8.3 mg/dL (8.5-10.1); CREATININE 1.2 mg/dL (0.7-1.3); GFR 59.5; POTASSIUM 3.5 mmol/L (3.5-5.1)
[2017-11-12 12:52] LABS: BASO # 0.1 x10^3/uL (0.0-0.2); BASO % 1 % (0-3); EOS # 0.3 x10^3/uL (0.0-0.7); EOS % 3 % (0-3); HEMATOCRIT 32.1 % (39.0-53.0); HEMOGLOBIN 11.1 g/dL (13.0-17.5); LYMPH # 1.1 x10^3/uL (1.0-4.8); LYMPH % 12 % (24-48); MEAN CORPUSCULAR HEMOGLOBIN 31 pg (25-35); MEAN CORPUSCULAR HGB CONC 34 g/dL (31-37); MEAN CORPUSCULAR VOLUME 89 fL (79-100); MONO # 0.9 x10^3/uL (0.0-1.1); MONO % 10 % (0-9); NEUT # 6.8 x10^3uL (1.8-7.7); NEUT % 73 % (31-73); PLATELET COUNT 196 x10^3/uL (140-400); RED BLOOD COUNT 3.62 x10^6/uL (4.30-5.70); RED CELL DISTRIBUTION WIDTH 13.5 % (11.5-14.5); WHITE BLOOD COUNT 9.2 x10^3/uL (4.0-11.0)
[2017-11-12 15:00] VITALS: BP 124/44
[2017-11-12 19:45] VITALS: BP 148/58
[2017-11-12] MEDS: cefTRIAXone IV Push 1 GM VIAL. IVP SCH (20:21)
[2017-11-12] MEDS: CETIRIZINE HCL 10 MG TABLET. PO SCH (20:21)
[2017-11-12] MEDS: ACETAMINOPHEN 650 MG/20.3 ML SOLUTION. PEG PRN (20:22)
[2017-11-12] MEDS: INSULIN GLARGINE 300 UNITS/3 ML INSULN.PEN. SQ SCH (20:40)
[2017-11-12 23:48] VITALS: BP 130/66
[2017-11-13 03:40] VITALS: BP 129/63
[2017-11-13 05:11] LABS: BASO # 0.1 x10^3/uL (0.0-0.2); BASO % 1 % (0-3); EOS # 0.3 x10^3/uL (0.0-0.7); EOS % 4 % (0-3); HEMATOCRIT 30.9 % (39.0-53.0); HEMOGLOBIN 10.5 g/dL (13.0-17.5); LYMPH # 1.6 x10^3/uL (1.0-4.8); LYMPH % 22 % (24-48); MEAN CORPUSCULAR HEMOGLOBIN 30 pg (25-35); MEAN CORPUSCULAR HGB CONC 34 g/dL (31-37); MEAN CORPUSCULAR VOLUME 89 fL (79-100); MONO # 0.8 x10^3/uL (0.0-1.1); MONO % 11 % (0-9); NEUT # 4.5 x10^3uL (1.8-7.7); NEUT % 61 % (31-73); PLATELET COUNT 196 x10^3/uL (140-400); RED BLOOD COUNT 3.47 x10^6/uL (4.30-5.70); RED CELL DISTRIBUTION WIDTH 13.1 % (11.5-14.5); WHITE BLOOD COUNT 7.4 x10^3/uL (4.0-11.0)
[2017-11-13 05:26] LABS: CALCIUM 8.7 mg/dL (8.5-10.1); CREATININE 1.2 mg/dL (0.7-1.3); GFR 59.5; POTASSIUM 3.4 mmol/L (3.5-5.1)
[2017-11-13 07:00] VITALS: BP 137/53
[2017-11-13] MEDS: FUROSEMIDE 40 MG/4 ML VIAL. IVP SCH (08:46)
[2017-11-13] MEDS: CITALOPRAM 20 MG TABLET. PO SCH (08:47)
[2017-11-13] MEDS: METOPROLOL TART IMMED RELEASE 50 MG TABLET. PO SCH ×2 (08:47→20:55)
[2017-11-13] MEDS: MULTIVITAMINS,THERAPEUTIC 5 ML ORAL LIQUID. PEG SCH (08:47)
[2017-11-13] MEDS: ASPIRIN CHEWABLE 81 MG TABLET. PO SCH (08:47)
[2017-11-13] MEDS: hydrALAZINE 25 MG TABLET PO SCH ×2 (08:48→20:56)
[2017-11-13] MEDS: MEMANTINE 10 MG TABLET. PO SCH ×2 (08:48→20:57)
[2017-11-13] MEDS: APIXABAN 5 MG TABLET. PO SCH ×2 (08:48→20:55)
[2017-11-13] MEDS: TAMSULOSIN 0.4 MG CAP.ER.24H. PO SCH (08:49)
[2017-11-13] MEDS: NYSTATIN TOPICAL POWDER 15GM BOTTLE. TP SCH (08:49)
[2017-11-13] MEDS: ASCORBIC ACID 500 MG TABLET PO SCH (08:49)
[2017-11-13] MEDS: AMIODARONE HCL 200 MG TABLET. PO SCH ×2 (08:49→20:56)
[2017-11-13] MEDS: INSULIN LISPRO 300 UNITS/3 ML INSULN.PEN. SQ SCH ×3 (08:53→17:00)
--- NOTE | 2017-11-13 08:53 | PDOC ---
PROGRESS NOTES Chief Complaint Chief Complaint Altered mental status CVA Prostate surgery Left arm pain History of Present Illness History of Present Illness Patient is a 72-year-old male, with a past history of subarachnoid hemorrhage, and a stroke with left-sided deficit, BPH s/p turp with post-op CVA in September. According to report obtained from the patient's nursing facility, a nurse, who had the patient last night, thought that the patient had increasing left-sided facial droop yesterday. The patient states he just didn't feel well but did not have any localizing pain, nor does he express any current localizing pain, but grimaces on touching of his left arm. XR negative for fracture. CT Head in ED showed enlarged CVA possibly consistent with evolving infarct Today he is awake, visually interactive, speaking multiple words, nonsensical, delayed answers. Urine shows NGTD. His PEG does not have a good seal today, may need to replace connection. A/P: Acute encephalopathy - Improving. has had delerium per sister for a few weeks. CVA may be slightly evolved by CT, no hemorrhage, will cont eliquis. Likely multifactorial. Could be medication related, will hold his psych meds and lorazepam. Less likely infectious, stop antibiotics Hypokalemia - replace today and check levels again Abnormal UA - with LE positive and recent prostate instrumentation will d/c empiric rocephin Left arm pain - likely MSK injury from fall, XR r/o fracture, pain is improving Renal insufficiency - Cr 1.3 up from prior 0.8, will add free water bolus to TF 150cc every 4 hours, repeat labs CVA - exacerbation of prior infarct due to infectious encephalopathy vs evolving infarct, will cont ASA and eliquis. [employer]/PT/OT Diabetes - cont lantus and add sliding scale q4 hours with TF To rehab soon Vitals Vitals Vital Signs Date Time Temp Pulse Resp B/P (MAP) Pulse Ox O2 Delivery O2 Flow Rate FiO2 11/13/17 07:00 98.9 64 20 137/53 (81) 97 Room Air 98.9 Physical Exam General: Other (Drowsy, can confirm his name, can answer some yes/no questions) Lungs: Clear Abdomen: Other (PEG site clean) Extremities: Other (3+ edema) Skin: Other (Skin break down on gluteus, bilateral hips and bilateral heels.) Labs LABS Laboratory Tests Test 10/6/18 11:20 11/12/17 11:36 11/12/17 12:25 11/12/17 16:08 Sodium Level 140 mmol/L (136-145) Potassium Level 3.5 mmol/L (3.5-5.1) Chloride Level 104 mmol/L (98-107) Carbon Dioxide Level 28 mmol/L (21-32) Anion Gap 8 (6-14) Blood Urea Nitrogen 27 mg/dL (8-26) Creatinine 1.2 mg/dL (0.7-1.3) Estimated GFR (Cockcroft-Gault) 59.5 Glucose Level 152 mg/dL (70-99) Calcium Level 8.3 mg/dL (8.5-10.1) Glucose (Fingerstick) 158 mg/dL (70-99) 186 mg/dL (70-99) White Blood Count 9.2 x10^3/uL (4.0-11.0) Red Blood Count 3.62 x10^6/uL (4.30-5.70) Hemoglobin 11.1 g/dL (13.0-17.5) Hematocrit 32.1 % (39.0-53.0) Mean Corpuscular Volume 89 fL (79-100) Mean Corpuscular Hemoglobin 31 pg (25-35) Mean Corpuscular Hemoglobin Concent 34 g/dL (31-37) Red Cell Distribution Width 13.5 % (11.5-14.5) Platelet Count 196 x10^3/uL (140-400) Neutrophils (%) (Auto) 73 % (31-73) Lymphocytes (%) (Auto) 12 % (24-48) Monocytes (%) (Auto) 10 % (0-9) Eosinophils (%) (Auto) 3 % (0-3) Basophils (%) (Auto) 1 % (0-3) Neutrophils # (Auto) 6.8 x10^3uL (1.8-7.7) Lymphocytes # (Auto) 1.1 x10^3/uL (1.0-4.8) Monocytes # (Auto) 0.9 x10^3/uL (0.0-1.1) Eosinophils # (Auto) 0.3 x10^3/uL (0.0-0.7) Basophils # (Auto) 0.1 x10^3/uL (0.0-0.2) Test 11/12/17 20:00 11/13/17 04:40 11/13/17 07:16 Glucose (Fingerstick) 185 mg/dL (70-99) 180 mg/dL (70-99) White Blood Count 7.4 x10^3/uL (4.0-11.0) Red Blood Count 3.47 x10^6/uL (4.30-5.70) Hemoglobin 10.5 g/dL (13.0-17.5) Hematocrit 30.9 % (39.0-53.0) Mean Corpuscular Volume 89 fL (79-100) Mean Corpuscular Hemoglobin 30 pg (25-35) Mean Corpuscular Hemoglobin Concent 34 g/dL (31-37) Red Cell Distribution Width 13.1 % (11.5-14.5) Platelet Count 196 x10^3/uL (140-400) Neutrophils (%) (Auto) 61 % (31-73) Lymphocytes (%) (Auto) 22 % (24-48) Monocytes (%) (Auto) 11 % (0-9) Eosinophils (%) (Auto) 4 % (0-3) Basophils (%) (Auto) 1 % (0-3) Neutrophils # (Auto) 4.5 x10^3uL (1.8-7.7) Lymphocytes # (Auto) 1.6 x10^3/uL (1.0-4.8) Monocytes # (Auto) 0.8 x10^3/uL (0.0-1.1) Eosinophils # (Auto) 0.3 x10^3/uL (0.0-0.7) Basophils # (Auto) 0.1 x10^3/uL (0.0-0.2) Sodium Level 142 mmol/L (136-145) Potassium Level 3.4 mmol/L (3.5-5.1) Chloride Level 105 mmol/L (98-107) Carbon Dioxide Level 30 mmol/L (21-32) Anion Gap 7 (6-14) Blood Urea Nitrogen 27 mg/dL (8-26) Creatinine 1.2 mg/dL (0.7-1.3) Estimated GFR (Cockcroft-Gault) 59.5 Glucose Level 175 mg/dL (70-99) Calcium Level 8.7 mg/dL (8.5-10.1) Assessment and Plan Assessmemt and Plan Problems Medical Problems: (1) Altered mental status Status: Acute (2) UTI (urinary tract infection) Status: Acute Comment Review of Relevant I have reviewed the following items turner (where applicable) has been applied. Labs Laboratory Tests Test 11/11/17 11:49 11/11/17 16:59 11/11/17 20:40 11/12/17 07:35 Glucose (Fingerstick) 186 mg/dL (70-99) 231 mg/dL (70-99) 202 mg/dL (70-99) 146 mg/dL (70-99) Test 11/12/17 11:20 11/12/17 11:36 11/12/17 12:25 11/12/17 16:08 Sodium Level 140 mmol/L (136-145) Potassium Level 3.5 mmol/L (3.5-5.1) Chloride Level 104 mmol/L (98-107) Carbon Dioxide Level 28 mmol/L (21-32) Anion Gap 8 (6-14) Blood Urea Nitrogen 27 mg/dL (8-26) Creatinine 1.2 mg/dL (0.7-1.3) Estimated GFR (Cockcroft-Gault) 59.5 Glucose Level 152 mg/dL (70-99) Calcium Level 8.3 mg/dL (8.5-10.1) Glucose (Fingerstick) 158 mg/dL (70-99) 186 mg/dL (70-99) White Blood Count 9.2 x10^3/uL (4.0-11.0) Red Blood Count 3.62 x10^6/uL (4.30-5.70) Hemoglobin 11.1 g/dL (13.0-17.5) Hematocrit 32.1 % (39.0-53.0) Mean Corpuscular Volume 89 fL (79-100) Mean Corpuscular Hemoglobin 31 pg (25-35) Mean Corpuscular Hemoglobin Concent 34 g/dL (31-37) Red Cell Distribution Width 13.5 % (11.5-14.5) Platelet Count 196 x10^3/uL (140-400) Neutrophils (%) (Auto) 73 % (31-73) Lymphocytes (%) (Auto) 12 % (24-48) Monocytes (%) (Auto) 10 % (0-9) Eosinophils (%) (Auto) 3 % (0-3) Basophils (%) (Auto) 1 % (0-3) Neutrophils # (Auto) 6.8 x10^3uL (1.8-7.7) Lymphocytes # (Auto) 1.1 x10^3/uL (1.0-4.8) Monocytes # (Auto) 0.9 x10^3/uL (0.0-1.1) Eosinophils # (Auto) 0.3 x10^3/uL (0.0-0.7) Basophils # (Auto) 0.1 x10^3/uL (0.0-0.2) Test 11/12/17 20:00 11/13/17 04:40 11/13/17 07:16 Glucose (Fingerstick) 185 mg/dL (70-99) 180 mg/dL (70-99) White Blood Count 7.4 x10^3/uL (4.0-11.0) Red Blood Count 3.47 x10^6/uL (4.30-5.70) Hemoglobin 10.5 g/dL (13.0-17.5) Hematocrit 30.9 % (39.0-53.0) Mean Corpuscular Volume 89 fL (79-100) Mean Corpuscular Hemoglobin 30 pg (25-35) Mean Corpuscular Hemoglobin Concent 34 g/dL (31-37) Red Cell Distribution Width 13.1 % (11.5-14.5) Platelet Count 196 x10^3/uL (140-400) Neutrophils (%) (Auto) 61 % (31-73) Lymphocytes (%) (Auto) 22 % (24-48) Monocytes (%) (Auto) 11 % (0-9) Eosinophils (%) (Auto) 4 % (0-3) Basophils (%) (Auto) 1 % (0-3) Neutrophils # (Auto) 4.5 x10^3uL (1.8-7.7) Lymphocytes # (Auto) 1.6 x10^3/uL (1.0-4.8) Monocytes # (Auto) 0.8 x10^3/uL (0.0-1.1) Eosinophils # (Auto) 0.3 x10^3/uL (0.0-0.7) Basophils # (Auto) 0.1 x10^3/uL (0.0-0.2) Sodium Level 142 mmol/L (136-145) Potassium Level 3.4 mmol/L (3.5-5.1) Chloride Level 105 mmol/L (98-107) Carbon Dioxide Level 30 mmol/L (21-32) Anion Gap 7 (6-14) Blood Urea Nitrogen 27 mg/dL (8-26) Creatinine 1.2 mg/dL (0.7-1.3) Estimated GFR (Cockcroft-Gault) 59.5 Glucose Level 175 mg/dL (70-99) Calcium Level 8.7 mg/dL (8.5-10.1) Laboratory Tests Test 11/12/17 11:20 11/12/17 11:36 11/12/17 12:25 11/12/17 16:08 Sodium Level 140 mmol/L (136-145) Potassium Level 3.5 mmol/L (3.5-5.1) Chloride Level 104 mmol/L (98-107) Carbon Dioxide Level 28 mmol/L (21-32) Anion Gap 8 (6-14) Blood Urea Nitrogen 27 mg/dL (8-26) Creatinine 1.2 mg/dL (0.7-1.3) Estimated GFR (Cockcroft-Gault) 59.5 Glucose Level 152 mg/dL (70-99) Calcium Level 8.3 mg/dL (8.5-10.1) Glucose (Fingerstick) 158 mg/dL (70-99) 186 mg/dL (70-99) White Blood Count 9.2 x10^3/uL (4.0-11.0) Red Blood Count 3.62 x10^6/uL (4.30-5.70) Hemoglobin 11.1 g/dL (13.0-17.5) Hematocrit 32.1 % (39.0-53.0) Mean Corpuscular Volume 89 fL (79-100) Mean Corpuscular Hemoglobin 31 pg (25-35) Mean Corpuscular Hemoglobin Concent 34 g/dL (31-37) Red Cell Distribution Width 13.5 % (11.5-14.5) Platelet Count 196 x10^3/uL (140-400) Neutrophils (%) (Auto) 73 % (31-73) Lymphocytes (%) (Auto) 12 % (24-48) Monocytes (%) (Auto) 10 % (0-9) Eosinophils (%) (Auto) 3 % (0-3) Basophils (%) (Auto) 1 % (0-3) Neutrophils # (Auto) 6.8 x10^3uL (1.8-7.7) Lymphocytes # (Auto) 1.1 x10^3/uL (1.0-4.8) Monocytes # (Auto) 0.9 x10^3/uL (0.0-1.1) Eosinophils # (Auto) 0.3 x10^3/uL (0.0-0.7) Basophils # (Auto) 0.1 x10^3/uL (0.0-0.2) Test 11/12/17 20:00 11/13/17 04:40 11/13/17 07:16 Glucose (Fingerstick) 185 mg/dL (70-99) 180 mg/dL (70-99) White Blood Count 7.4 x10^3/uL (4.0-11.0) Red Blood Count 3.47 x10^6/uL (4.30-5.70) Hemoglobin 10.5 g/dL (13.0-17.5) Hematocrit 30.9 % (39.0-53.0) Mean Corpuscular Volume 89 fL (79-100) Mean Corpuscular Hemoglobin 30 pg (25-35) Mean Corpuscular Hemoglobin Concent 34 g/dL (31-37) Red Cell Distribution Width 13.1 % (11.5-14.5) Platelet Count 196 x10^3/uL (140-400) Neutrophils (%) (Auto) 61 % (31-73) Lymphocytes (%) (Auto) 22 % (24-48) Monocytes (%) (Auto) 11 % (0-9) Eosinophils (%) (Auto) 4 % (0-3) Basophils (%) (Auto) 1 % (0-3) Neutrophils # (Auto) 4.5 x10^3uL (1.8-7.7) Lymphocytes # (Auto) 1.6 x10^3/uL (1.0-4.8) Monocytes # (Auto) 0.8 x10^3/uL (0.0-1.1) Eosinophils # (Auto) 0.3 x10^3/uL (0.0-0.7) Basophils # (Auto) 0.1 x10^3/uL (0.0-0.2) Sodium Level 142 mmol/L (136-145) Potassium Level 3.4 mmol/L (3.5-5.1) Chloride Level 105 mmol/L (98-107) Carbon Dioxide Level 30 mmol/L (21-32) Anion Gap 7 (6-14) Blood Urea Nitrogen 27 mg/dL (8-26) Creatinine 1.2 mg/dL (0.7-1.3) Estimated GFR (Cockcroft-Gault) 59.5 Glucose Level 175 mg/dL (70-99) Calcium Level 8.7 mg/dL (8.5-10.1) Microbiology 11/10/17 Urine Culture - Final, Complete 11/10/17 Urine Culture Result 1 (YOEL) - Final, Complete Medications Current Medications Ceftriaxone Sodium 50 ml @ 100 mls/hr 1X ONCE IV Last administered on at 01:15; Start 11/11/17 at 01:15; Stop 11/11/17 at 01:44; Status DC Ceftriaxone Sodium 1 gm/ Dextrose 50 ml @ 100 mls/hr Q24H IV ; Start 11/11/17 at 21:00; Status UNV Dextrose/Sodium Chloride 1,000 ml @ 100 mls/hr 1X ONCE IV Last administered on 11/11/17at 08:37; Start 11/11/17 at 07:00; Stop 11/11/17 at 16:59; Status DC Ceftriaxone Sodium (Rocephin) 1 gm Q24H IVP Last administered on 11/12/17at 20: 21; Start 11/11/17 at 21:00 Ascorbic Acid (Vitamin C) 500 mg DAILY PO Last administered on 11/12/17at 09:34 ; Start 11/12/17 at 09:00 Multivitamins (Thera-Plus Oral Liquid) 5 ml DAILY PEG Last administered on 11/12at 09:33; Start 11/12/17 at 09:00 Amiodarone HCl (Cordarone) 200 mg BID PO Last administered on 11/12/17 20:21; Start 11/11/17 at 21:00 Apixaban (Eliquis) 5 mg BID PO ; Start 11/11/17 at 21:00; Stop 11/11/17 at 21:00 ; Status DC Aspirin (Children'S Aspirin) 81 mg DAILY PO Last administered on 11/12/17 09: 35; Start 11/11/17 at 16:00 Insulin Glargine (Lantus) 25 units QHS SQ Last administered on 11/12/17 20:40 ; Start 11/11/17 at 21:00 Metoprolol Tartrate (Lopressor) 100 mg BID PO Last administered on 11/12/17 20 :20; Start 11/11/17 at 21:00 Nystatin (Nystop) 1 rosalina DAILY TP Last administered on 11/12/17 09:36; Start 11/11/17 at 16:00 Tamsulosin HCl (Flomax) 0.4 mg DAILY PO Last administered on 11/12/17 09:33; Start 11/11/17 at 16:00 Citalopram Hydrobromide (CeleXA) 40 mg DAILY PO Last administered on 11/12/17 09:33; Start 11/11/17 at 16:00 Hydralazine HCl (Apresoline) 25 mg BID PO Last administered on 11/12/17 20:20 ; Start 11/11/17 at 21:00 Memantine (Namenda) 10 mg BID PO Last administered on 11/12/17 20:20; Start 11/11/17 at 21:00 Non-Formulary Medication (Rosuvastatin Calcium (Crestor)) 5 mg HS PO ; Start at 21:00; Status UNV Furosemide (Lasix) 40 mg DAILY IVP ; Start 11/12/17 at 09:00; Stop 11/12/17 at 09:00; Status DC Apixaban (Eliquis) 5 mg BID PO Last administered on 11/12/17 20:23; Start 11/11/17 at 21:00 Insulin Human Lispro (HumaLOG) 0-9 UNITS TIDWMEALS SQ Last administered on 11/11at 18:12; Start 11/11/17 at 17:00 Dextrose (Dextrose 50%-Water Syringe) 12.5 gm PRN Q15MIN PRN IV SEE COMMENTS; Start 11/11/17 at 15:45 Info (Anti-Coagulation Monitoring By Pharmacy) 1 each PRN DAILY PRN MC SEE COMMENTS Last administered on 11/12/17at 08:35; Start 11/11/17 at 16:30 Furosemide (Lasix) 40 mg DAILY IVP Last administered on 11/12/17at 09:35; Start 11/11/17 at 16:45 Cetirizine HCl (ZyrTEC) 10 mg HS PO Last administered on 11/12/17at 20:21; Start 11/12/17 at 21:00 Acetaminophen (Tylenol) 1,000 mg PRN Q6HRS PRN PEG MILD PAIN / TEMP Last administered on 11/12/17at 20:22; Start 11/12/17 at 19:30 Active Scripts Active Reported Metoprolol Tartrate 100 Mg Tablet 100 Mg PO BID Multivitamins (Multivitamin) 1 Each Tablet 1 Tab PO DAILY Hydralazine Hcl 25 Mg Tablet 1 Tab PO BID Donepezil Hcl 5 Mg Tab.rapdis 5 Mg PO HS B-12 (Cyanocobalamin (Vitamin B-12)) 1,000 Mcg Tablet 1,000 Mcg PO DAILY Aspirin 81 Mg Tab.chew 1 Tab PO DAILY Eliquis (Apixaban) 5 Mg Tablet 5 Mg PO BID Amiodarone Hcl 200 Mg Tablet 200 Mg PO BID Tylenol (Acetaminophen) 325 Mg Tablet 2 Tab PO PRN Q4HRS Benazepril Hcl 40 Mg Tablet 1 Tab PO DAILY Gabapentin 600 Mg Tablet 1,800 Mg PO QHS Furosemide 80 Mg Tablet 1 Tab PO DAILY Celexa (Citalopram Hydrobromide) 40 Mg Tablet 40 Mg PO DAILY Vitamin D (Cholecalciferol (Vitamin D3)) 1,000 Unit Capsule 1 Cap PO DAILY Cetirizine Hcl 10 Mg Tablet 1 Tab PO HS Crestor (Rosuvastatin Calcium) 5 Mg Tablet 5 Mg PO HS Potassium Chloride 20 Meq Tablet.er 20 Meq PO DAILY Zofran Odt (Ondansetron) 4 Mg Tab.rapdis 4 Mg PO BID PRN Namenda (Memantine Hcl) 10 Mg Tablet 10 Mg PO BID Melatonin 3 Mg Tablet 5 Mg PO QHS Humalog (Insulin Lispro) 100 Unit/1 Ml Cartridge 100 Unit SQ sliding scale Lantus Solostar (Insulin Glargine,Hum.rec.anlog) 100 Unit/1 Ml Insuln.pen 25 Unit SQ QHS Lantus Solostar (Insulin Glargine,Hum.rec.anlog) 100 Unit/1 Ml Insuln.pen 50 Unit SQ DAILY08 Tamsulosin Hcl 0.4 Mg Cap.er.24h 0.4 Mg PO DAILY Nystatin 15 Gm Powder 15 Gm TP Lumigan (Bimatoprost) 2.5 Ml Drops 2.5 Ml OP Lorazepam 0.5 Mg Tablet 0.5 Mg PO BID Flonase Allergy Relief (Fluticasone Propionate) 9.9 Ml Pinnacle.susp Unknown Dose NS DAILY Fenofibrate (Fenofibrate,Micronized) 134 Mg Capsule 134 Mg PO DAILY Bupropion Xl (Bupropion Hcl) 300 Mg Tab.er.24h 300 Mg PO Vitals/I & O Vital Sign - Last 24 Hours 11/12/17 11/12/17 11/12/17 11/12/17 09:33 09:34 09:35 11:00 Temp 98.1 98.1 Pulse 70 70 70 63 Resp 16 B/P (MAP) 125/62 125/62 125/62 111/44 (66) Pulse Ox 93 O2 Delivery Room Air 11/12/17 11/12/17 11/12/17 11/12/17 15:00 19:45 20:00 20:20 Temp 98.6 98.5 98.6 98.5 Pulse 61 65 65 Resp 16 18 B/P (MAP) 124/44 (70) 148/58 (88) 145/58 Pulse Ox 96 95 O2 Delivery Room Air Room Air Room Air 11/12/17 11/12/17 11/12/17 11/13/17 20:20 20:21 23:48 03:40 Temp 98.9 98.7 98.9 98.7 Pulse 65 65 69 61 Resp 18 18 B/P (MAP) 148/58 148/58 130/66 (87) 129/63 (85) Pulse Ox 95 95 O2 Delivery Room Air Room Air 11/13/17 07:00 Temp 98.9 98.9 Pulse 64 Resp 20 B/P (MAP) 137/53 (81) Pulse Ox 97 O2 Delivery Room Air Intake and Output 11/12/17 11/12/17 11/13/17 15:00 23:00 07:00 Intake Total 0 ml 0 ml Output Total 0 ml 1000 ml 1100 ml Balance 0 ml -1000 ml -1100 ml SCARLET HERNDON MD Nov 13, 2017 08:53
[2017-11-13 11:00] VITALS: BP 116/52
[2017-11-13] MEDS: ANTI-COAG MONITOR BY PHARMACY. MC PRN (14:43)
[2017-11-13 15:00] VITALS: BP 137/43
[2017-11-13] MEDS: ACETAMINOPHEN 650 MG/20.3 ML SOLUTION. PEG PRN (18:31)
[2017-11-13 19:37] VITALS: BP 129/51
[2017-11-13] MEDS: CETIRIZINE HCL 10 MG TABLET. PO SCH (20:57)
[2017-11-13] MEDS: INSULIN GLARGINE 300 UNITS/3 ML INSULN.PEN. SQ SCH (21:10)
[2017-11-13 23:03] VITALS: BP 133/59
[2017-11-14 03:46] VITALS: BP 140/53
[2017-11-14 07:20] VITALS: BP 140/65
[2017-11-14] MEDS: FUROSEMIDE 40 MG/4 ML VIAL. IVP SCH (08:19)
[2017-11-14] MEDS: METOPROLOL TART IMMED RELEASE 50 MG TABLET. PO SCH ×2 (08:20→20:45)
[2017-11-14] MEDS: ASCORBIC ACID 500 MG TABLET PO SCH (08:20)
[2017-11-14] MEDS: APIXABAN 5 MG TABLET. PO SCH ×2 (08:20→20:46)
[2017-11-14] MEDS: MEMANTINE 10 MG TABLET. PO SCH ×2 (08:20→20:45)
[2017-11-14] MEDS: CITALOPRAM 20 MG TABLET. PO SCH (08:21)
[2017-11-14] MEDS: ASPIRIN CHEWABLE 81 MG TABLET. PO SCH (08:21)
[2017-11-14] MEDS: TAMSULOSIN 0.4 MG CAP.ER.24H. PO SCH (08:21)
[2017-11-14] MEDS: hydrALAZINE 25 MG TABLET PO SCH ×2 (08:21→20:46)
[2017-11-14] MEDS: MULTIVITAMINS,THERAPEUTIC 5 ML ORAL LIQUID. PEG SCH (08:22)
[2017-11-14] MEDS: AMIODARONE HCL 200 MG TABLET. PO SCH ×2 (08:22→20:46)
[2017-11-14] MEDS: NYSTATIN TOPICAL POWDER 15GM BOTTLE. TP SCH (08:28)
--- NOTE | 2017-11-14 08:48 | PDOC ---
PROGRESS NOTES Chief Complaint Chief Complaint Altered mental status CVA Prostate surgery Left arm pain History of Present Illness History of Present Illness Patient is a 72-year-old male, with a past history of subarachnoid hemorrhage, and a stroke with left-sided deficit, BPH s/p turp with post-op CVA in September. According to report obtained from the patient's nursing facility, a nurse, who had the patient last night, thought that the patient had increasing left-sided facial droop yesterday. The patient states he just didn't feel well but did not have any localizing pain, nor does he express any current localizing pain, but grimaces on touching of his left arm. XR negative for fracture. CT Head in ED showed enlarged CVA possibly consistent with evolving infarct Today he is awake, visually interactive, speaking multiple words, nonsensical, delayed answers. Urine shows NGTD. His PEG fixed yesterday. To work with therapy today. A/P: Acute encephalopathy - Improving. has had delerium per sister for a few weeks. CVA may be slightly evolved by CT, no hemorrhage, will cont eliquis. Likely multifactorial. Could be medication related, will hold his psych meds and lorazepam. Less likely infectious, stop antibiotics Hypokalemia - replaced, check levels again Abnormal UA - with LE positive and recent prostate instrumentation will d/c empiric rocephin Left arm pain - likely MSK injury from fall, XR r/o fracture, pain is improving Renal insufficiency - Cr 1.3 up from prior 0.8, added free water bolus to TF 150cc every 4 hours, repeat labs CVA - exacerbation of prior infarct due to infectious encephalopathy vs evolving infarct, will cont ASA and eliquis. 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 Palliative meeting today with family Vitals Vitals Vital Signs Date Time Temp Pulse Resp B/P (MAP) Pulse Ox O2 Delivery O2 Flow Rate FiO2 11/14/17 08:22 60 140/65 11/14/17 07:20 98.6 17 94 Room Air 98.6 Physical Exam General: Other (Drowsy, can confirm his name, can answer some yes/no questions) Lungs: Clear Abdomen: Other (PEG site clean) Extremities: Other (3+ edema) Skin: Other (Skin break down on gluteus, bilateral hips and bilateral heels.) Labs LABS Laboratory Tests Test 11/13/17 11:56 11/13/17 17:07 11/13/17 20:18 11/14/17 07:23 Glucose (Fingerstick) 248 mg/dL (70-99) 203 mg/dL (70-99) 191 mg/dL (70-99) 204 mg/dL (70-99) Assessment and Plan Assessmemt and Plan Problems Medical Problems: (1) Altered mental status Status: Acute (2) UTI (urinary tract infection) Status: Acute Comment Review of Relevant I have reviewed the following items turner (where applicable) has been applied. Labs Laboratory Tests Test 11/12/17 11:20 11/12/17 11:36 11/12/17 12:25 11/12/17 16:08 Sodium Level 140 mmol/L (136-145) Potassium Level 3.5 mmol/L (3.5-5.1) Chloride Level 104 mmol/L (98-107) Carbon Dioxide Level 28 mmol/L (21-32) Anion Gap 8 (6-14) Blood Urea Nitrogen 27 mg/dL (8-26) Creatinine 1.2 mg/dL (0.7-1.3) Estimated GFR (Cockcroft-Gault) 59.5 Glucose Level 152 mg/dL (70-99) Calcium Level 8.3 mg/dL (8.5-10.1) Glucose (Fingerstick) 158 mg/dL (70-99) 186 mg/dL (70-99) White Blood Count 9.2 x10^3/uL (4.0-11.0) Red Blood Count 3.62 x10^6/uL (4.30-5.70) Hemoglobin 11.1 g/dL (13.0-17.5) Hematocrit 32.1 % (39.0-53.0) Mean Corpuscular Volume 89 fL (79-100) Mean Corpuscular Hemoglobin 31 pg (25-35) Mean Corpuscular Hemoglobin Concent 34 g/dL (31-37) Red Cell Distribution Width 13.5 % (11.5-14.5) Platelet Count 196 x10^3/uL (140-400) Neutrophils (%) (Auto) 73 % (31-73) Lymphocytes (%) (Auto) 12 % (24-48) Monocytes (%) (Auto) 10 % (0-9) Eosinophils (%) (Auto) 3 % (0-3) Basophils (%) (Auto) 1 % (0-3) Neutrophils # (Auto) 6.8 x10^3uL (1.8-7.7) Lymphocytes # (Auto) 1.1 x10^3/uL (1.0-4.8) Monocytes # (Auto) 0.9 x10^3/uL (0.0-1.1) Eosinophils # (Auto) 0.3 x10^3/uL (0.0-0.7) Basophils # (Auto) 0.1 x10^3/uL (0.0-0.2) Test 11/12/17 20:00 11/13/17 04:40 11/13/17 07:16 11/13/17 11:56 Glucose (Fingerstick) 185 mg/dL (70-99) 180 mg/dL (70-99) 248 mg/dL (70-99) White Blood Count 7.4 x10^3/uL (4.0-11.0) Red Blood Count 3.47 x10^6/uL (4.30-5.70) Hemoglobin 10.5 g/dL (13.0-17.5) Hematocrit 30.9 % (39.0-53.0) Mean Corpuscular Volume 89 fL (79-100) Mean Corpuscular Hemoglobin 30 pg (25-35) Mean Corpuscular Hemoglobin Concent 34 g/dL (31-37) Red Cell Distribution Width 13.1 % (11.5-14.5) Platelet Count 196 x10^3/uL (140-400) Neutrophils (%) (Auto) 61 % (31-73) Lymphocytes (%) (Auto) 22 % (24-48) Monocytes (%) (Auto) 11 % (0-9) Eosinophils (%) (Auto) 4 % (0-3) Basophils (%) (Auto) 1 % (0-3) Neutrophils # (Auto) 4.5 x10^3uL (1.8-7.7) Lymphocytes # (Auto) 1.6 x10^3/uL (1.0-4.8) Monocytes # (Auto) 0.8 x10^3/uL (0.0-1.1) Eosinophils # (Auto) 0.3 x10^3/uL (0.0-0.7) Basophils # (Auto) 0.1 x10^3/uL (0.0-0.2) Sodium Level 142 mmol/L (136-145) Potassium Level 3.4 mmol/L (3.5-5.1) Chloride Level 105 mmol/L (98-107) Carbon Dioxide Level 30 mmol/L (21-32) Anion Gap 7 (6-14) Blood Urea Nitrogen 27 mg/dL (8-26) Creatinine 1.2 mg/dL (0.7-1.3) Estimated GFR (Cockcroft-Gault) 59.5 Glucose Level 175 mg/dL (70-99) Calcium Level 8.7 mg/dL (8.5-10.1) Test 11/13/17 17:07 11/13/17 20:18 11/14/17 07:23 Glucose (Fingerstick) 203 mg/dL (70-99) 191 mg/dL (70-99) 204 mg/dL (70-99) Laboratory Tests Test 11/13/17 11:56 11/13/17 17:07 11/13/17 20:18 11/14/17 07:23 Glucose (Fingerstick) 248 mg/dL (70-99) 203 mg/dL (70-99) 191 mg/dL (70-99) 204 mg/dL (70-99) Microbiology 11/10/17 Urine Culture - Final, Complete 11/10/17 Urine Culture Result 1 (YOEL) - Final, Complete Medications Current Medications Ceftriaxone Sodium 50 ml @ 100 mls/hr 1X ONCE IV Last administered on at 01:15; Start 11/11/17 at 01:15; Stop 11/11/17 at 01:44; Status DC Ceftriaxone Sodium 1 gm/ Dextrose 50 ml @ 100 mls/hr Q24H IV ; Start 11/11/17 at 21:00; Status UNV Dextrose/Sodium Chloride 1,000 ml @ 100 mls/hr 1X ONCE IV Last administered on 11/11/17at 08:37; Start 11/11/17 at 07:00; Stop 11/11/17 at 16:59; Status DC Ceftriaxone Sodium (Rocephin) 1 gm Q24H IVP Last administered on 11/12/17 20: 21; Start 11/11/17 at 21:00; Stop 11/13/17 at 08:53; Status DC Ascorbic Acid (Vitamin C) 500 mg DAILY PO Last administered on 11/14/17 08:20 ; Start 11/12/17 at 09:00 Multivitamins (Thera-Plus Oral Liquid) 5 ml DAILY PEG Last administered on 11/14 08:22; Start 11/12/17 at 09:00 Amiodarone HCl (Cordarone) 200 mg BID PO Last administered on 11/14/17 08:22; Start 11/11/17 at 21:00 Apixaban (Eliquis) 5 mg BID PO ; Start 11/11/17 at 21:00; Stop 11/11/17 at 21:00 ; Status DC Aspirin (Children'S Aspirin) 81 mg DAILY PO Last administered on 11/14/17 08: 21; Start 11/11/17 at 16:00 Insulin Glargine (Lantus) 25 units QHS SQ Last administered on 11/13/17 21:10 ; Start 11/11/17 at 21:00 Metoprolol Tartrate (Lopressor) 100 mg BID PO Last administered on 11/14/17 08 :20; Start 11/11/17 at 21:00 Nystatin (Nystop) 1 rosalina DAILY TP Last administered on 11/14/17 08:28; Start 11/11/17 at 16:00 Tamsulosin HCl (Flomax) 0.4 mg DAILY PO Last administered on 11/14/17 08:21; Start 11/11/17 at 16:00 Citalopram Hydrobromide (CeleXA) 40 mg DAILY PO Last administered on 11/14/17 08:21; Start 11/11/17 at 16:00 Hydralazine HCl (Apresoline) 25 mg BID PO Last administered on 11/14/17 08:21 ; Start 11/11/17 at 21:00 Memantine (Namenda) 10 mg BID PO Last administered on 11/14/17 08:20; Start 11/11/17 at 21:00 Non-Formulary Medication (Rosuvastatin Calcium (Crestor)) 5 mg HS PO ; Start at 21:00; Status UNV Furosemide (Lasix) 40 mg DAILY IVP ; Start 11/12/17 at 09:00; Stop 11/12/17 at 09:00; Status DC Apixaban (Eliquis) 5 mg BID PO Last administered on 11/14/17at 08:20; Start 11/11/17 at 21:00 Insulin Human Lispro (HumaLOG) 0-9 UNITS TIDWMEALS SQ Last administered on 11/13at 17:00; Start 11/11/17 at 17:00 Dextrose (Dextrose 50%-Water Syringe) 12.5 gm PRN Q15MIN PRN IV SEE COMMENTS; Start 11/11/17 at 15:45 Info (Anti-Coagulation Monitoring By Pharmacy) 1 each PRN DAILY PRN MC SEE COMMENTS Last administered on 11/13/17at 14:43; Start 11/11/17 at 16:30 Furosemide (Lasix) 40 mg DAILY IVP Last administered on 11/14/17 08:19; Start 11/11/17 at 16:45 Cetirizine HCl (ZyrTEC) 10 mg HS PO Last administered on 11/13/17at 20:57; Start 11/12/17 at 21:00 Acetaminophen (Tylenol) 1,000 mg PRN Q6HRS PRN PEG MILD PAIN / TEMP Last administered on 11/13/17at 18:31; Start 11/12/17 at 19:30 Active Scripts Active Reported Metoprolol Tartrate 100 Mg Tablet 100 Mg PO BID Multivitamins (Multivitamin) 1 Each Tablet 1 Tab PO DAILY Hydralazine Hcl 25 Mg Tablet 1 Tab PO BID Donepezil Hcl 5 Mg Tab.rapdis 5 Mg PO HS B-12 (Cyanocobalamin (Vitamin B-12)) 1,000 Mcg Tablet 1,000 Mcg PO DAILY Aspirin 81 Mg Tab.chew 1 Tab PO DAILY Eliquis (Apixaban) 5 Mg Tablet 5 Mg PO BID Amiodarone Hcl 200 Mg Tablet 200 Mg PO BID Tylenol (Acetaminophen) 325 Mg Tablet 2 Tab PO PRN Q4HRS Benazepril Hcl 40 Mg Tablet 1 Tab PO DAILY Gabapentin 600 Mg Tablet 1,800 Mg PO QHS Furosemide 80 Mg Tablet 1 Tab PO DAILY Celexa (Citalopram Hydrobromide) 40 Mg Tablet 40 Mg PO DAILY Vitamin D (Cholecalciferol (Vitamin D3)) 1,000 Unit Capsule 1 Cap PO DAILY Cetirizine Hcl 10 Mg Tablet 1 Tab PO HS Crestor (Rosuvastatin Calcium) 5 Mg Tablet 5 Mg PO HS Potassium Chloride 20 Meq Tablet.er 20 Meq PO DAILY Zofran Odt (Ondansetron) 4 Mg Tab.rapdis 4 Mg PO BID PRN Namenda (Memantine Hcl) 10 Mg Tablet 10 Mg PO BID Melatonin 3 Mg Tablet 5 Mg PO QHS Humalog (Insulin Lispro) 100 Unit/1 Ml Cartridge 100 Unit SQ sliding scale Lantus Solostar (Insulin Glargine,Hum.rec.anlog) 100 Unit/1 Ml Insuln.pen 25 Unit SQ QHS Lantus Solostar (Insulin Glargine,Hum.rec.anlog) 100 Unit/1 Ml Insuln.pen 50 Unit SQ DAILY08 Tamsulosin Hcl 0.4 Mg Cap.er.24h 0.4 Mg PO DAILY Nystatin 15 Gm Powder 15 Gm TP [place] (Bimatoprost) 2.5 Ml Drops 2.5 Ml OP Lorazepam 0.5 Mg Tablet 0.5 Mg PO BID Flonase Allergy Relief (Fluticasone Propionate) 9.9 Ml [place].susp Unknown Dose NS DAILY Fenofibrate (Fenofibrate,Micronized) 134 Mg Capsule 134 Mg PO DAILY Bupropion Xl (Bupropion Hcl) 300 Mg Tab.er.24h 300 Mg PO Vitals/I & O Vital Sign - Last 24 Hours 11/13/17 11/13/17 11/13/17 11/13/17 08:48 08:49 11:00 15:00 Temp 98.6 98.1 98.6 98.1 Pulse 64 64 62 61 Resp 20 18 B/P (MAP) 137/53 137/53 116/52 (73) 137/43 (74) Pulse Ox 96 100 O2 Delivery Room Air Room Air 11/13/17 11/13/17 11/13/17 11/13/17 19:37 20:00 20:55 20:56 Temp 98.4 98.4 Pulse 71 71 71 Resp 20 B/P (MAP) 129/51 (77) 129/51 129/51 Pulse Ox 94 O2 Delivery Room Air Room Air 11/13/17 11/13/17 11/14/17/8/18 20:56 23:03 03:46 07:20 Temp 97.8 98.1 98.6 97.8 98.1 98.6 Pulse 71 58 60 60 Resp 16 16 17 B/P (MAP) 129/51 133/59 (83) 140/53 (82) 140/65 (90) Pulse Ox 95 93 94 O2 Delivery Room Air Room Air Room Air 11/14/17 11/14/17 11/14/17 08:20 08:21 08:22 Pulse 60 60 60 B/P (MAP) 140/65 140/65 140/65 Intake and Output 11/13/17 11/13/17 11/14/17 15:00 23:00 07:00 Intake Total 0 ml 0 ml Output Total 1200 ml 500 ml Balance -1200 ml -500 ml SCARLET HERNDON MD Nov 14, 2017 08:48
[2017-11-14] MEDS: INSULIN LISPRO 300 UNITS/3 ML INSULN.PEN. SQ SCH ×3 (08:49→18:02)
[2017-11-14 10:39] VITALS: BP 123/53
--- NOTE | 2017-11-14 11:19 | PDOC2 ---
PALLIATIVE CARE Palliative Care Note Palliative Care Patient more alert through the weekend. Family reports not as "talkative" today as Tuesday. Family asked to meet outside the room Met with brother Joel, sister Chuck and sister/DPOA Luz Elena. Reviewed medical condition per medical assessment; Mental status improved--concern for UTI --emperic antibiotic--WBC improved. Recent prostate surgery, CVA; DM, Left arm pain--fell out of bed at [facility] x 2 Per family, patient has periods where he is improving and then declines. Concerned that he is leaving the hospital too soon and [facility] can not handle his medical needs. Patient would want not want aggressive care if he were not able to improve. Has been clear about this too family. If he can improve he would want to continue with PT/OT, and get back to eating normally. Family aware swallow evaluation, PT/OT evaluation pending. Family shared that patient was exposed to Agent [place] during his [place] tour. Worked for [employer] most of his life. Confirmed DNR/DNI. Outside the Hospital form completed. Will need physician signature. Family want to speak to physician; Dr. Sams notified who will speak with family. Family does not want to return [facility]. Interested in Rehab facility [facility] to [facility]. Above reviewed with Dr. Sams and CHUCK Ott Nov 14, 2017 11:19
[2017-11-14] MEDS: ANTI-COAG MONITOR BY PHARMACY. MC PRN (12:18)
[2017-11-14] MEDS ORDERED: FUROSEMIDE 40 MG/4 ML VIAL. IVP ONE (12:30)
[2017-11-14 14:43] VITALS: BP 122/54
[2017-11-14 19:47] VITALS: BP 136/61
[2017-11-14] MEDS: CETIRIZINE HCL 10 MG TABLET. PO SCH (20:46)
[2017-11-14] MEDS: INSULIN GLARGINE 300 UNITS/3 ML INSULN.PEN. SQ SCH (20:52)
[2017-11-14 23:00] VITALS: BP 145/98
[2017-11-14] MEDS: ACETAMINOPHEN 650 MG/20.3 ML SOLUTION. PEG PRN (23:36)
[2017-11-14] MEDS ORDERED: ACETAMINOPHEN 650 MG/20.3 ML SOLUTION. PEG PRN (23:45)
[2017-11-15 03:12] VITALS: BP 113/41
[2017-11-15 04:36] LABS: CALCIUM 8.5 mg/dL (8.5-10.1); CREATININE 1.3 mg/dL (0.7-1.3); GFR 54.3; POTASSIUM 3.3 mmol/L (3.5-5.1)
[2017-11-15 07:48] VITALS: BP 128/44
[2017-11-15] MEDS: INSULIN LISPRO 300 UNITS/3 ML INSULN.PEN. SQ SCH ×2 (08:00→12:00)
[2017-11-15] MEDS: APIXABAN 5 MG TABLET. PO SCH (08:33)
[2017-11-15] MEDS: MEMANTINE 10 MG TABLET. PO SCH (08:33)
[2017-11-15] MEDS: ASCORBIC ACID 500 MG TABLET PO SCH (08:34)
[2017-11-15] MEDS: hydrALAZINE 25 MG TABLET PO SCH (08:34)
[2017-11-15] MEDS: ASPIRIN CHEWABLE 81 MG TABLET. PO SCH (08:34)
[2017-11-15] MEDS: TAMSULOSIN 0.4 MG CAP.ER.24H. PO SCH (08:34)
[2017-11-15] MEDS: CITALOPRAM 20 MG TABLET. PO SCH (08:34)
[2017-11-15] MEDS: AMIODARONE HCL 200 MG TABLET. PO SCH (08:34)
[2017-11-15] MEDS: METOPROLOL TART IMMED RELEASE 50 MG TABLET. PO SCH (08:35)
[2017-11-15] MEDS: FUROSEMIDE 40 MG/4 ML VIAL. IVP SCH (08:36)
[2017-11-15] MEDS: NYSTATIN TOPICAL POWDER 15GM BOTTLE. TP SCH (08:36)
[2017-11-15] MEDS: MULTIVITAMINS,THERAPEUTIC 5 ML ORAL LIQUID. PEG SCH (08:36)
[2017-11-15 11:06] VITALS: BP 129/53
--- NOTE | 2017-11-15 11:12 | DISCH ---
DISCHARGE DISCHARGE INFORMATION: FINAL DIAGNOSIS Problems Medical Problems: (1) Altered mental status Status: Acute (2) UTI (urinary tract infection) Status: Acute CONDITION ON DISCHARGE: Stable CODE STATUS: Code Status: Full [facility]: SNF STAY <30 DAYS: Yes HOSPICE: HOSPICE: No HOSPICE EVAL & TREAT: No LTAC: ADMIT TO LTAC: No POST DISCHARGE ORDERS: ACTIVITY ORDERS: Bedrest today, Other ROM activity DIET AFTER DISCHARGE: Cardiac WOUND/INCISION CARE: Keep wound/cast CDI TREATMENT/EQUIPMENT ORDERS: Physical Therapy For: Evalulation/Treatment Occupational Therapy For: Evaluation/Treatment DISCHARGE MEDICATIONS: Home Meds Reported Medications Metoprolol Tartrate (METOPROLOL TARTRATE) 100 Mg Tablet, 100 MG PO BID for FOR HYPERTENSION, #60 TAB 0 Refills 11/11/17 Multivitamin (MULTIVITAMINS) 1 Each Tablet, 1 TAB PO DAILY, #90 TAB 3 Refills 11/11/17 Hydralazine Hcl (HYDRALAZINE HCL) 25 Mg Tablet, 1 TAB PO BID, #60 TAB 5 Refills 11/11/17 Donepezil Hcl (DONEPEZIL HCL) 5 Mg Tab.rapdis, 5 MG PO HS, TAB 11/11/17 Cyanocobalamin (Vitamin B-12) (B-12) 1,000 Mcg Tablet, 1000 MCG PO DAILY, TAB 10/28/17 Aspirin (ASPIRIN) 81 Mg Tab.chew, 1 TAB PO DAILY, #30 TAB 3 Refills 10/28/17 Apixaban (ELIQUIS) 5 Mg Tablet, 5 MG PO BID, TAB 10/28/17 Amiodarone Hcl (AMIODARONE HCL) 200 Mg Tablet, 200 MG PO BID, TAB 10/28/17 Acetaminophen (TYLENOL) 325 Mg Tablet, 2 TAB PO PRN Q4HRS, #30 TAB 10/28/17 Benazepril Hcl (BENAZEPRIL HCL) 40 Mg Tablet, 1 TAB PO DAILY, #30 TAB 5 Refills 10/28/17 Gabapentin (GABAPENTIN) 600 Mg Tablet, 1800 MG PO QHS, TAB 10/28/17 Furosemide (FUROSEMIDE) 80 Mg Tablet, 1 TAB PO DAILY, #30 TAB 5 Refills 10/28/17 Citalopram Hydrobromide (CELEXA) 40 Mg Tablet, 40 MG PO DAILY, TAB 10/28/17 Cholecalciferol (Vitamin D3) (VITAMIN D) 1,000 Unit Capsule, 1 CAP PO DAILY, # 30 CAP 3 Refills 10/28/17 Cetirizine Hcl (CETIRIZINE HCL) 10 Mg Tablet, 1 TAB PO HS, #30 TAB 5 Refills 10/28/17 Rosuvastatin Calcium (CRESTOR) 5 Mg Tablet, 5 MG PO HS for FOR CHOLESTEROL, #30 TAB 0 Refills 10/28/17 Potassium Chloride (POTASSIUM CHLORIDE) 20 Meq Tablet.er, 20 MEQ PO DAILY, TAB.SR 10/28/17 Ondansetron (ZOFRAN ODT) 4 Mg Tab.rapdis, 4 MG PO BID PRN for NAUSEA/VOMITING, TAB 10/28/17 Memantine Hcl (NAMENDA) 10 Mg Tablet, 10 MG PO BID, TAB 10/28/17 Melatonin (MELATONIN) 3 Mg Tablet, 5 MG PO QHS, TAB 10/28/17 Insulin Lispro (HUMALOG) 100 Unit/1 Ml Cartridge, 100 UNIT SQ, EACH sliding scale 10/28/17 Insulin Glargine,Hum.rec.anlog (LANTUS SOLOSTAR) 100 Unit/1 Ml Insuln.pen, 25 UNIT SQ QHS, #15 ML 5 Refills 10/28/17 Insulin Glargine,Hum.rec.anlog (LANTUS SOLOSTAR) 100 Unit/1 Ml Insuln.pen, 50 UNIT SQ DAILY08, #15 ML 3 Refills 10/28/17 Tamsulosin Hcl (TAMSULOSIN HCL) 0.4 Mg Cap.er.24h, 0.4 MG PO DAILY, TAB 05/10/17 Nystatin (NYSTATIN) 15 Gm Powder, 15 GM TP, MISC 05/10/17 Bimatoprost (LUMIGAN) 2.5 Ml Drops, 2.5 ML OP, DROP 05/10/17 Lorazepam (LORAZEPAM) 0.5 Mg Tablet, 0.5 MG PO BID, TAB 05/10/17 Fluticasone Propionate (Flonase Allergy Relief) 9.9 Ml [place].susp, NS DAILY, BOTTLE 05/10/17 Fenofibrate,Micronized (FENOFIBRATE) 134 Mg Capsule, 134 MG PO DAILY, CAP 05/10/17 Bupropion Hcl (BUPROPION XL) 300 Mg Tab.er.24h, 300 MG PO, TAB.SR 05/10/17 Discontinued Reported Medications Donepezil Hcl (ARICEPT) 10 Mg Tablet, 1 TAB PO DAILY, #90 TAB 3 Refills 10/28/17 Metoprolol Succinate (Metoprolol Succinate) 50 Mg Tab.er.24h, 100 MG PO BID, TAB.SR 10/28/17 TOREY CHRIS III DO Nov 15, 2017 11:12
--- NOTE | 2017-11-15 11:46 | PDOC ---
PROGRESS NOTES Chief Complaint Chief Complaint Altered mental status CVA Prostate surgery Left arm pain UTI History of Present Illness History of Present Illness Pt seen and examined Dw RN Resting w/NAD Vitals Vitals Vital Signs Date Time Temp Pulse Resp B/P (MAP) Pulse Ox O2 Delivery O2 Flow Rate FiO2 11/15/17 11:06 98.7 74 18 129/53 (78) 97 Room Air 98.7 Physical Exam General: No acute distress, Other (Drowsy, can confirm his name, can answer some yes/no questions) Heart: Regular rate, Normal S1 Lungs: Clear Abdomen: Normal bowel sounds, Soft, Other (PEG site clean) Extremities: No clubbing, Other (3+ edema) Skin: No rashes, Other (Skin break down on gluteus, bilateral hips and bilateral heels.) Labs LABS Laboratory Tests Test 11/14/17 12:45 11/14/17 12:58 11/14/17 17:48 11/14/17 20:43 Magnesium Level 1.9 mg/dL (1.8-2.4) Glucose (Fingerstick) 259 mg/dL (70-99) 265 mg/dL (70-99) 228 mg/dL (70-99) Test 11/15/17 03:15 11/15/17 06:28 11/15/17 07:59 Sodium Level 143 mmol/L (136-145) Potassium Level 3.3 mmol/L (3.5-5.1) Chloride Level 103 mmol/L (98-107) Carbon Dioxide Level 32 mmol/L (21-32) Anion Gap 8 (6-14) Blood Urea Nitrogen 31 mg/dL (8-26) Creatinine 1.3 mg/dL (0.7-1.3) Estimated GFR (Cockcroft-Gault) 54.3 Glucose Level 198 mg/dL (70-99) Calcium Level 8.5 mg/dL (8.5-10.1) Glucose (Fingerstick) 190 mg/dL (70-99) 198 mg/dL (70-99) Review of Systems Review of Systems Resting NAD Assessment and Plan Assessmemt and Plan Assessment: Altered mental status CVA Prostate surgery Left arm pain UTI Plan: IVF Continue PEG Replace potassium prn TPN Labs Home meds Antibiotics Comment Review of Relevant I have reviewed the following items turner (where applicable) has been applied. Labs Laboratory Tests Test 11/13/17 11:56 11/13/17 17:07 11/13/17 20:18 11/14/17 07:23 Glucose (Fingerstick) 248 mg/dL (70-99) 203 mg/dL (70-99) 191 mg/dL (70-99) 204 mg/dL (70-99) Test 11/14/17 12:45 11/14/17 12:58 11/14/17 17:48 11/14/17 20:43 Magnesium Level 1.9 mg/dL (1.8-2.4) Glucose (Fingerstick) 259 mg/dL (70-99) 265 mg/dL (70-99) 228 mg/dL (70-99) Test 11/15/17 03:15 11/15/17 06:28 11/15/17 07:59 Sodium Level 143 mmol/L (136-145) Potassium Level 3.3 mmol/L (3.5-5.1) Chloride Level 103 mmol/L (98-107) Carbon Dioxide Level 32 mmol/L (21-32) Anion Gap 8 (6-14) Blood Urea Nitrogen 31 mg/dL (8-26) Creatinine 1.3 mg/dL (0.7-1.3) Estimated GFR (Cockcroft-Gault) 54.3 Glucose Level 198 mg/dL (70-99) Calcium Level 8.5 mg/dL (8.5-10.1) Glucose (Fingerstick) 190 mg/dL (70-99) 198 mg/dL (70-99) Laboratory Tests Test 11/14/17 12:45 11/14/17 12:58 11/14/17 17:48 11/14/17 20:43 Magnesium Level 1.9 mg/dL (1.8-2.4) Glucose (Fingerstick) 259 mg/dL (70-99) 265 mg/dL (70-99) 228 mg/dL (70-99) Test 11/15/17 03:15 11/15/17 06:28 11/15/17 07:59 Sodium Level 143 mmol/L (136-145) Potassium Level 3.3 mmol/L (3.5-5.1) Chloride Level 103 mmol/L (98-107) Carbon Dioxide Level 32 mmol/L (21-32) Anion Gap 8 (6-14) Blood Urea Nitrogen 31 mg/dL (8-26) Creatinine 1.3 mg/dL (0.7-1.3) Estimated GFR (Cockcroft-Gault) 54.3 Glucose Level 198 mg/dL (70-99) Calcium Level 8.5 mg/dL (8.5-10.1) Glucose (Fingerstick) 190 mg/dL (70-99) 198 mg/dL (70-99) Microbiology 11/10/17 Urine Culture - Final, Complete 11/10/17 Urine Culture Result 1 (YOEL) - Final, Complete Medications Current Medications Ceftriaxone Sodium 50 ml @ 100 mls/hr 1X ONCE IV Last administered on at 01:15; Start 11/11/17 at 01:15; Stop 11/11/17 at 01:44; Status DC Ceftriaxone Sodium 1 gm/ Dextrose 50 ml @ 100 mls/hr Q24H IV ; Start 11/11/17 at 21:00; Status UNV Dextrose/Sodium Chloride 1,000 ml @ 100 mls/hr 1X ONCE IV Last administered on 11/11/17at 08:37; Start 11/11/17 at 07:00; Stop 11/11/17 at 16:59; Status DC Ceftriaxone Sodium (Rocephin) 1 gm Q24H IVP Last administered on 11/12/17at 20: 21; Start 11/11/17 at 21:00; Stop 11/13/17 at 08:53; Status DC Ascorbic Acid (Vitamin C) 500 mg DAILY PO Last administered on 11/15/17at 08:34 ; Start 11/12/17 at 09:00 Multivitamins (Thera-Plus Oral Liquid) 5 ml DAILY PEG Last administered on 11/15at 08:36; Start 11/12/17 at 09:00 Amiodarone HCl (Cordarone) 200 mg BID PO Last administered on 11/15/17at 08:34; Start 11/11/17 at 21:00 Apixaban (Eliquis) 5 mg BID PO ; Start 11/11/17 at 21:00; Stop 11/11/17 at 21:00 ; Status DC Aspirin (Children'S Aspirin) 81 mg DAILY PO Last administered on 11/15/17at 08: 34; Start 11/11/17 at 16:00 Insulin Glargine (Lantus) 25 units QHS SQ Last administered on 11/14/17 20:52 ; Start 11/11/17 at 21:00 Metoprolol Tartrate (Lopressor) 100 mg BID PO Last administered on 11/15/17 08 :35; Start 11/11/17 at 21:00 Nystatin (Nystop) 1 rosalina DAILY TP Last administered on 11/15/17 08:36; Start 11/11/17 at 16:00 Tamsulosin HCl (Flomax) 0.4 mg DAILY PO Last administered on 11/15/17 08:34; Start 11/11/17 at 16:00 Citalopram Hydrobromide (CeleXA) 40 mg DAILY PO Last administered on 11/15/17 08:34; Start 11/11/17 at 16:00 Hydralazine HCl (Apresoline) 25 mg BID PO Last administered on 11/15/17 08:34 ; Start 11/11/17 at 21:00 Memantine (Namenda) 10 mg BID PO Last administered on 11/15/17 08:33; Start 11/11/17 at 21:00 Non-Formulary Medication (Rosuvastatin Calcium (Crestor)) 5 mg HS PO ; Start at 21:00; Status UNV Furosemide (Lasix) 40 mg DAILY IVP ; Start 11/12/17 at 09:00; Stop 11/12/17 at 09:00; Status DC Apixaban (Eliquis) 5 mg BID PO Last administered on 11/15/17 08:33; Start 11/11/17 at 21:00 Insulin Human Lispro (HumaLOG) 0-9 UNITS TIDWMEALS SQ Last administered on 11/14 18:02; Start 11/11/17 at 17:00 Dextrose (Dextrose 50%-Water Syringe) 12.5 gm PRN Q15MIN PRN IV SEE COMMENTS; Start 11/11/17 at 15:45 Info (Anti-Coagulation Monitoring By Pharmacy) 1 each PRN DAILY PRN MC SEE COMMENTS Last administered on 11/14/17 12:18; Start 11/11/17 at 16:30 Furosemide (Lasix) 40 mg DAILY IVP Last administered on 11/15/17 08:36; Start 11/11/17 at 16:45 Cetirizine HCl (ZyrTEC) 10 mg HS PO Last administered on 11/14/17at 20:46; Start 11/12/17 at 21:00 Acetaminophen (Tylenol) 1,000 mg PRN Q6HRS PRN PEG MILD PAIN / TEMP Last administered on 11/14/17at 23:36; Start 11/12/17 at 19:30 Furosemide (Lasix) 40 mg 1X ONCE IVP Last administered on 11/14/17at 12:52; Start 11/14/17 at 12:30; Stop 11/14/17 at 12:31; Status DC Acetaminophen (Tylenol) 650 mg PRN Q6HRS PRN PEG MILD PAIN / TEMP; Start at 23:45 Active Scripts Active Reported Metoprolol Tartrate 100 Mg Tablet 100 Mg PO BID Multivitamins (Multivitamin) 1 Each Tablet 1 Tab PO DAILY Hydralazine Hcl 25 Mg Tablet 1 Tab PO BID Donepezil Hcl 5 Mg Tab.rapdis 5 Mg PO HS B-12 (Cyanocobalamin (Vitamin B-12)) 1,000 Mcg Tablet 1,000 Mcg PO DAILY Aspirin 81 Mg Tab.chew 1 Tab PO DAILY Eliquis (Apixaban) 5 Mg Tablet 5 Mg PO BID Amiodarone Hcl 200 Mg Tablet 200 Mg PO BID Tylenol (Acetaminophen) 325 Mg Tablet 2 Tab PO PRN Q4HRS Benazepril Hcl 40 Mg Tablet 1 Tab PO DAILY Gabapentin 600 Mg Tablet 1,800 Mg PO QHS Furosemide 80 Mg Tablet 1 Tab PO DAILY Celexa (Citalopram Hydrobromide) 40 Mg Tablet 40 Mg PO DAILY Vitamin D (Cholecalciferol (Vitamin D3)) 1,000 Unit Capsule 1 Cap PO DAILY Cetirizine Hcl 10 Mg Tablet 1 Tab PO HS Crestor (Rosuvastatin Calcium) 5 Mg Tablet 5 Mg PO HS Potassium Chloride 20 Meq Tablet.er 20 Meq PO DAILY Zofran Odt (Ondansetron) 4 Mg Tab.rapdis 4 Mg PO BID PRN Namenda (Memantine Hcl) 10 Mg Tablet 10 Mg PO BID Melatonin 3 Mg Tablet 5 Mg PO QHS Humalog (Insulin Lispro) 100 Unit/1 Ml Cartridge 100 Unit SQ sliding scale Lantus Solostar (Insulin Glargine,Hum.rec.anlog) 100 Unit/1 Ml Insuln.pen 25 Unit SQ QHS Lantus Solostar (Insulin Glargine,Hum.rec.anlog) 100 Unit/1 Ml Insuln.pen 50 Unit SQ DAILY08 Tamsulosin Hcl 0.4 Mg Cap.er.24h 0.4 Mg PO DAILY Nystatin 15 Gm Powder 15 Gm TP [place] (Bimatoprost) 2.5 Ml Drops 2.5 Ml OP Lorazepam 0.5 Mg Tablet 0.5 Mg PO BID Flonase Allergy Relief (Fluticasone Propionate) 9.9 Ml [place].susp Unknown Dose NS DAILY Fenofibrate (Fenofibrate,Micronized) 134 Mg Capsule 134 Mg PO DAILY Bupropion Xl (Bupropion Hcl) 300 Mg Tab.er.24h 300 Mg PO Vitals/I & O Vital Sign - Last 24 Hours 11/14/17 11/14/17 11/14/17 11/14/17 14:43 19:47 20:00 20:45 Temp 98.3 98.5 98.3 98.5 Pulse 65 18 Resp 20 18 B/P (MAP) 122/54 (76) 136/61 (86) 136/61 Pulse Ox 94 93 O2 Delivery Room Air Room Air Room Air 11/14/17 11/14/17 11/14/17 11/15/17 20:46 20:46 23:00 03:12 Temp 98.4 98.6 98.4 98.6 Pulse 62 57 Resp 18 16 B/P (MAP) 136/61 136/61 145/98 (114) 113/41 (65) Pulse Ox 92 94 O2 Delivery Room Air Room Air 11/15/17 11/15/17 11/15/17 11/15/17 07:48 08:00 08:34 08:34 Temp 98.7 98.7 Pulse 60 60 60 Resp 18 B/P (MAP) 128/44 (72) 128/44 128/44 Pulse Ox 96 O2 Delivery Room Air Room Air 11/15/17 11/15/17 08:35 11:06 Temp 98.7 98.7 Pulse 60 74 Resp 18 B/P (MAP) 128/44 129/53 (78) Pulse Ox 97 O2 Delivery Room Air Intake and Output 11/14/17 11/14/17 11/15/17 15:00 23:00 07:00 Intake Total 0 ml Output Total 1900 ml 650 ml Balance -1900 ml -650 ml TOREY CHRIS III DO Nov 15, 2017 11:46
[2017-11-15] MEDS ORDERED: POTASSIUM CHLORIDE 20 MEQ/15 ML ORAL LIQUID. PEG ONE (12:15)
[2017-11-15] MEDS ORDERED: POTASSIUM CHLORIDE 20 MEQ TABLET.ER. PO ONE (12:30)
== END 2017-11-15 13:00 | DRG 64 ==
LOC: ER 23:31 → 6 SOUTH 11-11 03:14
PROVIDERS: ADMIT Internal Medicine; ATTEND Internal Medicine
DX: I63.9 Cerebral infarction, unspecified (principal); E43 Unspecified severe protein-calorie malnutrition; I69.354 Hemiplegia and hemiparesis following cerebral infarction affecting left non-dominant side; N39.0 Urinary tract infection, site not specified; G93.49 Other encephalopathy; F32.9 Major depressive disorder, single episode, unspecified; M19.90 Unspecified osteoarthritis, unspecified site; E11.9 Type 2 diabetes mellitus without complications; E87.6 Hypokalemia; I48.91 Unspecified atrial fibrillation; F03.90 Unspecified dementia, unspecified severity, without behavioral disturbance, psychotic disturbance, mood disturbance, and anxiety; I10 Essential (primary) hypertension; N28.9 Disorder of kidney and ureter, unspecified; I25.10 Atherosclerotic heart disease of native coronary artery without angina pectoris; E66.9 Obesity, unspecified; N40.0 Benign prostatic hyperplasia without lower urinary tract symptoms; Z66 Do not resuscitate; Z82.49 Family history of ischemic heart disease and other diseases of the circulatory system; Z90.79 Acquired absence of other genital organ(s); Z95.1 Presence of aortocoronary bypass graft; Z68.38 Body mass index [BMI] 38.0-38.9, adult; Z88.1 Allergy status to other antibiotic agents; Z88.8 Allergy status to other drugs, medicaments and biological substances; Z79.899 Other long term (current) drug therapy
CPT/HCPCS: 36415; 70450; 71045; 73060; 73090; 80048; 80053; 81001; 82553; 82962; 83605; 83690; 83735; 83880; 84484; 85025; 85610; 85730; 87086; 87641; 93005; 96365; J0690; J0696; J1815; J1940; P9612; 97110; 97530; 99285-25